=== PATIENT | female | born 1955 | race African-American/Black ===

== ENCOUNTER → 2017-01-05 | Outpatient (CLI) | payer MEDICARE, MEDICAID ==
[2017-01-05 11:30] LABS: ANION GAP 10 (5-19); BLOOD UREA NITROGEN 9 mg/dL (7-20); CALCIUM 9.2 mg/dL (8.4-10.2); CARBON DIOXIDE 26 mmol/L (22-30); CHLORIDE 103 mmol/L (98-107); CHOLESTEROL 146.41 mg/dL (0-200); CREATININE RESULT 0.78 mg/dL (0.52-1.25); Direct HDL 58 mg/dL (>40); GLUCOSE 90 mg/dL (75-110); POTASSIUM 3.7 mmol/L (3.6-5.0); SODIUM 139.2 mmol/L (137-145); TRIGLYCERIDES 58 mg/dL (<150)
[2017-01-05 11:41] LABS: DIRECT LDL 70 mg/dL (<100)
== END ==
LOC: OD 09:41
PROVIDERS: ATTEND Family Medicine
DX: I10 Essential (primary) hypertension (principal); E78.5 Hyperlipidemia, unspecified; E03.9 Hypothyroidism, unspecified; Z79.899 Other long term (current) drug therapy
CPT/HCPCS: 36415; 80048; 80061; 83036; 84443

== ENCOUNTER → 2017-03-06 | Outpatient (CLI) | payer MEDICARE, MEDICAID | LOC: OD 15:55 | PROVIDERS: ATTEND Physician Assistant Medical | DX: R06.02 Shortness of breath (principal); I51.7 Cardiomegaly | CPT/HCPCS: 71020 ==

== ENCOUNTER → 2017-06-02 | Outpatient (CLI) | payer MEDICARE, MEDICAID ==
--- NOTE | 2017-06-02 13:31 | RADIOLOGY REPORT (SQ) ---
EXAM DESCRIPTION: KNEE LEFT 4 VIEWS COMPLETED DATE/TIME: 06/02/2017 1:20 pm REASON FOR STUDY: RECURRENT MARY KNEE PAIN M25.562 PAIN IN LEFT KNEE M25.561 PAIN IN RIGHT KNEE COMPARISON: None. NUMBER OF VIEWS: Four views. TECHNIQUE: AP, lateral, and both oblique radiographic images acquired of the left knee. LIMITATIONS: None. FINDINGS: MINERALIZATION: Osteopenia. BONES: No acute fracture or dislocation. No worrisome bone lesions. JOINT: There is no significant joint effusion. There is mild narrowing of the medial and lateral ty nt compartment, medial more than lateral. There are small marginal osteophytes. There are prominent posterior patellar and trochlear osteophytes. SOFT TISSUES: No soft tissue swelling. No radio-opaque foreign body. OTHER: No other significant finding. IMPRESSION: There are mild degenerative joint changes in the medial and lateral joint compartments a nd significant patellofemoral degenerative joint changes as described. TECHNICAL DOCUMENTATION: JOB ID: [id number] [employer]- All Rights Reserved
--- NOTE | 2017-06-02 13:33 | RADIOLOGY REPORT (SQ) ---
EXAM DESCRIPTION: KNEE RIGHT 4 VIEWS COMPLETED DATE/TIME: 06/02/2017 1:20 pm REASON FOR STUDY: RECURRENT MARY KNEE PAIN M25.562 PAIN IN LEFT KNEE M25.561 PAIN IN RIGHT KNEE COMPARISON: None. NUMBER OF VIEWS: Four views. TECHNIQUE: AP, lateral, and both oblique radiographic images acquired of the right knee. LIMITATIONS: None. FINDINGS: MINERALIZATION: Osteopenia. BONES: No acute fracture or dislocation. No worrisome bone lesions. JOINT: There is mild narrowing of the medial joint compartment with small marginal osteophytes. Ther e is more significant narrowing of the patellofemoral compartment with posterior patellar and trochle ar osteophytes. SOFT TISSUES: No soft tissue swelling. No radio-opaque foreign body. OTHER: No other significant finding. IMPRESSION: Medial and patellofemoral degenerative joint changes. The more significant findings inv olves the patellofemoral compartment. The changes in this compartment are not as severe as those see n in the left knee. TECHNICAL DOCUMENTATION: JOB ID: [id number] [employer]- All Rights Reserved
== END ==
LOC: OD 12:50
PROVIDERS: ATTEND Family Medicine
DX: M25.562 Pain in left knee (principal); M25.561 Pain in right knee; M17.0 Bilateral primary osteoarthritis of knee

== ENCOUNTER → 2018-02-08 | Outpatient (CLI) | payer MEDICARE, MEDICAID ==
--- NOTE | 2018-02-09 08:40 | WOMENS IMAGING REPORT ---
EXAM DESCRIPTION: 3D SCREENING MAMMO BILAT COMPLETED DATE/TIME: 02/08/2018 4:11 pm REASON FOR STUDY: ROUTINE SCREENING;Z12.31 Z12.31 ENCNTR SCREEN MAMMOGRAM FOR MALIGNANT NEOPLASM OF [place] COMPARISON: September 2016 and September 2015 TECHNIQUE: Standard craniocaudal and mediolateral oblique views of each breast recorded using digita l acquisition and breast tomosynthesis. LIMITATIONS: None. FINDINGS: Findings present which are benign by mammographic criteria. No suspicious masses, calcifi cations or architectural distortion. Pertinent benign findings: Bilateral postsurgical changes appears stable. Small nodular changes appe ars stable. Read with the assistance of CAD. .[facility] - R2 Cenova Version 1.3 .[facility] Imaging - R2 Cenova Version 1.3 .[facility] Imaging - R2 Cenova Version 2.4 .[facility] [place]2 Cenova Version 2.4 .[facility] - R2 Fish Boning Machine Feeder Version 9.2 Benign mammographic findings may include one or more of the following: Smooth masses, popcorn/rim/co arse calcifications, asymmetries, post-procedure changes, and lesions with long-standing stability. IMPRESSION: BENIGN MAMMOGRAPHIC FINDINGS. BIRADS 2 BREAST DENSITY: a. The breasts are almost entirely fatty. BIRAD: 2 BENIGN FINDING(S) RECOMMENDATION: RECOMMENDATION: ROUTINE SCREENING COMMENT: The patient has been notified of the results by letter per SA requirements. Additional no tification policies are in place for contacting patient with suspicious or incomplete findings. Quality ID #[id number]: The [employer] recommends an annual screening mammogram for women aged 40 years or over. This facility utilizes a reminder system to ensure that all patients receive reminder letters, and/or direct phone calls for appointments. This includes reminders for routine scr eening mammograms, diagnostic mammograms, or other Breast Imaging Interventions when appropriate. Th is patient will be placed in the appropriate reminder system. The [employer] (A[employer]) has developed recommendations for screening MRI of the breast s in certain patient populations, to be used in conjunction with mammography. Breast MRI surveillanc e may be appropriate for women with more than 20% lifetime risk of developing breast cancer as deter mined by genetic testing, significant family history of the disease, or history of mantle radiation f or Hodgkins Disease. ACR Practice Guidelines 2008. DBT Technology DBT is a type of tomographic mammography. With conventional mammography, overlapping breast tissue ma y make lesions difficult to detect, even with good compression. DBT uses an x-ray tube that rotates a round the breast, taking images at different angles. These images are then combined to create thin sl ices of the breast that the radiologist can view as a 3D reconstruction. The [employer] unit can perform full-field digital mammograms (2D imaging); or DBT (3D imaging); or both, in a combination mode that quickly performs both the mammogram and the tomosynthesis scan while the breast is still compressed. PQRS 6045F: Fluoroscopic imaging is not utilized for breast tomosynthesis. TECHNICAL DOCUMENTATION: FINDING NUMBER: (1) ASSESSMENT: (1) JOB ID: [id number] [employer]- All Rights Reserved Reading location - IP/workstation name: [email or web address]-[email or web address]
== END ==
LOC: WI 15:05
PROVIDERS: ATTEND Family Medicine
DX: Z12.31 Encounter for screening mammogram for malignant neoplasm of breast (principal)
CPT/HCPCS: 77063; 77067

== ENCOUNTER 2018-05-16 14:56 | Observation (INO) | payer MEDICARE, MEDICAID ==
[2018-05-16] MEDS ORDERED: BENZTROPINE MESYLATE 1 MG TABLET PO ONE (15:17)
[2018-05-16 15:53] LABS: ABSOLUTE EOSINOPHILS # (AUTO) 0.1 10^3/uL (0.0-0.6); ABSOLUTE MONOCYTES (AUTO) 0.5 10^3/uL (0.1-1.4); BASOPHILS % (AUTO) 0.8 % (0-2); EOSINOPHILS % (AUTO) 2.2 % (0-6); HEMATOCRIT 42.8 % (36.0-47.0); HEMOGLOBIN 14.1 g/dL (12.0-15.5); MEAN CORPUSCULAR HEMOGLOBIN 26.9 pg (27.0-33.4); MEAN CORPUSCULAR HGB CONC 32.9 g/dL (32.0-36.0); MEAN CORPUSCULAR VOLUME 82 fl (80-97); MONOCYTES % (AUTO) 10.6 % (3-13); PLATELET COUNT 286 10^3/uL (150-450); RED BLOOD COUNT 5.22 10^6/uL (3.72-5.28); RED CELL DISTRIBUTION WIDTH 15.2 % (11.5-14.0); SEGMENTED NEUTROPHILS % (AUTO) 65.4 % (42-78); TOTAL CELLS COUNTED % (AUTO) 100 %; WHITE BLOOD COUNT 4.6 10^3/uL (4.0-10.5)
[2018-05-16 15:55] LABS: VENOUS BLOOD BASE EXCESS 6.5 mmol/L; VENOUS BLOOD HCO3 33.7 mmol/L (20-32); VENOUS BLOOD PCO2 59.3 mmHg (35-63); VENOUS BLOOD PH 7.37 (7.30-7.42)
[2018-05-16 15:58] LABS: INTERNATIONAL RATION (INR) 1.04; PROTHROMBIN TIME 14.1 SEC (11.4-15.4)
[2018-05-16 15:59] LABS: PARTIAL THROMBOPLASTIN TIME 29.6 SEC (23.5-35.8)
[2018-05-16 16:00] LABS: APPEARANCE,URINE SLIGHTLY-CLOUDY; BILIRUBIN,URINE NEGATIVE (NEGATIVE); COLOR,URINE YELLOW; GLUCOSE, URINE NEGATIVE (NEGATIVE); KETONES,URINE NEGATIVE (NEGATIVE); LEUKOCYTE ESTERASE,URINE MODERATE (NEGATIVE); NITRITE,URINE POSITIVE (NEGATIVE); PROTEIN,URINE NEGATIVE (NEGATIVE); URINE SPECIFIC GRAVITY 1.016
--- NOTE | 2018-05-16 16:16 | RADIOLOGY REPORT (SQ) ---
EXAM DESCRIPTION: CT HEAD WITHOUT COMPLETED DATE/TIME: 05/16/2018 4:04 pm REASON FOR STUDY: ams COMPARISON: None. TECHNIQUE: Axial images acquired through the brain without intravenous contrast. Images reviewed wi th bone, brain and subdural windows. Images stored on PACS. All CT scanners at this facility use dose modulation, iterative reconstruction, and/or weight based d osing when appropriate to reduce radiation dose to as low as reasonably achievable (ALARA). [facility]: Dose Right [facility]: CareDose [facility]: Dose Right [facility]: Teradose 4D [facility]: Smart UsingMiles RADIATION DOSE: CT Rad equipment meets quality standard of care and radiation dose reduction techniq ues were employed. CTDIvol: 53.2 - 55.2 mGy. DLP: 2074 mGy-cm. mGy. LIMITATIONS: Severe limitation due to significant patient motion artifact . FINDINGS: VENTRICLES: Normal size and contour. CEREBRUM: No masses. No hemorrhage. No midline shift. No evidence for acute infarction.CEREBELLUM: No masses. No hemorrhage. No alteration of density. No evidence for acute infarction. EXTRAAXIAL SPACES: No fluid collections. No masses. ORBITS AND GLOBE: No intra- or extraconal masses. Normal contour of globe without masses. CALVARIUM: No fracture. PARANASAL SINUSES: No fluid or mucosal thickening. SOFT TISSUES: No mass or hematoma. OTHER: Calcification along the tentorium in the falx noted. IMPRESSION: Severely limited study due to patient motion artifact. For repeat study should be consi dered when patient able to cooperate. No intracranial hemorrhage identified. EVIDENCE OF ACUTE STROKE: NO. COMMENT: Quality ID # [id number]: Final reports with documentation of one or more dose reduction techniques (e.g., Automated exposure control, adjustment of the mA and/or kV according to patient size, use of iterative reconstruction technique) TECHNICAL DOCUMENTATION: JOB ID: [id number] [employer]- All Rights Reserved Reading location - IP/workstation name: [email or web address]
--- NOTE | 2018-05-16 16:19 | RADIOLOGY REPORT (SQ) ---
EXAM DESCRIPTION: CHEST 2 VIEWS COMPLETED DATE/TIME: 05/16/2018 4:10 pm REASON FOR STUDY: ams COMPARISON: 08/25/2016 EXAM PARAMETERS: NUMBER OF VIEWS: two views TECHNIQUE: Digital Frontal and Lateral radiographic views of the chest acquired. RADIATION DOSE: NA LIMITATIONS: none FINDINGS: LUNGS AND PLEURA: Mild pulmonary vascular congestion. No pulmonary edema. No infiltrate or effusion. MEDIASTINUM AND HILAR STRUCTURES: No masses or contour abnormalities. HEART AND VASCULAR STRUCTURES: Cardiomegaly. BONES: No acute findings. HARDWARE: None in the chest. OTHER: No other significant finding. IMPRESSION: Cardiomegaly without christian pulmonary edema. TECHNICAL DOCUMENTATION: JOB ID: [id number] [employer]- All Rights Reserved Reading location - IP/workstation name: [email or web address]
[2018-05-16 16:24] LABS: ALANINE AMINOTRANSFERASE 19 U/L (9-52); ALBUMIN 3.3 g/dL (3.5-5.0); ALKALINE PHOSPHATASE 115 U/L (38-126); ANION GAP 10 (5-19); ASPARTATE AMINO TRANSFERASE 41 U/L (14-36); BILIRUBIN,DIRECT 0.5 mg/dL (0.0-0.4); BILIRUBIN,TOTAL 0.7 mg/dL (0.2-1.3); BLOOD UREA NITROGEN 13 mg/dL (7-20); CALCIUM 9.1 mg/dL (8.4-10.2); CARBON DIOXIDE 35 mmol/L (22-30); CHLORIDE 103 mmol/L (98-107); GLUCOSE 127 mg/dL (75-110); POTASSIUM 3.4 mmol/L (3.6-5.0); SODIUM 148.4 mmol/L (137-145); TOTAL PROTEIN 6.6 g/dL (6.3-8.2)
[2018-05-16] MEDS ORDERED: CEFTRIAXONE 1 GM/D5W RTU 1 GM/50 ML RTUPB IV ONE (16:28)
[2018-05-16] MEDS ORDERED: RIFAXIMIN 550 MG TABLET PO ONE (16:28)
[2018-05-16] MEDS ORDERED: CEFTRIAXONE SODIUM 1,000 MG in DEXTROSE 5%-WATER 50 ML IV ONE (17:00)
[2018-05-16] MEDS ORDERED: MAGNESIUM HYDROXIDE SUSP 30 ML UDCUP PO PRN (17:07)
[2018-05-16] MEDS ORDERED: NORMAL SALINE 1000 ML 1,000 ML IV PRN (17:07)
[2018-05-16] MEDS ORDERED: ACETAMINOPHEN 325 MG TABLET PO PRN (17:07)
[2018-05-16] MEDS ORDERED: OXYCODONE-ACETAMINOPHEN 5-325 MG TABLET PO PRN (17:07)
[2018-05-16] MEDS ORDERED: ONDANSETRON HCL INJ/PF 4 MG/2 ML SDV IV PRN (17:07)
--- NOTE | 2018-05-16 17:24 | PDOC H&P ---
History of Present Illness Admission Date/PCP: KEYLA KAUFMAN MD Patient complains of: Change in mental status History of Present Illness: MICHAEL BOWLING is a 62 year old female This patient presented to the emergency room with change in total status. Please note although patient is more oriented and awake now she is unable to provide much information. States that she lives alone but her sister is involved in her care. She was noted to be somewhat confused and she realized that she was confused any but after being in the emergency room and getting some fluids she states she feels better. She denies any nausea vomiting or fever. She was found to have urinary tract infection in the emergency room. She denies any abdominal pain diarrhea dysuria frequency or any other pertinent symptoms. Past Medical History Cardiac Medical History: Reports: Atrial Fibrillation, Congestive Heart Failure , Coronary Artery Disease, Hypertension - on meds Denies: Myocardial Infarction, Hyperlipidema, Peripheral Vascular Disease, Heart Murmur Pulmonary Medical History: Reports: Bronchitis, Pneumonia - hx of Denies: Asthma, Chronic Obstructive Pulmonary Disease (COPD), Tuberculosis Neurological Medical History: Denies: Seizures Endocrine Medical History: Reports: Hypothyroidism Denies: Hyperthyroidism Renal/ Medical History: Denies: End Stage Renal Disease Malignancy Medical History: Reports: Breast Cancer Denies: Cervical Cancer, Ovarian Cancer GI Medical History: Denies: Crohn's Disease, Gastroesophageal Reflux Disease, Hiatal Hernia Musculoskeltal Medical History: Reports: Arthritis - knees Denies: Fibromyalgia Psychiatric Medical History: Denies: Depression Hematology: Reports: Anemia - hx of Past Surgical History Past Surgical History: Reports: Hysterectomy, Mastectomy - right partial, Tonsillectomy Denies: Amputation, Appendectomy, Cholecystectomy, Colostomy, Coronary Artery Bypass Graft, Gastric Bypass Surgery, Herniorrhaphy, Pacemaker, Tubal Ligation Social History Information Source: Patient Lives with: Alone Smoking Status: Never Smoker Frequency of Alcohol Use: Rare Hx Recreational Drug Use: No Hx Prescription Drug Abuse: No - Advance Directive Resuscitation Status: Full Code Family History Family History: Reviewed & Not Pertinent, DM, Hyperlipidemia, Hypertension Parental Family History Reviewed: Yes Children Family History Reviewed: Yes Sibling(s) Family History Reviewed.: Yes Medication/Allergy Home Medications: Aspirin [Ecotrin 81 mg EC Tablet] 81 mg PO QHS 10/29/11 Metoprolol Tartrate [Lopressor 50 mg Tablet] 50 mg PO DAILY 12/24/11 Spironolactone 100 mg PO QHS 10/29/11 Dicyclomine HCl [Bentyl 20 mg Tablet] 20 mg PO QID PRN 10/30/11 Levothyroxine Sodium [Synthroid 0.1 mg Tablet] 100 mcg PO DAILY 10/30/11 Nitroglycerin [Nitro-Dur 5 mg (0.2 mg/Hr) Transdermal Patch] 1 patch TD QAM 30/09 Benzonatate [Tessalon Perles 100 mg Capsule] 200 mg PO QID PRN 11/14/13 Atorvastatin Calcium [Lipitor 10 mg Tablet] 20 mg PO QHS 11/17/13 Furosemide [Lasix 40 mg Tablet] 80 mg PO BID 11/17/13 Diltiazem HCl [Diltiazem 24Hr Cd] 180 mg PO BID 12/01/15 Oxycodone HCl/Acetaminophen [Percocet 5-325 mg Tablet] 1 tab PO Q6HP PRN #0 tablet 12/02/15 Ondansetron [Zofran Odt 4 mg Tablet] 1 - 2 tab PO Q4H PRN #15 tab.rapdis Sucralfate [Carafate 1 gm Tablet] 1 gm PO ACHS #14 tablet 08/24/16 Allergies/Adverse Reactions: clemastine fumarate [From Tavist-1] Allergy (Severe, Verified 12/01/15 07:55) red spots,N/V Shark Cartilage [From Shark Fin Cartilage] Allergy (Severe, Verified 12/01/15 07 :55) hives, n and v iodine [Iodine] Allergy (Unknown, Verified 12/01/15 07:55) vomit/rash meperidine HCl [From Demerol] Allergy (Unknown, Verified 12/01/15 07:55) N/V pseudoephedrine HCl [From Sudafed] Allergy (Unknown, Verified 12/01/15 07:55) rash/itch glove powder Allergy (Severe, Uncoded 01/23/15 18:04) hands swell,itch Review of Systems All systems: reviewed and no additional remarkable complaints except as stated Physical Exam Vital Signs: Temp Pulse Resp BP Pulse Ox 97.7 F 80 14 121/76 97 05/16/18 14:58 05/16/18 14:58 05/16/18 14:58 05/16/18 14:58 05/16/18 14:58 Intake & Output 05/15/18 05/16/18 05/17/18 06:59 06:59 06:59 Weight 154 kg General appearance: PRESENT: no acute distress, morbidly obese, well-developed, well-nourished Head exam: PRESENT: atraumatic, normocephalic Eye exam: PRESENT: conjunctiva pink, EOMI, PERRLA. ABSENT: scleral icterus Ear exam: PRESENT: normal external ear exam Mouth exam: PRESENT: moist, tongue midline Neck exam: ABSENT: carotid bruit, JVD, lymphadenopathy, thyromegaly Respiratory exam: PRESENT: clear to auscultation refugio. ABSENT: rales, rhonchi, wheezes Cardiovascular exam: PRESENT: RRR. ABSENT: diastolic murmur, rubs, systolic murmur Pulses: PRESENT: normal dorsalis pedis pul Vascular exam: PRESENT: normal capillary refill GI/Abdominal exam: PRESENT: normal bowel sounds, soft. ABSENT: distended, guarding, mass, organolmegaly, rebound, tenderness Rectal exam: PRESENT: deferred Extremities exam: PRESENT: full ROM. ABSENT: calf tenderness, clubbing, pedal edema Neurological exam: PRESENT: alert, awake, oriented to person, oriented to place , oriented to time, oriented to situation, CN II-XII grossly intact, other - Facial twitching. ABSENT: motor sensory deficit Psychiatric exam: PRESENT: appropriate affect, normal mood. ABSENT: homicidal ideation, suicidal ideation Skin exam: PRESENT: dry, intact, warm. ABSENT: cyanosis, rash Results Laboratory Results: 05/16/18 15:36 05/16/18 15:36 05/16/18 05/16/18 05/16/18 15:36 15:36 15:36 WBC 4.6 RBC 5.22 Hgb 14.1 Hct 42.8 MCV 82 MCH 26.9 L MCHC 32.9 RDW 15.2 H Plt Count 286 Seg Neutrophils % 65.4 Lymphocytes % 21.0 Monocytes % 10.6 Eosinophils % 2.2 Basophils % 0.8 Absolute Neutrophils 3.0 Absolute Lymphocytes 1.0 Absolute Monocytes 0.5 Absolute Eosinophils 0.1 Absolute Basophils 0.0 VBG pH VBG pCO2 VBG HCO3 VBG Base Excess Sodium 148.4 H Potassium 3.4 L Chloride 103 Carbon Dioxide 35 H Anion Gap 10 BUN 13 Creatinine 1.02 Est GFR ( Amer) > 60 Est GFR (Non-Af Amer) 55 L Glucose 127 H Lactic Acid 2.8 H Calcium 9.1 Total Bilirubin 0.7 AST 41 H ALT 19 Alkaline Phosphatase 115 Ammonia Total Protein 6.6 Albumin 3.3 L Urine Color Urine Appearance Urine pH Ur Specific [place] Urine Protein Urine Glucose (UA) Urine Ketones Urine Blood Urine Nitrite Ur Leukocyte Esterase Urine WBC (Auto) Urine RBC (Auto) 05/16/18 05/16/18 05/16/18 15:36 15:36 15:36 WBC RBC Hgb Hct MCV MCH MCHC RDW Plt Count Seg Neutrophils % Lymphocytes % Monocytes % Eosinophils % Basophils % Absolute Neutrophils Absolute Lymphocytes Absolute Monocytes Absolute Eosinophils Absolute Basophils VBG pH 7.37 VBG pCO2 59.3 VBG HCO3 33.7 H VBG Base Excess 6.5 Sodium Potassium Chloride Carbon Dioxide Anion Gap BUN Creatinine Est GFR ( Amer) Est GFR (Non-Af Amer) Glucose Lactic Acid Calcium Total Bilirubin AST ALT Alkaline Phosphatase Ammonia 85.5 H Total Protein Albumin Urine Color YELLOW Urine Appearance SLIGHTLY-CLOUDY Urine pH 6.0 Ur Specific [place] 1.016 Urine Protein NEGATIVE Urine Glucose (UA) NEGATIVE Urine Ketones NEGATIVE Urine Blood NEGATIVE Urine Nitrite POSITIVE H Ur Leukocyte Esterase MODERATE H Urine WBC (Auto) 45 Urine RBC (Auto) 1 05/16/18 15:03 Troponin I < 0.012 Impressions: Chest X-Ray 05/16/18 15:13 IMPRESSION: Cardiomegaly without christian pulmonary edema. Head CT 05/16/18 15:13 IMPRESSION: Severely limited study due to patient motion artifact. For repeat study should be considered when patient able to cooperate. No intracranial hemorrhage identified. EVIDENCE OF ACUTE STROKE: NO. Assessment & Plan - Diagnosis (1) Urinary tract infection Is this a current diagnosis for this admission?: Yes Plan: She has been started empirically on ceftriaxone. Cultures will be followed and adjustments made as appropriate She also had a confusion however by the time I saw her patient appeared to be at her baseline as she was able to answer questions appropriately. - Time Time Spent: 30 to 50 Minutes Medications reviewed and adjusted accordingly: Yes Anticipated discharge: Home Within: within 48 hours - Inpatient Certification Based on my medical assessment, after consideration of the patient's comorbidities, presenting symptoms, or acuity I expect that the services needed warrant INPATIENT care.: Yes Medical Necessity: Need For IV Fluids, Need for IV Antibiotics - Plan Summary Plan Summary: At this time her medications have not been reconciled as they are not available
--- NOTE | 2018-05-16 17:54 | ER Document Report ---
ED General - General Chief Complaint: Altered Mental Status Stated Complaint: ALTERED MENTAL STATUS Time Seen by Provider: 05/16/18 15:03 TRAVEL OUTSIDE OF THE [place] IN LAST 30 DAYS: No - HPI Patient complains to provider of: Altered mental status Notes: Patient coming in for evaluation altered mental status. Patient according to the sister at bedside has a history of altered mental status today was normal until 8:00 in the morning when she started acting abnormal having abnormal head movement and abnormal upper arm movement. Patient upon my evaluation is alert however slightly confused state is 1916 unable to recall some events throughout the day. Patient is moving all 4 extremities and does have some lip smacking and spastic motion of her upper extremities. Denies any fevers chills nausea vomiting diarrhea. Patient denies any pain chest pain abdominal pain denies any dysuria. Patient also very self aware that she is confused. - Related Data Allergies/Adverse Reactions: clemastine fumarate [From Tavist-1] Allergy (Severe, Verified 12/01/15 07:55) red spots,N/V Shark Cartilage [From Shark Fin Cartilage] Allergy (Severe, Verified 12/01/15 07 :55) hives, n and v iodine [Iodine] Allergy (Unknown, Verified 12/01/15 07:55) vomit/rash meperidine HCl [From Demerol] Allergy (Unknown, Verified 12/01/15 07:55) N/V pseudoephedrine HCl [From Sudafed] Allergy (Unknown, Verified 12/01/15 07:55) rash/itch glove powder Allergy (Severe, Uncoded 01/23/15 18:04) hands swell,itch Past Medical History - Social History Smoking Status: Never Smoker Lives with: Alone Family History: Reviewed & Not Pertinent, DM, Hyperlipidemia, Hypertension Patient has suicidal ideation: No Patient has homicidal ideation: No - Past Medical History Cardiac Medical History: Reports: Hx Atrial Fibrillation, Hx Congestive Heart Failure, Hx Coronary Artery Disease, Hx Hypertension - on meds Denies: Hx Heart Attack, Hx Hypercholesterolemia, Hx Peripheral Vascular Disease, Hx Heart Murmur Pulmonary Medical History: Reports: Hx Bronchitis, Hx Pneumonia - hx of Denies: Hx Asthma, Hx COPD, Hx Tuberculosis Neurological Medical History: Denies: Hx Cerebrovascular Accident, Hx Seizures Endocrine Medical History: Reports: Hx Hypothyroidism. Denies: Hx Graves' Disease, Hx Hyperthyroidism Renal/ Medical History: Denies: Hx End Stage Renal Disease, Hx Kidney Stones, Hx Ovarian Cysts, Hx Peritoneal Dialysis, Hx Pelvic Inflammatory Disease Malignancy Medical History: Reports: Hx Breast Cancer. Denies: Hx Cervical Cancer, Hx Ovarian Cancer GI Medical History: Reports: Hx Colonoscopy. Denies: Hx Crohn's Disease, Hx Gastroesophageal Reflux Disease, Hx Hiatal Hernia, Hx Irritable Bowel, Hx Liver Failure, Hx Pancreatitis, Hx Ulcer Musculoskeltal Medical History: Reports Hx Arthritis - knees, Denies Hx Fibromyalgia, Denies Hx Muscular Dystrophy Psychiatric Medical History: Denies: Hx Depression Traumatic Medical History: Denies: Hx Fractures Past Surgical History: Reports: Hx Abdominal Surgery - abd hernia, colon polpys , Hx Section, Hx Hysterectomy, Hx Mastectomy - right partial, Hx Tonsillectomy. Denies: Hx Appendectomy, Hx Bowel Surgery, Hx Cholecystectomy, Hx Colostomy, Hx Coronary Artery Bypass Graft, Hx Gastric Bypass Surgery, Hx Herniorrhaphy, Hx Pacemaker, Hx Tubal Ligation - Immunizations Hx Diphtheria, Pertussis, Tetanus Vaccination: Yes Hx Pneumococcal Vaccination: 07/07/11 Review of Systems - Review of Systems Constitutional: Other - Confusion EENT: No symptoms reported Cardiovascular: No symptoms reported Respiratory: No symptoms reported Gastrointestinal: No symptoms reported Genitourinary: No symptoms reported Female Genitourinary: No symptoms reported Musculoskeletal: No symptoms reported Skin: No symptoms reported Hematologic/Lymphatic: No symptoms reported Neurological/Psychological: No symptoms reported Physical Exam - Vital signs Vitals: Temp Pulse Resp BP Pulse Ox 97.7 F 80 14 121/76 97 05/16/18 14:58 05/16/18 14:58 05/16/18 14:58 05/16/18 14:58 05/16/18 14:58 Interpretation: Normal - General General appearance: Appears well, Alert - HEENT Head: Normocephalic, Atraumatic Eyes: Normal Pupils: PERRL - Respiratory Respiratory status: No respiratory distress Chest status: Nontender Breath sounds: Normal Chest palpation: Normal - Cardiovascular Rhythm: Regular Heart sounds: Normal auscultation Murmur: No - Abdominal Inspection: Normal, Obese Distension: No distension Bowel sounds: Normal Tenderness: Nontender Organomegaly: No organomegaly - Back Back: Normal, Nontender - Extremities General upper extremity: Normal inspection, Nontender, Normal color, Normal ROM , Normal temperature General lower extremity: Normal inspection, Nontender, Normal color, Normal ROM , Normal temperature, Normal weight bearing. No: Roland's sign - Neurological Neuro grossly intact: Yes Cognition: Normal Orientation: Disoriented to person [place] Coma Scale Eye Opening: Spontaneous [place] Coma Scale Verbal: Confused [place] Coma Scale Motor: Obeys Commands [place] Coma Scale Total: 14 Speech: Normal Motor strength normal: LUE, RUE, LLE, RLE Sensory: Normal - Psychological Associated symptoms: Normal affect, Normal mood - Skin Skin Temperature: Warm Skin Moisture: Dry Skin Color: Normal Course - Re-evaluation Re-evalutation: 05/16/18 22:53 Laboratory studies showed hyperammonemia and a urinary tract infection CT of the head does not show any acute signs of bleeding at this time. Patient's case was referred to the hospitalist for further admission and disposition. - Vital Signs Vital signs: Temp Pulse Resp BP Pulse Ox 97.7 F 80 21 H 110/74 90 L 05/16/18 14:58 05/16/18 14:58 05/16/18 21:01 05/16/18 21:01 05/16/18 22:00 - Laboratory Result Diagrams: 05/16/18 15:36 05/16/18 15:36 Laboratory results interpreted by me: 05/16/18 05/16/18 05/16/18 15:36 15:36 15:36 MCH 26.9 L RDW 15.2 H VBG HCO3 Sodium 148.4 H Potassium 3.4 L Carbon Dioxide 35 H Est GFR (Non-Af Amer) 55 L Glucose 127 H POC Glucose Lactic Acid 2.8 H Direct Bilirubin 0.5 H AST 41 H Ammonia Albumin 3.3 L Urine Nitrite Urine Urobilinogen Ur Leukocyte Esterase 05/16/18 05/16/18 05/16/18 15:36 15:36 15:36 MCH RDW VBG HCO3 33.7 H Sodium Potassium Carbon Dioxide Est GFR (Non-Af Amer) Glucose POC Glucose Lactic Acid Direct Bilirubin AST Ammonia 85.5 H Albumin Urine Nitrite POSITIVE H Urine Urobilinogen 4.0 H Ur Leukocyte Esterase MODERATE H 05/16/18 16:24 MCH RDW VBG HCO3 Sodium Potassium Carbon Dioxide Est GFR (Non-Af Amer) Glucose POC Glucose 114 H Lactic Acid Direct Bilirubin AST Ammonia Albumin Urine Nitrite Urine Urobilinogen Ur Leukocyte Esterase Discharge - Discharge Clinical Impression: Sleep apnea with use of continuous positive airway pressure (CPAP), Hyperammonemia Urinary tract infection Qualifiers: Urinary tract infection type: acute cystitis Hematuria presence: with hematuria Qualified Code(s): N30.01 - Acute cystitis with hematuria Altered mental status Qualifiers: Altered mental status type: unspecified Qualified Code(s): R41.82 - Altered mental status, unspecified Condition: Good Disposition: ADMITTED OBSERVATION Unit Admitted: Medical Floor
[2018-05-16] MEDS ORDERED: ENOXAPARIN SODIUM INJ 40 MG/0.4 ML DISP.SYRIN SUBCUT ONE (19:00)
--- NOTE | 2018-05-16 21:28 | EKG REPORT ---
SEVERITY:- ABNORMAL ECG - ATRIAL FIBRILLATION LEFT AXIS DEVIATION LOW VOLTAGE IN FRONTAL LEADS PROBABLE POSTERIOR INFARCT : Confirmed by: Jaja Khanna MD 16-May-2018 21:28:01
[2018-05-17] MEDS ORDERED: LACTULOSE SYRUP 20 GM/30 ML UDCUP PO ONE (00:45)
[2018-05-17] MEDS: LACTULOSE SYRUP 20 GM/30 ML UDCUP PO SCH ×3 (06:35→17:02)
[2018-05-17 07:30] LABS: HEMATOCRIT 45.6 % (36.0-47.0); HEMOGLOBIN 15.1 g/dL (12.0-15.5); MEAN CORPUSCULAR HEMOGLOBIN 26.9 pg (27.0-33.4); MEAN CORPUSCULAR HGB CONC 33.3 g/dL (32.0-36.0); MEAN CORPUSCULAR VOLUME 81 fl (80-97); PLATELET COUNT 238 10^3/uL (150-450); RED BLOOD COUNT 5.62 10^6/uL (3.72-5.28); RED CELL DISTRIBUTION WIDTH 15.6 % (11.5-14.0); WHITE BLOOD COUNT 3.9 10^3/uL (4.0-10.5)
[2018-05-17 07:49] LABS: ANION GAP 9 (5-19); BLOOD UREA NITROGEN 10 mg/dL (7-20); CALCIUM 9.5 mg/dL (8.4-10.2); CARBON DIOXIDE 32 mmol/L (22-30); CHLORIDE 106 mmol/L (98-107); GLUCOSE 94 mg/dL (75-110); POTASSIUM 3.7 mmol/L (3.6-5.0); SODIUM 147.2 mmol/L (137-145)
[2018-05-17] MEDS ORDERED: CEFTRIAXONE 1 GM/D5W RTU 1 GM/50 ML RTUPB IV SCH (10:00)
[2018-05-17] MEDS: POTASSIUM CHLORIDE 10 MEQ CAPSULE.ER PO SCH (10:29)
[2018-05-17] MEDS: ENOXAPARIN SODIUM INJ 40 MG/0.4 ML DISP.SYRIN SUBCUT SCH (10:30)
[2018-05-17] MEDS: DOCUSATE SODIUM 100 MG CAPSULE PO SCH (10:35)
[2018-05-17] MEDS ORDERED: ONDANSETRON HCL INJ/PF 4 MG/2 ML SDV IV PRN (15:00)
[2018-05-17] MEDS: CEFTRIAXONE SODIUM 1,000 MG in DEXTROSE 5%-WATER 50 ML IV SCH (17:09)
--- NOTE | 2018-05-17 17:42 | PDOC PROGRESS REPORT ---
<DELFINA WEAVER - Last Filed: 05/17/18 17:37> Subjective Progress Note for:: 05/17/18 Subjective:: MICHAEL BOWLING is a 62 year old female with a PMH of AFIB, CHF, CAD, bronchitis, HYPOthyroidism, breast cancer, and cronic anemia. She presented on with encephalopathy and was found to have a UTI. The patient was admitted on IV antibiotics. The patient was seen this morning on rounds. She is sitting up on the side of the bed eating breakfast. She is A&Ox3 and able to answer all questions (she hesitated when asked about the season, said it was 'spring' but was able to tell me it was 2017). The patient has no complaints this morning. Reason For Visit: UTI,ACUTE ENCEPHALOPATHY Physical Exam Vital Signs: Temp Pulse Resp BP Pulse Ox 97.4 F 93 22 H 135/61 H 98 05/17/18 07:30 05/17/18 07:30 05/17/18 07:30 05/17/18 07:30 05/17/18 07:30 Intake & Output 05/16/18 05/17/18 05/18/18 06:59 06:59 06:59 Weight 154.2 kg General appearance: PRESENT: no acute distress, morbidly obese Eye exam: PRESENT: conjunctiva pink, PERRLA Mouth exam: PRESENT: moist Neck exam: PRESENT: full ROM Respiratory exam: PRESENT: clear to auscultation refugio, symmetrical, unlabored Cardiovascular exam: PRESENT: irregular rhythm Pulses: PRESENT: normal radial pulses, normal dorsalis pedis pul GI/Abdominal exam: PRESENT: soft. ABSENT: tenderness Rectal exam: PRESENT: deferred Extremities exam: PRESENT: full ROM, +1 edema Musculoskeletal exam: PRESENT: ambulatory, full ROM Neurological exam: PRESENT: alert, awake, oriented to person, oriented to place , oriented to time, oriented to situation Skin exam: PRESENT: dry, intact, normal color Results Laboratory Results: 05/17/18 07:18 05/17/18 07:18 05/16/18 05/17/18 05/17/18 20:37 07: 07:18 WBC 3.9 L RBC 5.62 H Hgb 15.1 Hct 45.6 MCV 81 MCH 26.9 L MCHC 33.3 RDW 15.6 H Plt Count 238 Sodium 147.2 H Potassium 3.7 Chloride 106 Carbon Dioxide 32 H Anion Gap 9 BUN 10 Creatinine 0.83 Est GFR ( Amer) > 60 Est GFR (Non-Af Amer) > 60 Glucose 94 Lactic Acid 1.7 Calcium 9.5 Ammonia 05/17/18 07:18 WBC RBC Hgb Hct MCV MCH MCHC RDW Plt Count Sodium Potassium Chloride Carbon Dioxide Anion Gap BUN Creatinine Est GFR ( Amer) Est GFR (Non-Af Amer) Glucose Lactic Acid Calcium Ammonia 107.2 H Impressions: Chest X-Ray 05/16/18 15:13 IMPRESSION: Cardiomegaly without christian pulmonary edema. Head CT 05/16/18 15:13 IMPRESSION: Severely limited study due to patient motion artifact. For repeat study should be considered when patient able to cooperate. No intracranial hemorrhage identified. EVIDENCE OF ACUTE STROKE: NO. Assessment & Plan - Diagnosis (1) Urinary tract infection QualifierTitle: Urinary tract infection type: acute cystitis Hematuria presence: with hematuria Qualified Code(s): N30.01 - Acute cystitis with hematuria Is this a current diagnosis for this admission?: Yes Plan: UA + for UTI. Urine culture growing gram-negative rods Cultures and sensitivities pending Currently on IV Rocephin, continue until able to narrow antibiotics with C&S results Afebrile. No leukocytosis. Non-toxic appearing (2) Altered mental status QualifierTitle: Altered mental status type: unspecified Qualified Code(s) : R41.82 - Altered mental status, unspecified Is this a current diagnosis for this admission?: Yes Plan: Secondary to UTI Mental status greatly improved following IVF and IV antibiotics Patient is alert and oriented 3 this AM (3) Morbid (severe) obesity due to excess calories Is this a current diagnosis for this admission?: Yes Plan: BMI 53.2 Patient placed on prerenal diet We will need to meet with dietitian prior to discharge to discuss better dietary options - Time Time Spent with patient: 15-24 minutes Medications reviewed and adjusted accordingly: Yes Anticipated discharge: Home Within: within 72 hours - Inpatient Certification Based on my medical assessment, after consideration of the patient's comorbidities, presenting symptoms, or acuity I expect that the services needed warrant INPATIENT care.: Yes I certify that my determination is in accordance with my understanding of Medicare's requirements for reasonable and necessary INPATIENT services [42 CFR 412.3e].: Yes Medical Necessity: Need for IV Antibiotics, Risk of Complication if Not Cared For in Hospital - Plan Summary Plan Summary: Continue IV antibiotics. Urine cultures and sensitivities pending. <ABDIMARCH C - Last Filed: 05/18/18 15:30> Subjective Reason For Visit: UTI,ACUTE ENCEPHALOPATHY Physical Exam Vital Signs: Temp Pulse Resp BP Pulse Ox 97.6 F 101 H 20 133/86 H 100 05/18/18 11:36 05/18/18 11:36 05/18/18 11:36 05/18/18 11:36 05/18/18 07:57 Intake & Output 05/17/18 05/18/18 05/19/18 06:59 06:59 06:59 Intake Total 1995 356 Balance 1995 356 Weight 154.2 kg 153.1 kg Results Laboratory Results: 05/18/18 14:48 05/17/18 07:18 05/18/18 14:48 WBC 5.1 RBC 5.75 H Hgb 15.3 Hct 47.3 H MCV 82 MCH 26.5 L MCHC 32.2 RDW 15.3 H Plt Count 233 Impressions: Chest X-Ray 05/16/18 15:13 IMPRESSION: Cardiomegaly without christian pulmonary edema. Head CT 05/16/18 15:13 IMPRESSION: Severely limited study due to patient motion artifact. For repeat study should be considered when patient able to cooperate. No intracranial hemorrhage identified. EVIDENCE OF ACUTE STROKE: NO. Assessment & Plan - Plan Summary Plan Summary: Patient discussed with Delfina Weaver RN. Cosigning note per hospital policy.
[2018-05-18] MEDS: LACTULOSE SYRUP 20 GM/30 ML UDCUP PO SCH ×4 (06:01→17:26)
[2018-05-18] MEDS: POTASSIUM CHLORIDE 10 MEQ CAPSULE.ER PO SCH (10:51)
[2018-05-18] MEDS: DOCUSATE SODIUM 100 MG CAPSULE PO SCH (10:52)
[2018-05-18] MEDS: ENOXAPARIN SODIUM INJ 40 MG/0.4 ML DISP.SYRIN SUBCUT SCH (10:52)
[2018-05-18 15:06] LABS: HEMATOCRIT 47.3 % (36.0-47.0); HEMOGLOBIN 15.3 g/dL (12.0-15.5); MEAN CORPUSCULAR HEMOGLOBIN 26.5 pg (27.0-33.4); MEAN CORPUSCULAR HGB CONC 32.2 g/dL (32.0-36.0); MEAN CORPUSCULAR VOLUME 82 fl (80-97); PLATELET COUNT 233 10^3/uL (150-450); RED BLOOD COUNT 5.75 10^6/uL (3.72-5.28); RED CELL DISTRIBUTION WIDTH 15.3 % (11.5-14.0); WHITE BLOOD COUNT 5.1 10^3/uL (4.0-10.5)
[2018-05-18] MEDS: CEFTRIAXONE SODIUM 1,000 MG in DEXTROSE 5%-WATER 50 ML IV SCH (17:26)
--- NOTE | 2018-05-18 17:38 | PDOC PROGRESS REPORT ---
<DEXTERELISA A - Last Filed: 05/18/18 17:32> Subjective Progress Note for:: 05/18/18 Subjective:: MICHAEL BOWLING is a 62 year old female with a PMH of AFIB, CHF, CAD, bronchitis, HYPOthyroidism, breast cancer, and chronic anemia. She presented on 05/16/2018 with encephalopathy and was found to have a UTI. The patient was admitted on IV antibiotics. The patient was seen this morning on rounds. She is sitting up in the bedside recliner eating her lunch. She is A&Ox3 and able to answer all questions appropriately. The patient has no complaints this morning. Plan to recheck ammonia level today. If within normal limits, plan to discharge within 24 hours. Reason For Visit: UTI Physical Exam Vital Signs: Temp Pulse Resp BP Pulse Ox 97.5 F 101 H 20 107/51 L 100 05/18/18 15:43 05/18/18 15:43 05/18/18 15:43 05/18/18 15:43 05/18/18 15:43 Intake & Output 05/17/18 05/18/18 05/19/18 06:59 06:59 06:59 Intake Total 1995 356 Balance 1995 356 Weight 154.2 kg 153.1 kg General appearance: PRESENT: morbidly obese Eye exam: PRESENT: PERRLA Mouth exam: PRESENT: moist Neck exam: PRESENT: full ROM Respiratory exam: PRESENT: clear to auscultation refugio, symmetrical, unlabored Cardiovascular exam: PRESENT: +S1, +S2 Pulses: PRESENT: normal radial pulses, normal dorsalis pedis pul GI/Abdominal exam: PRESENT: soft. ABSENT: tenderness Rectal exam: PRESENT: deferred Extremities exam: PRESENT: full ROM Musculoskeletal exam: PRESENT: ambulatory - with assistance. able to use walker , full ROM Neurological exam: PRESENT: alert, awake, oriented to person, oriented to place , oriented to time, oriented to situation Psychiatric exam: PRESENT: appropriate affect Skin exam: PRESENT: dry, intact, normal color, warm Results Laboratory Results: 05/18/18 14:48 05/17/18 07:18 05/18/18 05/18/18 14:48 15:12 WBC 5.1 RBC 5.75 H Hgb 15.3 Hct 47.3 H MCV 82 MCH 26.5 L MCHC 32.2 RDW 15.3 H Plt Count 233 Ammonia 42.4 H Impressions: Chest X-Ray 05/16/18 15:13 IMPRESSION: Cardiomegaly without christian pulmonary edema. Head CT 05/16/18 15:13 IMPRESSION: Severely limited study due to patient motion artifact. For repeat study should be considered when patient able to cooperate. No intracranial hemorrhage identified. EVIDENCE OF ACUTE STROKE: NO. Status: Imported from PACS Assessment & Plan - Diagnosis (1) Urinary tract infection QualifierTitle: Urinary tract infection type: acute cystitis Hematuria presence: with hematuria Qualified Code(s): N30.01 - Acute cystitis with hematuria Is this a current diagnosis for this admission?: Yes Plan: UA + for UTI Urine culture growing pansensitive gram-negative rods Currently on IV Rocephin, plan to de-escalate to PO antibiotics to continue post -discharge Afebrile. No leukocytosis. Non-toxic appearing (2) Altered mental status QualifierTitle: Altered mental status type: unspecified Qualified Code(s) : R41.82 - Altered mental status, unspecified Is this a current diagnosis for this admission?: Yes Plan: Secondary to UTI Mental status greatly improved following IVF and IV antibiotics Patient is alert and oriented 3 this AM (3) Morbid (severe) obesity due to excess calories Is this a current diagnosis for this admission?: Yes Plan: BMI 53.2 Patient placed on prerenal diet We will need to meet with dietitian prior to discharge to discuss better dietary options - Time Time Spent with patient: 15-24 minutes Medications reviewed and adjusted accordingly: Yes Anticipated discharge: Home Within: within 24 hours - Inpatient Certification Based on my medical assessment, after consideration of the patient's comorbidities, presenting symptoms, or acuity I expect that the services needed warrant INPATIENT care.: Yes I certify that my determination is in accordance with my understanding of Medicare's requirements for reasonable and necessary INPATIENT services [42 CFR 412.3e].: Yes Medical Necessity: Risk of Complication if Not Cared For in Hospital - Plan Summary Plan Summary: Continue IV antibiotics. Barring any complications, patient will be discharged home tomorrow. <JASON LARRY - Last Filed: 05/19/18 10:08> Subjective Reason For Visit: UTI Physical Exam Vital Signs: Temp Pulse Resp BP Pulse Ox 97.4 F 104 H 20 132/64 H 100 05/19/18 08:15 05/19/18 08:15 05/19/18 08:15 05/19/18 08:15 05/19/18 08:15 Intake & Output 05/18/18 05/19/18 05/20/18 06:59 06:59 06:59 Intake Total 1995 974 Output Total 4 Balance 1995 970 Weight 153.1 kg 154.2 kg Results Laboratory Results: 05/18/18 14:48 05/17/18 07:18 05/18/18 05/18/18 14:48 15:12 WBC 5.1 RBC 5.75 H Hgb 15.3 Hct 47.3 H MCV 82 MCH 26.5 L MCHC 32.2 RDW 15.3 H Plt Count 233 Ammonia 42.4 H Impressions: Chest X-Ray 05/16/18 15:13 IMPRESSION: Cardiomegaly without christian pulmonary edema. Head CT 05/16/18 15:13 IMPRESSION: Severely limited study due to patient motion artifact. For repeat study should be considered when patient able to cooperate. No intracranial hemorrhage identified. EVIDENCE OF ACUTE STROKE: NO. Provider Note Provider Note: I have discussed the patient in detail with NAMAN Weaver. I am in agreement with her evaluation and plan.
[2018-05-19] MEDS: LACTULOSE SYRUP 20 GM/30 ML UDCUP PO SCH ×3 (02:14→12:50)
[2018-05-19] MEDS: DOCUSATE SODIUM 100 MG CAPSULE PO SCH (09:44)
[2018-05-19] MEDS: POTASSIUM CHLORIDE 10 MEQ CAPSULE.ER PO SCH (09:48)
[2018-05-19] MEDS: ENOXAPARIN SODIUM INJ 40 MG/0.4 ML DISP.SYRIN SUBCUT SCH (09:48)
[2018-05-19 16:30] VITALS: BP 123/79
== END 2018-05-19 16:00 | disposition home or self-care (01) ==
LOC: ER 14:56 → INTOOBSV 18:11 → EH 18:11 → 4N 22:53
PROVIDERS: ADMIT Internal Medicine; ATTEND Internal Medicine
DX: N30.01 Acute cystitis with hematuria (principal); R41.82 Altered mental status, unspecified; E66.01 Morbid (severe) obesity due to excess calories; I25.10 Atherosclerotic heart disease of native coronary artery without angina pectoris; G25.9 Extrapyramidal and movement disorder, unspecified; E72.20 Disorder of urea cycle metabolism, unspecified; G47.30 Sleep apnea, unspecified; E03.9 Hypothyroidism, unspecified; I48.91 Unspecified atrial fibrillation; I11.0 Hypertensive heart disease with heart failure; I50.9 Heart failure, unspecified; Z68.43 Body mass index [BMI] 50.0-59.9, adult; Z85.3 Personal history of malignant neoplasm of breast; Z90.11 Acquired absence of right breast and nipple; Z90.710 Acquired absence of both cervix and uterus; Z79.82 Long term (current) use of aspirin; Z79.899 Other long term (current) drug therapy
CPT/HCPCS: 93005; 99285; 96372; 96361; 96365; 36415 ×3; 87040; 87086; 82962; 82140 ×3; 85025; 85027 ×2; 85610; 85730; 87088; 80048; 80053; 81001; 84484; 87186; 82803; 83605; 71046; 70450; 93010; A9270 ×8; J1650 ×3; J0696 ×3; J7030

== ENCOUNTER 2018-09-07 03:20 | Inpatient (IN) | payer MEDICARE, MEDICAID ==
[2018-09-07 04:08] LABS: ABSOLUTE EOSINOPHILS # (AUTO) 0.2 10^3/uL (0.0-0.6); ABSOLUTE LYMPHOCYTES (AUTO) 0.8 10^3/uL (0.5-4.7); ABSOLUTE MONOCYTES (AUTO) 0.6 10^3/uL (0.1-1.4); ABSOLUTE NEUT (AUTO) 3.9 10^3/uL (1.7-8.2); BASOPHILS % (AUTO) 0.4 % (0-2); HEMATOCRIT 43.8 % (36.0-47.0); HEMOGLOBIN 14.6 g/dL (12.0-15.5); LYMPHOCYTES % (AUTO) 15.1 % (13-45); MEAN CORPUSCULAR HEMOGLOBIN 26.9 pg (27.0-33.4); MEAN CORPUSCULAR HGB CONC 33.4 g/dL (32.0-36.0); MEAN CORPUSCULAR VOLUME 81 fl (80-97); MONOCYTES % (AUTO) 10.9 % (3-13); PLATELET COUNT 288 10^3/uL (150-450); RED BLOOD COUNT 5.43 10^6/uL (3.72-5.28); RED CELL DISTRIBUTION WIDTH 14.5 % (11.5-14.0); SEGMENTED NEUTROPHILS % (AUTO) 70.6 % (42-78); TOTAL CELLS COUNTED % (AUTO) 100 %; WHITE BLOOD COUNT 5.5 10^3/uL (4.0-10.5)
[2018-09-07 04:14] LABS: INTERNATIONAL RATION (INR) 1.03; PROTHROMBIN TIME 14.1 SEC (11.4-15.4)
[2018-09-07 04:31] LABS: ALANINE AMINOTRANSFERASE 16 U/L (9-52); ALBUMIN 3.3 g/dL (3.5-5.0); ALKALINE PHOSPHATASE 143 U/L (38-126); ANION GAP 10 (5-19); ASPARTATE AMINO TRANSFERASE 23 U/L (14-36); BILIRUBIN,DIRECT 0.3 mg/dL (0.0-0.4); BILIRUBIN,TOTAL 0.9 mg/dL (0.2-1.3); BLOOD UREA NITROGEN 13 mg/dL (7-20); CALCIUM 9.2 mg/dL (8.4-10.2); CARBON DIOXIDE 33 mmol/L (22-30); CHLORIDE 100 mmol/L (98-107); CREATINE KINASE 66 U/L (30-135); GLUCOSE 110 mg/dL (75-110); POTASSIUM 3.3 mmol/L (3.6-5.0); TOTAL PROTEIN 6.8 g/dL (6.3-8.2)
[2018-09-07 04:40] LABS: CREATINE KINASE MB 0.83 ng/mL (<4.55); NT PRO BNP 873 pg/mL (5-900)
[2018-09-07 04:46] LABS: TROPONIN I < 0.012 ng/mL
--- NOTE | 2018-09-07 05:29 | RADIOLOGY REPORT (SQ) ---
EXAM DESCRIPTION: XR CHEST 2 VIEWS COMPLETED DATE/TME: 09/07/2018 03:37 CLINICAL HISTORY: SOB, CP COMPARISON: None. FINDINGS: Frontal and lateral views of the chest. Atherosclerotic calcification and tortuosity of thoracic aorta. Cardiomegaly. Pulmonary vascular congestion. No pneumothorax or large effusion. External leads and wires overlie the chest. No acute osseous abnormalities. Prior cholecystectomy. IMPRESSION: 1. Cardiomegaly with pulmonary vascular congestion.
--- NOTE | 2018-09-07 08:26 | ER Document Report ---
ED Respiratory Problem - General Chief Complaint: Shortness Of Breath Stated Complaint: SHORTNESS OF BREATH Time Seen by Provider: 09/07/18 03:37 Notes: Patient is a morbidly obese 62-year-old female presenting to the emergency department complaining of increased shortness of breath over the last 3 days. Patient states on day 1 of increased respiratory distress she did have some chest tightness. Patient states she drank a glass of wine and the pain resolved. Patient states she initially did not have any chest pain today was just complaining of shortness of breath until EMS arrival. Patient states once in the back of the ambulance she then developed some chest tightness. EMS gave her 4 baby aspirin and 1 sublingual nitro. Patient states since then pain has resolved. Patient also states respiratory symptoms have since resolved as well. Patient denies fever, upper respiratory symptoms, abdominal pain, nausea , vomiting, dysuria. Patient states at times her legs appear to be swollen, but currently they do not appear swollen to her. Patient states Dr. 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 Patient states she is unsure when the last time she had an echo was. Past medical history: Hyperlipidemia, atrial fibrillation, COPD, congestive heart failure, hypertension Medications: Spironolactone, Bentyl, Cardizem, atorvastatin, Synthroid, nitroglycerin, potassium Allergies: Demerol Patient states she denies smoking, admits to occasional EtOH use, denies illicit drug use TRAVEL OUTSIDE OF THE [place] IN LAST 30 DAYS: No - Related Data Allergies/Adverse Reactions: clemastine fumarate [From Tavist-1] Allergy (Severe, Verified 12/01/15 07:55) red spots,N/V Shark Cartilage [From Shark Fin Cartilage] Allergy (Severe, Verified 12/01/15 07 :55) hives, n and v iodine [Iodine] Allergy (Unknown, Verified 12/01/15 07:55) vomit/rash meperidine HCl [From Demerol] Allergy (Unknown, Verified 12/01/15 07:55) N/V pseudoephedrine HCl [From Sudafed] Allergy (Unknown, Verified 12/01/15 07:55) rash/itch glove powder Allergy (Severe, Uncoded 01/23/15 18:04) hands swell,itch Past Medical History - General Information source: Patient - Social History Smoking Status: Never Smoker Chew tobacco use (# tins/day): No Frequency of alcohol use: Occasional Drug Abuse: None Lives with: Family Family History: Reviewed & Not Pertinent, DM, Hyperlipidemia, Hypertension Patient has suicidal ideation: No Patient has homicidal ideation: No - Past Medical History Cardiac Medical History: Reports: Hx Atrial Fibrillation, Hx Congestive Heart Failure, Hx Coronary Artery Disease, Hx Hypertension - on meds Denies: Hx Heart Attack, Hx Hypercholesterolemia, Hx Peripheral Vascular Disease, Hx Heart Murmur Pulmonary Medical History: Reports: Hx Bronchitis, Hx Pneumonia - hx of Denies: Hx Asthma, Hx COPD, Hx Tuberculosis Neurological Medical History: Denies: Hx Cerebrovascular Accident, Hx Seizures Endocrine Medical History: Reports: Hx Hypothyroidism. Denies: Hx Graves' Disease, Hx Hyperthyroidism Renal/ Medical History: Denies: Hx End Stage Renal Disease, Hx Kidney Stones, Hx Ovarian Cysts, Hx Peritoneal Dialysis, Hx Pelvic Inflammatory Disease Malignancy Medical History: Reports: Hx Breast Cancer. Denies: Hx Cervical Cancer, Hx Ovarian Cancer GI Medical History: Reports: Hx Colonoscopy. Denies: Hx Crohn's Disease, Hx Gastroesophageal Reflux Disease, Hx Hiatal Hernia, Hx Irritable Bowel, Hx Liver Failure, Hx Pancreatitis, Hx Ulcer Musculoskeletal Medical History: Reports Hx Arthritis - knees, Denies Hx Fibromyalgia, Denies Hx Muscular Dystrophy Psychiatric Medical History: Denies: Hx Depression Traumatic Medical History: Denies: Hx Fractures Past Surgical History: Reports: Hx Abdominal Surgery - abd hernia, colon polpys , Hx Section, Hx Hysterectomy, Hx Mastectomy - right partial, Hx Tonsillectomy. Denies: Hx Appendectomy, Hx Bowel Surgery, Hx Cholecystectomy, Hx Colostomy, Hx Coronary Artery Bypass Graft, Hx Gastric Bypass Surgery, Hx Herniorrhaphy, Hx Pacemaker, Hx Tubal Ligation - Immunizations Hx Diphtheria, Pertussis, Tetanus Vaccination: Yes Hx Pneumococcal Vaccination: 07/07/11 Review of Systems - Review of Systems Constitutional: See HPI EENT: See HPI Cardiovascular: See HPI Respiratory: See HPI Gastrointestinal: See HPI Genitourinary: See HPI Female Genitourinary: No symptoms reported Musculoskeletal: See HPI Skin: No symptoms reported Hematologic/Lymphatic: No symptoms reported Neurological/Psychological: No symptoms reported Physical Exam - Vital signs Vitals: Pulse Resp BP Pulse Ox 67 20 122/76 97 09/07/18 03:28 09/07/18 03:28 09/07/18 03:28 09/07/18 03:28 - Notes Notes: GENERAL: Morbidly obese, alert, interacts well. No acute distress. HEAD: Normocephalic, atraumatic. EYES: Pupils equal, round, and reactive to light. Extraocular movements intact. ENT: Oral mucosa moist, tongue midline. NECK: Full range of motion. Supple. Trachea midline. LUNGS: no wheezes, rales, or rhonchi. No respiratory distress. Slightly diminished bilateral bases. HEART: irregularly irregular rate and rhythm. No murmur ABDOMEN: Soft, non-tender. Non-distended. Bowel sounds present in all 4 quadrants. EXTREMITIES: Moves all 4 extremities spontaneously. No edema, normal radial and dorsalis pedis pulses bilaterally. No cyanosis. BACK: no cervical, thoracic, lumbar midline tenderness. No saddle anesthesia, normal distal neurovascular exam. NEUROLOGICAL: Alert and oriented x3. Normal speech. cranial nerves II through XII grossly intact. PSYCH: Normal affect, normal mood. SKIN: Warm, dry, normal turgor. No rashes or lesions noted. Course - Re-evaluation Re-evalutation: 09/07/18 08:31 While in the emergency room patient continues to deny chest pain or shortness of breath. Patient was able to be ambulated and maintained an oxygen saturation of 98% on room air. Discussed case with Dr. Rosa who agrees and recommends admission for heart score of 4. Patient's last stress test in our computer system was normal. Unsure of last patient's echo. 2- troponins. Patient's EKG shows atrial fibrillation, heart rate 67, no ST segment changes. Discussed case with Dr. Eric Dhillon who also agrees patient should be admitted for chest pain rule out. Patient continues to deny chest pain or shortness of breath. Patient states she is hungry at this time. Food tray ordered. - Vital Signs Vital signs: Temp Pulse Resp BP Pulse Ox 97.9 F 82 18 111/70 99 09/07/18 15:38 09/07/18 15:38 09/07/18 15:38 09/07/18 15:38 09/07/18 15:38 - Laboratory Result Diagrams: 09/07/18 03:52 09/07/18 03:52 Laboratory results interpreted by me: 09/07/18 09/07/18 03:52 03:52 RBC 5.43 H MCH 26.9 L RDW 14.5 H Potassium 3.3 L Carbon Dioxide 33 H Est GFR (Non-Af Amer) 55 L Alkaline Phosphatase 143 H Albumin 3.3 L Discharge - Discharge Clinical Impression: Shortness of breath Chest pain Qualifiers: Chest pain type: unspecified Qualified Code(s): R07.9 - Chest pain, unspecified Condition: Stable Disposition: ADMITTED INPATIENT Admitting Provider: Hospitalist - Dr. Eric Dhillon Unit Admitted: Telemetry
--- NOTE | 2018-09-07 12:37 | EKG REPORT ---
SEVERITY:- ABNORMAL ECG - ATRIAL FIBRILLATION LEFT AXIS DEVIATION LOW VOLTAGE IN FRONTAL LEADS BORDERLINE T WAVE ABNORMALITIES : Confirmed by: Jaja Khanna MD 07-Sep-2018 12:37:21
[2018-09-07] MEDS ORDERED: ONDANSETRON 4 MG TAB.RAPDIS PO PRN (13:29)
[2018-09-07] MEDS ORDERED: (PENDING PHARMACY ID) (Bupropion Hcl [Bupropion Xl] 150 MG) PO SCH (13:30)
--- NOTE | 2018-09-07 14:27 | PDOC H&P ---
History of Present Illness Admission Date/PCP: 09/07/18 08:45 KEYLA KAUFMAN MD Patient complains of: Dyspnea and chest pressure History of Present Illness: MICHAEL BOWLING is a 62 year old female who presented to the emergency room with a 3-day history of progressively worsening dyspnea which had become moderate to severe at the time of her presentation. Her dyspnea was accompanied by chest tightness on the first day of her increasing dyspnea but had not occurred since that time, until EMS arrived at her home today to pick her up. In route to the hospital she was treated with 4 baby aspirin and 1 sublingual nitroglycerin which resolved her chest tightness. She describes the chest tightness is a vague squeezing sensation in the center of her chest that does not radiate and is mildly to moderately uncomfortable usually lasting only a few minutes and relieved by rest, wine or nitroglycerin. She additionally has noted swelling in her legs off and on over the last 3 days. She admits numerous similar episodes of dyspnea due to acute exacerbations of her chronic diastolic congestive heart failure. She had a cardiac stress test performed [address] Peñaloza explained to her revealed "no blockage". She was admitted to the hospitalist service for further evaluation of her chest pain and the acute exacerbation of chronic diastolic congestive heart failure. Past Medical History Cardiac Medical History: Reports: Atrial Fibrillation, Congestive Heart Failure , Coronary Artery Disease, Hypertension - on meds Denies: DVT, Myocardial Infarction, Hyperlipidema, Peripheral Vascular Disease, Pulmonary Embolism, Heart Murmur Pulmonary Medical History: Reports: Bronchitis, Pneumonia - hx of, Sleep Apnea Denies: Asthma, Chronic Obstructive Pulmonary Disease (COPD), Tuberculosis EENT Medical History: Reports: None Neurological Medical History: Denies: Hemorrhagic CVA, Ischemic CVA, Migraine, Seizures Endocrine Medical History: Reports: Hypothyroidism Denies: Diabetes Mellitus Type 1, Diabetes Mellitus Type 2, Hyperthyroidism Renal/ Medical History: Denies: Chronic Kidney Disease, End Stage Renal Disease, Nephrolithiasis Malignancy Medical History: Reports: Breast Cancer Denies: Cervical Cancer, Ovarian Cancer GI Medical History: Reports: Peptic Ulcer Disease, Other - GI hemorrhage X 3 on anticoagulants and aspirin Denies: Crohn's Disease, Gastroesophageal Reflux Disease, Hiatal Hernia, Ulcerative Colitis Musculoskeltal Medical History: Reports: Arthritis - knees Denies: Fibromyalgia, Gout Skin Medical History: Denies: Eczema, Psoriasis Psychiatric Medical History: Reports: Depression Denies: Alcohol Dependency, General Anxiety Disorder, Substance Abuse, Tobacco Dependency Traumatic Medical History: Reports: None Hematology: Reports: Anemia - hx of Denies: Sickle Cell Disease Infectious Medical History: Reports: None Past Surgical History Past Surgical History: Reports: Section, Hysterectomy, Mastectomy - right partial, Tonsillectomy Denies: Amputation, Appendectomy, Cholecystectomy, Colostomy, Coronary Artery Bypass Graft, Gastric Bypass Surgery, Herniorrhaphy, Pacemaker, Tubal Ligation Social History Information Source: Patient Lives with: Family Smoking Status: Never Smoker Frequency of Alcohol Use: Rare Last Alcohol Use: 09/06/18 - Occasionally drinks wine which relieves her chest pain Hx Recreational Drug Use: No Drugs: None Hx Prescription Drug Abuse: No - Advance Directive Resuscitation Status: Full Code Family History Family History: Arthritis, CAD, DM, Hyperlipidemia, Hypertension, Malignancy, Thyroid Disfunction Parental Family History Reviewed: Yes Children Family History Reviewed: Yes Sibling(s) Family History Reviewed.: Yes Medication/Allergy Home Medications: Atorvastatin Calcium [Lipitor 20 mg Tablet] 20 mg PO QHS 05/16/18 Bupropion HCl [Bupropion Xl] 150 mg PO BIDBL 05/16/18 Dicyclomine HCl [Bentyl 20 mg Tablet] 20 mg PO QIDP PRN 05/16/18 Diltiazem HCl 120 mg PO Q12 05/16/18 Ferrous Sulfate 140 mg PO BIDBS 05/16/18 Levothyroxine Sodium [Synthroid 0.1 mg Tablet] 0.1 mg PO Q6AM 05/16/18 Metoprolol Tartrate [Lopressor 25 mg Tablet] 25 mg PO QHS 05/16/18 Nitroglycerin [Nitro-Dur 5 mg (0.2 mg/Hr) Transdermal Patch] 1 patch TD QAM 09/23 Potassium Chloride [Klor-Con 10 Meq Capsule ER] 10 meq PO DAILY 05/16/18 Spironolactone [Aldactone 100 mg Tablet] 1 tab PO QPM 05/16/18 Torsemide [Demadex 20 mg Tablet] 20 mg PO BID 05/16/18 Ergocalciferol (Vitamin D2) [Vitamin D2] 50,000 unit PO Q7D 09/07/18 Ondansetron [Zofran Odt 4 mg Tablet] 4 mg PO Q4HP PRN 09/07/18 Allergies/Adverse Reactions: clemastine fumarate [From Tavist-1] Allergy (Severe, Verified 12/01/15 07:55) red spots,N/V Shark Cartilage [From Shark Fin Cartilage] Allergy (Severe, Verified 12/01/15 07 :55) hives, n and v iodine [Iodine] Allergy (Unknown, Verified 12/01/15 07:55) vomit/rash meperidine HCl [From Demerol] Allergy (Unknown, Verified 12/01/15 07:55) N/V pseudoephedrine HCl [From Sudafed] Allergy (Unknown, Verified 12/01/15 07:55) rash/itch glove powder Allergy (Severe, Uncoded 01/23/15 18:04) hands swell,itch Review of Systems Constitutional: ABSENT: chills, fever(s) Eyes: ABSENT: visual disturbances, other - Ocular pain Ears: ABSENT: hearing changes, other - Ear pain Nose, Mouth, and Throat: ABSENT: mouth pain, sore throat Cardiovascular: PRESENT: as per HPI, chest pain, dyspnea on exertion, edema - Bilateral legs. ABSENT: orthropnea, palpitations Respiratory: PRESENT: dyspnea. ABSENT: cough, hemoptysis Gastrointestinal: ABSENT: abdominal pain, constipation, diarrhea, heartburn, nausea, vomiting Genitourinary: ABSENT: dysuria, hematuria Musculoskeletal: ABSENT: deformity, joint swelling Integumentary: ABSENT: pruritus, rash Neurological: ABSENT: confusion, convulsions, memory loss, syncope, tremor(s) Psychiatric: ABSENT: anxiety, depression Endocrine: ABSENT: cold intolerance, heat intolerance Hematologic/Lymphatic: ABSENT: easy bleeding, easy bruising Allergic/Immunologic: ABSENT: seasonal rhinorrhea, other - Insect bite allergy Physical Exam Vital Signs: Temp Pulse Resp BP Pulse Ox 98.3 F 81 18 109/64 100 09/07/18 11:54 09/07/18 11:54 09/07/18 11:54 09/07/18 11:54 09/07/18 11:54 Intake & Output 09/05/18 09/06/18 09/07/18 23:59 23:59 23:59 Weight 152.6 kg General appearance: PRESENT: no acute distress, cooperative, morbidly obese Head exam: PRESENT: atraumatic, normocephalic Eye exam: ABSENT: conjunctival injection, nystagmus, periorbital swelling, scleral icterus Ear exam: PRESENT: normal external ear exam. ABSENT: drainage Mouth exam: ABSENT: neck supple, tongue midline Neck exam: ABSENT: JVD, thyromegaly, tracheal deviation Respiratory exam: PRESENT: rales - Minimal bibasilar rales, symmetrical, unlabored. ABSENT: prolonged expiratory phas, rhonchi, wheezes Cardiovascular exam: PRESENT: irregular rhythm. ABSENT: bradycardia, clicks, diastolic murmur, gallop, rubs, systolic murmur, tachycardia Pulses: PRESENT: normal radial pulses, normal dorsalis pedis pul Vascular exam: PRESENT: normal capillary refill. ABSENT: pallor GI/Abdominal exam: PRESENT: normal bowel sounds, soft Rectal exam: PRESENT: deferred Extremities exam: PRESENT: +1 edema - Bilateral lower extremities (pretibial). ABSENT: calf tenderness, clubbing, joint swelling, tenderness Musculoskeletal exam: PRESENT: ambulatory, full ROM. ABSENT: deformity, dislocation Neurological exam: PRESENT: alert, oriented to person, oriented to place, oriented to time, oriented to situation, CN II-XII grossly intact. ABSENT: motor sensory deficit Psychiatric exam: PRESENT: appropriate affect, normal mood Skin exam: ABSENT: jaundice, rash, urticaria Results EKG Comments: EKG shows atrial fibrillation with a well-controlled rate at 67. Nonspecific T wave changes are present. Impressions: Chest X-Ray 09/07/18 03:37 IMPRESSION: 1. Cardiomegaly with pulmonary vascular congestion. Status: Image reviewed by nv - Chest x-ray shows cardiomegaly with mild cephalization of the pulmonary vessels consistent with early or mild congestive heart failure. No other acute process or airspace disease is noted. Assessment & Plan - Diagnosis (1) Chest tightness Is this a current diagnosis for this admission?: Yes Plan: Patient will have serial cardiac enzymes performed to assess for cardiac ischemia or injury. EKGs will also be obtained as per protocol. PRN sublingual nitroglycerin for chest pain and morphine 3 mg IV every 2 hours for severe chest pain not responsive to nitroglycerin. (2) Acute on chronic diastolic CHF, NYHA class 2 and ACC/AHA stage C Is this a current diagnosis for this admission?: Yes Plan: Patient will be continued on her usual medications for congestive heart failure. She will be clinically reassessed on an ongoing basis with changes to therapy as appropriate. (3) Morbid (severe) obesity due to excess calories Is this a current diagnosis for this admission?: Yes Plan: Patient has severe morbid obesity with a BMI greater than 55. We briefly discussed obesity and diet as well as other treatments, however she was not receptive to any intervention at this time. (4) Sleep apnea with use of continuous positive airway pressure (CPAP) Is this a current diagnosis for this admission?: Yes Plan: Patient will be continued on her usual CPAP for sleep apnea treatment orders have been placed for respiratory therapy to establish hospital equipment for use the patient's own home equipment for nocturnal use every night during her hospital stay. (5) Chronic atrial fibrillation Is this a current diagnosis for this admission?: Yes Plan: Patient has a long history of chronic atrial fibrillation and is on no anticoagulant or aspirin therapy due to severe hemorrhage risk - Time Time Spent: Greater than 70 Minutes Medications reviewed and adjusted accordingly: Yes Anticipated discharge: Home with Homehealth Within: within 72 hours
[2018-09-07] MEDS: NITROGLYCERIN 5 MG (0.2 MG/HR) PATCH.TD24 TD SCH (14:31)
[2018-09-07] MEDS: CHOLECALCIFEROL (D3) 1,000 UNIT TABLET PO SCH (14:31)
[2018-09-07] MEDS ORDERED: (PENDING PHARMACY ID) (Ferrous Sulfate [Ferrous Sulfate] 140 MG) PO SCH (17:00)
[2018-09-07] MEDS: FERROUS SULFATE LIQUID 300 MG/5 ML UDC PO SCH (17:50)
[2018-09-07] MEDS: TORSEMIDE 20 MG TABLET PO SCH (17:55)
[2018-09-07] MEDS ORDERED: SPIRONOLACTONE PO SCH (18:00)
[2018-09-07] MEDS: METOPROLOL TARTRATE 25 MG TABLET PO SCH (21:38)
[2018-09-07] MEDS: BUPROPION HCL 100 MG TABLET PO SCH (21:38)
[2018-09-07] MEDS: DILTIAZEM HCL 60 MG TABLET PO SCH (21:39)
[2018-09-07] MEDS: ATORVASTATIN CALCIUM 20 MG TABLET PO SCH (21:39)
[2018-09-07] MEDS ORDERED: (PENDING PHARMACY ID) (Diltiazem Hcl [Diltiazem Hcl] 120 MG) PO SCH (22:00)
[2018-09-07] MEDS ORDERED: BUPROPION HCL 100 MG TABLET PO SCH (22:00)
[2018-09-08 05:19] LABS: ABSOLUTE EOSINOPHILS # (AUTO) 0.2 10^3/uL (0.0-0.6); ABSOLUTE LYMPHOCYTES (AUTO) 0.7 10^3/uL (0.5-4.7); ABSOLUTE MONOCYTES (AUTO) 0.6 10^3/uL (0.1-1.4); ABSOLUTE NEUT (AUTO) 3.4 10^3/uL (1.7-8.2); BASOPHILS % (AUTO) 0.6 % (0-2); EOSINOPHILS % (AUTO) 3.2 % (0-6); HEMATOCRIT 42.5 % (36.0-47.0); HEMOGLOBIN 14.4 g/dL (12.0-15.5); LYMPHOCYTES % (AUTO) 13.7 % (13-45); MEAN CORPUSCULAR HEMOGLOBIN 27.2 pg (27.0-33.4); MEAN CORPUSCULAR HGB CONC 33.9 g/dL (32.0-36.0); MEAN CORPUSCULAR VOLUME 80 fl (80-97); MONOCYTES % (AUTO) 12.4 % (3-13); PLATELET COUNT 248 10^3/uL (150-450); RED BLOOD COUNT 5.31 10^6/uL (3.72-5.28); RED CELL DISTRIBUTION WIDTH 14.4 % (11.5-14.0); SEGMENTED NEUTROPHILS % (AUTO) 70.1 % (42-78); TOTAL CELLS COUNTED % (AUTO) 100 %; WHITE BLOOD COUNT 4.9 10^3/uL (4.0-10.5)
[2018-09-08] MEDS: BUPROPION HCL 100 MG TABLET PO SCH ×3 (05:25→22:00)
[2018-09-08] MEDS: LEVOTHYROXINE SODIUM 0.1 MG TABLET PO SCH (05:25)
[2018-09-08 05:37] LABS: ANION GAP 9 (5-19); BLOOD UREA NITROGEN 14 mg/dL (7-20); CALCIUM 8.9 mg/dL (8.4-10.2); CARBON DIOXIDE 32 mmol/L (22-30); CHLORIDE 100 mmol/L (98-107); CHOLESTEROL 126.17 mg/dL (0-200); GLUCOSE 98 mg/dL (75-110); POTASSIUM 3.5 mmol/L (3.6-5.0); SODIUM 140.8 mmol/L (137-145); TRIGLYCERIDES 41 mg/dL (<150)
[2018-09-08 05:47] LABS: DIRECT LDL 70 mg/dL (<100)
[2018-09-08] MEDS: FERROUS SULFATE LIQUID 300 MG/5 ML UDC PO SCH ×2 (08:24→17:41)
[2018-09-08] MEDS: NITROGLYCERIN 5 MG (0.2 MG/HR) PATCH.TD24 TD SCH (08:25)
[2018-09-08] MEDS: TORSEMIDE 20 MG TABLET PO SCH ×2 (09:32→17:26)
[2018-09-08] MEDS: POTASSIUM CHLORIDE 10 MEQ CAPSULE.ER PO SCH (09:33)
[2018-09-08] MEDS: CHOLECALCIFEROL (D3) 1,000 UNIT TABLET PO SCH (09:33)
[2018-09-08] MEDS: DILTIAZEM HCL 60 MG TABLET PO SCH ×2 (09:33→22:00)
[2018-09-08] MEDS: SPIRONOLACTONE 25 MG TABLET PO SCH ×2 (16:52→17:27)
[2018-09-08] MEDS: DOCUSATE SODIUM 100 MG CAPSULE PO SCH (17:26)
--- NOTE | 2018-09-08 18:04 | PDOC PROGRESS REPORT ---
Subjective Progress Note for:: 09/08/18 Subjective:: MICHAEL BOWLING is a 62 year old female who presented to the emergency room with a 3-day history of progressively worsening dyspnea which had become moderate to severe at the time of her presentation. Her dyspnea was accompanied by chest tightness on the first day of her increasing dyspnea but had not occurred since that time, until EMS arrived at her home today to pick her up. In route to the hospital she was treated with 4 baby aspirin and 1 sublingual nitroglycerin which resolved her chest tightness. She describes the chest tightness is a vague squeezing sensation in the center of her chest that does not radiate and is mildly to moderately uncomfortable usually lasting only a few minutes and relieved by rest, wine or nitroglycerin. She additionally has noted swelling in her legs off and on over the last 3 days. She admits numerous similar episodes of dyspnea due to acute exacerbations of her chronic diastolic congestive heart failure. She had a cardiac stress test performed [address] Peñaloza explained to her revealed "no blockage". She was admitted to the hospitalist service for further evaluation of her chest pain and the acute exacerbation of chronic diastolic congestive heart failure. 09/08/18: Michael states she is feeling she is breathing a lot better today but she is not quite well enough to go home. She would like to wait and go home tomorrow as she is pretty certain she can have a ride available with this much notice. She has not had chest tightness since her arrival in the emergency room. She feels like the swelling of her lower legs has been reduced. She is tolerating her diet well but feels like she is not completely evacuating when she moves her bowels. We discussed her negative cardiac enzymes and negative EKGs. Her lipid profile was actually very good with an HDL of 62 and a very well controlled LDL and total cholesterol. Reason For Visit: ACUTE ON CHRONIC DIASTOLIC CONGESTIVE HEART Physical Exam Vital Signs: Temp Pulse Resp BP Pulse Ox 98.1 F 100 17 144/52 H 95 09/08/18 15:59 09/08/18 15:59 09/08/18 15:59 09/08/18 15:59 09/08/18 07:35 Intake & Output 09/06/18 09/07/18 09/08/18 23:59 23:59 23:59 Weight 152.6 kg General appearance: PRESENT: no acute distress, cooperative, morbidly obese Head exam: PRESENT: atraumatic, normocephalic Eye exam: ABSENT: conjunctival injection, scleral icterus Ear exam: PRESENT: normal external ear exam. ABSENT: bleeding Mouth exam: PRESENT: neck supple, tongue midline Neck exam: ABSENT: thyromegaly, tracheal deviation Respiratory exam: PRESENT: clear to auscultation refugio, symmetrical, unlabored Cardiovascular exam: PRESENT: irregular rhythm. ABSENT: clicks, diastolic murmur, gallop, rubs, systolic murmur Vascular exam: PRESENT: normal capillary refill. ABSENT: pallor GI/Abdominal exam: PRESENT: normal bowel sounds, soft Rectal exam: PRESENT: deferred Extremities exam: ABSENT: joint swelling, pedal edema Musculoskeletal exam: PRESENT: full ROM, normal inspection Neurological exam: PRESENT: alert, oriented to person, oriented to place, oriented to time, oriented to situation Psychiatric exam: PRESENT: appropriate affect, normal mood Skin exam: PRESENT: intact. ABSENT: jaundice Results Laboratory Results: 09/08/18 04:44 09/08/18 04:44 09/08/18 09/08/18 09/08/18 04:44 04:44 04:44 WBC 4.9 RBC 5.31 H Hgb 14.4 Hct 42.5 MCV 80 MCH 27.2 MCHC 33.9 RDW 14.4 H Plt Count 248 Seg Neutrophils % 70.1 Lymphocytes % 13.7 Monocytes % 12.4 Eosinophils % 3.2 Basophils % 0.6 Absolute Neutrophils 3.4 Absolute Lymphocytes 0.7 Absolute Monocytes 0.6 Absolute Eosinophils 0.2 Absolute Basophils 0.0 Sodium 140.8 Potassium 3.5 L Chloride 100 Carbon Dioxide 32 H Anion Gap 9 BUN 14 Creatinine 0.91 Est GFR ( Amer) > 60 Est GFR (Non-Af Amer) > 60 Glucose 98 Calcium 8.9 Magnesium 1.7 Triglycerides 41 Cholesterol 126.17 LDL Cholesterol Direct 70 VLDL Cholesterol 8.0 L HDL Cholesterol 62 TSH 0.99 Impressions: Chest X-Ray 09/07/18 03:37 IMPRESSION: 1. Cardiomegaly with pulmonary vascular congestion. Assessment & Plan - Diagnosis (1) Chest tightness Is this a current diagnosis for this admission?: Yes Plan: Patient will have serial cardiac enzymes performed to assess for cardiac ischemia or injury. EKGs will also be obtained as per protocol. PRN sublingual nitroglycerin for chest pain and morphine 3 mg IV every 2 hours for severe chest pain not responsive to nitroglycerin. 09/08/18: Patient's cardiac enzymes have been negative and her EKG shows no evidence of cardiac ischemia or injury. Her lipid profile is good and would indicate no need for a change in therapy. Patient will be ready for discharge tomorrow. (2) Acute on chronic diastolic CHF, NYHA class 2 and ACC/AHA stage C Is this a current diagnosis for this admission?: Yes Plan: Patient will be continued on her usual medications for congestive heart failure. She will be clinically reassessed on an ongoing basis with changes to therapy as appropriate. (3) Morbid (severe) obesity due to excess calories Is this a current diagnosis for this admission?: Yes Plan: Patient has severe morbid obesity with a BMI greater than 55. We briefly discussed obesity and diet as well as other treatments, however she was not receptive to any intervention at this time. (4) Sleep apnea with use of continuous positive airway pressure (CPAP) Is this a current diagnosis for this admission?: Yes Plan: Patient will be continued on her usual CPAP for sleep apnea treatment orders have been placed for respiratory therapy to establish hospital equipment for use the patient's own home equipment for nocturnal use every night during her hospital stay. (5) Chronic atrial fibrillation Is this a current diagnosis for this admission?: Yes Plan: Patient has a long history of chronic atrial fibrillation and is on no anticoagulant or aspirin therapy due to severe hemorrhage risk - Time Time Spent with patient: 15-24 minutes Anticipated discharge: Home
[2018-09-08] MEDS: ATORVASTATIN CALCIUM 20 MG TABLET PO SCH (22:00)
[2018-09-08] MEDS: METOPROLOL TARTRATE 25 MG TABLET PO SCH (22:00)
[2018-09-09] MEDS: BUPROPION HCL 100 MG TABLET PO SCH (05:26)
[2018-09-09] MEDS: LEVOTHYROXINE SODIUM 0.1 MG TABLET PO SCH (05:26)
[2018-09-09 06:39] LABS: ABSOLUTE BASOPHILS # (AUTO) 0.1 10^3/uL (0.0-0.2); ABSOLUTE EOSINOPHILS # (AUTO) 0.1 10^3/uL (0.0-0.6); ABSOLUTE LYMPHOCYTES (AUTO) 0.8 10^3/uL (0.5-4.7); ABSOLUTE MONOCYTES (AUTO) 0.7 10^3/uL (0.1-1.4); ABSOLUTE NEUT (AUTO) 3.5 10^3/uL (1.7-8.2); EOSINOPHILS % (AUTO) 2.4 % (0-6); HEMATOCRIT 40.8 % (36.0-47.0); HEMOGLOBIN 13.7 g/dL (12.0-15.5); LYMPHOCYTES % (AUTO) 15.6 % (13-45); MEAN CORPUSCULAR HEMOGLOBIN 26.9 pg (27.0-33.4); MEAN CORPUSCULAR HGB CONC 33.5 g/dL (32.0-36.0); MEAN CORPUSCULAR VOLUME 80 fl (80-97); MONOCYTES % (AUTO) 13.5 % (3-13); PLATELET COUNT 259 10^3/uL (150-450); RED BLOOD COUNT 5.08 10^6/uL (3.72-5.28); RED CELL DISTRIBUTION WIDTH 14.5 % (11.5-14.0); SEGMENTED NEUTROPHILS % (AUTO) 67.5 % (42-78); TOTAL CELLS COUNTED % (AUTO) 100 %; WHITE BLOOD COUNT 5.2 10^3/uL (4.0-10.5)
[2018-09-09 07:02] LABS: ANION GAP 9 (5-19); BLOOD UREA NITROGEN 15 mg/dL (7-20); CALCIUM 8.6 mg/dL (8.4-10.2); CARBON DIOXIDE 33 mmol/L (22-30); CHLORIDE 99 mmol/L (98-107); GLUCOSE 86 mg/dL (75-110); POTASSIUM 4.1 mmol/L (3.6-5.0); SODIUM 141.4 mmol/L (137-145)
[2018-09-09] MEDS: NITROGLYCERIN 5 MG (0.2 MG/HR) PATCH.TD24 TD SCH (09:26)
[2018-09-09] MEDS: DILTIAZEM HCL 60 MG TABLET PO SCH (09:27)
[2018-09-09] MEDS: TORSEMIDE 20 MG TABLET PO SCH (09:27)
[2018-09-09] MEDS: POTASSIUM CHLORIDE 10 MEQ CAPSULE.ER PO SCH (09:27)
[2018-09-09] MEDS: DOCUSATE SODIUM 100 MG CAPSULE PO SCH (09:27)
[2018-09-09] MEDS: CHOLECALCIFEROL (D3) 1,000 UNIT TABLET PO SCH (09:28)
--- NOTE | 2018-09-09 10:48 | PDOC DISCHARGE SUMMARY ---
General - Admit/Disc Date/PCP Admission Date/Primary Care Provider: 09/07/18 08:45 KEYLA KAUFMAN MD Discharge Date: 09/09/18 - Discharge Diagnosis (1) Chest tightness Is this a current diagnosis for this admission?: Yes Summary: 09/07/18: Patient will have serial cardiac enzymes performed to assess for cardiac ischemia or injury. EKGs will also be obtained as per protocol. PRN sublingual nitroglycerin for chest pain and morphine 3 mg IV every 2 hours for severe chest pain not responsive to nitroglycerin. 09/08/18: Patient's cardiac enzymes have been negative and her EKG shows no evidence of cardiac ischemia or injury. Her lipid profile is good and would indicate no need for a change in therapy. Patient will be ready for discharge tomorrow. (2) Acute on chronic diastolic CHF, NYHA class 2 and ACC/AHA stage C Is this a current diagnosis for this admission?: Yes Summary: Patient will be continued on her usual medications for congestive heart failure. She will be clinically reassessed on an ongoing basis with changes to therapy as appropriate. (3) Sleep apnea with use of continuous positive airway pressure (CPAP) Is this a current diagnosis for this admission?: Yes Summary: Patient will be continued on her usual CPAP for sleep apnea treatment orders have been placed for respiratory therapy to establish hospital equipment for use the patient's own home equipment for nocturnal use every night during her hospital stay. (4) Chronic atrial fibrillation Is this a current diagnosis for this admission?: Yes Summary: Patient has a long history of chronic atrial fibrillation and is on no anticoagulant or aspirin therapy due to severe hemorrhage risk (5) Morbid (severe) obesity due to excess calories Is this a current diagnosis for this admission?: Yes Summary: Patient has severe morbid obesity with a BMI greater than 55. We briefly discussed obesity and diet as well as other treatments, however she was not receptive to any intervention at this time. - Additional Information Resuscitation Status: Full Code Discharge Diet: Cardiac Discharge Activity: Activity As Tolerated, Balance Activity w/Rest, Walk Frequently, Weigh Daily Home Medications: Atorvastatin Calcium [Lipitor 20 mg Tablet] 20 mg PO QHS 05/16/18 Bupropion HCl [Bupropion Xl] 150 mg PO BIDBL 05/16/18 Diltiazem HCl 120 mg PO Q12 05/16/18 Ferrous Sulfate 140 mg PO BIDBS 05/16/18 Levothyroxine Sodium [Synthroid 0.1 mg Tablet] 0.1 mg PO Q6AM 05/16/18 Metoprolol Tartrate [Lopressor 25 mg Tablet] 25 mg PO QHS 05/16/18 Nitroglycerin [Nitro-Dur 5 mg (0.2 mg/Hr) Transdermal Patch] 1 patch TD QAM 09/23 Potassium Chloride [Klor-Con 10 Meq Capsule ER] 10 meq PO DAILY 05/16/18 Spironolactone [Aldactone 100 mg Tablet] 1 tab PO QPM 05/16/18 Torsemide [Demadex 20 mg Tablet] 20 mg PO BID 05/16/18 Ergocalciferol (Vitamin D2) [Vitamin D2] 50,000 unit PO Q7D 09/07/18 Ondansetron [Zofran Odt 4 mg Tablet] 4 mg PO Q4HP PRN 09/07/18 History of Present Illness Patient complains of: Dyspnea History of Present Illness: YURIDIA BOWLING is a 62 year old female who presented to the emergency room with a 3-day history of progressively worsening dyspnea which had become moderate to severe at the time of her presentation. Her dyspnea was accompanied by chest tightness on the first day of her increasing dyspnea but had not occurred since that time, until EMS arrived at her home today to pick her up. In route to the hospital she was treated with 4 baby aspirin and 1 sublingual nitroglycerin which resolved her chest tightness. She describes the chest tightness is a vague squeezing sensation in the center of her chest that does not radiate and is mildly to moderately uncomfortable usually lasting only a few minutes and relieved by rest, wine or nitroglycerin. She additionally has noted swelling in her legs off and on over the last 3 days. She admits numerous similar episodes of dyspnea due to acute exacerbations of her chronic diastolic congestive heart failure. She had a cardiac stress test performed [address] Peñaloza explained to her revealed "no blockage". She was admitted to the hospitalist service for further evaluation of her chest pain and the acute exacerbation of chronic diastolic congestive heart failure. Hospital Course Hospital Course: 09/08/18: Yuridia states she is feeling she is breathing a lot better today but she is not quite well enough to go home. She would like to wait and go home tomorrow as she is pretty certain she can have a ride available with this much notice. She has not had chest tightness since her arrival in the emergency room. She feels like the swelling of her lower legs has been reduced. She is tolerating her diet well but feels like she is not completely evacuating when she moves her bowels. We discussed her negative cardiac enzymes and negative EKGs. Her lipid profile was actually very good with an HDL of 62 and a very well controlled LDL and total cholesterol. 09/09/18: Patient states that she is feeling considerably better this morning even better than yesterday. She feels like she would like to go home today and she is arrange for a ride to come this afternoon if possible. She denies further episodes of chest pain and feels as though the swelling in her legs is "as good as it ever gets". She has been tolerating her oral diet and has not had any further difficulty with constipation or bowel movement since taking a few doses of Colace. Because of her excellent progress she will be discharged to home in improved and stable condition with home health care follow-up. Physical Exam Vital Signs: Temp Pulse Resp BP Pulse Ox 97.7 F 78 14 122/74 97 09/09/18 03:37 09/09/18 07:00 09/09/18 03:37 09/09/18 03:37 09/09/18 03:37 Intake & Output 09/07/18 09/08/18 09/09/18 23:59 23:59 22:59 Intake Total 644 Balance 644 Weight 152.6 kg 152.4 kg General appearance: PRESENT: no acute distress, cooperative, morbidly obese Head exam: PRESENT: atraumatic, normocephalic Eye exam: ABSENT: conjunctival injection, periorbital swelling, scleral icterus Respiratory exam: PRESENT: clear to auscultation refugio, symmetrical, unlabored. ABSENT: prolonged expiratory phas, rales, rhonchi, wheezes Cardiovascular exam: PRESENT: irregular rhythm. ABSENT: bradycardia, clicks, diastolic murmur, gallop, rubs, systolic murmur, tachycardia Vascular exam: PRESENT: normal capillary refill. ABSENT: pallor GI/Abdominal exam: PRESENT: normal bowel sounds, soft Rectal exam: PRESENT: deferred Extremities exam: PRESENT: pedal edema - Trace to 1+ bipedal edema. ABSENT: joint swelling Musculoskeletal exam: PRESENT: ambulatory, full ROM, normal inspection. ABSENT : deformity, dislocation, tenderness Neurological exam: PRESENT: alert, oriented to person, oriented to place, oriented to time, oriented to situation, CN II-XII grossly intact. ABSENT: motor sensory deficit Psychiatric exam: PRESENT: appropriate affect, normal mood Skin exam: ABSENT: jaundice, rash, urticaria Results Laboratory Results: 09/09/18 04:58 09/09/18 04:58 09/09/18 09/09/18 04:58 04:58 WBC 5.2 RBC 5.08 Hgb 13.7 Hct 40.8 MCV 80 MCH 26.9 L MCHC 33.5 RDW 14.5 H Plt Count 259 Seg Neutrophils % 67.5 Lymphocytes % 15.6 Monocytes % 13.5 H Eosinophils % 2.4 Basophils % 1.0 Absolute Neutrophils 3.5 Absolute Lymphocytes 0.8 Absolute Monocytes 0.7 Absolute Eosinophils 0.1 Absolute Basophils 0.1 Sodium 141.4 Potassium 4.1 Chloride 99 Carbon Dioxide 33 H Anion Gap 9 BUN 15 Creatinine 0.95 Est GFR ( Amer) > 60 Est GFR (Non-Af Amer) 59 L Glucose 86 Calcium 8.6 Impressions: Chest X-Ray 09/07/18 03:37 IMPRESSION: 1. Cardiomegaly with pulmonary vascular congestion. Qualifiers - * PATIENT BEING DISCHARGED WITH ANY OF THE FOLLOWING DIAGNOSIS: Heart Failure HF Pt being discharged on ACEI for LVEF less than 40%?: No Reason(s) for not prescribing ACEI:: Drug intolerance - By patient report HF Pt being discharged on ARBS for LVEF less than 40%?: No Reason(s) for not prescribing ARBS:: Drug intolerance - By patient report HF Pt with Afib discharged with Warfarin?: No Reason(s) for not prescribing Warfarin:: Medical Contraindication - Multiple episodes of gastrointestinal hemorrhage in the past while on anticoagulants ( warfarin and apixaban). HF Pt discharged on evidence-based Beta Titi:: Yes Plan Discharge Plan: Discharged home in improved and stable condition, with home health care follow- up. Time Spent: Greater than 30 Minutes
[2018-09-09 13:19] VITALS: BP 137/65
== END 2018-09-09 13:15 | disposition home health service (06) | DRG 313 ==
LOC: ER 03:20 → EH 08:45 → 4N 09:55
PROVIDERS: ADMIT Emergency Medicine; ATTEND Emergency Medicine
DX: R07.89 Other chest pain (principal); Z68.43 Body mass index [BMI] 50.0-59.9, adult; I50.32 Chronic diastolic (congestive) heart failure; I11.0 Hypertensive heart disease with heart failure; I48.2 Chronic atrial fibrillation; I25.10 Atherosclerotic heart disease of native coronary artery without angina pectoris; E66.01 Morbid (severe) obesity due to excess calories; G47.30 Sleep apnea, unspecified; M19.90 Unspecified osteoarthritis, unspecified site; F32.9 Major depressive disorder, single episode, unspecified; Z87.11 Personal history of peptic ulcer disease; Z85.3 Personal history of malignant neoplasm of breast; Z90.11 Acquired absence of right breast and nipple; Z82.49 Family history of ischemic heart disease and other diseases of the circulatory system; Z82.61 Family history of arthritis; Z84.89 Family history of other specified conditions; Z83.438 Family history of other disorder of lipoprotein metabolism and other lipidemia; Z88.8 Allergy status to other drugs, medicaments and biological substances
CPT/HCPCS: 36415; 71046; 80048; 80053; 80061; 82550; 82553; 83735; 83880; 84443; 84484; 85025; 85610; 93005; 93010; 94660; 99285; J3490

== ENCOUNTER 2018-11-22 13:32 | Emergency (ER) | payer MEDICARE, MEDICAID ==
--- NOTE | 2018-11-22 14:35 | ER Document Report ---
ED Medical Screen (RME) - General Chief Complaint: Anxiety Stated Complaint: POSSIBLE ANXIETY Time Seen by Provider: 11/22/18 14:20 Mode of Arrival: Ambulatory Information source: Patient Notes: This is a 63-year-old female with a history of CHF, atrial fibrillation (no oral anticoagulation), obstructive sleep apnea, colonic polyps. Patient was brought in by ambulance because she felt anxious and states she awoke feeling short of breath. She states that she gets anxious feeling at times and that is what she thought it was. She states that she feels great right now and does not feel li ke she needs any further workup. She denies any chest pain or shortness of breath at this time. Her oxygen saturation was 99% in the ambulance on room air. Her oxygen saturation is 99% here in the ER. She looks comfortable sitting in a wheelchair. TRAVEL OUTSIDE OF THE [place] IN LAST 30 DAYS: No - HPI Onset: Just prior to arrival Onset/Duration: Sudden Quality of pain: No pain Severity: None Pain Level: Denies Associated Symptoms: Shortness of breath, Other - Anxious. denies: Chest pain, Chills, Cough (productive), Cough (nonproductive) Exacerbated by: Denies Relieved by: Denies Similar symptoms previously: Yes Recently seen / treated by doctor: Yes - Related Data Frequency of alcohol use: None Drug Abuse: None Allergies/Adverse Reactions: clemastine fumarate [From Tavist-1] Allergy (Severe, Verified 11/22/18 13:34) red spots,N/V Shark Cartilage [From Shark Fin Cartilage] Allergy (Severe, Verified 11/22/18 13:34) hives, n and v iodine [Iodine] Allergy (Unknown, Verified 11/22/18 13:34) vomit/rash meperidine HCl [From Demerol] Allergy (Unknown, Verified 11/22/18 13:34) N/V pseudoephedrine HCl [From Sudafed] Allergy (Unknown, Verified 11/22/18 13:34) rash/itch glove powder Allergy (Severe, Uncoded 01/23/15 18:04) hands swell,itch Past Medical History - General Information source: Patient - Social History Cigarette use (# per day): No Chew tobacco use (# tins/day): No Frequency of alcohol use: None Drug Abuse: None Lives with: Family Family history: None - Past Medical History Cardiac Medical History: Reports: Hx Atrial Fibrillation, Hx Congestive Heart Failure, Hx Coronary Artery Disease, Hx Hypertension - on meds Denies: Hx DVT, Hx Heart Attack, Hx Hypercholesterolemia, Hx Peripheral Vascular Disease, Hx Pulmonary Embolism, Hx Heart Murmur Pulmonary Medical History: Reports: Hx Bronchitis, Hx Pneumonia - hx of, Hx Sleep Apnea Denies: Hx Asthma, Hx COPD, Hx Tuberculosis Neurological Medical History: Denies: Hx Cerebrovascular Accident, Hx Migraine, Hx Seizures Endocrine Medical History: Reports: Hx Hypothyroidism. Denies: Hx Diabetes Mellitus Type 1, Hx Diabetes Mellitus Type 2, Hx Graves' Disease, Hx Hyperthyroidism Renal/ Medical History: Denies: Hx End Stage Renal Disease, Hx Kidney Stones, Hx Ovarian Cysts, Hx Peritoneal Dialysis, Hx Pelvic Inflammatory Disease Malignancy Medical History: Reports: Hx Breast Cancer. Denies: Hx Cervical Cancer, Hx Ovarian Cancer GI Medical History: Reports: Hx Colonoscopy. Denies: Hx Crohn's Disease, Hx Gastroesophageal Reflux Disease, Hx Hiatal Hernia, Hx Irritable Bowel, Hx Liver Failure, Hx Pancreatitis, Hx Ulcer, Hx Ulcerative Colitis Musculoskeltal Medical History: Reports Hx Arthritis - knees, Denies Hx Fibromyalgia, Denies Hx Gout, Denies Hx Muscular Dystrophy Skin Medical History: Denies Hx Eczema, Denies Hx Psoriasis Psychiatric Medical History: Denies: Hx Depression Traumatic Medical History: Denies: Hx Fractures Past Surgical History: Reports: Hx Abdominal Surgery - abd hernia, colon polpys, Hx Section, Hx Hysterectomy, Hx Mastectomy - right partial, Hx Tonsillectomy. Denies: Hx Appendectomy, Hx Bowel Surgery, Hx Cholecystectomy, Hx Colostomy, Hx Coronary Artery Bypass Graft, Hx Gastric Bypass Surgery, Hx Herniorrhaphy, Hx Pacemaker, Hx Tubal Ligation - Immunizations Hx Diphtheria, Pertussis, Tetanus Vaccination: Yes History of Influenza Vaccine for 08/2017 - 01/2018 Season: Unknown Review of Systems - Review of Systems Constitutional: denies: Chills, Fever EENT: No symptoms reported Cardiovascular: denies: Chest pain, Palpitations, Heart racing Respiratory: Short of breath. denies: Cough, Hemoptysis, Wheezing Gastrointestinal: No symptoms reported Genitourinary: No symptoms reported Female Genitourinary: No symptoms reported Musculoskeletal: No symptoms reported Skin: No symptoms reported Hematologic/Lymphatic: No symptoms reported Neurological/Psychological: Anxiety Physical Exam - Vital signs Vitals: Temp Pulse Resp BP Pulse Ox 97.1 F 83 19 129/61 H 96 11/22/18 13:42 11/22/18 13:42 11/22/18 13:42 11/22/18 13:42 11/22/18 13:42 Notes: Physical exam: GENERAL: 63-year-old female, alert and oriented x3, pleasant, conversant, sitting in wheelchair in no acute distress. She denies any shortness of breath at this time. She does have a history of lower extremity edema and says it is much improved at this time. HEAD: Atraumatic, normocephalic. EYES: Pupils equal round and reactive to light, extraocular movements intact, sclera anicteric, conjunctiva are normal. ENT: TMs normal, nares patent, oropharynx clear without exudates. Moist mucous membranes. NECK: Normal range of motion, supple without obvious mass or JVD. LUNGS: Breath sounds clear to auscultation bilaterally and equal. No wheezes rales or rhonchi. HEART: Regular rate and rhythm without murmurs, rubs or gallops. ABDOMEN: Soft, normoactive bowel sounds. No tenderness to palpation. No guarding, no rebound. No masses appreciated. EXTREMITIES: Normal range of motion, scant edema in the lower extremities. No clubbing or cyanosis. NEUROLOGICAL: Cranial nerves II through XII grossly intact. Normal speech, moving all extremities. PSYCH: Normal mood, normal affect. SKIN: Warm, Dry, normal turgor, no rashes or lesions noted. Course - Vital Signs Vital signs: Temp Pulse Resp BP Pulse Ox 97.8 F 126 H 19 108/53 L 96 11/22/18 14:46 11/22/18 14:46 11/22/18 13:42 11/22/18 14:46 11/22/18 13:42 Doctor's Discharge - Discharge Clinical Impression: Anxiety Condition: Stable Disposition: HOME, SELF-CARE Instructions: Anxiety ([facility]) Additional Instructions: As we discussed, your blood pressure was very good, your lungs are clear and your oxygen level is very good. I would continue the current medicines. I want you to follow-up with Dr. Renteria in the office: Call tomorrow to see if they will see you tomorrow. Return to the emergency room for any concerns or getting worse: Any shortness of breath, chest pain, increased swelling. Referrals: KEYLA KAUFMAN MD [Primary Care Provider] - Follow up as needed FREIDA RENTERIA MD [ACTIVE STAFF] - Follow up tomorrow
[2018-11-22 14:51] VITALS: BP 108/53
== END 2018-11-22 14:59 | disposition home or self-care (01) ==
LOC: ER 13:32
DX: F41.9 Anxiety disorder, unspecified (principal); I50.9 Heart failure, unspecified; I48.91 Unspecified atrial fibrillation; I11.0 Hypertensive heart disease with heart failure; E03.9 Hypothyroidism, unspecified; Z85.3 Personal history of malignant neoplasm of breast; Z90.710 Acquired absence of both cervix and uterus
CPT/HCPCS: 99283

== ENCOUNTER 2018-12-05 04:48 | Emergency (ER) | payer MEDICARE, MEDICAID ==
[2018-12-05] MEDS ORDERED: IPRATROPIUM/ALBUTEROL 0.5-2.5 MG/3 ML AMPUL NEB ONE (05:27)
[2018-12-05] MEDS ORDERED: ASPIRIN 81 MG TABLET, CHEWABLE PO ONE (05:28)
--- NOTE | 2018-12-05 05:30 | ER Document Report ---
ED Medical Screen (RME) - General Chief Complaint: Shortness Of Breath Stated Complaint: TROUBLE BREATHING Time Seen by Provider: 12/05/18 05:20 Primary Care Provider: KEYLA KAUFMAN MD [Primary Care Provider] - Follow up as needed Notes: 63-year-old female with a history of atrial fibrillation, hypertension, CHF, anxiety that comes by EMS for chief complaint of shortness of breath for the past 2 weeks. Tells me that she also had chest pain starting yesterday. Unsure of fever. Denies vomiting. Intermittent coughing. TRAVEL OUTSIDE OF THE [place] IN LAST 30 DAYS: No - Related Data Allergies/Adverse Reactions: clemastine fumarate [From Tavist-1] Allergy (Severe, Verified 11/22/18 13:34) red spots,N/V Shark Cartilage [From Shark Fin Cartilage] Allergy (Severe, Verified 11/22/18 13:34) hives, n and v iodine [Iodine] Allergy (Unknown, Verified 11/22/18 13:34) vomit/rash meperidine HCl [From Demerol] Allergy (Unknown, Verified 11/22/18 13:34) N/V pseudoephedrine HCl [From Sudafed] Allergy (Unknown, Verified 11/22/18 13:34) rash/itch glove powder Allergy (Severe, Uncoded 01/23/15 18:04) hands swell,itch Past Medical History - Social History Family history: None - Past Medical History Cardiac Medical History: Reports: Hx Atrial Fibrillation, Hx Congestive Heart Failure, Hx Coronary Artery Disease, Hx Hypertension - on meds Denies: Hx DVT, Hx Heart Attack, Hx Hypercholesterolemia, Hx Peripheral Vascular Disease, Hx Pulmonary Embolism, Hx Heart Murmur Pulmonary Medical History: Reports: Hx Bronchitis, Hx Pneumonia - hx of, Hx Sleep Apnea Denies: Hx Asthma, Hx COPD, Hx Tuberculosis Neurological Medical History: Denies: Hx Cerebrovascular Accident, Hx Migraine, Hx Seizures Endocrine Medical History: Reports: Hx Hypothyroidism. Denies: Hx Diabetes Mellitus Type 1, Hx Diabetes Mellitus Type 2, Hx Graves' Disease, Hx Hyperthyroidism Renal/ Medical History: Denies: Hx End Stage Renal Disease, Hx Kidney Stones, Hx Ovarian Cysts, Hx Peritoneal Dialysis, Hx Pelvic Inflammatory Disease Malignancy Medical History: Reports: Hx Breast Cancer. Denies: Hx Cervical Cancer, Hx Ovarian Cancer GI Medical History: Reports: Hx Colonoscopy. Denies: Hx Crohn's Disease, Hx Gastroesophageal Reflux Disease, Hx Hiatal Hernia, Hx Irritable Bowel, Hx Liver Failure, Hx Pancreatitis, Hx Ulcer, Hx Ulcerative Colitis Musculoskeltal Medical History: Reports Hx Arthritis - knees, Denies Hx Fibromyalgia, Denies Hx Gout, Denies Hx Muscular Dystrophy Skin Medical History: Denies Hx Eczema, Denies Hx Psoriasis Psychiatric Medical History: Denies: Hx Depression Traumatic Medical History: Denies: Hx Fractures Past Surgical History: Reports: Hx Abdominal Surgery - abd hernia, colon polpys, Hx Section, Hx Hysterectomy, Hx Mastectomy - right partial, Hx Tonsillectomy. Denies: Hx Appendectomy, Hx Bowel Surgery, Hx Cholecystectomy, Hx Colostomy, Hx Coronary Artery Bypass Graft, Hx Gastric Bypass Surgery, Hx Herniorrhaphy, Hx Pacemaker, Hx Tubal Ligation - Immunizations Hx Diphtheria, Pertussis, Tetanus Vaccination: Yes History of Influenza Vaccine for 08/2017 - 01/2018 Season: Unknown Physical Exam - Respiratory Respiratory status: No: Respiratory distress, Labored Breath sounds: Other - Coarse breath sounds with expiratory wheezes, occasional cough, otherwise clear Course - Re-evaluation Re-evalutation: Patient does not have labored breathing or respiratory distress, however she does have some scattered coarse breath sounds and mild expiratory wheezes. Shortness of breath with cough for the past 2 weeks. Suspect bronchitis. Initiating workup and a DuoNeb. Doctor's Discharge - Discharge Referrals: KEYLA KAUFMAN MD [Primary Care Provider] - Follow up as needed
[2018-12-05 05:56] LABS: ABSOLUTE BASOPHILS # (AUTO) 0.1 10^3/uL (0.0-0.2); ABSOLUTE EOSINOPHILS # (AUTO) 0.1 10^3/uL (0.0-0.6); ABSOLUTE LYMPHOCYTES (AUTO) 0.6 10^3/uL (0.5-4.7); ABSOLUTE MONOCYTES (AUTO) 0.6 10^3/uL (0.1-1.4); ABSOLUTE NEUT (AUTO) 3.3 10^3/uL (1.7-8.2); BASOPHILS % (AUTO) 1.2 % (0-2); HEMATOCRIT 40.4 % (36.0-47.0); HEMOGLOBIN 13.5 g/dL (12.0-15.5); MEAN CORPUSCULAR HEMOGLOBIN 26.7 pg (27.0-33.4); MEAN CORPUSCULAR HGB CONC 33.5 g/dL (32.0-36.0); MEAN CORPUSCULAR VOLUME 80 fl (80-97); MONOCYTES % (AUTO) 12.5 % (3-13); PLATELET COUNT 280 10^3/uL (150-450); RED BLOOD COUNT 5.07 10^6/uL (3.72-5.28); RED CELL DISTRIBUTION WIDTH 15.4 % (11.5-14.0); SEGMENTED NEUTROPHILS % (AUTO) 70.3 % (42-78); TOTAL CELLS COUNTED % (AUTO) 100 %; WHITE BLOOD COUNT 4.6 10^3/uL (4.0-10.5)
[2018-12-05 06:12] LABS: ALANINE AMINOTRANSFERASE 34 U/L (9-52); ALBUMIN 3.2 g/dL (3.5-5.0); ALKALINE PHOSPHATASE 148 U/L (38-126); ANION GAP 9 (5-19); ASPARTATE AMINO TRANSFERASE 24 U/L (14-36); BILIRUBIN,DIRECT 0.4 mg/dL (0.0-0.4); BLOOD UREA NITROGEN 11 mg/dL (7-20); CALCIUM 8.9 mg/dL (8.4-10.2); CARBON DIOXIDE 30 mmol/L (22-30); CHLORIDE 104 mmol/L (98-107); GLUCOSE 88 mg/dL (75-110); POTASSIUM 3.5 mmol/L (3.6-5.0); SODIUM 142.6 mmol/L (137-145); TOTAL PROTEIN 5.8 g/dL (6.3-8.2)
--- NOTE | 2018-12-05 06:14 | RADIOLOGY REPORT (SQ) ---
CLINICAL HISTORY: chest pain COMPARISON: None. TECHNIQUE: XR CHEST 1 VIEW 12/05/2018 5:28 AM BOOK TRIMMER FINDINGS: The heart is moderately enlarged. There may be mild pulmonary vascular congestion. There is no pleural effusion. There is no pneumothorax. There are no acute osseous findings. IMPRESSION: Gross cardiomegaly with possible mild pulmonary vascular congestion.
[2018-12-05 06:25] LABS: NT PRO BNP 873 pg/mL (5-900)
[2018-12-05 06:28] LABS: TROPONIN I < 0.012 ng/mL
--- NOTE | 2018-12-05 06:39 | ER Document Report ---
ED Respiratory Problem - General Chief Complaint: Shortness Of Breath Stated Complaint: TROUBLE BREATHING Time Seen by Provider: 12/05/18 05:20 Primary Care Provider: KEYLA KAUFMAN MD [Primary Care Provider] - Follow up as needed Notes: 63-year-old female with a history of atrial fibrillation, hypertension, CHF, an xiety that comes by EMS for chief complaint of shortness of breath for the past 2 weeks. Tells me that she also had chest pain starting yesterday. Unsure of fever. Denies vomiting. Intermittent coughing. Patient denies fever chills. She denies any chest pain. She had a sensation of her heart was racing. She stated yesterday she had a little discomfort but it always comes and goes. She denies more than usual swelling she has chronic swelling in her legs denies calf pain. Denies abdominal pain denies nausea vomiting diarrhea states this morning she felt a little short of breath is come to the ER for further evaluation TRAVEL OUTSIDE OF THE [place] IN LAST 30 DAYS: No - Related Data Allergies/Adverse Reactions: clemastine fumarate [From Tavist-1] Allergy (Severe, Verified 11/22/18 13:34) red spots,N/V Shark Cartilage [From Shark Fin Cartilage] Allergy (Severe, Verified 11/22/18 13:34) hives, n and v iodine [Iodine] Allergy (Unknown, Verified 11/22/18 13:34) vomit/rash meperidine HCl [From Demerol] Allergy (Unknown, Verified 11/22/18 13:34) N/V pseudoephedrine HCl [From Sudafed] Allergy (Unknown, Verified 11/22/18 13:34) rash/itch glove powder Allergy (Severe, Uncoded 01/23/15 18:04) hands swell,itch Past Medical History - Social History Smoking Status: Unknown if Ever Smoked Family History: Reviewed & Not Pertinent, DM, Hyperlipidemia, Hypertension Patient has suicidal ideation: No Patient has homicidal ideation: No - Past Medical History Cardiac Medical History: Reports: Hx Atrial Fibrillation, Hx Congestive Heart Failure, Hx Coronary Artery Disease, Hx Hypertension - on meds Denies: Hx DVT, Hx Heart Attack, Hx Hypercholesterolemia, Hx Peripheral Vascular Disease, Hx Pulmonary Embolism, Hx Heart Murmur Pulmonary Medical History: Reports: Hx Bronchitis, Hx Pneumonia - hx of, Hx Slee p Apnea Denies: Hx Asthma, Hx COPD, Hx Tuberculosis Neurological Medical History: Denies: Hx Cerebrovascular Accident, Hx Migraine, Hx Seizures Endocrine Medical History: Reports: Hx Hypothyroidism. Denies: Hx Diabetes Mellitus Type 1, Hx Diabetes Mellitus Type 2, Hx Graves' Disease, Hx Hyperthyroidism Renal/ Medical History: Denies: Hx End Stage Renal Disease, Hx Kidney Stones, Hx Ovarian Cysts, Hx Peritoneal Dialysis, Hx Pelvic Inflammatory Disease Malignancy Medical History: Reports: Hx Breast Cancer. Denies: Hx Cervical Cancer, Hx Ovarian Cancer GI Medical History: Reports: Hx Colonoscopy. Denies: Hx Crohn's Disease, Hx Gastroesophageal Reflux Disease, Hx Hiatal Hernia, Hx Irritable Bowel, Hx Liver Failure, Hx Pancreatitis, Hx Ulcer, Hx Ulcerative Colitis Musculoskeletal Medical History: Reports Hx Arthritis - knees, Denies Hx F ibromyalgia, Denies Hx Gout, Denies Hx Muscular Dystrophy Skin Medical History: Denies Hx Eczema, Denies Hx Psoriasis Psychiatric Medical History: Denies: Hx Depression Traumatic Medical History: Denies: Hx Fractures Past Surgical History: Reports: Hx Abdominal Surgery - abd hernia, colon polpys, Hx Section, Hx Hysterectomy, Hx Mastectomy - right partial, Hx Tonsillectomy. Denies: Hx Appendectomy, Hx Bowel Surgery, Hx Cholecystectomy, Hx Colostomy, Hx Coronary Artery Bypass Graft, Hx Gastric Bypass Surgery, Hx Herniorrhaphy, Hx Pacemaker, Hx Tubal Ligation - Immunizations Hx Diphtheria, Pertussis, Tetanus Vaccination: Yes Hx Pneumococcal Vaccination: 07/07/11 Review of Systems - Review of Systems Constitutional: denies: Chills, Fever Cardiovascular: Chest pain, Palpitations, Heart racing, Dyspnea, Edema Respiratory: Short of breath -: Yes All other systems reviewed and negative Physical Exam - Vital signs Vitals: Pulse Ox 96 12/05/18 05:13 - Notes Notes: GENERAL_APPEARANCE: well_nourished, alert, cooperative, no_acute_distress, no_obvious_discomfort. VITALS: reviewed, see vital signs table. HEAD: no_swelling\tenderness on the head. EYES: PERRL, EOMI, conjunctiva_clear. NOSE: no_nasal_discharge. MOUTH: (-)decreased moisture. THROAT: no_throat_inflammation, no_airway_obstruction. no_lymphadenopathy NECK: supple, no_neck_tenderness, (-)thyromegaly. BACK: no_back_tenderness. CHEST_WALL: no_chest_tenderness. LUNGS: no_wheezing, very fine crackles, no_rhonchi, (-)accessory muscle use, good air exchange bilateral. HEART: normal_rate, slightly irregular_rhythm, normal_S1, normal_S2, (-)S3, (- )S4, no_murmur, no_rub. ABDOMEN: normal_BS, soft, no_abd_tenderness, (-)guarding, (-)rebound, no_organomegaly, no_abd_masses. EXTREMITIES: sgood pulses in all_extremities, no_swelling\tenderness in the extremities, 1+_edema. SKIN: warm, dry, good_color, no_rash. MENTAL_STATUS: speech_clear, oriented_X_3, normal_affect, responds_appr opriately to questions. Course - Re-evaluation Re-evalutation: 12/05/18 06:38 63-year-old female history of CHF, CAD A. fib and anxiety presents with difficulty breathing. She is feeling much better now. States she awoke with a racing heart rate. Palpitations. Shortness of breath she stated that she has is with her A. fib from time to time and anxiety. She want to come be checked out but she states she is feeling much better now rechecking blood chest x-ray. She has some very fine crackles which may be her baseline normally. We may need to give her some additional diuresis. 12/05/18 08:42 Patient is doing much better. Patient was given aerosol treatments here. She does have a little bit of cephalization and edema on her lungs I will give her an additional dose of Lasix here. Should help diurese her throughout the day however she has no oxygen requirements. She is feeling pretty good at this time. She is comfortable going home. The additional Lasix should help her diurese throughout the day her potassium was a to close I will give her a dose here she will continue her normal regimen at home she has a long history of CHF and A. fib. - Vital Signs Vital signs: Temp Pulse Resp BP Pulse Ox 97.7 F 22 H 110/89 H 94 12/05/18 05:45 12/05/18 07:02 12/05/18 07:02 12/05/18 07:02 - Laboratory Result Diagrams: 12/05/18 05:35 12/05/18 05:35 Laboratory results interpreted by me: 12/05/18 12/05/18 05:35 05:35 MCH 26.7 L RDW 15.4 H Potassium 3.5 L Alkaline Phosphatase 148 H Total Protein 5.8 L Albumin 3.2 L - EKG Interpretation by Me Rate: Normal Rhythm: A.Fib Discharge - Discharge Clinical Impression: Acute on chronic diastolic CHF, NYHA class 2 and ACC/AHA stage C Condition: Good Disposition: HOME, SELF-CARE Instructions: Congestive Heart Failure ([facility]) Additional Instructions: If you do not improve in the next 24-48 hours return to the ER if worse return as soon as possible. Otherwise monitor your fluid intake. Referrals: KEYLA KAUFMAN MD [Primary Care Provider] - Follow up as needed
--- NOTE | 2018-12-05 07:53 | EKG REPORT ---
SEVERITY:- ABNORMAL ECG - ATRIAL FIBRILLATION LEFT AXIS DEVIATION LOW VOLTAGE IN FRONTAL LEADS NONSPECIFIC T ABNORMALITIES, LATERAL LEADS BORDERLINE PROLONGED QT INTERVAL : Confirmed by: Champ Powell MD 05-Dec-2018 07:52:31
[2018-12-05] MEDS ORDERED: FUROSEMIDE INJ/PF 40 MG/4 ML SDV IV ONE (08:41)
[2018-12-05] MEDS ORDERED: POTASSIUM CHLORIDE 10 MEQ CAPSULE.ER PO ONE (08:42)
[2018-12-05 09:00] VITALS: BP 118/88
== END 2018-12-05 09:08 | disposition home or self-care (01) ==
LOC: ER 04:48
DX: I11.0 Hypertensive heart disease with heart failure (principal); I50.33 Acute on chronic diastolic (congestive) heart failure; I48.91 Unspecified atrial fibrillation; I25.10 Atherosclerotic heart disease of native coronary artery without angina pectoris; R06.02 Shortness of breath; R05 Cough; R00.2 Palpitations; Z91.013 Allergy to seafood; Z88.5 Allergy status to narcotic agent; Z88.8 Allergy status to other drugs, medicaments and biological substances; Z91.048 Other nonmedicinal substance allergy status; Z85.3 Personal history of malignant neoplasm of breast
CPT/HCPCS: 93005; 94640; 99285; 96374; 36415; 85025; 80053; 84484; 83880; 71045; 93010; A9270 ×3; J1940; J7620

== ENCOUNTER 2018-12-10 05:52 | Inpatient (IN) | payer MEDICARE, MEDICAID ==
[2018-12-10] MEDS ORDERED: ASPIRIN 81 MG TABLET, CHEWABLE PO ONE (06:53)
[2018-12-10] MEDS ORDERED: IPRATROPIUM/ALBUTEROL 0.5-2.5 MG/3 ML AMPUL NEB ONE (06:55)
[2018-12-10] MEDS ORDERED: NITROGLYCERIN 0.4 MG/TAB 25 TAB/BOTTLE SL ONE (06:58)
--- NOTE | 2018-12-10 07:02 | ER Document Report ---
ED General - General Chief Complaint: Shortness Of Breath Stated Complaint: SHORTNESS OF BREATH Time Seen by Provider: 12/10/18 06:45 Mode of Arrival: Medic Information source: Patient Notes: 63-year-old female with a history of atrial fibrillation, hypertension, congestive heart failure, anxiety who was brought to the emergency department by EMS for complaints of shortness of breath prior to arrival. Patient is oriented to her name but does not know where she is located or what year it is. Patient is only complaining of shortness of breath. She denies any chest pain, fever, chills, nausea, vomiting, abdominal pain, cough. TRAVEL OUTSIDE OF THE [place] IN LAST 30 DAYS: No - HPI Onset: This morning Onset/Duration: Sudden Quality of pain: No pain Severity: None Pain Level: Denies Associated symptoms: None Exacerbated by: Denies Relieved by: Denies Similar symptoms previously: Yes Recently seen / treated by doctor: Yes - Related Data Allergies/Adverse Reactions: clemastine fumarate [From Tavist-1] Allergy (Severe, Verified 11/22/18 13:34) red spots,N/V Shark Cartilage [From Shark Fin Cartilage] Allergy (Severe, Verified 11/22/18 13:34) hives, n and v iodine [Iodine] Allergy (Unknown, Verified 11/22/18 13:34) vomit/rash meperidine HCl [From Demerol] Allergy (Unknown, Verified 11/22/18 13:34) N/V pseudoephedrine HCl [From Sudafed] Allergy (Unknown, Verified 11/22/18 13:34) rash/itch glove powder Allergy (Severe, Uncoded 01/23/15 18:04) hands swell,itch Past Medical History - General Information source: Patient - Social History Smoking Status: Unknown if Ever Smoked Family History: Reviewed & Not Pertinent, DM, Hyperlipidemia, Hypertension Patient has suicidal ideation: No Patient has homicidal ideation: No - Past Medical History Cardiac Medical History: Reports: Hx Atrial Fibrillation, Hx Congestive Heart Fa ilure, Hx Coronary Artery Disease, Hx Hypertension - on meds Denies: Hx DVT, Hx Heart Attack, Hx Hypercholesterolemia, Hx Peripheral Vascular Disease, Hx Pulmonary Embolism, Hx Heart Murmur Pulmonary Medical History: Reports: Hx Bronchitis, Hx Pneumonia - hx of, Hx Sleep Apnea Denies: Hx Asthma, Hx COPD, Hx Tuberculosis Neurological Medical History: Denies: Hx Cerebrovascular Accident, Hx Migraine, Hx Seizures Endocrine Medical History: Reports: Hx Hypothyroidism. Denies: Hx Diabetes Mellitus Type 1, Hx Diabetes Mellitus Type 2, Hx Graves' Disease, Hx Hyperthyroidism Renal/ Medical History: Denies: Hx End Stage Renal Disease, Hx Kidney Stones, Hx Ovarian Cysts, Hx Peritoneal Dialysis, Hx Pelvic Inflammatory Disease Malignancy Medical History: Reports: Hx Breast Cancer. Denies: Hx Cervical Cancer, Hx Ovarian Cancer GI Medical History: Reports: Hx Colonoscopy. Denies: Hx Crohn's Disease, Hx Gastroesophageal Reflux Disease, Hx Hiatal Hernia, Hx Irritable Bowel, Hx Liver Failure, Hx Pancreatitis, Hx Ulcer, Hx Ulcerative Colitis Musculoskeletal Medical History: Reports Hx Arthritis - knees, Denies Hx Fibro myalgia, Denies Hx Gout, Denies Hx Muscular Dystrophy Skin Medical History: Denies Hx Eczema, Denies Hx Psoriasis Psychiatric Medical History: Denies: Hx Depression Traumatic Medical History: Denies: Hx Fractures Past Surgical History: Reports: Hx Abdominal Surgery - abd hernia, colon polpys, Hx Section, Hx Hysterectomy, Hx Mastectomy - right partial, Hx Tonsillectomy. Denies: Hx Appendectomy, Hx Bowel Surgery, Hx Cholecystectomy, Hx Colostomy, Hx Coronary Artery Bypass Graft, Hx Gastric Bypass Surgery, Hx Herniorrhaphy, Hx Pacemaker, Hx Tubal Ligation - Immunizations Hx Diphtheria, Pertussis, Tetanus Vaccination: Yes Hx Pneumococcal Vaccination: 07/07/11 Review of Systems - Review of Systems Constitutional: No symptoms reported EENT: No symptoms reported Cardiovascular: No symptoms reported Respiratory: Short of breath Gastrointestinal: No symptoms reported Genitourinary: No symptoms reported Female Genitourinary: No symptoms reported Musculoskeletal: No symptoms reported Skin: No symptoms reported Hematologic/Lymphatic: No symptoms reported Neurological/Psychological: No symptoms reported -: Yes All other systems reviewed and negative Physical Exam - Vital signs Vitals: Temp Pulse Resp Pulse Ox 97.9 F 90 19 100 12/10/18 06:05 12/10/18 06:05 12/10/18 06:05 12/10/18 06:05 - Notes Notes: PHYSICAL EXAMINATION: GENERAL: Well-nourished. Orientated only to person. HEAD: Atraumatic, normocephalic. EYES: Pupils equal round and reactive to light, extraocular movements intact, conjunctiva are normal. ENT: Nares patent, oropharynx clear without exudates. Moist mucous membranes. NECK: Normal range of motion, supple without lymphadenopathy LUNGS: Tachypneic. Breath sounds clear to auscultation bilaterally and equal. No wheezes rales or rhonchi. HEART: Regular rate and rhythm without murmurs ABDOMEN: Soft, nontender, nondistended abdomen. No guarding, no rebound. No masses appreciated. Female : deferred Musculoskeletal: Normal range of motion, no pitting or edema. No cyanosis. NEUROLOGICAL: Cranial nerves grossly intact. Normal speech. Normal sensory, motor exams PSYCH: Normal mood, normal affect. SKIN: Warm, Dry, normal turgor, no rashes or lesions noted. Course - Re-evaluation Re-evalutation: 12/10/18 07:02 EKG: Ventricular rate 101, QRS duration 94, QTc 483, atrial fibrillation. No ST segment elevation. 12/10/18 11:57 Patient was given a DuoNeb treatment for her complaints of severe shortness of breath with a history of both COPD and congestive heart failure. Labs and imaging obtained. Chest x-ray shows cardiomegaly and vascular congestion. Lasix given. Troponin is within normal limits. CT of the head does not show an acute process. Ammonia level elevated. No signs of infection in the urine. Drug screen normal. On reevaluation, knows her name and where she is at. Still unable to state the year. Patient continues to complain of severe shortness of breath. A CT of the chest was done. No pulmonary embolism was seen. Patient continues to complain of the shortness of breath. Family is now at bedside. They state that this morning she was confused. She's back to her normal baseline now. I spoke with the hospitalist Dr. Jimenez about the patient. He recommends adding on a carbon monoxide level. He will evaluate the patient. - Vital Signs Vital signs: Temp Pulse Resp BP Pulse Ox 97.9 F 90 34 H 120/81 100 12/10/18 06:05 12/10/18 06:05 12/10/18 12:01 12/10/18 12:01 12/10/18 11:01 - Laboratory Result Diagrams: 12/10/18 07:40 12/10/18 08:53 Laboratory results interpreted by me: 12/10/18 12/10/18 12/10/18 07:40 07:40 07:40 RDW 15.8 H Lymphocytes % 11.8 L ABG pH 7.47 H ABG pO2 60.0 L ABG HCO3 30.7 H ABG Total CO2 32.0 H ABG O2 Saturation 92.4 L Carbon Dioxide Est GFR (Non-Af Amer) Alkaline Phosphatase Ammonia 120.6 H Total Protein Albumin Urine Urobilinogen 12/10/18 12/10/18 07:40 08:53 RDW Lymphocytes % ABG pH ABG pO2 ABG HCO3 ABG Total CO2 ABG O2 Saturation Carbon Dioxide 31 H Est GFR (Non-Af Amer) 55 L Alkaline Phosphatase 144 H Ammonia Total Protein 6.1 L Albumin 3.2 L Urine Urobilinogen 4.0 H Discharge - Discharge Clinical Impression: Hyperammonemia, Shortness of breath, Respiratory alkalosis Altered mental status Qualifiers: Altered mental status type: unspecified Qualified Code(s): R41.82 - Altered mental status, unspecified Condition: Stable Disposition: ADMITTED OBSERVATION Admitting Provider: Hospitalist Unit Admitted: Telemetry
[2018-12-10] MEDS ORDERED: LORAZEPAM INJ 2 MG/1 ML VIAL IV ONE (07:07)
[2018-12-10 08:05] LABS: ABSOLUTE LYMPHOCYTES (AUTO) 0.7 10^3/uL (0.5-4.7); ABSOLUTE MONOCYTES (AUTO) 0.5 10^3/uL (0.1-1.4); ABSOLUTE NEUT (AUTO) 4.6 10^3/uL (1.7-8.2); BASOPHILS % (AUTO) 0.4 % (0-2); EOSINOPHILS % (AUTO) 0.8 % (0-6); HEMATOCRIT 40.6 % (36.0-47.0); HEMOGLOBIN 13.5 g/dL (12.0-15.5); LYMPHOCYTES % (AUTO) 11.8 % (13-45); MEAN CORPUSCULAR HGB CONC 33.3 g/dL (32.0-36.0); MEAN CORPUSCULAR VOLUME 81 fl (80-97); MONOCYTES % (AUTO) 9.2 % (3-13); PLATELET COUNT 307 10^3/uL (150-450); RED BLOOD COUNT 5.01 10^6/uL (3.72-5.28); RED CELL DISTRIBUTION WIDTH 15.8 % (11.5-14.0); SEGMENTED NEUTROPHILS % (AUTO) 77.8 % (42-78); TOTAL CELLS COUNTED % (AUTO) 100 %
[2018-12-10 08:10] LABS: ARTERIAL BLOOD BASE EXCESS 6.3 mmol/L; ARTERIAL BLOOD HCO3 30.7 mmol/L (20-24); ARTERIAL BLOOD O2 SATURATION 92.4 % (94-98); ARTERIAL BLOOD PCO2 43.1 mmHg (35-45); ARTERIAL BLOOD PH 7.47 (7.35-7.45)
[2018-12-10 08:14] LABS: APPEARANCE,URINE CLEAR; BILIRUBIN,URINE NEGATIVE (NEGATIVE); COLOR,URINE YELLOW; GLUCOSE, URINE NEGATIVE (NEGATIVE); KETONES,URINE NEGATIVE (NEGATIVE); LEUKOCYTE ESTERASE,URINE NEGATIVE (NEGATIVE); NITRITE,URINE NEGATIVE (NEGATIVE); PROTEIN,URINE NEGATIVE (NEGATIVE); URINE SPECIFIC GRAVITY 1.012
[2018-12-10 08:16] LABS: ARTERIAL BLOOD FIO2 ROOM AIR
[2018-12-10 08:26] LABS: URINE AMPHETAMINES SCREEN NEGATIVE; URINE BARBITURATES SCREEN NEGATIVE; URINE BENZODIAZEPINES SCREEN NEGATIVE; URINE COCAINE SCREEN NEGATIVE; URINE MARIJUANA (THC) SCREEN NEGATIVE; URINE METHADONE SCREEN NEGATIVE; URINE PHENCYCLIDINE SCREEN NEGATIVE
--- NOTE | 2018-12-10 08:56 | RADIOLOGY REPORT (SQ) ---
EXAM DESCRIPTION: CT HEAD WITHOUT COMPLETED DATE/TIME: 12/10/2018 8:21 am REASON FOR STUDY: altered mental status COMPARISON: 05/16/2018 TECHNIQUE: Axial images acquired through the brain without intravenous contrast. Images reviewed wi th bone, brain and subdural windows. Additional sagittal and coronal reconstructions were generated. Images stored on PACS. All CT scanners at this facility use dose modulation, iterative reconstruction, and/or weight based d osing when appropriate to reduce radiation dose to as low as reasonably achievable (ALARA). [facility]: Dose Right [facility]: CareDose [facility]: Dose Right [facility]: Teradose 4D [facility]: [employer] RADIATION DOSE: CT Rad equipment meets quality standard of care and radiation dose reduction techniq ues were employed. CTDIvol: 53.2 mGy. DLP: 991 mGy-cm. mGy. LIMITATIONS: Motion artifact. FINDINGS: VENTRICLES: Prominent. CEREBRUM: No masses. No hemorrhage. No midline shift. Areas of low density in the white matter mos t likely due to chronic micro-vascular ischemic change. No evidence for acute infarction. CEREBELLUM: No masses. No hemorrhage. No alteration of density. No evidence for acute infarction. EXTRAAXIAL SPACES: Mild age-related involutional change. No fluid collections. No masses. ORBITS AND GLOBE: No intra- or extraconal masses. Normal contour of globe without masses. CALVARIUM: No fracture. PARANASAL SINUSES: No fluid or mucosal thickening. SOFT TISSUES: No mass or hematoma. OTHER: No other significant finding. IMPRESSION: MILD CHRONIC CHANGES OF ATROPHY AND MICROVASCULAR ISCHEMIA. NO ACUTE PROCESS. EVIDENCE OF ACUTE STROKE: NO. TECHNICAL DOCUMENTATION: JOB ID: [id number] Quality ID # [id number]: Final reports with documentation of one or more dose reduction techniques (e.g., Au tomated exposure control, adjustment of the mA and/or kV according to patient size, use of iterative reconstruction technique) 2010 [employer] All Rights Reserved Reading location - IP/workstation name: [email or web address]
--- NOTE | 2018-12-10 08:56 | RADIOLOGY REPORT (SQ) ---
EXAM DESCRIPTION: CHEST SINGLE VIEW COMPLETED DATE/TIME: 12/10/2018 8:20 am REASON FOR STUDY: shortness of breath COMPARISON: 12/05/2018 NUMBER OF VIEWS: One view. TECHNIQUE: Single frontal radiographic view of the chest acquired. LIMITATIONS: Motion. FINDINGS: LUNGS AND PLEURA: No opacities, masses or pneumothorax. No pleural effusion. MEDIASTINUM AND HILAR STRUCTURES: No masses or contour abnormality. HEART AND VASCULATURE: Cardiac enlargement. Vascular congestion. BONES: No acute findings. HARDWARE: None in the chest. OTHER: No other significant finding. IMPRESSION: CARDIAC ENLARGEMENT. VASCULAR CONGESTION. TECHNICAL DOCUMENTATION: JOB ID: [id number] [employer]- All Rights Reserved Reading location - IP/workstation name: [email or web address]
[2018-12-10] MEDS ORDERED: FUROSEMIDE INJ/PF 40 MG/4 ML SDV IV ONE (09:03)
[2018-12-10 09:24] LABS: ALANINE AMINOTRANSFERASE 16 U/L (9-52); ALBUMIN 3.2 g/dL (3.5-5.0); ALKALINE PHOSPHATASE 144 U/L (38-126); ANION GAP 8 (5-19); ASPARTATE AMINO TRANSFERASE 22 U/L (14-36); BILIRUBIN,DIRECT 0.4 mg/dL (0.0-0.4); BILIRUBIN,TOTAL 0.8 mg/dL (0.2-1.3); BLOOD UREA NITROGEN 14 mg/dL (7-20); CALCIUM 8.9 mg/dL (8.4-10.2); CARBON DIOXIDE 31 mmol/L (22-30); CHLORIDE 103 mmol/L (98-107); GLUCOSE 104 mg/dL (75-110); POTASSIUM 3.9 mmol/L (3.6-5.0); SODIUM 141.9 mmol/L (137-145); TOTAL PROTEIN 6.1 g/dL (6.3-8.2)
[2018-12-10 09:34] LABS: NT PRO BNP 593 pg/mL (5-900)
[2018-12-10 09:35] LABS: TROPONIN I < 0.012 ng/mL
--- NOTE | 2018-12-10 11:24 | RADIOLOGY REPORT (SQ) ---
EXAM DESCRIPTION: CTA CHEST COMPLETED DATE/TIME: 12/10/2018 10:49 am REASON FOR STUDY: shortness of breath COMPARISON: CT chest 08/04/2011 AP chest 12/10/2018, 12/05/2018 TECHNIQUE: CT scan of the chest performed using helical scanning technique with dynamic intravenous contrast injection. Images reviewed with lung, soft tissue and bone windows. Reconstructed coronal and sagittal MPR images reviewed. Additional 3 dimensional post-processing performed to develop Maximal Intensity Projection images (FL P). All images stored on PACS. All CT scanners at this facility use dose modulation, iterative reconstruction, and/or weight based d osing when appropriate to reduce radiation dose to as low as reasonably achievable (ALARA). [facility]: Dose Right [facility]: CareDose [facility]: Dose Right [facility]: Teradose 4D [facility]: [employer] CONTRAST TYPE AND DOSE: contrast/concentration: Isovue 350.00 mg/ml; Total Contrast Delivered: 90.0 ml; Total Saline Delivered: 110.0 ml Contrast bolus optimized for the pulmonary arteries. Not diagnostic for the aorta. RENAL FUNCTION: Creatinine 1.0 RADIATION DOSE: CT Rad equipment meets quality standard of care and radiation dose reduction techniq ues were employed. CTDIvol: 34.1 - 52.1 mGy. DLP: 1182 mGy-cm. . LIMITATIONS: None. FINDINGS: LUNGS AND PLEURA: No masses, infiltrates, or pneumothorax. No pleural effusions or pleura l calcifications. AORTA AND GREAT VESSELS: No gross thoracic aortic dissection. Aberrant left subclavian artery, an an atomic variant. HEART: Massive cardiomegaly without pleural effusion No significant coronary artery calcifications. PULMONARY ARTERIES: No emboli visualized in the main pulmonary arteries or the segmental branches. HILAR AND MEDIASTINAL STRUCTURES: No identified masses or abnormal nodes. HARDWARE: None in the chest. UPPER ABDOMEN: Reflux of contrast into the inferior vena cava from the right atrium. Clips post chol ecystectomy THYROID AND OTHER SOFT TISSUES: Diffuse thyromegaly BONES: No acute or significant finding. 3D MIPS: Confirm above findings. OTHER: No other significant finding. IMPRESSION: No CT angio evidence acute pulmonary emboli Massive cardiomegaly COMMENT: Quality ID # [id number]: Final reports with documentation of one or more dose reduction techniques (e.g., Automated exposure control, adjustment of the mA and/or kV according to patient size, use of iterative reconstruction technique) TECHNICAL DOCUMENTATION: JOB ID: [id number] [employer]- All Rights Reserved Reading location - IP/workstation name: [email or web address]
[2018-12-10] MEDS ORDERED: CLOPIDOGREL BISULFATE 75 MG TABLET PO ONE (14:00)
--- NOTE | 2018-12-10 15:55 | PDOC H&P ---
History of Present Illness Admission Date/PCP: 12/10/18 12:03 KEYLA KAUFMAN MD Patient complains of: SOB History of Present Illness: MICHAEL BOWLING is a 63 year old female with a PMH of chronic diastolic heart failure, mitral valve regurgitation, MECHELLE on CPAP, chronic AFib taken off anticoagulation, and COPD on 2 lpm of home O2, who was brought in due to incre asing SOB as well as transient confusion. Daughter and son are in the bedside. Patient is now at her baseline mentation. Patient says she has chronic SOB from her CHF and it has been worsening in the past 2-3 weeks but more progressive in the past 2 days. She says she is taking her diuretics at home but does admit that she is not doing any fluid or sodium restriction. Daughter does report that she woke up around 2 am and was confused that for a few minutes, she was just saying "I'm tired". Daughter also report she was aphasic for a few minutes that she was not able find words when they asked her questions. No other focal deficits, weakness of numbness. She was given Lasix and breathing treatment in the ER which gave her some relief. Patient verbalized she wants us to be aware that she is a [facility] and will refuse any form of blood transfusion. Past Medical History Cardiac Medical History: Reports: Atrial Fibrillation, Congestive Heart Failure, Coronary Artery Disease, Hypertension - on meds Denies: DVT, Myocardial Infarction, Hyperlipidema, Peripheral Vascular Disease, Pulmonary Embolism, Heart Murmur Pulmonary Medical History: Reports: Bronchitis, Pneumonia - hx of, Sleep Apnea Denies: Asthma, Chronic Obstructive Pulmonary Disease (COPD), Tuberculosis Neurological Medical History: Denies: Migraine, Seizures Endocrine Medical History: Reports: Hypothyroidism Denies: Diabetes Mellitus Type 1, Diabetes Mellitus Type 2, Hyperthyroidism Renal/ Medical History: Denies: End Stage Renal Disease Malignancy Medical History: Reports: Breast Cancer Denies: Cervical Cancer, Ovarian Cancer GI Medical History: Denies: Crohn's Disease, Gastroesophageal Reflux Disease, Hiatal Hernia, Ulcerative Colitis Musculoskeltal Medical History: Reports: Arthritis - knees Denies: Fibromyalgia, Gout Skin Medical History: Denies: Eczema, Psoriasis Psychiatric Medical History: Denies: Depression Hematology: Reports: Anemia - hx of Denies: Sickle Cell Disease Past Surgical History Past Surgical History: Reports: Section, Hysterectomy, Mastectomy - right partial, Tonsillectomy Denies: Amputation, Appendectomy, Cholecystectomy, Colostomy, Coronary Artery Bypass Graft, Gastric Bypass Surgery, Herniorrhaphy, Pacemaker, Tubal Ligation Social History Smoking Status: Unknown if Ever Smoked Frequency of Alcohol Use: Rare Hx Recreational Drug Use: No Drugs: None Hx Prescription Drug Abuse: No - Advance Directive Resuscitation Status: Full Code Family History Family History: Reviewed & Not Pertinent, DM, Hyperlipidemia, Hypertension Parental Family History Reviewed: Yes - no premature CAD Children Family History Reviewed: No Sibling(s) Family History Reviewed.: No Medication/Allergy Home Medications: Atorvastatin Calcium [Lipitor 20 mg Tablet] 20 mg PO QHS 12/10/18 Bupropion HCl [Bupropion Xl] 150 mg PO BIDBL 12/10/18 Dicyclomine HCl [Bentyl 20 mg Tablet] 20 mg PO QIDP PRN 12/10/18 Diltiazem HCl [Cardizem] 120 mg PO Q12 12/10/18 Ergocalciferol (Vitamin D2) [Drisdol 50,000 unit (1.25MG) Capsule] 50,000 unit PO BATEMAN@1000 12/10/18 Ferrous Sulfate 140 mg PO BID 12/10/18 Fluticasone/Salmeterol [Advair 250-50 Diskus 14 Dose/Diskus] 1 puff IH Q12 12/10/18 Levothyroxine Sodium [Synthroid 0.1 mg Tablet] 0.1 mg PO Q6AM 12/10/18 Magnesium Oxide [Mag-Ox 400 mg Tablet] 400 mg PO DAILY 12/10/18 Metoprolol Tartrate [Lopressor 50 mg Tablet] 25 mg PO QHS 12/10/18 Nitroglycerin [Nitro-Dur 5 mg (0.2 mg/Hr) Transdermal Patch] 0.2 patch TOP DAILY 12/10/18 Nystatin [Mycostatin Cream 15 gm] 1 applic TOP BID 12/10/18 Omeprazole 40 mg PO DAILY 12/10/18 Potassium Chloride [Klor-Con 10 Meq Capsule ER] 10 meq PO DAILY 12/10/18 Spironolactone [Aldactone 100 mg Tablet] 100 mg PO DAILY 12/10/18 Torsemide [Demadex 20 mg Tablet] 20 mg PO Q12 12/10/18 Allergies/Adverse Reactions: clemastine fumarate [From Tavist-1] Allergy (Severe, Verified 11/22/18 13:34) red spots,N/V Shark Cartilage [From Shark Fin Cartilage] Allergy (Severe, Verified 11/22/18 13:34) hives, n and v iodine [Iodine] Allergy (Unknown, Verified 11/22/18 13:34) vomit/rash meperidine HCl [From Demerol] Allergy (Unknown, Verified 11/22/18 13:34) N/V pseudoephedrine HCl [From Sudafed] Allergy (Unknown, Verified 11/22/18 13:34) rash/itch glove powder Allergy (Severe, Uncoded 01/23/15 18:04) hands swell,itch Review of Systems All systems: reviewed and no additional remarkable complaints except as stated - as mentioned in HPI Physical Exam Vital Signs: Temp Pulse Resp BP Pulse Ox 97.5 F 90 20 123/89 H 98 12/10/18 14:40 12/10/18 06:05 12/10/18 14:01 12/10/18 14:01 12/10/18 14:34 Intake & Output 12/09/18 12/10/18 12/11/18 06:59 06:59 06:59 Output Total 1725 Balance -1725 Weight 338 lb 6.553 oz General appearance: PRESENT: no acute distress, well-developed, well-nourished Head exam: PRESENT: atraumatic, normocephalic Eye exam: PRESENT: conjunctiva pink, EOMI, PERRLA. ABSENT: scleral icterus Ear exam: PRESENT: normal external ear exam Neck exam: ABSENT: carotid bruit, JVD, lymphadenopathy, thyromegaly Respiratory exam: PRESENT: crackles - bibasal, rales. ABSENT: rhonchi, wheezes Cardiovascular exam: PRESENT: RRR. ABSENT: diastolic murmur, rubs, systolic murmur Pulses: PRESENT: normal dorsalis pedis pul GI/Abdominal exam: PRESENT: normal bowel sounds, soft. ABSENT: distended, guarding, mass, organolmegaly, rebound, tenderness Extremities exam: PRESENT: +2 edema Neurological exam: PRESENT: alert, awake, oriented to person, oriented to place, oriented to time, oriented to situation, CN II-XII grossly intact. ABSENT: antony r sensory deficit Results Laboratory Results: 12/10/18 07:40 12/10/18 08:53 12/10/18 12/10/18 12/10/18 07:40 07:40 07:40 WBC 6.0 RBC 5.01 Hgb 13.5 Hct 40.6 MCV 81 MCH 27.0 MCHC 33.3 RDW 15.8 H Plt Count 307 Seg Neutrophils % 77.8 Lymphocytes % 11.8 L Monocytes % 9.2 Eosinophils % 0.8 Basophils % 0.4 Absolute Neutrophils 4.6 Absolute Lymphocytes 0.7 Absolute Monocytes 0.5 Absolute Eosinophils 0.0 Absolute Basophils 0.0 Carbonic Acid HCO3/H2CO3 Ratio ABG pH ABG pCO2 ABG pO2 ABG HCO3 ABG O2 Saturation ABG Base Excess Carboxyhemoglobin FiO2 Sodium Cancelled Potassium Cancelled Chloride Cancelled Carbon Dioxide Cancelled Anion Gap Cancelled BUN Cancelled Creatinine Cancelled Est GFR ( Amer) Cancelled Est GFR (Non-Af Amer) Cancelled Glucose Cancelled Calcium Cancelled Total Bilirubin Cancelled AST Cancelled ALT Cancelled Alkaline Phosphatase Cancelled Ammonia 120.6 H Total Protein Cancelled Albumin Cancelled Urine Color Urine Appearance Urine pH Ur Specific [place] Urine Protein Urine Glucose (UA) Urine Ketones Urine Blood Urine Nitrite Ur Leukocyte Esterase Urine WBC (Auto) Urine RBC (Auto) 12/10/18 12/10/18 12/10/18 07:40 07:40 08:53 WBC RBC Hgb Hct MCV MCH MCHC RDW Plt Count Seg Neutrophils % Lymphocytes % Monocytes % Eosinophils % Basophils % Absolute Neutrophils Absolute Lymphocytes Absolute Monocytes Absolute Eosinophils Absolute Basophils Carbonic Acid 1.30 HCO3/H2CO3 Ratio 23:1 ABG pH 7.47 H ABG pCO2 43.1 ABG pO2 60.0 L ABG HCO3 30.7 H ABG O2 Saturation 92.4 L ABG Base Excess 6.3 Carboxyhemoglobin FiO2 ROOM AIR Sodium 141.9 Potassium 3.9 Chloride 103 Carbon Dioxide 31 H Anion Gap 8 BUN 14 Creatinine 1.02 Est GFR ( Amer) > 60 Est GFR (Non-Af Amer) 55 L Glucose 104 Calcium 8.9 Total Bilirubin 0.8 AST 22 ALT 16 Alkaline Phosphatase 144 H Ammonia Total Protein 6.1 L Albumin 3.2 L Urine Color YELLOW Urine Appearance CLEAR Urine pH 7.0 Ur Specific [place] 1.012 Urine Protein NEGATIVE Urine Glucose (UA) NEGATIVE Urine Ketones NEGATIVE Urine Blood NEGATIVE Urine Nitrite NEGATIVE Ur Leukocyte Esterase NEGATIVE Urine WBC (Auto) 2 Urine RBC (Auto) 0 12/10/18 13:00 WBC RBC Hgb Hct MCV MCH MCHC RDW Plt Count Seg Neutrophils % Lymphocytes % Monocytes % Eosinophils % Basophils % Absolute Neutrophils Absolute Lymphocytes Absolute Monocytes Absolute Eosinophils Absolute Basophils Carbonic Acid HCO3/H2CO3 Ratio ABG pH ABG pCO2 ABG pO2 ABG HCO3 ABG O2 Saturation ABG Base Excess Carboxyhemoglobin 3.2 H FiO2 Sodium Potassium Chloride Carbon Dioxide Anion Gap BUN Creatinine Est GFR ( Amer) Est GFR (Non-Af Amer) Glucose Calcium Total Bilirubin AST ALT Alkaline Phosphatase Ammonia Total Protein Albumin Urine Color Urine Appearance Urine pH Ur Specific [place] Urine Protein Urine Glucose (UA) Urine Ketones Urine Blood Urine Nitrite Ur Leukocyte Esterase Urine WBC (Auto) Urine RBC (Auto) 12/10/18 12/10/18 12/10/18 07:40 08:53 13:00 Troponin I Cancelled < 0.012 < 0.012 NT-Pro-B Natriuret Pep Cancelled 593 Impressions: Chest X-Ray 12/10/18 06:54 IMPRESSION: CARDIAC ENLARGEMENT. VASCULAR CONGESTION. Head CT 12/10/18 06:55 IMPRESSION: MILD CHRONIC CHANGES OF ATROPHY AND MICROVASCULAR ISCHEMIA. NO ACUTE PROCESS. EVIDENCE OF ACUTE STROKE: NO. Chest/Abdomen CTA 12/10/18 09:44 IMPRESSION: No CT angio evidence acute pulmonary emboli Massive cardiomegaly Assessment & Plan - Diagnosis (1) Acute on chronic respiratory failure with hypoxemia Is this a current diagnosis for this admission?: Yes Plan: Acute hypoxic respiratory failure 2/2 CHF exacerbation. She does have chronic respiratory failure from COPD. (2) CHF exacerbation Is this a current diagnosis for this admission?: Yes Plan: Acute on chronic diastolic heart failure exacerbation. CTA was negative for PE. Chest x-ray was remarkable for congestion. Troponin in the ER was negative x 2. Will continue with IV Lasix 40 mg IV q12 for now. She follows up with Dr. Peñaloza who has been notified about consult. (3) TIA (transient ischemic attack) Is this a current diagnosis for this admission?: Yes Plan: Patient had transient aphasia and confusion at home. This has resolved and she is now at her baseline. CT head was negative. She does have chronic AFib. She has been taken off coumadin and aspirin as well due to recurrent ?vaginal and GI bleed in the past after an attempt to restart her on coumadin. Recommend trying Plavix. Discussed this with patient in length including benefits and risk of bleeding, she does not want to be restarted on any anticoagulant or aspirin but is amenable to trying Plavix. (4) Chronic atrial fibrillation Is this a current diagnosis for this admission?: Yes Plan: Rate controlled. As mentioned, she has been taken off coumadin and aspirin as well due to recurrent ?vaginal and GI bleed in the past after an attempt to restart her on coumadin. Recommend trying Plavix. Discussed this with patient in length, she does not want to be restarted on any anticoagulant or aspirin but is amenable to trying Plavix. Resume lopressor and cardizem PO. - Time Time Spent: 30 to 50 Minutes
--- NOTE | 2018-12-10 16:56 | EKG REPORT ---
SEVERITY:- ABNORMAL ECG - ATRIAL FIBRILLATION VENTRICULAR PREMATURE COMPLEX BORDERLINE LEFT AXIS DEVIATION : Confirmed by: Jaleel Peñaloza 10-Dec-2018 16:55:46
--- NOTE | 2018-12-10 18:27 | XCELERA REPORT ---
[address] [address] Transthoracic Echocardiogram Report Name: MICHAEL BOWLING Age: 63 yrs Gender: Female : 1955 Patient Status: Inpatient Patient Location: [address] [place] [address] Study Date: 12/10/2018 03:20 PM Procedure: A complete two-dimensional transthoracic echocardiogram was performed (2D, M-mode, spectral and color flow Doppler). The study was technically difficult with many images being suboptimal in quality. Reason For Study: CHF exac, Dr. Peñaloza's pxt Ordering Physician: TREMAYNE ARAUZ Performed By: Nannette Shelton Interpretation Summary Left ventricular systolic function is low normal. There is mild concentric left ventricular hypertrophy. LV diastolic function could not be adequately assessed due to atrial fibrilation. The left ventricle is grossly normal size. Regional wall motion abnormalities cannot be excluded due to limited visualization. The right ventricle is mild to moderately dilated. The right ventricular systolic function is borderline reduced. The right atrium is severely dilated. The left atrium is severely dilated. There is a mild amount of mitral regurgitation There is no mitral valve stenosis. No aortic regurgitation is present. There is no aortic valve stenosis There is a trace or physiologic amount of tricuspid regurgitation Tricuspid regurgitation jet envelope not well defined to measure RV systolic pressure accurately. The aortic root is not well visualized but is probably normal size. The inferior vena cava was not well visualized There is no pericardial effusion. MMode/2D Measurements & Calculations RVDd: 3.5 cm LVIDd: 5.5 cm FS: 30.4 % Ao root diam: 3.2 cm IVSd: 1.3 cm LVIDs: 3.8 cm EDV(Teich): 145.7 ml Ao root area: 8.2 cm2 LVPWd: 1.4 cm ESV(Teich): 62.3 ml EF(Teich): 57.3 % Doppler Measurements & Calculations MV E max jamie: MV dec slope: Ao V2 max: LV V1 max P.8 cm/sec 160.6 cm/sec 5.3 mmHg MV A max jamie: 658.6 cm/sec2 Ao max PG: LV V1 max: 27.6 cm/sec MV dec time: 0.18 sec10.3 mmHg 114.9 cm/sec MV E/A: 4.3 LV dP/dt: 2217 mmHg/s PA V2 max: TR max jamie: 144.2 cm/sec 229.7 cm/sec PA max P.3 mmHg TR max P.1 mmHg Left Ventricle The left ventricle is grossly normal size. There is mild concentric left ventricular hypertrophy. Left ventricular systolic function is low normal. LV diastolic function could not be adequately assessed due to atrial fibrilation. Regional wall motion abnormalities cannot be excluded due to limited visualization. Right Ventricle The right ventricle is mild to moderately dilated. There is normal right ventricular wall thickness. The right ventricular systolic function is borderline reduced. Atria The right atrium is severely dilated. The left atrium is severely dilated. Interarterial septum not well visualized and not well dopplered. Cannot comment on ASD/PFO presence. Mitral Valve There is mild mitral leaflet calcification. There is no mitral valve stenosis. There is a mild amount of mitral regurgitation. Aortic Valve The aortic valve is not well visualized secondary to technical limitations. There is no aortic valve stenosis. No aortic regurgitation is present. Tricuspid Valve The tricuspid valve is not well visualized, but is grossly normal. There is no tricuspid stenosis. There is a trace or physiologic amount of tricuspid regurgitation. Tricuspid regurgitation jet envelope not well defined to measure RV systolic pressure accurately. Pulmonic Valve The pulmonic valve is not well visualized. Great Vessels The aortic root is not well visualized but is probably normal size. The inferior vena cava was not well visualized. Effusions There is no pericardial effusion. : TREMAYNE ARAUZ > Jaleel Peñaloza
--- NOTE | 2018-12-10 18:59 | PDOC PROGRESS REPORT ---
Subjective Progress Note for:: 12/10/18 Subjective:: Ms. Loya admitted to the emergency department with progressive shortness of breath and some edema. She is noted to be in CHF. Patient has history of chronic atrial fibrillation and has recurrent bleeding episodes on chronic anticoagulation. Patient does not want to go on any chronic anticoagulation. We were in the process of referring her to [facility] for a left atrial appendage occlusive device. Patient is denying any chest pain. Patient has history of sleep apnea and should benefit from continuing positive pressure therapy while in the hospital. Reason For Visit: CHF EXACERBATION, POSSIBLE TIA Physical Exam Vital Signs: Temp Pulse Resp BP Pulse Ox 97.4 F 120 H 20 124/70 97 12/10/18 15:27 12/10/18 17:59 12/10/18 15:27 12/10/18 15:27 12/10/18 15:56 Intake & Output 12/09/18 12/10/18 12/11/18 06:59 06:59 06:59 Intake Total 459 Output Total 2150 Balance -1691 Weight 153.5 kg Exam: GENERAL: well-nourished and in no acute distress. Alert and oriented x3 HEAD: Atraumatic, normocephalic. EYES: ADAN, sclera anicteric, conjunctiva are normal. ENT: Moist mucous membranes. No oral ulcerations or bleeding gums noted. No obvious ear, nose or throat abnormalities noted. NECK: supple without lymphadenopathy. Trachea is central. No cervical or axillary lymphadenopathy noted. Carotids are 2+, JVD distended LUNGS: Bibasilar fine crackles and few scattered wheezes rales or rhonchi noted. No significant dullness noted on percussion. CHEST: Palpation of the chest wall shows no significant chest wall tenderness. HEART: [employer] [employer], No PSH, 1/6 CONSTANTIN aortic area, 1/6 ro[place] systolic murmur mitral area, no rubs, no gallops. ABDOMEN: Soft, no significant tenderness appreciated, normoactive bowel sounds. No guarding, no rebound. No rigidity noted . No masses appreciated. EXTREMITIES: Pedal pulses are 1-2+, no calf tenderness noted. No clubbing or cyanosis. 1 Plus pedal edema noted NEUROLOGICAL: Focused neurological exam showed no significant neurologic deficit. Normal speech, no focal weakness appreciated. PSYCH: Normal mood, normal affect. Judgment and insight within normal limits. SKIN: No significant ecchymosis, skin is noted to be warm. MUSCULOSKELETAL EXAM: No significant acute joint swelling noted. Results Laboratory Results: 12/10/18 07:40 12/10/18 08:53 12/10/18 12/10/18 12/10/18 07:40 07:40 07:40 WBC 6.0 RBC 5.01 Hgb 13.5 Hct 40.6 MCV 81 MCH 27.0 MCHC 33.3 RDW 15.8 H Plt Count 307 Seg Neutrophils % 77.8 Lymphocytes % 11.8 L Monocytes % 9.2 Eosinophils % 0.8 Basophils % 0.4 Absolute Neutrophils 4.6 Absolute Lymphocytes 0.7 Absolute Monocytes 0.5 Absolute Eosinophils 0.0 Absolute Basophils 0.0 Carbonic Acid HCO3/H2CO3 Ratio ABG pH ABG pCO2 ABG pO2 ABG HCO3 ABG O2 Saturation ABG Base Excess Carboxyhemoglobin FiO2 Sodium Cancelled Potassium Cancelled Chloride Cancelled Carbon Dioxide Cancelled Anion Gap Cancelled BUN Cancelled Creatinine Cancelled Est GFR ( Amer) Cancelled Est GFR (Non-Af Amer) Cancelled Glucose Cancelled Calcium Cancelled Total Bilirubin Cancelled AST Cancelled ALT Cancelled Alkaline Phosphatase Cancelled Ammonia 120.6 H Total Protein Cancelled Albumin Cancelled Urine Color Urine Appearance Urine pH Ur Specific [place] Urine Protein Urine Glucose (UA) Urine Ketones Urine Blood Urine Nitrite Ur Leukocyte Esterase Urine WBC (Auto) Urine RBC (Auto) 12/10/18 12/10/18 12/10/18 07:40 07:40 08:53 WBC RBC Hgb Hct MCV MCH MCHC RDW Plt Count Seg Neutrophils % Lymphocytes % Monocytes % Eosinophils % Basophils % Absolute Neutrophils Absolute Lymphocytes Absolute Monocytes Absolute Eosinophils Absolute Basophils Carbonic Acid 1.30 HCO3/H2CO3 Ratio 23:1 ABG pH 7.47 H ABG pCO2 43.1 ABG pO2 60.0 L ABG HCO3 30.7 H ABG O2 Saturation 92.4 L ABG Base Excess 6.3 Carboxyhemoglobin FiO2 ROOM AIR Sodium 141.9 Potassium 3.9 Chloride 103 Carbon Dioxide 31 H Anion Gap 8 BUN 14 Creatinine 1.02 Est GFR ( Amer) > 60 Est GFR (Non-Af Amer) 55 L Glucose 104 Calcium 8.9 Total Bilirubin 0.8 AST 22 ALT 16 Alkaline Phosphatase 144 H Ammonia Total Protein 6.1 L Albumin 3.2 L Urine Color YELLOW Urine Appearance CLEAR Urine pH 7.0 Ur Specific [place] 1.012 Urine Protein NEGATIVE Urine Glucose (UA) NEGATIVE Urine Ketones NEGATIVE Urine Blood NEGATIVE Urine Nitrite NEGATIVE Ur Leukocyte Esterase NEGATIVE Urine WBC (Auto) 2 Urine RBC (Auto) 0 12/10/18 13:00 WBC RBC Hgb Hct MCV MCH MCHC RDW Plt Count Seg Neutrophils % Lymphocytes % Monocytes % Eosinophils % Basophils % Absolute Neutrophils Absolute Lymphocytes Absolute Monocytes Absolute Eosinophils Absolute Basophils Carbonic Acid HCO3/H2CO3 Ratio ABG pH ABG pCO2 ABG pO2 ABG HCO3 ABG O2 Saturation ABG Base Excess Carboxyhemoglobin 3.2 H FiO2 Sodium Potassium Chloride Carbon Dioxide Anion Gap BUN Creatinine Est GFR ( Amer) Est GFR (Non-Af Amer) Glucose Calcium Total Bilirubin AST ALT Alkaline Phosphatase Ammonia Total Protein Albumin Urine Color Urine Appearance Urine pH Ur Specific [place] Urine Protein Urine Glucose (UA) Urine Ketones Urine Blood Urine Nitrite Ur Leukocyte Esterase Urine WBC (Auto) Urine RBC (Auto) 12/10/18 12/10/18 12/10/18 07:40 08:53 13:00 Troponin I Cancelled < 0.012 < 0.012 NT-Pro-B Natriuret Pep Cancelled 593 Impressions: Chest X-Ray 12/10/18 06:54 IMPRESSION: CARDIAC ENLARGEMENT. VASCULAR CONGESTION. Head CT 12/10/18 06:55 IMPRESSION: MILD CHRONIC CHANGES OF ATROPHY AND MICROVASCULAR ISCHEMIA. NO ACUTE PROCESS. EVIDENCE OF ACUTE STROKE: NO. Chest/Abdomen CTA 12/10/18 09:44 IMPRESSION: No CT angio evidence acute pulmonary emboli Massive cardiomegaly Assessment & Plan - Diagnosis (1) CHF exacerbation Qualifiers: Heart failure type: right-sided Qualified Code(s): I50.813 - Acute on chronic right heart failure Is this a current diagnosis for this admission?: Yes (2) Acute on chronic respiratory failure with hypoxemia Is this a current diagnosis for this admission?: Yes (3) Altered mental status Qualifiers: Altered mental status type: unspecified Qualified Code(s): R41.82 - Altered mental status, unspecified Is this a current diagnosis for this admission?: Yes (4) Chronic atrial fibrillation Is this a current diagnosis for this admission?: Yes (5) Morbid (severe) obesity due to excess calories Is this a current diagnosis for this admission?: Yes (6) Sleep apnea with use of continuous positive airway pressure (CPAP) Is this a current diagnosis for this admission?: Yes - Notes Notes: Patient admitted with acute on chronic CHF. Mostly diastolic but with significant contribution from right-sided heart failure. Recommend aggressive diuresis and also spironolactone therapy. Patient will benefit from salt and fluid restriction, nightly CPAP/BiPAP therapy. Patient will immensely benefit from weight loss, this has been difficult to achieve. Altered mental status: Could be multiple etiologies. May be related to CO2 narcosis, hypoxemia, TIA etc. Currently improved. Chronic atrial fibrillation: Patient has huge right atrium and left atrium both on echocardiogram and also on CT scan. This raises possibility of restrictive cardiomyopathy. Patient has relative contraindications to chronic Coumadin therapy. Will consider left atrial appendage occluder device. Patient does have transportation problem will see if he can schedule this while she is inpatient. Morbid obesity: Patient will benefit from weight loss. Sleep apnea syndrome: Continue nightly BiPAP/CPAP therapy. 2D echo shows well-preserved left ventricular function and size but right atrium, right ventricle and left atrium are noted to be dilated. 2D echo was technically difficult. - Time Time with patient: Greater than 35 minutes - More than 50% of the time spent coordinating care, discussing management plans with involved caregivers. Management plans discussed with involved personnels. Medical decision making was of moderate to high complexity, patient's has multiple comorbidities. Medications reviewed and adjusted accordingly: Yes
[2018-12-10] MEDS ORDERED: FUROSEMIDE INJ/PF 40 MG/4 ML SDV IV SCH (22:00)
[2018-12-10] MEDS: DILTIAZEM HCL 60 MG TABLET PO SCH (22:00)
[2018-12-10] MEDS: ATORVASTATIN CALCIUM 20 MG TABLET PO SCH (22:00)
[2018-12-10] MEDS ORDERED: (PENDING PHARMACY ID) (Diltiazem Hcl [Cardizem] 120 MG) PO SCH (22:00)
[2018-12-10] MEDS: METOPROLOL TARTRATE 50 MG TABLET PO SCH (22:00)
[2018-12-10] MEDS: FLUTICASONE/SALMETEROL DISKUS 250-50 MCG/DOSE IH SCH (22:01)
[2018-12-10] MEDS: NYSTATIN CREAM 15 GM TOP SCH (22:01)
[2018-12-11] MEDS: LANSOPRAZOLE 30 MG TAB.RAP.DR PO SCH (06:16)
[2018-12-11] MEDS ORDERED: FONDAPARINUX SODIUM INJ 2.5 MG/0.5 ML DISP.SYRIN SUBCUT SCH (08:00)
[2018-12-11] MEDS ORDERED: (PENDING PHARMACY ID) (Bupropion Hcl [Bupropion Xl] 150 MG) PO SCH (08:00)
--- NOTE | 2018-12-11 09:09 | PDOC PROGRESS REPORT ---
Subjective Progress Note for:: 12/11/18 Subjective:: MICHAEL BOWLING is a 63 year old female with a PMH of chronic diastolic heart failure, mitral valve regurgitation, MECHELLE on CPAP, chronic AFib taken off anticoagulation, and COPD on 2 lpm of home O2, who was brought in due to increasing SOB as well as transient confusion. Daughter and son are in the bedside. Patient is now at her baseline mentation. Patient says she has chronic SOB from her CHF and it has been worsening in the past 2-3 weeks but more progressive in the past 2 days. She says she is taking her diuretics at home but does admit that she is not doing any fluid or sodium restriction. Daughter does report that she woke up around 2 am and was confused that for a few minutes, she was just saying "I'm tired". Daughter also report she was aphasic for a few minutes that she was not able find words when they asked her questions. No other focal deficits, weakness of numbness. She was given Lasix and breathing treatment in the ER which gave her some relief. Patient verbalized she wants us to be aware that she is a Mandaeism and will refuse any form of blood transfusion. 12/[id number]-old female admitted with acute on chronic diastolic heart failure. Consultation was done with Dr. Peñaloza. Patient was on Demadex and spironolactone. Is also has a history of chronic atrial fibrillation but not on anticoagulants because of the history of recurrent bleeds. Presently she is on Plavix. I started her on Lovenox today. Patient initially came in with TIA symptoms those are resolved. Patient is using 2 L oxygen at home and she is also using CPAP at night. Dr. Peñaloza thinks she needs left atrial appendix device for atrial fibrillation because she is not a candidate for chronic anticoagulation. Patient is afebrile no acute events in the last 24 hours. PT consult was requested fall precautions are requested. Reason For Visit: CHF EXACERBATION, POSSIBLE TIA Physical Exam Vital Signs: Temp Pulse Resp BP Pulse Ox 97.8 F 83 16 127/94 H 96 12/11/18 07:38 12/11/18 07:38 12/11/18 07:38 12/11/18 07:38 12/11/18 07:38 Intake & Output 12/10/18 12/11/18 12/12/18 06:59 06:59 06:59 Intake Total 459 Output Total 3650 Balance -3191 Weight 153.5 kg 151.8 kg General appearance: PRESENT: mild distress Head exam: PRESENT: atraumatic Eye exam: PRESENT: PERRLA Mouth exam: PRESENT: dry mucosa Teeth exam: PRESENT: poor dentation Neck exam: ABSENT: carotid bruit, JVD, lymphadenopathy, thyromegaly Respiratory exam: PRESENT: decreased breath sounds Cardiovascular exam: PRESENT: irregular rhythm, systolic murmur, tachycardia GI/Abdominal exam: PRESENT: normal bowel sounds, soft. ABSENT: distended, guarding, mass, organolmegaly, rebound, tenderness Extremities exam: PRESENT: full ROM. ABSENT: calf tenderness, clubbing, pedal edema Neurological exam: PRESENT: alert, awake, oriented to person, oriented to place, oriented to time, oriented to situation, CN II-XII grossly intact. ABSENT: motor sensory deficit Psychiatric exam: PRESENT: appropriate affect, normal mood. ABSENT: homicidal i deation, suicidal ideation Results Laboratory Results: 12/10/18 07:40 12/10/18 08:53 12/10/18 12/10/18 08:53 13:00 Carboxyhemoglobin 3.2 H Sodium 141.9 Potassium 3.9 Chloride 103 Carbon Dioxide 31 H Anion Gap 8 BUN 14 Creatinine 1.02 Est GFR ( Amer) > 60 Est GFR (Non-Af Amer) 55 L Glucose 104 Calcium 8.9 Total Bilirubin 0.8 AST 22 ALT 16 Alkaline Phosphatase 144 H Total Protein 6.1 L Albumin 3.2 L 12/10/18 12/10/18 12/10/18 07:40 08:53 13:00 Troponin I Cancelled < 0.012 < 0.012 NT-Pro-B Natriuret Pep Cancelled 593 Impressions: Chest X-Ray 12/10/18 06:54 IMPRESSION: CARDIAC ENLARGEMENT. VASCULAR CONGESTION. Head CT 12/10/18 06:55 IMPRESSION: MILD CHRONIC CHANGES OF ATROPHY AND MICROVASCULAR ISCHEMIA. NO ACUTE PROCESS. EVIDENCE OF ACUTE STROKE: NO. Chest/Abdomen CTA 12/10/18 09:44 IMPRESSION: No CT angio evidence acute pulmonary emboli Massive cardiomegaly Assessment & Plan - Diagnosis (1) Acute on chronic respiratory failure with hypoxemia Is this a current diagnosis for this admission?: Yes Plan: Acute hypoxic respiratory failure 2/2 CHF exacerbation. She does have chronic respiratory failure from COPD. 12/11/2018-patient was admitted with acute on chronic hypoxic respiratory failure most likely secondary to congestive heart failure exacerbation, she is also have underlying COPD. Socks on 4 L today is 96%. On examination chest bilateral entry was decreased few crackles at the bases. BNP is 593. urine cultures are negative so far. Patient is presently on advir nebulizations every 12 hours. pt using CPAP at night. Plan is to continue the present management and requested for consultation with plumber cub Dr. Guillen. (2) CHF exacerbation Qualifiers: Heart failure type: right-sided Qualified Code(s): I50.813 - Acute on chronic right heart failure Is this a current diagnosis for this admission?: Yes Plan: Acute on chronic diastolic heart failure exacerbation. CTA was negative for PE. Chest x-ray was remarkable for congestion. Troponin in the ER was negative x 2. Will continue with IV Lasix 40 mg IV q12 for now. She follows up with Dr. Peñaloza who has been notified about consult. 12/11/2018-patient was admitted with CHF exacerbation, she has acute on chronic diastolic heart failure. On Lasix 40 mg every 12 hours on spironolactone 100 mg daily. Medication was switched to Demadex 20 mg twice a day and plan is to continue spironolactone. She was placed on fluid restriction 1200 mL/day. Echocardiogram was done left ventricular function was normal unable to assess the diastolic function because of the chronic atrial fibrillation. Most likely she has acute on chronic diastolic heart failure. (3) Transient ischemic attack Is this a current diagnosis for this admission?: Yes Plan: Patient had transient aphasia and confusion at home. This has resolved and she is now at her baseline. CT head was negative. She does have chronic AFib. She has been taken off coumadin and aspirin as well due to recurrent ?vaginal and GI bleed in the past after an attempt to restart her on coumadin. Recommend trying Plavix. Discussed this with patient in length including benefits and risk of bleeding, she does not want to be restarted on any anticoagulant or aspirin but is amenable to trying Plavix. 12/11/2018-patient was admitted with transient aphasia and confusion prior to the ER arrival. The symptoms are resolved she is back at baseline. CT head was negative for acute changes. She has history of chronic atrial fibrillation but not on anticoagulation because of the history of recurrent vaginal and GI bleeds. She was placed on Plavix during this admission and also started on Lovenox today. (4) Chronic atrial fibrillation Is this a current diagnosis for this admission?: Yes Plan: Rate controlled. As mentioned, she has been taken off coumadin and aspirin as well due to recurrent ?vaginal and GI bleed in the past after an attempt to restart her on coumadin. Recommend trying Plavix. Discussed this with patient in length, she does not want to be restarted on any anticoagulant or aspirin but is amenable to trying Plavix. Resume lopressor and cardizem PO. 12/11/2018 patient has history of chronic atrial fibrillation not on anticoagulation because of the recurrent vaginal and GI bleeds. She agreed for Plavix. She was placed on Plavix she is also on Lovenox. Fall precautions were requested. (5) Morbid (severe) obesity due to excess calories Is this a current diagnosis for this admission?: Yes Plan: 12/11/2018-patient's BMI is more than 40. Diet exercise weight loss and lifestyle modifications are discussed. Dietary consult was requested. (6) Sleep apnea with use of continuous positive airway pressure (CPAP) Is this a current diagnosis for this admission?: Yes Plan: 12/11/2018-patient has history of obstructive sleep apnea she uses CPAP at night. We resumed his CPAP while she was in the hospital. She does not have any outpatient plumber cub, requested a consultation with Dr. Guillen. - Time Time Spent with patient: 15-24 minutes Medications reviewed and adjusted accordingly: Yes Anticipated discharge: Home
--- NOTE | 2018-12-11 09:38 | PDOC PROGRESS REPORT ---
Subjective Progress Note for:: 12/11/18 Subjective:: Ms. Loya admitted to the emergency department with progressive shortness of breath and some edema. She is noted to be in CHF. Patient has history of chronic atrial fibrillation and has recurrent bleeding episodes on chronic anticoagulation. Patient does not want to go on any chronic anticoagulation. We were in the process of referring her to [facility] for a left atrial appendage occlusive device. Patient is denying any chest pain. Patient has history of sleep apnea and should benefit from continuing positive pressure therapy while in the hospital. Patient is feeling somewhat better. She is less short of breath. Have discussed patient with Dr. Ha Alonzo at [facility]. They have recently started doing watchman device. However they do it every other week. Will send patient info to him. Will also try to get in touch with [facility]. If patient has no transportation problems, it will be best to schedule it as an outpatient. Reason For Visit: CHF EXACERBATION, POSSIBLE TIA Physical Exam Vital Signs: Temp Pulse Resp BP Pulse Ox 97.8 F 83 16 127/94 H 96 12/11/18 07:38 12/11/18 07:38 12/11/18 07:38 12/11/18 07:38 12/11/18 07:38 Intake & Output 12/10/18 12/11/18 12/12/18 06:59 06:59 06:59 Intake Total 459 Output Total 3650 Balance -3191 Weight 153.5 kg 151.8 kg Exam: GENERAL: well-nourished and in no acute distress. Alert and oriented x3 HEAD: Atraumatic, normocephalic. EYES: ADAN, sclera anicteric, conjunctiva are normal. ENT: Moist mucous membranes. No oral ulcerations or bleeding gums noted. No obvious ear, nose or throat abnormalities noted. NECK: supple without lymphadenopathy. Trachea is central. No cervical or axillary lymphadenopathy noted. Carotids are 2+, JVD mildly distended LUNGS: Breath sounds clear bilaterally. No wheezes rales or rhonchi noted. No significant dullness noted on percussion. CHEST: Palpation of the chest wall shows no significant chest wall tenderness. HEART: [place] [employer], No PSH, 1/6 CONSTANTIN aortic area, 1/6 ro[place] systolic murmur mitral area, no rubs, no gallops. ABDOMEN: Soft, no significant tenderness appreciated, normoactive bowel sounds. No guarding, no rebound. No rigidity noted . No masses appreciated. EXTREMITIES: Pedal pulses are 1-2+, no calf tenderness noted. No clubbing or cyanosis. 1+ pedal edema noted NEUROLOGICAL: Focused neurological exam showed no significant neurologic deficit. Normal speech, no focal weakness appreciated. PSYCH: Normal mood, normal affect. Judgment and insight within normal limits. SKIN: No significant ecchymosis, skin is noted to be warm. MUSCULOSKELETAL EXAM: No significant acute joint swelling noted. Results Laboratory Results: 12/10/18 07:40 12/10/18 08:53 12/10/18 13:00 Carboxyhemoglobin 3.2 H 12/10/18 12/10/18 12/10/18 07:40 08:53 13:00 Troponin I Cancelled < 0.012 < 0.012 NT-Pro-B Natriuret Pep Cancelled 593 Impressions: Chest X-Ray 12/10/18 06:54 IMPRESSION: CARDIAC ENLARGEMENT. VASCULAR CONGESTION. Head CT 12/10/18 06:55 IMPRESSION: MILD CHRONIC CHANGES OF ATROPHY AND MICROVASCULAR ISCHEMIA. NO ACUTE PROCESS. EVIDENCE OF ACUTE STROKE: NO. Chest/Abdomen CTA 12/10/18 09:44 IMPRESSION: No CT angio evidence acute pulmonary emboli Massive cardiomegaly Assessment & Plan - Diagnosis (1) CHF exacerbation Qualifiers: Heart failure type: right-sided Qualified Code(s): I50.813 - Acute on chronic right heart failure Is this a current diagnosis for this admission?: Yes (2) Acute on chronic respiratory failure with hypoxemia Is this a current diagnosis for this admission?: Yes (3) Altered mental status Qualifiers: Altered mental status type: unspecified Qualified Code(s): R41.82 - Altered mental status, unspecified Is this a current diagnosis for this admission?: Yes (4) Chronic atrial fibrillation Is this a current diagnosis for this admission?: Yes (5) Morbid (severe) obesity due to excess calories Is this a current diagnosis for this admission?: Yes (6) Sleep apnea with use of continuous positive airway pressure (CPAP) Is this a current diagnosis for this admission?: Yes - Notes Notes: Continue current therapeutic regimen. Awaiting to hear from tertiary care.
[2018-12-11 09:43] LABS: ABSOLUTE BASOPHILS # (AUTO) 0.1 10^3/uL (0.0-0.2); ABSOLUTE EOSINOPHILS # (AUTO) 0.2 10^3/uL (0.0-0.6); ABSOLUTE LYMPHOCYTES (AUTO) 0.9 10^3/uL (0.5-4.7); ABSOLUTE MONOCYTES (AUTO) 0.7 10^3/uL (0.1-1.4); BASOPHILS % (AUTO) 1.2 % (0-2); EOSINOPHILS % (AUTO) 2.8 % (0-6); HEMATOCRIT 40.8 % (36.0-47.0); HEMOGLOBIN 13.5 g/dL (12.0-15.5); LYMPHOCYTES % (AUTO) 15.5 % (13-45); MEAN CORPUSCULAR HEMOGLOBIN 26.7 pg (27.0-33.4); MEAN CORPUSCULAR HGB CONC 33.2 g/dL (32.0-36.0); MEAN CORPUSCULAR VOLUME 81 fl (80-97); MONOCYTES % (AUTO) 11.5 % (3-13); PLATELET COUNT 288 10^3/uL (150-450); RED BLOOD COUNT 5.06 10^6/uL (3.72-5.28); RED CELL DISTRIBUTION WIDTH 15.7 % (11.5-14.0); TOTAL CELLS COUNTED % (AUTO) 100 %; WHITE BLOOD COUNT 5.8 10^3/uL (4.0-10.5)
[2018-12-11] MEDS ORDERED: (PENDING PHARMACY ID) (Spironolactone [Aldactone 100 Mg Tablet] 100 MG) PO SCH (10:00)
[2018-12-11] MEDS ORDERED: (PENDING PHARMACY ID) (Ferrous Sulfate [Ferrous Sulfate] 140 MG) PO SCH (10:00)
--- NOTE | 2018-12-11 10:49 | RADIOLOGY REPORT (SQ) ---
EXAM DESCRIPTION: CAROTID DOPPLER COMPLETED DATE/TIME: 12/10/2018 8:26 pm REASON FOR STUDY: tia I48.2 CHRONIC ATRIAL FIBRILLATION COMPARISON: None. TECHNIQUE: Grayscale ultrasound, Doppler velocity and spectra, and color Doppler images acquired of the extra-cranial carotid and vertebral arteries. Images stored on PACS. LIMITATIONS: None. FINDINGS: RIGHT CAROTID CCA Velocities: Normal waveforms and velocity without evidence of high-grade stenosis. ICA Velocities Peak systolic 72 cm/s. End diastolic 20 cm/s. Proximal ICA/CCA peak systolic ratio 1.1. Normal spectral waveform without evidence high-grade stenosis. Soft plaque noted without extensive c alcified plaque LEFT CAROTID CCA Velocities: Normal waveform and velocity without evidence of high-grade stenosis. ICA Velocities Peak systolic 49 cm/s. End diastolic 9 cm/s. Proximal ICA/CCA peak systolic ratio 0.9. Normal spectral waveform without evidence of high-grade stenosis. Soft plaque noted without extensiv e calcified plaque. VERTEBRAL ARTERIES: Antegrade flow. Normal waveforms. SUBCLAVIAN ARTERIES: Not imaged. OTHER: No other significant finding. IMPRESSION: Normal waveforms and velocities without evidence of high-grade stenosis. COMMENT: Quality ID #[id number]: Velocity criteria are extrapolated from the diameter data as defined by t he Society of Radiologists in Ultrasound Consensus Conference. Radiology 2003: 229; 340-346. TECHNICAL DOCUMENTATION: JOB ID: [id number] [employer]- All Rights Reserved Reading location - IP/workstation name: [email or web address]
[2018-12-11] MEDS: SPIRONOLACTONE 25 MG TABLET PO SCH (10:50)
[2018-12-11] MEDS: DILTIAZEM HCL 60 MG TABLET PO SCH ×2 (10:51→21:36)
[2018-12-11] MEDS: FERROUS SULFATE 325 MG TABLET PO SCH (10:52)
[2018-12-11] MEDS: MAGNESIUM OXIDE 400 MG TABLET PO SCH (10:52)
[2018-12-11] MEDS: POTASSIUM CHLORIDE 10 MEQ CAPSULE.ER PO SCH (10:53)
[2018-12-11] MEDS: NITROGLYCERIN 5 MG (0.2 MG/HR) PATCH.TD24 TOP SCH (10:53)
[2018-12-11] MEDS: FLUTICASONE/SALMETEROL DISKUS 250-50 MCG/DOSE IH SCH ×2 (10:54→21:35)
[2018-12-11] MEDS: TORSEMIDE 20 MG TABLET PO SCH ×2 (10:54→21:36)
[2018-12-11] MEDS: NYSTATIN CREAM 15 GM TOP SCH ×2 (11:01→17:36)
[2018-12-11] MEDS: ENOXAPARIN SODIUM INJ 40 MG/0.4 ML DISP.SYRIN SUBCUT SCH (12:02)
[2018-12-11] MEDS: CLOPIDOGREL BISULFATE 75 MG TABLET PO SCH (12:02)
[2018-12-11] MEDS: BUPROPION HCL 75 MG TABLET PO SCH ×3 (12:05→23:40)
[2018-12-11] MEDS: METOPROLOL TARTRATE 50 MG TABLET PO SCH (21:36)
[2018-12-11] MEDS: ATORVASTATIN CALCIUM 20 MG TABLET PO SCH (21:36)
[2018-12-12] MEDS: DICYCLOMINE HCL 20 MG TABLET PO PRN ×2 (00:50→22:36)
[2018-12-12] MEDS ORDERED: LORAZEPAM INJ 2 MG/1 ML VIAL ONE (01:24)
[2018-12-12] MEDS ORDERED: ONDANSETRON HCL INJ/PF 4 MG/2 ML SDV ONE (01:24)
[2018-12-12] MEDS ORDERED: LORAZEPAM INJ 2 MG/1 ML VIAL IV PRN (01:25)
[2018-12-12] MEDS ORDERED: ONDANSETRON HCL INJ/PF 4 MG/2 ML SDV IV PRN (01:26)
[2018-12-12] MEDS ORDERED: ONDANSETRON HCL INJ/PF 4 MG/2 ML SDV IV ONE (01:30)
[2018-12-12] MEDS ORDERED: LORAZEPAM INJ 2 MG/1 ML VIAL IV ONE (01:30)
[2018-12-12] MEDS: LEVOTHYROXINE SODIUM 0.1 MG TABLET PO SCH (05:22)
[2018-12-12] MEDS: BUPROPION HCL 75 MG TABLET PO SCH ×3 (05:22→18:41)
[2018-12-12] MEDS: LANSOPRAZOLE 30 MG TAB.RAP.DR PO SCH (05:22)
[2018-12-12 06:46] LABS: ALANINE AMINOTRANSFERASE 19 U/L (9-52); ALBUMIN 3.3 g/dL (3.5-5.0); ALKALINE PHOSPHATASE 139 U/L (38-126); ANION GAP 7 (5-19); ASPARTATE AMINO TRANSFERASE 38 U/L (14-36); BILIRUBIN,DIRECT 0.3 mg/dL (0.0-0.4); BILIRUBIN,TOTAL 0.7 mg/dL (0.2-1.3); BLOOD UREA NITROGEN 15 mg/dL (7-20); CALCIUM 8.7 mg/dL (8.4-10.2); CARBON DIOXIDE 35 mmol/L (22-30); CHLORIDE 101 mmol/L (98-107); GLUCOSE 105 mg/dL (75-110); POTASSIUM 3.9 mmol/L (3.6-5.0); SODIUM 142.6 mmol/L (137-145); TOTAL PROTEIN 6.2 g/dL (6.3-8.2)
--- NOTE | 2018-12-12 09:18 | PDOC PROGRESS REPORT ---
Subjective Progress Note for:: 12/12/18 Subjective:: MICHAEL BOWLING is a 63 year old female with a PMH of chronic diastolic heart failure, mitral valve regurgitation, MECHELLE on CPAP, chronic AFib taken off anticoagulation, and COPD on 2 lpm of home O2, who was brought in due to increasing SOB as well as transient confusion. Daughter and son are in the bedside. Patient is now at her baseline mentation. Patient says she has chronic SOB from her CHF and it has been worsening in the past 2-3 weeks but more progressive in the past 2 days. She says she is taking her diuretics at home but does admit that she is not doing any fluid or sodium restriction. Daughter does report that she woke up around 2 am and was confused that for a few minutes, she was just saying "I'm tired". Daughter also report she was aphasic for a few minutes that she was not able find words when they asked her questions. No other focal deficits, weakness of numbness. She was given Lasix and breathing treatment in the ER which gave her some relief. Patient verbalized she wants us to be aware that she is a Mandaen and will refuse any form of blood transfusion. 12/[id number]-old female admitted with acute on chronic diastolic heart failure. Consultation was done with Dr. Peñaloza. Patient was on Demadex and spironolactone. Is also has a history of chronic atrial fibrillation but not on anticoagulants because of the history of recurrent bleeds. Presently she is on Plavix. I started her on Lovenox today. Patient initially came in with TIA symptoms those are resolved. Patient is using 2 L oxygen at home and she is also using CPAP at night. Dr. Peñaloza thinks she needs left atrial appendix device for atrial fibrillation because she is not a candidate for chronic anticoagulation. Patient is afebrile no acute events in the last 24 hours. PT consult was requested fall precautions are requested. 12/12/2018-no acute events in the last 24 hours. Pulse ox on 3 L is 97%. Cardiology consult was done by Dr. Peñaloza. Appreciate his input. Patient is afebrile. Patient still have a Fernando's catheter has blood stained urine. Reason For Visit: CHF EXACERBATION, POSSIBLE TIA Physical Exam Vital Signs: Temp Pulse Resp BP Pulse Ox 97.4 F 89 16 136/72 H 97 12/12/18 03:16 12/12/18 07:00 12/12/18 03:16 12/12/18 03:16 12/12/18 03:16 Intake & Output 12/11/18 12/12/18 12/13/18 06:59 06:59 06:59 Intake Total 459 592 Output Total 3650 1700 Balance -3191 -1108 Weight 151.8 kg 150.7 kg General appearance: PRESENT: mild distress Eye exam: PRESENT: PERRLA Mouth exam: PRESENT: moist, tongue midline Neck exam: ABSENT: carotid bruit, JVD, lymphadenopathy, thyromegaly Respiratory exam: PRESENT: crackles, decreased breath sounds Cardiovascular exam: PRESENT: irregular rhythm GI/Abdominal exam: PRESENT: normal bowel sounds, soft. ABSENT: distended, guarding, mass, organolmegaly, rebound, tenderness Extremities exam: PRESENT: full ROM. ABSENT: calf tenderness, clubbing, pedal edema Neurological exam: PRESENT: alert, awake, oriented to person, oriented to place, oriented to time, oriented to situation, CN II-XII grossly intact. ABSENT: motor sensory deficit Psychiatric exam: PRESENT: appropriate affect, normal mood. ABSENT: homicidal ideation, suicidal ideation Results Laboratory Results: 12/11/18 09:30 12/12/18 05:19 12/11/18 12/12/18 09:30 05:19 WBC 5.8 RBC 5.06 Hgb 13.5 Hct 40.8 MCV 81 MCH 26.7 L MCHC 33.2 RDW 15.7 H Plt Count 288 Seg Neutrophils % 69.0 Lymphocytes % 15.5 Monocytes % 11.5 Eosinophils % 2.8 Basophils % 1.2 Absolute Neutrophils 4.0 Absolute Lymphocytes 0.9 Absolute Monocytes 0.7 Absolute Eosinophils 0.2 Absolute Basophils 0.1 Sodium 142.6 Potassium 3.9 Chloride 101 Carbon Dioxide 35 H Anion Gap 7 BUN 15 Creatinine 1.10 Est GFR ( Amer) > 60 Est GFR (Non-Af Amer) 50 L Glucose 105 Calcium 8.7 Magnesium 2.1 Total Bilirubin 0.7 AST 38 H ALT 19 Alkaline Phosphatase 139 H Total Protein 6.2 L Albumin 3.3 L 12/10/18 07:40 Catheterized Urine Urine Culture - Final NO GROWTH 2 DAYS 12/10/18 12/10/1819 07:40 08:53 13:00 Troponin I Cancelled < 0.012 < 0.012 NT-Pro-B Natriuret Pep Cancelled 593 12/12/18 05:19 Troponin I NT-Pro-B Natriuret Pep 272 Impressions: Carotid Doppler Study 12/10/18 00:00 IMPRESSION: Normal waveforms and velocities without evidence of high-grade stenosis. Chest X-Ray 12/10/18 06:54 IMPRESSION: CARDIAC ENLARGEMENT. VASCULAR CONGESTION. Head CT 12/10/18 06:55 IMPRESSION: MILD CHRONIC CHANGES OF ATROPHY AND MICROVASCULAR ISCHEMIA. NO ACUTE PROCESS. EVIDENCE OF ACUTE STROKE: NO. Chest/Abdomen CTA 12/10/18 09:44 IMPRESSION: No CT angio evidence acute pulmonary emboli Massive cardiomegaly Assessment & Plan - Diagnosis (1) Acute on chronic respiratory failure with hypoxemia Is this a current diagnosis for this admission?: Yes Plan: Acute hypoxic respiratory failure 2/2 CHF exacerbation. She does have chronic respiratory failure from COPD. 12/11/2018-patient was admitted with acute on chronic hypoxic respiratory failure most likely secondary to congestive heart failure exacerbation, she is also have underlying COPD. pulse ox on 4 L today is 96%. On examination chest bilateral entry was decreased few crackles at the bases. BNP is 593. urine cultures are negative so far. Patient is presently on advir nebulizations every 12 hours. pt using CPAP at night. Plan is to continue the present management and requested for consultation with narcotics and vice detective Dr. Guillen. 12/12/2018 patient was admitted with acute on chronic respiratory failure with hypoxia oxygen requirements are decreasing presently she is on 3 L pulse ox is 97%. She is a CPAP at night. On examination still have 3 crackles at the bases. BNP is 272. Patient is presently on a Demadex 20 mg p.o. twice daily spironolactone 100 mg daily. Receiving advised nebulizations every 12 hours. Plan is to continue the present management. Patient is not on antibiotics. (2) CHF exacerbation Qualifiers: Heart failure type: right-sided Qualified Code(s): I50.813 - Acute on chronic right heart failure Is this a current diagnosis for this admission?: Yes Plan: Acute on chronic diastolic heart failure exacerbation. CTA was negative for PE. Chest x-ray was remarkable for congestion. Troponin in the ER was negative x 2. Will continue with IV Lasix 40 mg IV q12 for now. She follows up with Dr. Peñaloza who has been notified about consult. 12/11/2018-patient was admitted with CHF exacerbation, she has acute on chronic diastolic heart failure. On Lasix 40 mg every 12 hours on spironolactone 100 mg daily. Medication was switched to Demadex 20 mg twice a day and plan is to continue spironolactone. She was placed on fluid restriction 1200 mL/day. Echocardiogram was done left ventricular function was normal unable to assess the diastolic function because of the chronic atrial fibrillation. Most likely she has acute on chronic diastolic heart failure. 12/12/2018 patient was admitted with CHF exacerbation, she has chronic diastolic heart failure. Presently on Demadex 20 mg p.o. twice daily and spironolactone 100 mg daily. BNP is 272. Patient is not in fluid overload. Plan is to continue the present management. (3) Transient ischemic attack Is this a current diagnosis for this admission?: Yes Plan: Patient had transient aphasia and confusion at home. This has resolved and she is now at her baseline. CT head was negative. She does have chronic AFib. She has been taken off coumadin and aspirin as well due to recurrent ?vaginal and GI bleed in the past after an attempt to restart her on coumadin. Recommend trying Plavix. Discussed this with patient in length including benefits and risk of bleeding, she does not want to be restarted on any an ticoagulant or aspirin but is amenable to trying Plavix. 12/11/2018-patient was admitted with transient aphasia and confusion prior to the ER arrival. The symptoms are resolved she is back at baseline. CT head was negative for acute changes. She has history of chronic atrial fibrillation but not on anticoagulation because of the history of recurrent vaginal and GI bleeds. She was placed on Plavix during this admission and also started on Lovenox today. 12/12/2018-patient is admitted with transient aphasia and confusion which was resolved now. Mental status is back at baseline. CT head was negative for acute changes. She has history of chronic atrial fibrillation but not on anticoagulation because of the history of recurrent vaginal or GI bleeds. Presently she is on Lovenox and Plavix. Hemoglobin is stable around 13.5. Plan is to continue the present management. (4) Chronic atrial fibrillation Is this a current diagnosis for this admission?: Yes Plan: Rate controlled. As mentioned, she has been taken off coumadin and aspirin as well due to recurrent ?vaginal and GI bleed in the past after an attempt to restart her on coumadin. Recommend trying Plavix. Discussed this with patient in length, she does not want to be restarted on any anticoagulant or aspirin but is amenable to trying Plavix. Resume lopressor and cardizem PO. 12/11/2018 patient has history of chronic atrial fibrillation not on anticoagu lation because of the recurrent vaginal and GI bleeds. She agreed for Plavix. She was placed on Plavix she is also on Lovenox. Fall precautions were requested. 12/12/2018-patient has history of chronic atrial fibrillation rate controlled, not on anticoagulation. Presently on Lovenox prophylactic dose on Plavix 75 mg p.o. daily. Noticed to have a blood-tinged urine in the Fernando's catheter. Patient is waiting for left atrial appendage device placement for atrial fibrillation. (5) Morbid (severe) obesity due to excess calories Is this a current diagnosis for this admission?: Yes Plan: 12/11/2018-patient's BMI is more than 40. Diet exercise weight loss and lifestyle modifications are discussed. Dietary consult was requested. 12/12/2018-patient was advised again about diet lifestyle modifications weight loss. (6) Sleep apnea with use of continuous positive airway pressure (CPAP) Is this a current diagnosis for this admission?: Yes Plan: 12/11/2018-patient has history of obstructive sleep apnea she uses CPAP at night. We resumed his CPAP while she was in the hospital. She does not have any outpatient narcotics and vice detective, requested a consultation with Dr. Guillen. 12/12/2018-patient has history of obstructive sleep apnea uses CPAP at night. Consult was placed with Dr. Guillen. We are going to make arrangements for her to see him once he is discharged as an outpatient. - Time Time Spent with patient: 15-24 minutes Medications reviewed and adjusted accordingly: Yes Anticipated discharge: Home
[2018-12-12] MEDS: DILTIAZEM HCL 60 MG TABLET PO SCH ×2 (10:33→21:06)
[2018-12-12] MEDS: MAGNESIUM OXIDE 400 MG TABLET PO SCH (10:33)
[2018-12-12] MEDS: NITROGLYCERIN 5 MG (0.2 MG/HR) PATCH.TD24 TOP SCH (10:33)
[2018-12-12] MEDS: CLOPIDOGREL BISULFATE 75 MG TABLET PO SCH (10:33)
[2018-12-12] MEDS: FERROUS SULFATE 325 MG TABLET PO SCH (10:33)
[2018-12-12] MEDS: POTASSIUM CHLORIDE 10 MEQ CAPSULE.ER PO SCH (10:33)
[2018-12-12] MEDS: SPIRONOLACTONE 25 MG TABLET PO SCH (10:34)
[2018-12-12] MEDS: FLUTICASONE/SALMETEROL DISKUS 250-50 MCG/DOSE IH SCH ×2 (10:34→22:39)
[2018-12-12] MEDS: TORSEMIDE 20 MG TABLET PO SCH ×2 (10:35→22:38)
[2018-12-12] MEDS: NYSTATIN CREAM 15 GM TOP SCH ×2 (10:36→18:41)
[2018-12-12] MEDS: ENOXAPARIN SODIUM INJ 40 MG/0.4 ML DISP.SYRIN SUBCUT SCH (10:36)
--- NOTE | 2018-12-12 19:38 | PDOC PROGRESS REPORT ---
Subjective Progress Note for:: 12/12/18 Subjective:: Patient feeling much better. Sitting at bedside. No new complaints. I was able to get in touch with yarn comber at [facility]. They would only do the watchman procedure as an outpatient. They Told me that this is not approved for inpatient procedure. Also got in touch with Dr. Chaves at [facility], they do procedure only every other week and prefers to do that as an outpatient. Patient however getting better. Reason For Visit: CHF EXACERBATION, POSSIBLE TIA Physical Exam Vital Signs: Temp Pulse Resp BP Pulse Ox 97.4 F 87 20 118/66 98 12/12/18 15:35 12/12/18 15:35 12/12/18 15:35 12/12/18 15:35 12/12/18 15:35 Intake & Output 12/11/18 12/12/18 12/13/18 06:59 06:59 06:59 Intake Total 459 592 414 Output Total 3650 1700 450 Balance -3191 -1108 -36 Weight 151.8 kg 150.7 kg 150.7 kg Exam: GENERAL: well-nourished and in no acute distress. Alert and oriented x3 HEAD: Atraumatic, normocephalic. EYES: ADAN, sclera anicteric, conjunctiva are normal. ENT: Moist mucous membranes. No oral ulcerations or bleeding gums noted. No obvious ear, nose or throat abnormalities noted. NECK: supple without lymphadenopathy. Trachea is central. No cervical or axillary lymphadenopathy noted. Carotids are 2+, JVD distended LUNGS: Breath sounds clear bilaterally. No wheezes rales or rhonchi noted. No significant dullness noted on percussion. CHEST: Palpation of the chest wall shows no significant chest wall tenderness. 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 ABDOMEN: Soft, no significant tenderness appreciated, normoactive bowel sounds. No guarding, no rebound. No rigidity noted . No masses appreciated. EXTREMITIES: Pedal pulses are 1-2+, no calf tenderness noted. No clubbing or cyanosis. 1 Plus pedal edema noted NEUROLOGICAL: Focused neurological exam showed no significant neurologic deficit. Normal speech, no focal weakness appreciated. PSYCH: Normal mood, normal affect. Judgment and insight within normal limits. SKIN: No significant ecchymosis, skin is noted to be warm. MUSCULOSKELETAL EXAM: No significant acute joint swelling noted. Results Laboratory Results: 12/11/18 09:30 12/12/18 05:19 12/12/18 05:19 Sodium 142.6 Potassium 3.9 Chloride 101 Carbon Dioxide 35 H Anion Gap 7 BUN 15 Creatinine 1.10 Est GFR ( Amer) > 60 Est GFR (Non-Af Amer) 50 L Glucose 105 Calcium 8.7 Magnesium 2.1 Total Bilirubin 0.7 AST 38 H ALT 19 Alkaline Phosphatase 139 H Total Protein 6.2 L Albumin 3.3 L 12/10/18 07:40 Catheterized Urine Urine Culture - Final NO GROWTH 2 DAYS 12/10/18 12/10/18 12/10/18 07:40 08:53 13:00 Troponin I Cancelled < 0.012 < 0.012 NT-Pro-B Natriuret Pep Cancelled 593 12/12/18 05:19 Troponin I NT-Pro-B Natriuret Pep 272 EKG Comments: Atrial fibrillation with controlled ventricular response Impressions: Carotid Doppler Study 12/10/18 00:00 IMPRESSION: Normal waveforms and velocities without evidence of high-grade stenosis. Chest X-Ray 12/10/18 06:54 IMPRESSION: CARDIAC ENLARGEMENT. VASCULAR CONGESTION. Head CT 12/10/18 06:55 IMPRESSION: MILD CHRONIC CHANGES OF ATROPHY AND MICROVASCULAR ISCHEMIA. NO ACUTE PROCESS. EVIDENCE OF ACUTE STROKE: NO. Chest/Abdomen CTA 12/10/18 09:44 IMPRESSION: No CT angio evidence acute pulmonary emboli Massive cardiomegaly Assessment & Plan - Diagnosis (1) CHF exacerbation Qualifiers: Heart failure type: right-sided Qualified Code(s): I50.813 - Acute on chronic right heart failure Is this a current diagnosis for this admission?: Yes (2) Acute on chronic respiratory failure with hypoxemia Is this a current diagnosis for this admission?: Yes (3) Altered mental status Qualifiers: Altered mental status type: unspecified Qualified Code(s): R41.82 - Altered mental status, unspecified Is this a current diagnosis for this admission?: Yes (4) Chronic atrial fibrillation Is this a current diagnosis for this admission?: Yes (5) Morbid (severe) obesity due to excess calories Is this a current diagnosis for this admission?: Yes (6) Sleep apnea with use of continuous positive airway pressure (CPAP) Is this a current diagnosis for this admission?: Yes - Notes Notes: Patient doing much better. Patient improved on current medical regimen. Patient diuresing well. Continue current regimen. Patient can follow with me as an outpatient. Will schedule patient's watchman procedure as an outpatient at [facility]. Information has been sent to them. Patient should follow-up with me. In the meantime, patient should improve her mobility and conditioning. - Time Time with patient: Greater than 35 minutes - More than 50% of the time spent coordinating care, discussing management plans with involved caregivers. Management plans discussed with involved personnels. Medical decision making was of moderate to high complexity, patient's has multiple comorbidities. Medications reviewed and adjusted accordingly: Yes
[2018-12-12] MEDS: METOPROLOL TARTRATE 50 MG TABLET PO SCH (21:05)
[2018-12-12] MEDS: ATORVASTATIN CALCIUM 20 MG TABLET PO SCH (21:05)
--- NOTE | 2018-12-12 21:06 | EKG REPORT ---
SEVERITY:- ABNORMAL ECG - ATRIAL FIBRILLATION LEFT AXIS DEVIATION LOW VOLTAGE IN FRONTAL LEADS BORDERLINE PROLONGED QT INTERVAL : Confirmed by: Jaleel Peñaloza 12-Dec-2018 21:05:02
[2018-12-13] MEDS: BUPROPION HCL 75 MG TABLET PO SCH ×5 (01:13→23:53)
[2018-12-13 05:13] LABS: ABSOLUTE EOSINOPHILS # (AUTO) 0.2 10^3/uL (0.0-0.6); ABSOLUTE LYMPHOCYTES (AUTO) 0.7 10^3/uL (0.5-4.7); ABSOLUTE MONOCYTES (AUTO) 0.9 10^3/uL (0.1-1.4); BASOPHILS % (AUTO) 0.7 % (0-2); EOSINOPHILS % (AUTO) 2.8 % (0-6); HEMATOCRIT 38.4 % (36.0-47.0); HEMOGLOBIN 12.8 g/dL (12.0-15.5); LYMPHOCYTES % (AUTO) 11.8 % (13-45); MEAN CORPUSCULAR HEMOGLOBIN 26.9 pg (27.0-33.4); MEAN CORPUSCULAR HGB CONC 33.2 g/dL (32.0-36.0); MEAN CORPUSCULAR VOLUME 81 fl (80-97); MONOCYTES % (AUTO) 15.3 % (3-13); PLATELET COUNT 267 10^3/uL (150-450); RED BLOOD COUNT 4.75 10^6/uL (3.72-5.28); SEGMENTED NEUTROPHILS % (AUTO) 69.4 % (42-78); TOTAL CELLS COUNTED % (AUTO) 100 %; WHITE BLOOD COUNT 5.7 10^3/uL (4.0-10.5)
[2018-12-13] MEDS: LEVOTHYROXINE SODIUM 0.1 MG TABLET PO SCH (05:41)
[2018-12-13] MEDS: LANSOPRAZOLE 30 MG TAB.RAP.DR PO SCH (05:42)
[2018-12-13 05:50] LABS: ALANINE AMINOTRANSFERASE 20 U/L (9-52); ALKALINE PHOSPHATASE 119 U/L (38-126); ANION GAP 5 (5-19); ASPARTATE AMINO TRANSFERASE 53 U/L (14-36); BILIRUBIN,DIRECT 0.4 mg/dL (0.0-0.4); BILIRUBIN,TOTAL 0.7 mg/dL (0.2-1.3); BLOOD UREA NITROGEN 15 mg/dL (7-20); CALCIUM 8.5 mg/dL (8.4-10.2); CARBON DIOXIDE 36 mmol/L (22-30); CHLORIDE 102 mmol/L (98-107); GLUCOSE 102 mg/dL (75-110); POTASSIUM 3.8 mmol/L (3.6-5.0); TOTAL PROTEIN 5.9 g/dL (6.3-8.2)
--- NOTE | 2018-12-13 09:34 | EKG REPORT ---
SEVERITY:- ABNORMAL ECG - ATRIAL FIBRILLATION LEFT AXIS DEVIATION LOW VOLTAGE IN FRONTAL LEADS NONSPECIFIC T ABNORMALITIES, LATERAL LEADS BORDERLINE PROLONGED QT INTERVAL : Confirmed by: Jaleel Peñaloza 13-Dec-2018 09:33:49
--- NOTE | 2018-12-13 09:47 | RADIOLOGY REPORT (SQ) ---
EXAM DESCRIPTION: CHEST SINGLE VIEW COMPLETED DATE/TIME: 12/13/2018 9:28 am REASON FOR STUDY: shortness of breath COMPARISON: CT angio chest 12/10/2018 Chest films 12/10/2018, 12/05/2018, 05/16/2018 EXAM PARAMETERS: NUMBER OF VIEWS: One view. TECHNIQUE: Single frontal radiographic view of the chest acquired. RADIATION DOSE: NA LIMITATIONS: None. FINDINGS: LUNGS AND PLEURA: No opacities, masses or pneumothorax. No pleural effusion. MEDIASTINUM AND HILAR STRUCTURES: No masses. Contour normal. HEART AND VASCULAR STRUCTURES: Stable massive cardiomegaly BONES: No acute findings. HARDWARE: None in the chest. OTHER: No other significant finding. IMPRESSION: Stable massive cardiomegaly TECHNICAL DOCUMENTATION: JOB ID: [id number] [employer]- All Rights Reserved Reading location - IP/workstation name: [email or web address]
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
[2018-12-13] MEDS: POTASSIUM CHLORIDE 10 MEQ CAPSULE.ER PO SCH (10:35)
[2018-12-13] MEDS: DILTIAZEM HCL 60 MG TABLET PO SCH ×2 (10:35→22:37)
[2018-12-13] MEDS: SPIRONOLACTONE 25 MG TABLET PO SCH (10:35)
[2018-12-13] MEDS: MAGNESIUM OXIDE 400 MG TABLET PO SCH (10:35)
[2018-12-13] MEDS: FERROUS SULFATE 325 MG TABLET PO SCH (10:36)
[2018-12-13] MEDS: CLOPIDOGREL BISULFATE 75 MG TABLET PO SCH (10:36)
[2018-12-13] MEDS: TORSEMIDE 20 MG TABLET PO SCH ×2 (10:40→22:36)
[2018-12-13] MEDS: FLUTICASONE/SALMETEROL DISKUS 250-50 MCG/DOSE IH SCH ×2 (10:41→22:37)
[2018-12-13] MEDS: ENOXAPARIN SODIUM INJ 40 MG/0.4 ML DISP.SYRIN SUBCUT SCH (10:41)
[2018-12-13] MEDS: NITROGLYCERIN 5 MG (0.2 MG/HR) PATCH.TD24 TOP SCH (10:43)
[2018-12-13] MEDS: NYSTATIN CREAM 15 GM TOP SCH ×2 (10:43→17:40)
[2018-12-13] MEDS: DICYCLOMINE HCL 20 MG TABLET PO PRN (16:00)
[2018-12-13] MEDS: METOPROLOL TARTRATE 50 MG TABLET PO SCH (22:36)
[2018-12-13] MEDS: ATORVASTATIN CALCIUM 20 MG TABLET PO SCH (22:36)
[2018-12-14 04:54] LABS: ABSOLUTE EOSINOPHILS # (AUTO) 0.1 10^3/uL (0.0-0.6); ABSOLUTE LYMPHOCYTES (AUTO) 0.5 10^3/uL (0.5-4.7); ABSOLUTE MONOCYTES (AUTO) 0.8 10^3/uL (0.1-1.4); BASOPHILS % (AUTO) 0.6 % (0-2); EOSINOPHILS % (AUTO) 1.9 % (0-6); HEMATOCRIT 37.4 % (36.0-47.0); HEMOGLOBIN 12.6 g/dL (12.0-15.5); LYMPHOCYTES % (AUTO) 9.5 % (13-45); MEAN CORPUSCULAR HEMOGLOBIN 27.2 pg (27.0-33.4); MEAN CORPUSCULAR HGB CONC 33.7 g/dL (32.0-36.0); MEAN CORPUSCULAR VOLUME 81 fl (80-97); PLATELET COUNT 269 10^3/uL (150-450); RED BLOOD COUNT 4.63 10^6/uL (3.72-5.28); RED CELL DISTRIBUTION WIDTH 16.1 % (11.5-14.0); TOTAL CELLS COUNTED % (AUTO) 100 %; WHITE BLOOD COUNT 5.4 10^3/uL (4.0-10.5)
[2018-12-14 05:15] LABS: ALANINE AMINOTRANSFERASE 22 U/L (9-52); ALBUMIN 3.1 g/dL (3.5-5.0); ALKALINE PHOSPHATASE 124 U/L (38-126); ANION GAP 7 (5-19); ASPARTATE AMINO TRANSFERASE 24 U/L (14-36); BILIRUBIN,DIRECT 0.2 mg/dL (0.0-0.4); BILIRUBIN,TOTAL 0.6 mg/dL (0.2-1.3); BLOOD UREA NITROGEN 17 mg/dL (7-20); CALCIUM 8.7 mg/dL (8.4-10.2); CARBON DIOXIDE 34 mmol/L (22-30); CHLORIDE 99 mmol/L (98-107); GLUCOSE 109 mg/dL (75-110); POTASSIUM 3.8 mmol/L (3.6-5.0); SODIUM 139.6 mmol/L (137-145); TOTAL PROTEIN 5.8 g/dL (6.3-8.2)
[2018-12-14] MEDS: LANSOPRAZOLE 30 MG TAB.RAP.DR PO SCH (06:27)
[2018-12-14] MEDS: BUPROPION HCL 75 MG TABLET PO SCH (06:27)
[2018-12-14] MEDS: LEVOTHYROXINE SODIUM 0.1 MG TABLET PO SCH (06:27)
[2018-12-14] MEDS: CLOPIDOGREL BISULFATE 75 MG TABLET PO SCH (10:53)
[2018-12-14] MEDS: SPIRONOLACTONE 25 MG TABLET PO SCH (10:53)
[2018-12-14] MEDS: MAGNESIUM OXIDE 400 MG TABLET PO SCH (10:54)
[2018-12-14] MEDS: TORSEMIDE 20 MG TABLET PO SCH (10:55)
[2018-12-14] MEDS: POTASSIUM CHLORIDE 10 MEQ CAPSULE.ER PO SCH (10:56)
[2018-12-14] MEDS: DILTIAZEM HCL 60 MG TABLET PO SCH (10:56)
[2018-12-14] MEDS: FERROUS SULFATE 325 MG TABLET PO SCH (10:57)
[2018-12-14] MEDS: NYSTATIN CREAM 15 GM TOP SCH (10:58)
[2018-12-14] MEDS: FLUTICASONE/SALMETEROL DISKUS 250-50 MCG/DOSE IH SCH (10:58)
[2018-12-14] MEDS: ENOXAPARIN SODIUM INJ 40 MG/0.4 ML DISP.SYRIN SUBCUT SCH (10:59)
[2018-12-14 11:33] VITALS: BP 126/76
--- NOTE | 2018-12-14 11:33 | PDOC PROGRESS REPORT ---
Subjective Progress Note for:: 12/14/18 Subjective:: Patient was seen yesterday on rounds. No new complaints. Patient feeling much better. Sitting at bedside. No new complaints. I was able to get in touch with [employer] company driver at [facility]. They would only do the watchman procedure as an outpatient. They Told me that this is not approved for inpatient procedure. Also got in touch with Dr. Chaves at [facility], they do procedure only every other week and prefers to do that as an outpatient. Patient however getting better. Reason For Visit: CHF EXACERBATION, POSSIBLE TIA Physical Exam Vital Signs: Temp Pulse Resp BP Pulse Ox 97.6 F 81 20 121/59 L 96 12/14/18 07:44 12/14/18 07:44 12/14/18 07:44 12/14/18 07:44 12/14/18 07:44 Intake & Output 12/13/18 12/14/18 12/15/18 06:59 06:59 06:59 Intake Total 414 685 Output Total 450 Balance -36 685 Weight 150.4 kg 154.3 kg Exam: GENERAL: well-nourished and in no acute distress. Alert and oriented x3 HEAD: Atraumatic, normocephalic. EYES: ADAN, sclera anicteric, conjunctiva are normal. ENT: Moist mucous membranes. No oral ulcerations or bleeding gums noted. No obvious ear, nose or throat abnormalities noted. NECK: supple without lymphadenopathy. Trachea is central. No cervical or axillary lymphadenopathy noted. Carotids are 2+, JVD borderline elevated LUNGS: Breath sounds clear bilaterally. No wheezes rales or rhonchi noted. No significant dullness noted on percussion. CHEST: Palpation of the chest wall shows no significant chest wall tenderness. HEART: [place] [employer], No PSH, 1/6 CONSTANTIN aortic area, 1/6 ro[place] systolic murmur mitral area, no rubs, no gallops. ABDOMEN: Soft, no significant tenderness appreciated, normoactive bowel sounds. No guarding, no rebound. No rigidity noted . No masses appreciated. EXTREMITIES: Pedal pulses are 1-2+, no calf tenderness noted. No clubbing or cyanosis. Trace to 1+ pedal edema noted NEUROLOGICAL: Focused neurological exam showed no significant neurologic deficit. Normal speech, no focal weakness appreciated. PSYCH: Normal mood, normal affect. Judgment and insight within normal limits. SKIN: No significant ecchymosis, skin is noted to be warm. MUSCULOSKELETAL EXAM: No significant acute joint swelling noted. Results Laboratory Results: 12/14/18 04:38 12/14/18 04:38 12/14/18 12/14/18 04:38 04:38 WBC 5.4 RBC 4.63 Hgb 12.6 Hct 37.4 MCV 81 MCH 27.2 MCHC 33.7 RDW 16.1 H Plt Count 269 Seg Neutrophils % 74.0 Lymphocytes % 9.5 L Monocytes % 14.0 H Eosinophils % 1.9 Basophils % 0.6 Absolute Neutrophils 4.0 Absolute Lymphocytes 0.5 Absolute Monocytes 0.8 Absolute Eosinophils 0.1 Absolute Basophils 0.0 Sodium 139.6 Potassium 3.8 Chloride 99 Carbon Dioxide 34 H Anion Gap 7 BUN 17 Creatinine 1.13 Est GFR ( Amer) 59 L Est GFR (Non-Af Amer) 48 L Glucose 109 Calcium 8.7 Magnesium 2.2 Total Bilirubin 0.6 AST 24 ALT 22 Alkaline Phosphatase 124 Total Protein 5.8 L Albumin 3.1 L 12/10/18 12/10/18 12/10/18 07:40 08:53 13:00 Troponin I Cancelled < 0.012 < 0.012 NT-Pro-B Natriuret Pep Cancelled 593 12/12/18 12/13/18 12/14/18 05:19 04:58 04:38 Troponin I NT-Pro-B Natriuret Pep 272 324 433 Impressions: Carotid Doppler Study 12/10/18 00:00 IMPRESSION: Normal waveforms and velocities without evidence of high-grade stenosis. Head CT 12/10/18 06:55 IMPRESSION: MILD CHRONIC CHANGES OF ATROPHY AND MICROVASCULAR ISCHEMIA. NO ACUTE PROCESS. EVIDENCE OF ACUTE STROKE: NO. Chest/Abdomen CTA 12/10/18 09:44 IMPRESSION: No CT angio evidence acute pulmonary emboli Massive cardiomegaly Chest X-Ray 12/13/18 07:15 IMPRESSION: Stable massive cardiomegaly Assessment & Plan - Diagnosis (1) CHF exacerbation Qualifiers: Heart failure type: right-sided Qualified Code(s): I50.813 - Acute on chronic right heart failure Is this a current diagnosis for this admission?: Yes (2) Acute on chronic respiratory failure with hypoxemia Is this a current diagnosis for this admission?: Yes (3) Altered mental status Qualifiers: Altered mental status type: unspecified Qualified Code(s): R41.82 - Altered mental status, unspecified Is this a current diagnosis for this admission?: Yes (4) Chronic atrial fibrillation Is this a current diagnosis for this admission?: Yes (5) Morbid (severe) obesity due to excess calories Is this a current diagnosis for this admission?: Yes (6) Sleep apnea with use of continuous positive airway pressure (CPAP) Is this a current diagnosis for this admission?: Yes - Notes Notes: No new recommendations. Patient seems to be on a stable regimen. Continue current medications. We will continue to follow. - Time Time with patient: 15-25 minutes Medications reviewed and adjusted accordingly: Yes
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
--- NOTE | 2018-12-15 20:24 | PDOC PROGRESS REPORT ---
Subjective Progress Note for:: 12/14/18 Subjective:: Patient was seen yesterday on rounds. No new complaints.Patient claims she is being discharged today. Patient understands that she needs to follow-up. Patient understands that she that increased risk of stroke. Patient agreeable for outpatient appointment for watchmen procedures. Patient feeling much better. Sitting at bedside. No new complaints. Reason For Visit: CHF EXACERBATION, POSSIBLE TIA Physical Exam Vital Signs: Temp Pulse Resp BP Pulse Ox 97.6 F 81 20 126/76 H 96 12/14/18 11:30 12/14/18 11:30 12/14/18 11:30 12/14/18 11:30 12/14/18 11:30 Intake & Output 12/14/18 12/15/18 12/16/18 06:59 06:59 06:59 Intake Total 685 Balance 685 Weight 154.3 kg General appearance: PRESENT: no acute distress, well-developed, well-nourished Head exam: PRESENT: atraumatic, normocephalic Eye exam: PRESENT: conjunctiva pink, EOMI, PERRLA. ABSENT: scleral icterus Ear exam: PRESENT: normal external ear exam Mouth exam: PRESENT: moist, tongue midline Neck exam: ABSENT: carotid bruit, JVD, lymphadenopathy, thyromegaly Respiratory exam: PRESENT: clear to auscultation refugio. ABSENT: rales, rhonchi, wheezes Cardiovascular exam: PRESENT: RRR. ABSENT: diastolic murmur, rubs, systolic murmur Pulses: PRESENT: normal dorsalis pedis pul Vascular exam: PRESENT: normal capillary refill GI/Abdominal exam: PRESENT: normal bowel sounds, soft. ABSENT: distended, guarding, mass, organolmegaly, rebound, tenderness Rectal exam: PRESENT: deferred Extremities exam: PRESENT: full ROM. ABSENT: calf tenderness, clubbing, pedal edema Neurological exam: PRESENT: alert, awake, oriented to person, oriented to place, oriented to time, oriented to situation, CN II-XII grossly intact. ABSENT: motor sensory deficit Psychiatric exam: PRESENT: appropriate affect, normal mood. ABSENT: homicidal ideation, suicidal ideation Skin exam: PRESENT: dry, intact, warm. 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 No other significant arrhythmias noted. Impressions: Carotid Doppler Study 12/10/18 00:00 IMPRESSION: Normal waveforms and velocities without evidence of high-grade stenosis. Head CT 12/10/18 06:55 IMPRESSION: MILD CHRONIC CHANGES OF ATROPHY AND MICROVASCULAR ISCHEMIA. NO ACUTE PROCESS. EVIDENCE OF ACUTE STROKE: NO. Chest/Abdomen CTA 12/10/18 09:44 IMPRESSION: No CT angio evidence acute pulmonary emboli Massive cardiomegaly Chest X-Ray 12/13/18 07:15 IMPRESSION: Stable massive cardiomegaly Assessment & Plan - Diagnosis (1) CHF exacerbation Qualifiers: Heart failure type: right-sided Qualified Code(s): I50.813 - Acute on chronic right heart failure Is this a current diagnosis for this admission?: Yes (2) Acute on chronic respiratory failure with hypoxemia Is this a current diagnosis for this admission?: Yes (3) Altered mental status Qualifiers: Altered mental status type: unspecified Qualified Code(s): R41.82 - Altered mental status, unspecified Is this a current diagnosis for this admission?: Yes (4) Chronic atrial fibrillation Is this a current diagnosis for this admission?: Yes (5) Morbid (severe) obesity due to excess calories Is this a current diagnosis for this admission?: Yes (6) Sleep apnea with use of continuous positive airway pressure (CPAP) Is this a current diagnosis for this admission?: Yes - Notes Notes: Congestive heart failure: well compensated on current regimen. Patient will benefit from a chemistry panel that will be obtained as an outpatient. Patient follow-up with me. Acute on chronic respiratory failure with hypoxemia: stable: patient to continue with non-invasive ventilation therapy. Altered mental status: most likely related to high and Hypercabia, continue with non-invasive intermittent positive pressure modulation. Morbid obesity: patient advised in gradual weight loss. Chronic atrial fibrillation: patient has been advised to follow-up with [facility] handstitching machine in [place] regarding Watchman device placement. - Time Time with patient: 15-25 minutes Medications reviewed and adjusted accordingly: Yes
[2018-12-16] MEDS ORDERED: ERGOCALCIFEROL (VITAMIN D2) 50000 UNIT (1.25 MG) CAPSULE PO SCH (10:00)
== END 2018-12-14 12:57 | disposition home health service (06) | DRG 291 ==
LOC: ER 05:52 → OBSVTOIN 12:03 → EH 12:03 → 3W 15:07
PROVIDERS: ADMIT Internal Medicine; ATTEND Internal Medicine
DX: I11.0 Hypertensive heart disease with heart failure (principal); J96.21 Acute and chronic respiratory failure with hypoxia; G45.9 Transient cerebral ischemic attack, unspecified; Z68.43 Body mass index [BMI] 50.0-59.9, adult; R47.01 Aphasia; I50.33 Acute on chronic diastolic (congestive) heart failure; I48.2 Chronic atrial fibrillation; I34.0 Nonrheumatic mitral (valve) insufficiency; E66.01 Morbid (severe) obesity due to excess calories; J44.9 Chronic obstructive pulmonary disease, unspecified; E03.9 Hypothyroidism, unspecified; M17.0 Bilateral primary osteoarthritis of knee; I25.10 Atherosclerotic heart disease of native coronary artery without angina pectoris; Z79.899 Other long term (current) drug therapy; Z99.81 Dependence on supplemental oxygen; Z85.3 Personal history of malignant neoplasm of breast; Z88.8 Allergy status to other drugs, medicaments and biological substances
CPT/HCPCS: 36415; 70450; 71045; 71275; 80053; 80307; 81001; 82140; 82375; 82803; 83735; 83880; 84484; 85025; 87086; 93005; 93010; 93306; 93880; 94640; 94660; 96374; 96375; 99285; G0378; J1650; J1940; J2060; J2405; J3490; J7620

== ENCOUNTER → 2018-12-24 | Outpatient (CLI) | payer MEDICARE, MEDICAID ==
--- NOTE | 2018-12-24 10:11 | RADIOLOGY REPORT (SQ) ---
EXAM DESCRIPTION: CHEST PA/LATERAL COMPLETED DATE/TIME: 12/24/2018 9:43 am REASON FOR STUDY: PROD COUGH AND RIB CAGE PAIN COMPARISON: 12/13/2018, 12/10/2018 NUMBER OF VIEWS: Two view. TECHNIQUE: Frontal and lateral radiographic views of the chest acquired. LIMITATIONS: None. FINDINGS: LUNGS AND PLEURA: Chronic linear marking left lower lung zone. Slight chronic prominence of the vascular markings. No focal infiltrates or effusions. MEDIASTINUM AND HILAR STRUCTURES: No masses or contour abnormalities. HEART AND VASCULATURE: Marked cardiomegaly. BONY STRUCTURES: No acute findings. HARDWARE: None. OTHER: No other significant finding. IMPRESSION: Stable marked cardiomegaly. No overt congestive heart failure. Minimal chronic linear marking left lower lung zone. TECHNICAL DOCUMENTATION: JOB ID: [id number] [employer]- All Rights Reserved Reading location - IP/workstation name: [email or web address]
== END ==
LOC: OD 09:28
PROVIDERS: ATTEND Family Medicine
DX: I51.7 Cardiomegaly (principal); R05 Cough; R07.81 Pleurodynia
CPT/HCPCS: 71046

== ENCOUNTER → 2019-02-19 | Outpatient (CLI) | payer MEDICARE, MEDICAID ==
--- NOTE | 2019-02-19 13:58 | WOMENS IMAGING REPORT ---
EXAM DESCRIPTION: 3D SCREENING MAMMO BILAT COMPLETED DATE/TIME: 02/19/2019 11:09 am REASON FOR STUDY: Z12.31 ROUTINE 3D BILATERAL SCREENING Z12.31 ENCNTR SCREEN MAMMOGRAM FOR MALIGNAN T NEOPLASM OF [place] COMPARISON: 02/08/2018 and 09/26/2016. TECHNIQUE: Standard craniocaudal and mediolateral oblique views of each breast recorded using digita l acquisition and breast tomosynthesis. LIMITATIONS: None. FINDINGS: Findings present which are benign by mammographic criteria. No suspicious masses, calcific ations or architectural distortion. Pertinent benign findings: Stable surgical changes and small nodules in both breasts and stable calci fications in the left breast. Read with the assistance of CAD. .[facility] - R2 Cenova Version 1.3 .[facility] Imaging - R2 Cenova Version 2.1 .[facility] - R2 Cenova Version 2.4 .[facility] [place] - R2 Cenova Version 2.4 .[facility] - R2 Skin Toggler Version 9.2 Benign mammographic findings may include one or more of the following: Smooth masses, popcorn/rim/coa rse calcifications, asymmetries, post-procedure changes, and lesions with long-standing stability. IMPRESSION: BENIGN MAMMOGRAPHIC FINDINGS. BIRADS 2 BREAST DENSITY: a. The breasts are almost entirely fatty. BIRAD: 2 BENIGN FINDING(S) RECOMMENDATION: ROUTINE SCREENING COMMENT: The patient has been notified of the results by letter per SA requirements. Additional no tification policies are in place for contacting patient with suspicious or incomplete findings. Quality ID #[id number]: The [employer] recommends an annual screening mammogram for women aged 40 years or over. This facility utilizes a reminder system to ensure that all patients receive reminder letters, and/or direct phone calls for appointments. This includes reminders for routine scr eening mammograms, diagnostic mammograms, or other Breast Imaging Interventions when appropriate. Th is patient will be placed in the appropriate reminder system. The [employer] (ACR) has developed recommendations for screening MRI of the breast s in certain patient populations, to be used in conjunction with mammography. Breast MRI surveillanc e may be appropriate for women with more than 20% lifetime risk of developing breast cancer as deter mined by genetic testing, significant family history of the disease, or history of mantle radiation f or Hodgkins Disease. ACR Practice Guidelines 2008. DBT Technology DBT is a type of tomographic mammography. With conventional mammography, overlapping breast tissue ma y make lesions difficult to detect, even with good compression. DBT uses an x-ray tube that rotates a round the breast, taking images at different angles. These images are then combined to create thin sl ices of the breast that the radiologist can view as a 3D reconstruction. The [employer] unit can perform full-field digital mammograms (2D imaging); or DBT (3D imaging); or both, in a combination mode that quickly performs both the mammogram and the tomosynthesis scan while the breast is still compressed. PQRS 6045F: Fluoroscopic imaging is not utilized for breast tomosynthesis. TECHNICAL DOCUMENTATION: FINDING NUMBER: (1) ASSESSMENT: (1) JOB ID: [id number] [employer]- All Rights Reserved Reading location - IP/workstation name: [email or web address]
== END ==
LOC: WI 10:31
PROVIDERS: ATTEND Family Medicine
DX: Z12.31 Encounter for screening mammogram for malignant neoplasm of breast (principal)
CPT/HCPCS: 77063; 77067

== ENCOUNTER 2019-03-06 11:02 | Inpatient (IN) | payer MEDICARE, MEDICAID ==
--- NOTE | 2019-03-06 11:14 | ER Document Report ---
ED General - General Chief Complaint: Altered Mental Status Stated Complaint: ALTERED MENTAL STATUS Time Seen by Provider: 03/06/19 11:09 Primary Care Provider: KEYLA KAUFMAN MD [Primary Care Provider] - Follow up as needed TRAVEL OUTSIDE OF THE [place] IN LAST 30 DAYS: No - HPI Notes: Patient is a 63-year-old female that presents to the emergency department for chief complaint of altered mental status. Patient was found altered about 30 minutes prior to arrival in the emergency room family who called EMS. She was reportedly normal when she went to bed last night and is usually conversational and ambulatory. EMS states that she has not verbalized anything to them or had a change in her status since arrival. Patient has a history of atrial fibrillation and is on Plavix. There is no reported history of trauma. HPI is limited because of patient's current mental status Past Medical History: Atrial fibrillation, hypertension, hyperlipidemia, CHF Past Surgical History: Reviewed in chart Social History: Reviewed in chart Family History: Reviewed and noncontributory for presenting illness Allergies: Reviewed, see documented allergy list. REVIEW OF SYSTEMS: Unable to obtain because of acuity of condition PHYSICAL EXAMINATION: Vital signs reviewed, nursing noted reviewed. GENERAL: Somnolent, obese and in no acute distress. HEAD: Atraumatic, normocephalic. EYES: Eyes appear normal, extraocular movements intact, sclera anicteric, conjunctiva are normal. ENT: nares patent, oropharynx clear without exudates. Moist mucous membranes. NECK: Normal range of motion, supple without lymphadenopathy LUNGS: Breath sounds clear to auscultation bilaterally and equal. No wheezes rales or rhonchi. HEART: Regular rate and rhythm without murmurs ABDOMEN: Soft, no apparent tenderness, normoactive bowel sounds. No rebound, guarding, or rigidity. No masses appreciated. EXTREMITIES: Nontender, no long bone deformity, trace bilateral pretibial edema NEUROLOGICAL: Awake, not following commands, spontaneous movement of upper extremities, sensory testing limited because of current mentation but does localize to pain. GCS 11 SKIN: Warm, Dry, normal turgor, no rashes or lesions noted on exposed skin - Related Data Allergies/Adverse Reactions: clemastine fumarate [From Tavist-1] Allergy (Severe, Verified 11/22/18 13:34) red spots,N/V Shark Cartilage [From Shark Fin Cartilage] Allergy (Severe, Verified 11/22/18 13:34) hives, n and v iodine [Iodine] Allergy (Unknown, Verified 11/22/18 13:34) vomit/rash meperidine HCl [From Demerol] Allergy (Unknown, Verified 11/22/18 13:34) N/V pseudoephedrine HCl [From Sudafed] Allergy (Unknown, Verified 11/22/18 13:34) rash/itch glove powder Allergy (Severe, Uncoded 01/23/15 18:04) hands swell,itch Past Medical History - Social History Smoking Status: Unknown if Ever Smoked Family History: Reviewed & Not Pertinent, DM, Hyperlipidemia, Hypertension - Past Medical History Cardiac Medical History: Reports: Hx Atrial Fibrillation, Hx Congestive Heart Failure, Hx Coronary Artery Disease, Hx Hypertension - on meds Denies: Hx DVT, Hx Heart Attack, Hx Hypercholesterolemia, Hx Peripheral Vascular Disease, Hx Pulmonary Embolism, Hx Heart Murmur Pulmonary Medical History: Reports: Hx Bronchitis, Hx Pneumonia - hx of, Hx Sleep Apnea Denies: Hx Asthma, Hx COPD, Hx Tuberculosis Neurological Medical History: Denies: Hx Cerebrovascular Accident, Hx Migraine, Hx Seizures Endocrine Medical History: Reports: Hx Hypothyroidism. Denies: Hx Diabetes Aliyah litus Type 1, Hx Diabetes Mellitus Type 2, Hx Graves' Disease, Hx Hyperthyroidism Renal/ Medical History: Denies: Hx End Stage Renal Disease, Hx Kidney Stones, Hx Ovarian Cysts, Hx Peritoneal Dialysis, Hx Pelvic Inflammatory Disease Malignancy Medical History: Reports: Hx Breast Cancer. Denies: Hx Cervical Cancer, Hx Ovarian Cancer GI Medical History: Reports: Hx Colonoscopy. Denies: Hx Crohn's Disease, Hx Gastroesophageal Reflux Disease, Hx Hiatal Hernia, Hx Irritable Bowel, Hx Liver Failure, Hx Pancreatitis, Hx Ulcer, Hx Ulcerative Colitis Musculoskeletal Medical History: Reports Hx Arthritis - knees, Denies Hx Fibromyalgia, Denies Hx Gout, Denies Hx Muscular Dystrophy Skin Medical History: Denies Hx Eczema, Denies Hx Psoriasis Psychiatric Medical History: Denies: Hx Depression Traumatic Medical History: Denies: Hx Fractures Past Surgical History: Reports: Hx Abdominal Surgery - abd hernia, colon polpys, Hx Section, Hx Hysterectomy, Hx Mastectomy - right partial, Hx To nsillectomy. Denies: Hx Appendectomy, Hx Bowel Surgery, Hx Cholecystectomy, Hx Colostomy, Hx Coronary Artery Bypass Graft, Hx Gastric Bypass Surgery, Hx Herniorrhaphy, Hx Pacemaker, Hx Tubal Ligation - Immunizations Hx Diphtheria, Pertussis, Tetanus Vaccination: Yes Hx Pneumococcal Vaccination: 07/07/11 Physical Exam - Vital signs Vitals: Pulse Resp BP Pulse Ox 75 19 117/74 100 03/06/19 11:06 03/06/19 11:06 03/06/19 11:06 03/06/19 11:06 Course - Re-evaluation Re-evalutation: 03/06/19 13:13 Vitals reviewed. Nursing notes reviewed. Patient is not a TPA candidate since her symptoms started upon waking up this morning. Patient initially presented with a GCS of 11. She was not following commands and was having incomprehensible speech. On reevaluation she is improving. She will now tell me her name is Yuridia but that is the only word she will speak. She is still somnolent. She is following commands and moving extremities. CT brain shows no intracranial process. Her work is unremarkable. She does have a urinary tract infection which may be the cause of her altered mentation. Patient was given IV fluids and Rocephin. She is not septic. She was given rectal aspirin for concern of acute ischemic stroke. Patient will be admitted to the hospital for further medical management. Case discussed with Dr. Hinds who accepts admission. Laboratory 03/06/19 03/06/19 03/06/19 10:50 10:50 10:50 WBC 5.5 RBC 5.53 H Hgb 14.3 Hct 43.1 MCV 78 L MCH 25.8 L MCHC 33.1 RDW 14.4 H Plt Count 293 Seg Neutrophils % 64.2 Lymphocytes % 21.3 Monocytes % 11.9 Eosinophils % 1.6 Basophils % 1.0 Absolute Neutrophils 3.5 Absolute Lymphocytes 1.2 Absolute Monocytes 0.7 Absolute Eosinophils 0.1 Absolute Basophils 0.1 PT 13.9 INR 1.02 APTT 23.7 Sodium 143.0 Potassium 3.3 L Chloride 105 Carbon Dioxide 31 H Anion Gap 7 BUN 14 Creatinine 1.05 Est GFR ( Amer) > 60 Est GFR (Non-Af Amer) 53 L Glucose 102 Calcium 8.8 Total Bilirubin 0.8 Direct Bilirubin 0.4 Neonat Total Bilirubin Not Reportable Neonat Direct Bilirubin Not Reportable Neonat Indirect Bili Not Reportable AST 27 ALT 31 Alkaline Phosphatase 146 H Creatine Kinase 71 CK-MB (CK-2) Troponin I Total Protein 6.2 L Albumin 3.0 L Urine Color Urine Appearance Urine pH Ur Specific Denair Urine Protein Urine Glucose (UA) Urine Ketones Urine Blood Urine Nitrite Urine Bilirubin Urine Urobilinogen Ur Leukocyte Esterase Urine WBC (Auto) Urine RBC (Auto) Urine Bacteria (Auto) Squamous Epi Cells Auto Urine Mucus (Auto) Urine Ascorbic Acid 03/06/19 03/06/19 10:50 12:15 WBC RBC Hgb Hct MCV MCH MCHC RDW Plt Count Seg Neutrophils % Lymphocytes % Monocytes % Eosinophils % Basophils % Absolute Neutrophils Absolute Lymphocytes Absolute Monocytes Absolute Eosinophils Absolute Basophils PT INR APTT Sodium Potassium Chloride Carbon Dioxide Anion Gap BUN Creatinine Est GFR ( Amer) Est GFR (Non-Af Amer) Glucose Calcium Total Bilirubin Direct Bilirubin Neonat Total Bilirubin Neonat Direct Bilirubin Neonat Indirect Bili AST ALT Alkaline Phosphatase Creatine Kinase CK-MB (CK-2) 1.05 Troponin I < 0.012 Total Protein Albumin Urine Color YELLOW Urine Appearance SLIGHTLY-CLOUDY Urine pH 7.0 Ur Specific [place]air 1.011 Urine Protein NEGATIVE Urine Glucose (UA) NEGATIVE Urine Ketones NEGATIVE Urine Blood MODERATE H Urine Nitrite NEGATIVE Urine Bilirubin NEGATIVE Urine Urobilinogen 4.0 H Ur Leukocyte Esterase MODERATE H Urine WBC (Auto) 24 Urine RBC (Auto) 2 Urine Bacteria (Auto) 1+ Squamous Epi Cells Auto 1 Urine Mucus (Auto) RARE Urine Ascorbic Acid NEGATIVE Chest X-Ray 03/06/19 11:09 IMPRESSION: Low lung volumes. No active pulmonary disease. Moderate to severe cardiomegaly. Head CT 03/06/19 11:09 IMPRESSION: Examination is generally limited by patient motion artifact. Within this limitation, no CT evidence of acute stroke or hemorrhage. EVIDENCE OF ACUTE STROKE: NO. Findings reported to ER by critical results communication system at the time of dictation. - Vital Signs Vital signs: Temp Pulse Resp BP Pulse Ox 97.5 F 75 29 H 127/77 H 96 03/06/19 12:46 03/06/19 12:00 03/06/19 12:46 03/06/19 12:46 03/06/19 12:46 - Laboratory Result Diagrams: 03/06/19 10:50 03/06/19 10:50 Laboratory results interpreted by me: 03/06/19 03/06/19 03/06/19 10:50 10:50 12:15 RBC 5.53 H MCV 78 L MCH 25.8 L RDW 14.4 H Potassium 3.3 L Carbon Dioxide 31 H Est GFR (Non-Af Amer) 53 L Alkaline Phosphatase 146 H Total Protein 6.2 L Albumin 3.0 L Urine Blood MODERATE H Urine Urobilinogen 4.0 H Ur Leukocyte Esterase MODERATE H Discharge - Discharge Clinical Impression: Acute UTI Altered mental status Qualifiers: Altered mental status type: somnolence Qualified Code(s): R40.0 - Somnolence Condition: Stable Disposition: ADMITTED INPATIENT Admitting Provider: Guzman (Hospitalist) Unit Admitted: IMCU Referrals: KEYLA KAUFMAN MD [Primary Care Provider] - Follow up as needed
--- NOTE | 2019-03-06 11:28 | RADIOLOGY REPORT (SQ) ---
EXAM DESCRIPTION: CT HEAD WITHOUT COMPLETED DATE/TIME: 03/06/2019 11:15 am REASON FOR STUDY: altered mental status COMPARISON: 12/10/2018 TECHNIQUE: Axial images acquired through the brain without intravenous contrast. Images reviewed wi th bone, brain and subdural windows. Additional sagittal and coronal reconstructions were generated. Images stored on PACS. All CT scanners at this facility use dose modulation, iterative reconstruction, and/or weight based d osing when appropriate to reduce radiation dose to as low as reasonably achievable (ALARA). [facility]: Dose Right [facility]: CareDose [facility]: Dose Right [facility]: Teradose 4D [facility]: Coverity RADIATION DOSE: 2193 mGy cm LIMITATIONS: Motion artifact. FINDINGS: VENTRICLES: Normal size and contour. CEREBRUM: No masses. No hemorrhage. No midline shift. No evidence for acute infarction. Normal gra y/white matter differentiation. No areas of low density in the white matter. CEREBELLUM: No masses. No hemorrhage. No alteration of density. No evidence for acute infarction. EXTRAAXIAL SPACES: No fluid collections. No masses. ORBITS AND GLOBE: No intra- or extraconal masses. Normal contour of globe without masses. CALVARIUM: No fracture. PARANASAL SINUSES: No fluid or mucosal thickening. SOFT TISSUES: No mass or hematoma. OTHER: No other significant finding. IMPRESSION: Examination is generally limited by patient motion artifact. Within this limitation, no CT evidence of acute stroke or hemorrhage. EVIDENCE OF ACUTE STROKE: NO. Findings reported to ER by critical results communication system at the time of dictation. COMMENT: Quality ID # [id number]: Final reports with documentation of one or more dose reduction techniques (e.g., Automated exposure control, adjustment of the mA and/or kV according to patient size, use of iterative reconstruction technique) TECHNICAL DOCUMENTATION: JOB ID: [id number] [employer]- All Rights Reserved Reading location - IP/workstation name: [email or web address]
--- NOTE | 2019-03-06 11:30 | RADIOLOGY REPORT (SQ) ---
EXAM DESCRIPTION: CHEST SINGLE VIEW COMPLETED DATE/TIME: 03/06/2019 11:18 am REASON FOR STUDY: altered mental status COMPARISON: None. NUMBER OF VIEWS: One view. TECHNIQUE: Single frontal radiographic view of the chest acquired. LIMITATIONS: None. FINDINGS: LUNGS AND PLEURA: Low lung volumes. No opacities, masses or pneumothorax. No pleural eff usion. MEDIASTINUM AND HILAR STRUCTURES: No masses. No contour abnormality. HEART AND VASCULAR STRUCTURES: Stable moderate to severe cardiomegaly BONES: No acute findings. HARDWARE: None in the chest. OTHER: No other significant finding. IMPRESSION: Low lung volumes. No active pulmonary disease. Moderate to severe cardiomegaly. TECHNICAL DOCUMENTATION: JOB ID: [id number] [employer]- All Rights Reserved Reading location - IP/workstation name: [email or web address]
[2019-03-06 11:34] LABS: INTERNATIONAL RATION (INR) 1.02
[2019-03-06 11:35] LABS: ABSOLUTE BASOPHILS # (AUTO) 0.1 10^3/uL (0.0-0.2); ABSOLUTE EOSINOPHILS # (AUTO) 0.1 10^3/uL (0.0-0.6); ABSOLUTE LYMPHOCYTES (AUTO) 1.2 10^3/uL (0.5-4.7); ABSOLUTE MONOCYTES (AUTO) 0.7 10^3/uL (0.1-1.4); ABSOLUTE NEUT (AUTO) 3.5 10^3/uL (1.7-8.2); EOSINOPHILS % (AUTO) 1.6 % (0-6); HEMATOCRIT 43.1 % (36.0-47.0); HEMOGLOBIN 14.3 g/dL (12.0-15.5); LYMPHOCYTES % (AUTO) 21.3 % (13-45); MEAN CORPUSCULAR HEMOGLOBIN 25.8 pg (27.0-33.4); MEAN CORPUSCULAR HGB CONC 33.1 g/dL (32.0-36.0); MEAN CORPUSCULAR VOLUME 78 fl (80-97); MONOCYTES % (AUTO) 11.9 % (3-13); PARTIAL THROMBOPLASTIN TIME 23.7 SEC (23.5-35.8); PLATELET COUNT 293 10^3/uL (150-450); RED BLOOD COUNT 5.53 10^6/uL (3.72-5.28); RED CELL DISTRIBUTION WIDTH 14.4 % (11.5-14.0); SEGMENTED NEUTROPHILS % (AUTO) 64.2 % (42-78); TOTAL CELLS COUNTED % (AUTO) 100 %; WHITE BLOOD COUNT 5.5 10^3/uL (4.0-10.5)
[2019-03-06 11:37] LABS: PROTHROMBIN TIME 13.9 SEC (11.4-15.4)
[2019-03-06] MEDS ORDERED: ASPIRIN 600 MG SUPP, RECTAL PR ONE (11:38)
[2019-03-06 12:00] LABS: ALANINE AMINOTRANSFERASE 31 U/L (9-52); ALKALINE PHOSPHATASE 146 U/L (38-126); ANION GAP 7 (5-19); ASPARTATE AMINO TRANSFERASE 27 U/L (14-36); BILIRUBIN,DIRECT 0.4 mg/dL (0.0-0.4); BILIRUBIN,TOTAL 0.8 mg/dL (0.2-1.3); BLOOD UREA NITROGEN 14 mg/dL (7-20); CALCIUM 8.8 mg/dL (8.4-10.2); CARBON DIOXIDE 31 mmol/L (22-30); CHLORIDE 105 mmol/L (98-107); CREATINE KINASE 71 U/L (30-135); GLUCOSE 102 mg/dL (75-110); POTASSIUM 3.3 mmol/L (3.6-5.0); TOTAL PROTEIN 6.2 g/dL (6.3-8.2)
[2019-03-06 12:11] LABS: CREATINE KINASE MB 1.05 ng/mL (<4.55)
[2019-03-06 12:12] LABS: TROPONIN I < 0.012 ng/mL
[2019-03-06 12:55] LABS: APPEARANCE,URINE SLIGHTLY-CLOUDY; BILIRUBIN,URINE NEGATIVE (NEGATIVE); COLOR,URINE YELLOW; GLUCOSE, URINE NEGATIVE (NEGATIVE); KETONES,URINE NEGATIVE (NEGATIVE); LEUKOCYTE ESTERASE,URINE MODERATE (NEGATIVE); NITRITE,URINE NEGATIVE (NEGATIVE); PROTEIN,URINE NEGATIVE (NEGATIVE); URINE SPECIFIC GRAVITY 1.011
[2019-03-06] MEDS ORDERED: CEFTRIAXONE INJ 1000 MG VIAL IV ONE (13:00)
[2019-03-06] MEDS ORDERED: ONDANSETRON HCL INJ/PF 4 MG/2 ML SDV IV PRN (13:53)
[2019-03-06] MEDS ORDERED: ACETAMINOPHEN 325 MG TABLET PO PRN (13:53)
[2019-03-06] MEDS ORDERED: GLUCAGON,HUMAN RECOMB 1 MG INJ SUBCUT PRN (13:53)
[2019-03-06] MEDS ORDERED: DEXTROSE 40% GEL 15 GM TUBE PO PRN ×2 (13:53)
[2019-03-06] MEDS ORDERED: DEXTROSE 50%-WATER 25 GM/50 ML DISP.SYRIN IV PRN ×2 (13:53)
--- NOTE | 2019-03-06 14:15 | PDOC H&P ---
History of Present Illness Admission Date/PCP: 03/06/19 13:22 KEYLA KAUFMAN MD Patient complains of: altered mental status. History of Present Illness: MICHAEL BOWLING is a 63 year old female history of CHF, atrial fibrillation on aspirin Plavix, morbid obesity, COPD brought to the emergency room with altered mental status. She is also has history of TIAs prior admissions. When she went to bed she was acting normal. EMS unable to get any information from her. In the emergency room patient able to give her name unable to give her birthday and unable to say where she is at. CT head was negative EKG shows atrial fibrillation chest x-ray was cardiomegaly without any pulmonary congestion or pneumonia. Medical consult was called for altered mental status work-up. Past Medical History Cardiac Medical History: Reports: Atrial Fibrillation, Congestive Heart Failure, Coronary Artery Disease, Hypertension - on meds Denies: DVT, Myocardial Infarction, Hyperlipidema, Peripheral Vascular Disease, Pulmonary Embolism, Heart Murmur Pulmonary Medical History: Reports: Bronchitis, Pneumonia - hx of, Sleep Apnea Denies: Asthma, Chronic Obstructive Pulmonary Disease (COPD), Tuberculosis Neurological Medical History: Denies: Migraine, Seizures Endocrine Medical History: Reports: Hypothyroidism Denies: Diabetes Mellitus Type 1, Diabetes Mellitus Type 2, Hyperthyroidism Renal/ Medical History: Denies: End Stage Renal Disease Malignancy Medical History: Reports: Breast Cancer Denies: Cervical Cancer, Ovarian Cancer GI Medical History: Denies: Crohn's Disease, Gastroesophageal Reflux Disease, Hiatal Hernia, Ulcerative Colitis Musculoskeltal Medical History: Reports: Arthritis - knees Denies: Fibromyalgia, Gout Skin Medical History: Denies: Eczema, Psoriasis Psychiatric Medical History: Denies: Depression Hematology: Reports: Anemia - hx of Denies: Sickle Cell Disease Past Surgical History Past Surgical History: Reports: Section, Hysterectomy, Mastectomy - right partial, Tonsillectomy Denies: Amputation, Appendectomy, Cholecystectomy, Colostomy, Coronary Artery Bypass Graft, Gastric Bypass Surgery, Herniorrhaphy, Pacemaker, Tubal Ligation Social History Smoking Status: Unknown if Ever Smoked Frequency of Alcohol Use: Rare Hx Recreational Drug Use: No Drugs: None Hx Prescription Drug Abuse: No - Advance Directive Resuscitation Status: Full Code Family History Family History: Reviewed & Not Pertinent, DM, Hyperlipidemia, Hypertension Parental Family History Reviewed: Yes - Unable to get family history. Children Family History Reviewed: Yes Sibling(s) Family History Reviewed.: Yes Medication/Allergy Home Medications: Atorvastatin Calcium [Lipitor 20 mg Tablet] 20 mg PO QHS 12/10/18 Bupropion HCl [Bupropion Xl] 150 mg PO BIDBL 12/10/18 Dicyclomine HCl [Bentyl 20 mg Tablet] 20 mg PO QIDP PRN 12/10/18 Diltiazem HCl [Cardizem] 120 mg PO Q12 12/10/18 Ergocalciferol (Vitamin D2) [Drisdol 50,000 unit (1.25MG) Capsule] 50,000 unit PO BATEMAN@1000 12/10/18 Ferrous Sulfate 140 mg PO BID 12/10/18 Fluticasone/Salmeterol [Advair 250-50 Diskus 14 Dose/Diskus] 1 puff IH Q12 12/10/18 Levothyroxine Sodium [Synthroid 0.1 mg Tablet] 0.1 mg PO Q6AM 12/10/18 Magnesium Oxide [Mag-Ox 400 mg Tablet] 400 mg PO DAILY 12/10/18 Metoprolol Tartrate [Lopressor 50 mg Tablet] 25 mg PO QHS 12/10/18 Nitroglycerin [Nitro-Dur 5 mg (0.2 mg/Hr) Transdermal Patch] 0.2 patch TOP DAILY 12/10/18 Nystatin [Mycostatin Cream 15 gm] 1 applic TOP BID 12/10/18 Omeprazole 40 mg PO DAILY 12/10/18 Potassium Chloride [Klor-Con 10 Meq Capsule ER] 10 meq PO DAILY 12/10/18 Spironolactone [Aldactone 100 mg Tablet] 100 mg PO DAILY 12/10/18 Torsemide [Demadex 20 mg Tablet] 20 mg PO Q12 12/10/18 Clopidogrel Bisulfate [Plavix 75 mg Tablet] 75 mg PO DAILY #30 tablet 12/14/18 Allergies/Adverse Reactions: clemastine fumarate [From Tavist-1] Allergy (Severe, Verified 11/22/18 13:34) red spots,N/V Shark Cartilage [From Shark Fin Cartilage] Allergy (Severe, Verified 11/22/18 13:34) hives, n and v iodine [Iodine] Allergy (Unknown, Verified 11/22/18 13:34) vomit/rash meperidine HCl [From Demerol] Allergy (Unknown, Verified 11/22/18 13:34) N/V pseudoephedrine HCl [From Sudafed] Allergy (Unknown, Verified 11/22/18 13:34) rash/itch glove powder Allergy (Severe, Uncoded 01/23/15 18:04) hands swell,itch Review of Systems ROS unobtainable: Due to mental status Physical Exam Vital Signs: Temp Pulse Resp BP Pulse Ox 97.6 F 75 20 109/68 100 03/06/19 13:16 03/06/19 12:00 03/06/19 13:16 03/06/19 13:16 03/06/19 13:16 Intake & Output 03/05/19 03/06/19 03/07/19 06:59 06:59 06:59 Weight 149.9 kg General appearance: PRESENT: obese, other - pt Is confused and agitated. Head exam: PRESENT: atraumatic Eye exam: PRESENT: PERRLA Mouth exam: PRESENT: moist, tongue midline Teeth exam: PRESENT: poor dentation Neck exam: ABSENT: carotid bruit, JVD, lymphadenopathy, thyromegaly Respiratory exam: PRESENT: decreased breath sounds Cardiovascular exam: PRESENT: irregular rhythm, tachycardia GI/Abdominal exam: PRESENT: other - Obese abdomen complaining of lower abdominal pain on gentle palpation. Rectal exam: PRESENT: deferred Gentrourinary exam: PRESENT: indwelling catheter Neurological exam: PRESENT: altered, CN II-XII grossly intact Psychiatric exam: PRESENT: agitated, anxious Results Laboratory Results: 03/06/19 10:50 03/06/19 10:50 03/06/19 03/06/19 03/06/19 10:50 10:50 12:15 WBC 5.5 RBC 5.53 H Hgb 14.3 Hct 43.1 MCV 78 L MCH 25.8 L MCHC 33.1 RDW 14.4 H Plt Count 293 Seg Neutrophils % 64.2 Lymphocytes % 21.3 Monocytes % 11.9 Eosinophils % 1.6 Basophils % 1.0 Absolute Neutrophils 3.5 Absolute Lymphocytes 1.2 Absolute Monocytes 0.7 Absolute Eosinophils 0.1 Absolute Basophils 0.1 Sodium 143.0 Potassium 3.3 L Chloride 105 Carbon Dioxide 31 H Anion Gap 7 BUN 14 Creatinine 1.05 Est GFR ( Amer) > 60 Est GFR (Non-Af Amer) 53 L Glucose 102 Calcium 8.8 Total Bilirubin 0.8 AST 27 ALT 31 Alkaline Phosphatase 146 H Total Protein 6.2 L Albumin 3.0 L Urine Color YELLOW Urine Appearance SLIGHTLY-CLOUDY Urine pH 7.0 Ur Specific [place] 1.011 Urine Protein NEGATIVE Urine Glucose (UA) NEGATIVE Urine Ketones NEGATIVE Urine Blood MODERATE H Urine Nitrite NEGATIVE Ur Leukocyte Esterase MODERATE H Urine WBC (Auto) 24 Urine RBC (Auto) 2 03/06/19 03/06/19 10:50 10:50 Creatine Kinase 71 CK-MB (CK-2) 1.05 Troponin I < 0.012 Impressions: Chest X-Ray 03/06/19 11:09 IMPRESSION: Low lung volumes. No active pulmonary disease. Moderate to severe cardiomegaly. Head CT 03/06/19 11:09 IMPRESSION: Examination is generally limited by patient motion artifact. Within this limitation, no CT evidence of acute stroke or hemorrhage. EVIDENCE OF ACUTE STROKE: NO. Findings reported to ER by critical results communication system at the time of dictation. Assessment and Plan - Diagnosis (2) Altered mental status Qualifiers: Altered mental status type: somnolence Qualified Code(s): R40.0 - Somnolence Is this a current diagnosis for this admission?: Yes Plan: 03/06/2019-patient is admitted for altered mental status. To admit in [facility] as inpatient. Neurochecks are implemented. N.p.o. until swallowing study was done. GI prophylaxis was initiated. Started on aspirin Plavix atorvastatin and Lovenox. MRI of the brain was requested. Doppler was requested. Aspiration fall seizure precautions are requested. Urine drug screen was requested. (3) Urinary tract infection Qualifiers: Urinary tract infection type: acute cystitis Hematuria presence: with hematuria Qualified Code(s): N30.01 - Acute cystitis with hematuria Is this a current diagnosis for this admission?: Yes Plan: 03/06/2019-urine analysis shows leukocyte esterase is large. Started on IV Rocephin and IV levo floxacillin. UTI may be responsible for altered mental status. blood Cultures are requested. (4) CHF exacerbation Qualifiers: Heart failure type: right-sided Qualified Code(s): I50.813 - Acute on chronic right heart failure Is this a current diagnosis for this admission?: No Plan: 03/06/2019-patient has echocardiogram was done in December of this year left ventricular systolic function is low normal and left ventricular diastolic fun ction is unable to be assessed for atrial fibrillation. Patient might have both combined chronic systolic and diastolic heart failure. Patient is not in fluid overload. (5) Chronic atrial fibrillation Is this a current diagnosis for this admission?: No Plan: 03/06/2019-patient has history of atrial fibrillation still in atrial fibrillation during this admission. On Plavix and aspirin. Once patient is able to tolerate the p.o. medications to restart on Cardizem. To put order for IV Cardizem 10 mg as needed. - Time Time Spent with patient: 15-24 minutes Medications reviewed and adjusted accordingly: Yes Anticipated discharge: Home
[2019-03-06] MEDS: POTASSI CL 20 MEQ/50 ML RIDER 20 MEQ/50 ML RTUPB IV SCH ×2 (14:59→16:58)
[2019-03-06] MEDS: NORMAL SALINE 1000 ML 1,000 ML IV PRN (15:27)
[2019-03-06] MEDS: FAMOTIDINE INJ/PF 20 MG/2 ML SDV IV SCH (15:38)
[2019-03-06] MEDS: ENOXAPARIN SODIUM INJ 40 MG/0.4 ML DISP.SYRIN SUBCUT SCH (15:38)
[2019-03-06] MEDS: LEVOFLOXACIN 500 MG/D5W RTU 500 MG/100 ML RTUPB IV SCH (15:39)
[2019-03-06 15:47] LABS: ARTERIAL BLOOD BASE EXCESS 8.4 mmol/L; ARTERIAL BLOOD FIO2 ROOM AIR; ARTERIAL BLOOD H2CO3 1.08 mmol/L (1.05-1.35); ARTERIAL BLOOD HCO3 30.9 mmol/L (20-24); ARTERIAL BLOOD PCO2 35.9 mmHg (35-45); ARTERIAL BLOOD PH 7.55 (7.35-7.45); ARTERIAL BLOOD PO2 95.6 mmHg (80-100)
[2019-03-06 16:59] LABS: URINE AMPHETAMINES SCREEN NEGATIVE; URINE BARBITURATES SCREEN NEGATIVE; URINE BENZODIAZEPINES SCREEN NEGATIVE; URINE COCAINE SCREEN NEGATIVE; URINE MARIJUANA (THC) SCREEN NEGATIVE; URINE METHADONE SCREEN NEGATIVE; URINE PHENCYCLIDINE SCREEN NEGATIVE
--- NOTE | 2019-03-06 22:58 | EKG REPORT ---
SEVERITY:- ABNORMAL ECG - ATRIAL FIBRILLATION BORDERLINE LEFT AXIS DEVIATION LOW VOLTAGE IN FRONTAL LEADS BORDERLINE T ABNORMALITIES, INFERIOR LEADS : Confirmed by: Jaleel Peñaloza 06-Mar-2019 22:58:04
[2019-03-07] MEDS: ATORVASTATIN CALCIUM 10 MG TABLET PO SCH ×2 (00:08→21:40)
[2019-03-07] MEDS: FAMOTIDINE INJ/PF 20 MG/2 ML SDV IV SCH ×3 (00:08→21:40)
[2019-03-07] MEDS: CEFTRIAXONE 2 GM/D5W RTU 2 GM/50 ML RTUPB IV SCH ×2 (00:09→21:40)
[2019-03-07 08:37] LABS: ALANINE AMINOTRANSFERASE 24 U/L (9-52); ALBUMIN 2.7 g/dL (3.5-5.0); ALKALINE PHOSPHATASE 136 U/L (38-126); ANION GAP 8 (5-19); ASPARTATE AMINO TRANSFERASE 21 U/L (14-36); BILIRUBIN,DIRECT 0.4 mg/dL (0.0-0.4); BILIRUBIN,TOTAL 0.6 mg/dL (0.2-1.3); BLOOD UREA NITROGEN 14 mg/dL (7-20); CALCIUM 9.3 mg/dL (8.4-10.2); CARBON DIOXIDE 28 mmol/L (22-30); CHLORIDE 108 mmol/L (98-107); CHOLESTEROL 127.72 mg/dL (0-200); GLUCOSE 73 mg/dL (75-110); POTASSIUM 3.5 mmol/L (3.6-5.0); SODIUM 143.9 mmol/L (137-145); TOTAL PROTEIN 5.4 g/dL (6.3-8.2); TRIGLYCERIDES 56 mg/dL (<150)
[2019-03-07 08:40] LABS: ABSOLUTE BASOPHILS # (AUTO) 0.1 10^3/uL (0.0-0.2); ABSOLUTE EOSINOPHILS # (AUTO) 0.1 10^3/uL (0.0-0.6); ABSOLUTE LYMPHOCYTES (AUTO) 0.8 10^3/uL (0.5-4.7); ABSOLUTE MONOCYTES (AUTO) 0.8 10^3/uL (0.1-1.4); ABSOLUTE NEUT (AUTO) 3.7 10^3/uL (1.7-8.2); EOSINOPHILS % (AUTO) 1.9 % (0-6); HEMATOCRIT 43.9 % (36.0-47.0); HEMOGLOBIN 14.3 g/dL (12.0-15.5); LYMPHOCYTES % (AUTO) 14.9 % (13-45); MEAN CORPUSCULAR HEMOGLOBIN 25.7 pg (27.0-33.4); MEAN CORPUSCULAR HGB CONC 32.5 g/dL (32.0-36.0); MEAN CORPUSCULAR VOLUME 79 fl (80-97); PLATELET COUNT 245 10^3/uL (150-450); RED BLOOD COUNT 5.57 10^6/uL (3.72-5.28); RED CELL DISTRIBUTION WIDTH 14.7 % (11.5-14.0); SEGMENTED NEUTROPHILS % (AUTO) 67.2 % (42-78); TOTAL CELLS COUNTED % (AUTO) 100 %; WHITE BLOOD COUNT 5.6 10^3/uL (4.0-10.5)
[2019-03-07 08:47] LABS: DIRECT LDL 68 mg/dL (<100)
--- NOTE | 2019-03-07 10:39 | RADIOLOGY REPORT (SQ) ---
EXAM DESCRIPTION: MRI HEAD WITHOUT COMPLETED DATE/TIME: 03/07/2019 10:28 am REASON FOR STUDY: altered mental status COMPARISON: Mild motion artifact. TECHNIQUE: Multiplanar imaging includes non-contrasted T1, T2, FLAIR, and diffusion with ADC map seq uences. Images stored on PACS. LIMITATIONS: None. FINDINGS: ANATOMY: No anomalies. Normal vascular flow voids. Pituitary fossa normal. CSF SPACES: Normal in size and contour. No hemorrhage. CEREBRUM: Sulci and gyri normal in size and contour. Normal white matter signal on FLAIR imaging. No evidence of hemorrhage, mass, or extraaxial fluid collection. POSTERIOR FOSSA: No signal alteration. No hemorrhage. No edema, masses or mass effect. Internal goyo tory canals, cerebello-pontine angles, mastoids normal. DIFFUSION IMAGING: Negative for acute or sub-acute infarction. ORBITS: No masses. Globes normal. PARANASAL SINUSES: No fluid levels. Mucosa normal. OTHER: No other significant finding. IMPRESSION: The study is very slightly limited. Essentially normal MRI of the brain without contras t. EVIDENCE OF ACUTE STROKE: NO. TECHNICAL DOCUMENTATION: JOB ID: [id number]- All Rights Reserved Reading location - IP/workstation name: [email or web address]
[2019-03-07] MEDS: LEVOFLOXACIN 500 MG/D5W RTU 500 MG/100 ML RTUPB IV SCH (11:05)
[2019-03-07] MEDS: ASPIRIN 325 MG TABLET, ENT COATED PO SCH (11:08)
[2019-03-07] MEDS: ENOXAPARIN SODIUM INJ 40 MG/0.4 ML DISP.SYRIN SUBCUT SCH (11:09)
[2019-03-07] MEDS: CLOPIDOGREL BISULFATE 75 MG TABLET PO SCH (13:40)
[2019-03-07] MEDS ORDERED: DICYCLOMINE HCL 20 MG TABLET PO PRN (13:46)
--- NOTE | 2019-03-07 17:03 | PDOC PROGRESS REPORT ---
Subjective Progress Note for:: 03/07/19 Subjective:: No adverse events overnight. No new complaints. Vital signs are stable. Eating and drinking without difficulty. Mental status is back to baseline. She was extremely chatty today. Reason For Visit: ALTERED MENTAL STATUS Physical Exam Vital Signs: Temp Pulse Resp BP Pulse Ox 97.5 F 105 H 20 124/71 99 03/07/19 15:18 03/07/19 15:18 03/07/19 15:18 03/07/19 15:18 03/07/19 15:18 Intake & Output 03/06/19 03/07/19 03/08/19 06:59 06:59 06:59 Intake Total 540 474 Output Total 650 150 Balance -110 324 Weight 148.5 kg General appearance: PRESENT: no acute distress, cooperative, disheveled, morbidly obese Respiratory exam: PRESENT: clear to auscultation refugio, symmetrical, unlabored. ABSENT: accessory muscle use, crackles, prolonged expiratory phas, rhonchi, tachypnea, wheezes Cardiovascular exam: PRESENT: irregular rhythm Pulses: PRESENT: normal carotid pulses Vascular exam: PRESENT: normal capillary refill Extremities exam: ABSENT: clubbing, pedal edema Musculoskeletal exam: PRESENT: normal inspection. ABSENT: deformity Neurological exam: PRESENT: alert, awake, oriented to person, oriented to place, oriented to time, oriented to situation Psychiatric exam: PRESENT: appropriate affect, normal mood Skin exam: PRESENT: dry, warm Results Laboratory Results: 03/07/19 07:41 03/07/19 07:41 03/06/19 03/07/19 03/07/19 20:17 07:41 07:41 WBC 5.6 RBC 5.57 H Hgb 14.3 Hct 43.9 MCV 79 L MCH 25.7 L MCHC 32.5 RDW 14.7 H Plt Count 245 Seg Neutrophils % 67.2 Lymphocytes % 14.9 Monocytes % 15.0 H Eosinophils % 1.9 Basophils % 1.0 Absolute Neutrophils 3.7 Absolute Lymphocytes 0.8 Absolute Monocytes 0.8 Absolute Eosinophils 0.1 Absolute Basophils 0.1 Sodium 143.9 Potassium 3.5 L Chloride 108 H Carbon Dioxide 28 Anion Gap 8 BUN 14 Creatinine 0.90 Est GFR ( Amer) > 60 Est GFR (Non-Af Amer) > 60 Glucose 73 L Lactic Acid 1.7 Calcium 9.3 Total Bilirubin 0.6 AST 21 ALT 24 Alkaline Phosphatase 136 H Total Protein 5.4 L Albumin 2.7 L Triglycerides 56 Cholesterol 127.72 LDL Cholesterol Direct 68 VLDL Cholesterol 11.0 HDL Cholesterol 67 03/06/19 03/06/19 03/06/19 10:50 10:50 14:28 Creatine Kinase 71 CK-MB (CK-2) 1.05 Troponin I < 0.012 < 0.012 03/06/19 03/07/19 20:17 02:10 Creatine Kinase CK-MB (CK-2) Troponin I < 0.012 < 0.012 Impressions: Chest X-Ray 03/06/19 11:09 IMPRESSION: Low lung volumes. No active pulmonary disease. Moderate to severe cardiomegaly. Head CT 03/06/19 11:09 IMPRESSION: Examination is generally limited by patient motion artifact. Within this limitation, no CT evidence of acute stroke or hemorrhage. EVIDENCE OF ACUTE STROKE: NO. Findings reported to ER by critical results communication system at the time of dictation. Head MRI 03/07/19 00:00 IMPRESSION: The study is very slightly limited. Essentially normal MRI of the brain without contrast. EVIDENCE OF ACUTE STROKE: NO. Assessment and Plan - Diagnosis (1) Altered mental status Qualifiers: Altered mental status type: disorientation Qualified Code(s): R41.0 - Disorientation, unspecified Is this a current diagnosis for this admission?: Yes Plan: Possibly a TIA. MRI was negative. She is back to baseline. I have ordered a carotid Doppler ultrasound. She has no substantial lab abnormalities. If she is doing well at this tomorrow we will probably let her go home at that time. - Time Time Spent with patient: 15-24 minutes
[2019-03-07] MEDS: NORMAL SALINE 1000 ML 1,000 ML IV PRN (19:00)
[2019-03-08] MEDS: ASPIRIN 325 MG TABLET, ENT COATED PO SCH (10:45)
[2019-03-08] MEDS: FAMOTIDINE INJ/PF 20 MG/2 ML SDV IV SCH (10:46)
[2019-03-08] MEDS: LEVOFLOXACIN 500 MG/D5W RTU 500 MG/100 ML RTUPB IV SCH (10:47)
[2019-03-08] MEDS: CLOPIDOGREL BISULFATE 75 MG TABLET PO SCH (10:47)
[2019-03-08] MEDS: ENOXAPARIN SODIUM INJ 40 MG/0.4 ML DISP.SYRIN SUBCUT SCH (10:47)
[2019-03-08 13:07] VITALS: BP 94/63
--- NOTE | 2019-03-08 16:45 | PDOC DISCHARGE SUMMARY ---
General - Admit/Disc Date/PCP Admission Date/Primary Care Provider: 03/06/19 13:22 KEYLA KAUFMAN MD Discharge Date: 03/08/19 - Discharge Diagnosis (1) Altered mental status Is this a current diagnosis for this admission?: Yes Summary: Could have possibly been a TIA, but also very likely could have been a metabolic encephalopathy from her urinary tract infection. She is already on Plavix and a statin medication. MRI was negative, she had a carotid Doppler that was done in early December of this year that was negative. This resolved spontaneously after she came to the hospital. (2) Acute UTI Is this a current diagnosis for this admission?: Yes Summary: The organism was sensitive to cephalosporins. She will complete a course of Keflex at home. She got doses of Rocephin and Lovenox here. - Additional Information Resuscitation Status: Full Code Discharge Diet: Cardiac Discharge Activity: Activity As Tolerated Prescriptions: Cephalexin [Cephalexin 500 MG Tablet] 1 tab PO TID #40 tablet Metoprolol Succinate [Toprol Xl 25 mg Tab.sr] 25 mg PO DAILY #30 tab.sr.24h Home Medications: Atorvastatin Calcium [Lipitor 20 mg Tablet] 20 mg PO QHS 03/06/19 Bupropion HCl [Wellbutrin Xl 150 mg 24hr Tablet] 1 tab PO BIDBL 03/06/19 Clopidogrel Bisulfate [Plavix 75 mg Tablet] 75 mg PO DAILY 03/06/19 Dicyclomine HCl [Bentyl 20 mg Tablet] 20 mg PO QIDP PRN 03/06/19 Diltiazem HCl [Cardizem] 120 mg PO Q12 03/06/19 Ergocalciferol (Vitamin D2) [Drisdol 50,000 unit (1.25MG) Capsule] 50,000 unit PO BATEMAN@1000 03/06/19 Fluticasone/Salmeterol [Advair 250-50 Diskus 14 Dose/Diskus] 1 inh IH Q12 03/06/19 Levothyroxine Sodium [Synthroid 0.1 mg Tablet] 0.1 mg PO Q6AM 03/06/19 Nitroglycerin [Nitro-Dur 5 mg (0.2 mg/Hr) Transdermal Patch] 1 patch TD QAM 03/06/19 Pantoprazole Sodium [Protonix [address] Tablet] 40 mg PO Q6AM 03/06/19 Potassium Chloride [Klor-Con 10 Meq Capsule ER] 10 meq PO DAILY 03/06/19 Spironolactone [Aldactone 100 mg Tablet] 1 tab PO DAILY 03/06/19 Torsemide [Demadex 20 mg Tablet] 40 mg PO BID 03/06/19 Cephalexin [Cephalexin 500 MG Tablet] 1 tab PO TID #40 tablet 03/08/19 Metoprolol Succinate [Toprol Xl 25 mg Tab.sr] 25 mg PO DAILY #30 tab.sr.24h 03/08/19 History of Present Illness History of Present Illness: MICHAEL BOWLING is a 63 year old female history of CHF, atrial fibrillation on aspirin Plavix, morbid obesity, COPD brought to the emergency room with altered mental status. She is also has history of TIAs prior admissions. When she went to bed she was acting normal. EMS unable to get any information from her. In the emergency room patient able to give her name unable to give her birthday and unable to say where she is at. CT head was negative EKG shows atrial fibrillation chest x-ray was cardiomegaly without any pulmonary congestion or pneumonia. Medical consult was called for altered mental status work-up. Hospital Course Hospital Course: Her work-up for stroke was negative, she was already on Plavix and Lipitor. She will continue those at home. Suspect that this is most likely a transient encephalopathy from her UTI. It resolved spontaneously not long after she got to the hospital. She was given doses of Rocephin and Levaquin. The organism that showed up in her urine was sensitive to cephalosporins and so she will finish a course of Keflex at home. Her comorbid conditions were managed with her home medications and were not acutely exacerbated during this hospitalization. Her labs and examination were reassuring and she was discharged in good condition. Physical Exam Vital Signs: Temp Pulse Resp BP Pulse Ox 97.2 F 99 21 H 94/63 L 100 03/08/19 13:05 03/08/19 13:05 03/08/19 13:05 03/08/19 13:05 03/08/19 13:05 Intake & Output 03/07/19 03/08/19 03/09/19 06:59 06:59 06:59 Intake Total 540 2464 118 Output Total 650 850 375 Balance -110 1614 -257 Weight 148.5 kg 150.8 kg General appearance: PRESENT: no acute distress, cooperative, disheveled, morbidly obese Respiratory exam: PRESENT: clear to auscultation refugio, symmetrical, unlabored. ABSENT: accessory muscle use, crackles, prolonged expiratory phas, rhonchi, tachypnea, wheezes Cardiovascular exam: PRESENT: irregular rhythm Pulses: PRESENT: normal carotid pulses Vascular exam: PRESENT: normal capillary refill Extremities exam: ABSENT: clubbing, pedal edema Musculoskeletal exam: PRESENT: normal inspection. ABSENT: deformity Neurological exam: PRESENT: alert, awake, oriented to person, oriented to place, oriented to time, oriented to situation Psychiatric exam: PRESENT: appropriate affect, normal mood Skin exam: PRESENT: dry, warm Results Laboratory Results: 03/07/19 07:41 03/07/19 07:41 03/06/19 12:15 Catheterized Urine Urine Culture - Final Proteus Mirabilis 03/06/19 03/06/19 03/06/19 10:50 10:50 14:28 Creatine Kinase 71 CK-MB (CK-2) 1.05 Troponin I < 0.012 < 0.012 03/06/19 03/07/19 20:17 02:10 Creatine Kinase CK-MB (CK-2) Troponin I < 0.012 < 0.012 Impressions: Chest X-Ray 03/06/19 11:09 IMPRESSION: Low lung volumes. No active pulmonary disease. Moderate to severe cardiomegaly. Head CT 03/06/19 11:09 IMPRESSION: Examination is generally limited by patient motion artifact. Within this limitation, no CT evidence of acute stroke or hemorrhage. EVIDENCE OF ACUTE STROKE: NO. Findings reported to ER by critical results communication system at the time of dictation. Head MRI 03/07/19 00:00 IMPRESSION: The study is very slightly limited. Essentially normal MRI of the brain without contrast. EVIDENCE OF ACUTE STROKE: NO. Qualifiers - * PATIENT BEING DISCHARGED WITH ANY OF THE FOLLOWING DIAGNOSIS: No Acute Heart Failure Is this a Heart Failure Patient?: No Plan Time Spent: Greater than 30 Minutes
[2019-03-08] MEDS ORDERED: FAMOTIDINE 20 MG TABLET PO SCH (22:00)
== END 2019-03-08 16:48 | disposition home or self-care (01) | DRG 689 ==
LOC: ER 11:02 → EH 13:22 → 3S 21:48
PROVIDERS: ADMIT Internal Medicine; ATTEND Internal Medicine
DX: N30.01 Acute cystitis with hematuria (principal); G93.41 Metabolic encephalopathy; I11.0 Hypertensive heart disease with heart failure; I50.813 Acute on chronic right heart failure; E66.01 Morbid (severe) obesity due to excess calories; I48.2 Chronic atrial fibrillation; B96.4 Proteus (mirabilis) (morganii) as the cause of diseases classified elsewhere; J44.9 Chronic obstructive pulmonary disease, unspecified; I25.10 Atherosclerotic heart disease of native coronary artery without angina pectoris; G47.30 Sleep apnea, unspecified; E03.9 Hypothyroidism, unspecified; M17.0 Bilateral primary osteoarthritis of knee; D64.9 Anemia, unspecified; R40.2422 Glasgow coma scale score 9-12, at arrival to emergency department; E78.5 Hyperlipidemia, unspecified; Z85.3 Personal history of malignant neoplasm of breast; Z86.73 Personal history of transient ischemic attack (TIA), and cerebral infarction without residual deficits; Z79.02 Long term (current) use of antithrombotics/antiplatelets; Z90.11 Acquired absence of right breast and nipple; Z82.49 Family history of ischemic heart disease and other diseases of the circulatory system; Z88.6 Allergy status to analgesic agent; Z91.041 Radiographic dye allergy status; Z91.048 Other nonmedicinal substance allergy status
CPT/HCPCS: 36415; 36600; 70450; 70551; 71045; 80053; 80061; 80307; 81001; 82550; 82553; 82803; 82962; 83036; 83605; 84484; 85025; 85610; 85730; 87040; 87086; 87088; 87186; 93005; 93010; 99285; J0696; J1650; J1956; J3480; J3490; J7030; S0028

== ENCOUNTER 2019-03-25 16:12 | Emergency (ER) | payer MEDICARE, MEDICAID ==
[2019-03-25] MEDS ORDERED: ASPIRIN 81 MG TABLET, CHEWABLE PO ONE ×2 (17:53→17:59)
--- NOTE | 2019-03-25 17:56 | ER Document Report ---
ED Medical Screen (RME) - General Chief Complaint: Shortness Of Breath Stated Complaint: BREATHING PROBLEMS Time Seen by Provider: 03/25/19 17:49 Primary Care Provider: KEYLA KAUFMAN MD [Primary Care Provider] - Follow up as needed Mode of Arrival: Ambulatory Information source: Patient TRAVEL OUTSIDE OF THE [place] IN LAST 30 DAYS: No - HPI Patient complains to provider of: SOB Notes: 03/25/19 17:55 Patient here with complaints of shortness of breath and chest pain. No fever. No cough. No rash. She has a history of A. fib as well as congestive heart failure. Exam No distress, nontoxic-appearing. Lungs clear and equal throughout. Irregular heart rhythm, normal rate. Plan CBC, CMP, CPK, CK-MB, troponin, BNP, EKG, chest x-ray An initial examination was made on the patient as part of the triage process, and it was determined a more comprehensive evaluation was necessary. Initial labs were ordered and patient was transferred to another provider in the ED who assumed care and finished evaluation and plan. - Related Data Allergies/Adverse Reactions: clemastine fumarate [From Tavist-1] Allergy (Severe, Verified 11/22/18 13:34) red spots,N/V Shark Cartilage [From Shark Fin Cartilage] Allergy (Severe, Verified 11/22/18 13:34) hives, n and v iodine [Iodine] Allergy (Unknown, Verified 11/22/18 13:34) vomit/rash meperidine HCl [From Demerol] Allergy (Unknown, Verified 11/22/18 13:34) N/V pseudoephedrine HCl [From Sudafed] Allergy (Unknown, Verified 11/22/18 13:34) rash/itch glove powder Allergy (Severe, Uncoded 01/23/15 18:04) hands swell,itch Past Medical History - Social History Family history: None - Past Medical History Cardiac Medical History: Reports: Hx Atrial Fibrillation, Hx Congestive Heart Failure, Hx Coronary Artery Disease, Hx Hypertension - on meds Denies: Hx DVT, Hx Heart Attack, Hx Hypercholesterolemia, Hx Peripheral Vascular Disease, Hx Pulmonary Embolism, Hx Heart Murmur Pulmonary Medical History: Reports: Hx Bronchitis, Hx Pneumonia - hx of, Hx Sleep Apnea Denies: Hx Asthma, Hx COPD, Hx Tuberculosis Neurological Medical History: Denies: Hx Cerebrovascular Accident, Hx Migraine, Hx Seizures Endocrine Medical History: Reports: Hx Hypothyroidism. Denies: Hx Diabetes Mellitus Type 1, Hx Diabetes Mellitus Type 2, Hx Graves' Disease, Hx Hyperthyroidism Renal/ Medical History: Denies: Hx End Stage Renal Disease, Hx Kidney Stones, Hx Ovarian Cysts, Hx Peritoneal Dialysis, Hx Pelvic Inflammatory Disease Malignancy Medical History: Reports: Hx Breast Cancer. Denies: Hx Cervical Cancer, Hx Ovarian Cancer GI Medical History: Reports: Hx Colonoscopy. Denies: Hx Crohn's Disease, Hx Gastroesophageal Reflux Disease, Hx Hiatal Hernia, Hx Irritable Bowel, Hx Liver Failure, Hx Pancreatitis, Hx Ulcer, Hx Ulcerative Colitis Musculoskeltal Medical History: Reports Hx Arthritis - knees, Denies Hx Fibromyalgia, Denies Hx Gout, Denies Hx Muscular Dystrophy, Denies Hx Systemic Lupus Erythematosus Skin Medical History: Denies Hx Eczema, Denies Hx Psoriasis Psychiatric Medical History: Denies: Hx Depression Traumatic Medical History: Denies: Hx Fractures Past Surgical History: Reports: Hx Abdominal Surgery - abd hernia, colon polpys, Hx Section, Hx Hysterectomy, Hx Mastectomy - right partial, Hx Tonsillectomy. Denies: Hx Appendectomy, Hx Bowel Surgery, Hx Cholecystectomy, Hx Colostomy, Hx Coronary Artery Bypass Graft, Hx Gastric Bypass Surgery, Hx Herniorrhaphy, Hx Pacemaker, Hx Tubal Ligation - Immunizations Hx Diphtheria, Pertussis, Tetanus Vaccination: Yes History of Influenza Vaccine for 08/2017 - 01/2018 Season: Unknown Physical Exam - Vital signs Vitals: Temp Pulse Resp BP Pulse Ox 98.3 F 75 16 141/57 H 95 03/25/19 16:55 03/25/19 16:55 03/25/19 16:55 03/25/19 16:55 03/25/19 16:55 Course - Vital Signs Vital signs: Temp Pulse Resp BP Pulse Ox 98.3 F 75 16 141/57 H 95 03/25/19 16:55 03/25/19 16:55 03/25/19 16:55 03/25/19 16:55 03/25/19 16:55 Doctor's Discharge - Discharge Referrals: KEYLA KAUFMAN MD [Primary Care Provider] - Follow up as needed
--- NOTE | 2019-03-25 19:09 | RADIOLOGY REPORT (SQ) ---
EXAM DESCRIPTION: CHEST 2 VIEWS COMPLETED DATE/TIME: 03/25/2019 6:22 pm REASON FOR STUDY: SOB COMPARISON: 03/06/2019 EXAM PARAMETERS: NUMBER OF VIEWS: two views TECHNIQUE: Digital Frontal and Lateral radiographic views of the chest acquired. RADIATION DOSE: NA LIMITATIONS: none FINDINGS: LUNGS AND PLEURA: No opacities, masses or pneumothorax. No pleural effusion. MEDIASTINUM AND HILAR STRUCTURES: No masses or contour abnormalities. HEART AND VASCULAR STRUCTURES: Cardiomegaly. No pulmonary edema. BONES: No acute findings. HARDWARE: None in the chest. OTHER: No other significant finding. IMPRESSION: Cardiomegaly without pulmonary edema. TECHNICAL DOCUMENTATION: JOB ID: [id number] [employer]- All Rights Reserved Reading location - IP/workstation name: [email or web address]
[2019-03-25 19:57] LABS: ABSOLUTE BASOPHILS # (AUTO) 0.1 10^3/uL (0.0-0.2); ABSOLUTE EOSINOPHILS # (AUTO) 0.1 10^3/uL (0.0-0.6); ABSOLUTE MONOCYTES (AUTO) 0.8 10^3/uL (0.1-1.4); BASOPHILS % (AUTO) 0.7 % (0-2); EOSINOPHILS % (AUTO) 1.4 % (0-6); HEMATOCRIT 41.5 % (36.0-47.0); HEMOGLOBIN 13.5 g/dL (12.0-15.5); LYMPHOCYTES % (AUTO) 12.6 % (13-45); MEAN CORPUSCULAR HEMOGLOBIN 25.5 pg (27.0-33.4); MEAN CORPUSCULAR HGB CONC 32.5 g/dL (32.0-36.0); MEAN CORPUSCULAR VOLUME 78 fl (80-97); MONOCYTES % (AUTO) 10.5 % (3-13); PLATELET COUNT 345 10^3/uL (150-450); RED BLOOD COUNT 5.29 10^6/uL (3.72-5.28); RED CELL DISTRIBUTION WIDTH 15.7 % (11.5-14.0); SEGMENTED NEUTROPHILS % (AUTO) 74.8 % (42-78); TOTAL CELLS COUNTED % (AUTO) 100 %
[2019-03-25 20:24] LABS: ALANINE AMINOTRANSFERASE 32 U/L (9-52); ALBUMIN 3.2 g/dL (3.5-5.0); ALKALINE PHOSPHATASE 172 U/L (38-126); ANION GAP 9 (5-19); ASPARTATE AMINO TRANSFERASE 25 U/L (14-36); BILIRUBIN,DIRECT 0.5 mg/dL (0.0-0.4); BILIRUBIN,TOTAL 0.8 mg/dL (0.2-1.3); BLOOD UREA NITROGEN 16 mg/dL (7-20); CALCIUM 9.4 mg/dL (8.4-10.2); CARBON DIOXIDE 32 mmol/L (22-30); CHLORIDE 96 mmol/L (98-107); CREATINE KINASE 59 U/L (30-135); GLUCOSE 89 mg/dL (75-110); POTASSIUM 3.9 mmol/L (3.6-5.0); SODIUM 137.3 mmol/L (137-145)
[2019-03-25 20:35] LABS: CREATINE KINASE MB 0.62 ng/mL (<4.55); NT PRO BNP 905 pg/mL (5-900); TROPONIN I < 0.012 ng/mL
--- NOTE | 2019-03-25 21:07 | ER Document Report ---
ED Cardiac - General Chief Complaint: Shortness Of Breath Stated Complaint: BREATHING PROBLEMS Time Seen by Provider: 03/25/19 17:49 Primary Care Provider: FREIDA RENTERIA MD [ACTIVE STAFF] - 03/26/19 Mode of Arrival: Ambulatory Notes: Patient is a 63-year-old female that comes to the emergency department for chief complaint of shortness of breath and chest pain. She states yesterday she started feeling shortness of breath in the evening that lasted a short amount of time, she also had a mild discomfort in her chest. Both resolved. She states she came to be checked out to make sure she was okay, she states that after arrival to the emergency department she felt a discomfort along the left side of her chest again. This lasted for a brief period of time and then resolved. It was over the left side of the chest, nonradiating. She denies shortness of breath, dizziness, nausea/vomiting, or any other complaints. Past medical history includes CHF, atrial fibrillation (on aspirin and Plavix), morbid obesity, right mastectomy. She states she follows with practice architect Dr. Renteria, she states her last stress test was last year, she believes it was normal. She denies history of [place] or stents. TRAVEL OUTSIDE OF THE [place] IN LAST 30 DAYS: No - Related Data Allergies/Adverse Reactions: clemastine fumarate [From Tavist-1] Allergy (Severe, Verified 11/22/18 13:34) red spots,N/V Shark Cartilage [From Shark Fin Cartilage] Allergy (Severe, Verified 11/22/18 13:34) hives, n and v iodine [Iodine] Allergy (Unknown, Verified 11/22/18 13:34) vomit/rash meperidine HCl [From Demerol] Allergy (Unknown, Verified 11/22/18 13:34) N/V pseudoephedrine HCl [From Sudafed] Allergy (Unknown, Verified 11/22/18 13:34) rash/itch glove powder Allergy (Severe, Uncoded 01/23/15 18:04) hands swell,itch Past Medical History - General Information source: Patient - Social History Smoking Status: Never Smoker Chew tobacco use (# tins/day): No Frequency of alcohol use: Occasional Drug Abuse: None Lives with: Family Family History: Reviewed & Not Pertinent, DM, Hyperlipidemia, Hypertension Patient has suicidal ideation: No Patient has homicidal ideation: No - Past Medical History Cardiac Medical History: Reports: Hx Atrial Fibrillation, Hx Congestive Heart Failure, Hx Coronary Artery Disease, Hx Hypertension - on meds Denies: Hx DVT, Hx Heart Attack, Hx Hypercholesterolemia, Hx Peripheral Va scular Disease, Hx Pulmonary Embolism, Hx Heart Murmur Pulmonary Medical History: Reports: Hx Bronchitis, Hx Pneumonia - hx of, Hx Sleep Apnea Denies: Hx Asthma, Hx COPD, Hx Tuberculosis Neurological Medical History: Denies: Hx Cerebrovascular Accident, Hx Migraine, Hx Seizures Endocrine Medical History: Reports: Hx Hypothyroidism. Denies: Hx Diabetes Mellitus Type 1, Hx Diabetes Mellitus Type 2, Hx Graves' Disease, Hx Hyperthyroidism Renal/ Medical History: Denies: Hx End Stage Renal Disease, Hx Kidney Stones, Hx Ovarian Cysts, Hx Peritoneal Dialysis, Hx Pelvic Inflammatory Disease Malignancy Medical History: Reports: Hx Breast Cancer. Denies: Hx Cervical Cancer, Hx Ovarian Cancer GI Medical History: Reports: Hx Colonoscopy. Denies: Hx Crohn's Disease, Hx Gastroesophageal Reflux Disease, Hx Hiatal Hernia, Hx Irritable Bowel, Hx Liver Failure, Hx Pancreatitis, Hx Ulcer, Hx Ulcerative Colitis Musculoskeletal Medical History: Reports Hx Arthritis - knees, Denies Hx Fibromyalgia, Denies Hx Gout, Denies Hx Muscular Dystrophy, Denies Hx Systemic Lupus Erythematosus Skin Medical History: Denies Hx Eczema, Denies Hx Psoriasis Psychiatric Medical History: Denies: Hx Depression Traumatic Medical History: Denies: Hx Fractures Past Surgical History: Reports: Hx Abdominal Surgery - abd hernia, colon polpys, Hx Section, Hx Hysterectomy, Hx Mastectomy - right partial, Hx Tonsillectomy. Denies: Hx Appendectomy, Hx Bowel Surgery, Hx Cholecystectomy, Hx Colostomy, Hx Coronary Artery Bypass Graft, Hx Gastric Bypass Surgery, Hx Herniorrhaphy, Hx Pacemaker, Hx Tubal Ligation - Immunizations Hx Diphtheria, Pertussis, Tetanus Vaccination: Yes Hx Pneumococcal Vaccination: 07/07/11 Review of Systems - Review of Systems Constitutional: No symptoms reported EENT: No symptoms reported Cardiovascular: See HPI Respiratory: See HPI Gastrointestinal: No symptoms reported Genitourinary: No symptoms reported Female Genitourinary: No symptoms reported Musculoskeletal: No symptoms reported Skin: No symptoms reported Hematologic/Lymphatic: No symptoms reported Neurological/Psychological: No symptoms reported Physical Exam - Vital signs Vitals: Temp Pulse Resp BP Pulse Ox 98.3 F 75 16 141/57 H 95 03/25/19 16:55 03/25/19 16:55 03/25/19 16:55 03/25/19 16:55 03/25/19 16:55 - Notes Notes: GENERAL: Alert, interacts well. No acute distress. HEAD: Normocephalic, atraumatic. EYES: Pupils equal, round, and reactive to light. Extraocular movements intact. ENT: Oral mucosa moist, tongue midline. Oropharynx unremarkable. Airway patent. NECK: Full range of motion. Supple. Trachea midline. LUNGS: Clear to auscultation bilaterally, no wheezes, rales, or rhonchi. No respiratory distress. HEART: Regular rate and rhythm. No murmur ABDOMEN: Soft, non-tender. Non-distended. Bowel sounds present in all 4 quadrants. GENITOURINARY: Deferred EXTREMITIES: Moves all 4 extremities spontaneously. No edema, normal radial and dorsalis pedis pulses bilaterally. No cyanosis. BACK: no cervical, thoracic, lumbar midline tenderness. No saddle anesthesia, normal distal neurovascular exam. NEUROLOGICAL: Alert and oriented x3. Normal speech. Cranial nerves II through XII grossly intact. PSYCH: Normal affect, normal mood. SKIN: Warm, dry, normal turgor. No rashes or lesions noted. Course - Re-evaluation Re-evalutation: BNP is borderline. Chest x-ray shows cardiomegaly without pulmonary edema. Patient does not have any complaints of shortness of breath, she has clear lungs on auscultation without rales, she has no lower extremity swelling. CBC, chemistry generally unremarkable. Initial troponin is negative. Discussed with patient. Because of her complicated medical history and comorbidities discussed chest pain rule out observation/admission. Patient declines, she states she would prefer to go home and follow-up with her practice architect. After discussion and agreed to cycle troponin and discuss with her practice architect first. Second troponin is negative. Patient remains asymptomatic now. Called and spoke with Dr. Renteria, her practice architect, he requests that she be seen tomorrow in the office for additional management. Patient states agreement with this plan, states she will return if she worsens. Stable at time of discharge. - Vital Signs Vital signs: Temp Pulse Resp BP Pulse Ox 98.3 F 71 21 H 118/67 98 03/25/19 16:55 03/25/19 22:00 03/26/19 01:00 03/26/19 00:02 03/26/19 01:00 - Laboratory Result Diagrams: 03/25/19 19:27 03/25/19 19:27 Laboratory results interpreted by me: 03/25/19 03/25/19 03/25/19 19:27 19:27 19:27 RBC 5.29 H MCV 78 L MCH 25.5 L RDW 15.7 H Lymphocytes % 12.6 L Chloride 96 L Carbon Dioxide 32 H Est GFR ( Amer) 55 L Est GFR (Non-Af Amer) 46 L Direct Bilirubin 0.5 H Alkaline Phosphatase 172 H NT-Pro-B Natriuret Pep 905 H Total Protein 6.0 L Albumin 3.2 L - EKG Interpretation by Me Additional EKG results interpreted by me: EKG showing atrial fibrillation without rapid ventricular response, left axis deviation, no T wave inversions or ST segment changes in consecutive leads. QTc is 500. Discharge - Discharge Clinical Impression: Shortness of breath Chest pain Qualifiers: Chest pain type: unspecified Qualified Code(s): R07.9 - Chest pain, unspecified Condition: Stable Disposition: HOME, SELF-CARE Additional Instructions: Your work-up to this point does not show any concerning abnormality including no fluid on the lungs. I spoke with Dr. Anabela tillman, please call him tomorrow morning to be seen in the office tomorrow. Return if you worsen including difficulty breathing, fever, returned or worsening pain, or any other concerning symptoms. Referrals: FREIDA RENTERIA MD [ACTIVE STAFF] - 03/26/19
[2019-03-26 01:02] VITALS: BP 118/67
--- NOTE | 2019-03-27 10:17 | EKG REPORT ---
SEVERITY:- ABNORMAL ECG - ATRIAL FIBRILLATION LEFT AXIS DEVIATION BORDERLINE PROLONGED QT INTERVAL : Confirmed by: Jaleel Peñaloza 27-Mar-2019 10:16:24
== END 2019-03-26 01:37 | disposition home or self-care (01) ==
LOC: ER 16:12
DX: R06.02 Shortness of breath (principal); R07.9 Chest pain, unspecified; I50.9 Heart failure, unspecified; I11.0 Hypertensive heart disease with heart failure; Z79.899 Other long term (current) drug therapy
CPT/HCPCS: 93005; 99285; 36415; 82553; 82550; 85025; 80053; 84484; 83880; 71046; 93010; A9270

== ENCOUNTER → 2019-04-18 | Outpatient (CLI) | payer MEDICARE, MEDICAID ==
[~2019-04-18] MED LIST: AMINOPHYLLINE INJ/PF 250 MG/10 ML SDV IV ONE; REGADENOSON INJ 0.4 MG/5 ML DISP.SYRIN IV ONE
--- NOTE | 2019-04-18 14:04 | DRAGON STRESS TEST REPORT ---
INTRAVENOUS LEXISCAN CARDIOLITE STRESS TEST USING SINGLE PHOTON EMMISION COMPUTERIZED TOMOGRAPHIC. DATE OF PROCEDURE: April 18, 2019, INDICATION : Dyspnea CARDIAC RISK FACTORS: Hypertension, dyslipidemia RESTING EKG: Atrial fibrillation, with minor nonspecific T wave inversion, borderline Q waves inferior leads. STRESS EKG: No significant ST segment changes noted with LexiScan bolus REASON FOR TERMINATION: Protocol. PROCEDURE REPORT: Baseline heart rate 98 beats per minute with blood pressure of 115/49. Patient had no significant complaints. Patient was bolused with Lexiscan 0.4 mg intravenously followed by saline bolus. Heart rate at 2 minutes post bolus 103 with a blood pressure of 111/54. 3 minutes post bolus heart rate 105 with blood pressure of 101/56. No significant EKG changes were noted. Patient had no significant complaints during the procedure or postprocedure. CONCLUSIONS: Normal EKG and hemodynamic response to IV LexiScan. NUCLEAR DATA: At rest the patient was given 15.87 millicuries of technetium 99 sestamibi injected intravenously. As per protocol rest gated SPECT images were obtained. On day of stress test, the patient was given intravenous LexiScan at a dose of 0.4 mg in 5 mL intravenously, followed by flush with normal saline. Subsequently the stress dose of 44.8 millicuries of technetium 99 sestamibi was injected intravenously. As per protocol stress gated images were obtained. NUCLEAR INTERPRETATION: Both raw and processed data were used for interpretation. Visual, qualitative, computer-generated quantitative data was used. There was good myocardial uptake of technetium compound. Motion artifact and soft tissue attenuations were noted. Increased visceral uptake was noted. No definitive areas of transient perfusion defect noted except for mild decreased uptake in the distal and mid inferolateral wall, SDS of 2. However significant soft tissue attenuation noted. There were no corresponding regional wall motion abnormalities therefore this could well be artifactual., No definitive areas of fixed perfusion defect or scars noted. EKG gated imaging showed LV EF at 59 %, rest and stress gated EF similar visually. T. I D. ratio was 1.11. Lung heart ratio noted to be within normal limits 0.38. No significant extracardiac and abnormal radiotracer activities were noted. RV free wall uptake was noted to be WNL. IMPRESSION: Also refer to comments under nuclear interpretation. Also test results needs to be interpreted in the context of pretest probability. 1. Probable mild transient perfusion defect noted, consistent with probable mild ischemia noted in the mid and distal inferolateral wall. Cannot rule out this being artifactual. SDS is 2, no corresponding regional wall motion abnormalities were noted. 2. There is no definitive scintigraphic evidence of myocardial infarction/scar. 3. EKG gated imaging shows left ventricular ejection fraction of approx. 59 %. 4. Clinical correlation requested as worse disease and or balanced ischemia could be missed. In approximately 10% of the cases Lexiscan may not cause adequate vasodilatory stress. RECOMMENDATIONS: Aggressive risk factor modification and medical management. Further evaluation may be needed if continued symptoms or other high risk indicators are noted on clinical evaluation. Close cardiology follow-up is also recommended. Clinical correlation with echocardiogram derived ejection fraction. Inability to exercise by itself can lead to increased cardiovascular event risks. Consider cardiology consultation and or follow-up if clinically indicated. I am available for cardiology evaluation and consultation if requested by the channel lip wetter, unless patient already has a bag repairer. Dr. Maco Peñaloza. MRCP Board certified in cardiology and sleep medicine. Board certified in nuclear cardiology, adult echocardiography. TYRA
== END ==
LOC: RAD 06:49
PROVIDERS: ATTEND Nurse Practitioner Adult Health
DX: R06.00 Dyspnea, unspecified (principal); I10 Essential (primary) hypertension; E78.5 Hyperlipidemia, unspecified
CPT/HCPCS: 93017; 78452; A9500; J2785; J0280; Q9969

== ENCOUNTER → 2019-06-13 | Outpatient (CLI) | payer MEDICARE, MEDICAID ==
[2019-06-13 11:14] LABS: ANION GAP 8 (5-19); BLOOD UREA NITROGEN 11 mg/dL (7-20); CALCIUM 8.8 mg/dL (8.4-10.2); CARBON DIOXIDE 29 mmol/L (22-30); CHLORIDE 101 mmol/L (98-107); CHOLESTEROL 129.27 mg/dL (0-200); GLUCOSE 86 mg/dL (75-110); POTASSIUM 3.7 mmol/L (3.6-5.0); TRIGLYCERIDES 57 mg/dL (<150)
[2019-06-13 11:25] LABS: DIRECT LDL 66 mg/dL (<100)
== END ==
LOC: OD 09:55
PROVIDERS: ATTEND Family Medicine
DX: E03.9 Hypothyroidism, unspecified (principal); E78.5 Hyperlipidemia, unspecified; I10 Essential (primary) hypertension; Z79.899 Other long term (current) drug therapy
CPT/HCPCS: 36415; 80048; 80061; 83036; 84443

== ENCOUNTER 2019-07-24 16:09 | Observation (INO) | payer MEDICARE, MEDICAID ==
[2019-07-24] MEDS ORDERED: FUROSEMIDE INJ/PF 40 MG/4 ML SDV IV ONE (16:48)
--- NOTE | 2019-07-24 16:49 | ER Document Report ---
ED Medical Screen (RME) - General Chief Complaint: Shortness Of Breath Stated Complaint: DIFFICULTY BREATHING Time Seen by Provider: 07/24/19 16:41 Primary Care Provider: KEYLA KAUFMAN MD [Primary Care Provider] - Follow up as needed TRAVEL OUTSIDE OF THE [place] IN LAST 30 DAYS: No - HPI Notes: 07/24/19 16:48 63-year-old female to the emergency department with complaints of progressively worsening shortness of breath for the past 2 to 3 days as well as associated leg swelling. She admits that she has a history of "fluid on the heart". She states that she has been taking her furosemide 40 mg twice a day without fail. She does admit that she is recently been taking in more salt. She admits to a little bit of inspiratory chest pain but denies any vomiting or diaphoresis. She states that her dermatologist and dermatopathologist is Dr. Peñaloza. She does not use oxygen at home. I performed a medical screening exam on patient and determined that she will need further evaluation by main side provider. Initial labs, diagnostic imaging, EKG ordered. - Related Data Allergies/Adverse Reactions: clemastine fumarate [From Tavist-1] Allergy (Severe, Verified 11/22/18 13:34) red spots,N/V Shark Cartilage [From Shark Fin Cartilage] Allergy (Severe, Verified 11/22/18 13:34) hives, n and v iodine [Iodine] Allergy (Unknown, Verified 11/22/18 13:34) vomit/rash meperidine HCl [From Demerol] Allergy (Unknown, Verified 11/22/18 13:34) N/V pseudoephedrine HCl [From Sudafed] Allergy (Unknown, Verified 11/22/18 13:34) rash/itch glove powder Allergy (Severe, Uncoded 01/23/15 18:04) hands swell,itch Past Medical History - Social History Family history: None - Past Medical History Cardiac Medical History: Reports: Hx Atrial Fibrillation, Hx Congestive Heart Failure, Hx Coronary Artery Disease, Hx Hypertension - on meds Pulmonary Medical History: Reports: Hx Bronchitis, Hx Pneumonia - hx of, Hx Sleep Apnea Neurological Medical History: Denies: Hx Cerebrovascular Accident, Hx Migraine, Hx Seizures Endocrine Medical History: Reports: Hx Hypothyroidism. Denies: Hx Diabetes Mellitus Type 1, Hx Diabetes Mellitus Type 2, Hx Graves' Disease, Hx Hyperthyroidism Renal/ Medical History: Denies: Hx End Stage Renal Disease, Hx Kidney Stones, Hx Ovarian Cysts, Hx Peritoneal Dialysis, Hx Pelvic Inflammatory Disease Malignancy Medical History: Reports: Hx Breast Cancer. Denies: Hx Cervical Cancer, Hx Ovarian Cancer GI Medical History: Reports: Hx Colonoscopy. Denies: Hx Crohn's Disease, Hx Gastroesophageal Reflux Disease, Hx Hiatal Hernia, Hx Irritable Bowel, Hx Liver Failure, Hx Pancreatitis, Hx Ulcer, Hx Ulcerative Colitis Musculoskeltal Medical History: Reports Hx Arthritis - knees, Denies Hx Fibromyalgia, Denies Hx Gout, Denies Hx Muscular Dystrophy, Denies Hx Systemic Lupus Erythematosus Skin Medical History: Denies Hx Eczema, Denies Hx Psoriasis Psychiatric Medical History: Denies: Hx Depression Traumatic Medical History: Denies: Hx Fractures Past Surgical History: Reports: Hx Abdominal Surgery - abd hernia, colon polpys, Hx Section, Hx Hysterectomy, Hx Mastectomy - right partial, Hx Tonsillectomy. Denies: Hx Appendectomy, Hx Bowel Surgery, Hx Cholecystectomy, Hx Colostomy, Hx Coronary Artery Bypass Graft, Hx Gastric Bypass Surgery, Hx Herniorrhaphy, Hx Pacemaker, Hx Tubal Ligation - Immunizations Hx Diphtheria, Pertussis, Tetanus Vaccination: Yes History of Influenza Vaccine for 08/2017 - 01/2018 Season: Unknown Physical Exam - Vital signs Vitals: Temp Pulse Resp BP Pulse Ox 97.9 F 82 24 H 110/65 95 07/24/19 16:15 07/24/19 16:15 07/24/19 16:15 07/24/19 16:15 07/24/19 16:15 Course - Vital Signs Vital signs: Temp Pulse Resp BP Pulse Ox 97.9 F 82 24 H 110/65 95 07/24/19 16:15 07/24/19 16:15 07/24/19 16:15 07/24/19 16:15 07/24/19 16:15 Doctor's Discharge - Discharge Referrals: KEYLA KAUFMAN MD [Primary Care Provider] - Follow up as needed
--- NOTE | 2019-07-24 17:36 | RADIOLOGY REPORT (SQ) ---
EXAM DESCRIPTION: CHEST SINGLE VIEW COMPLETED DATE/TIME: 07/24/2019 5:07 pm REASON FOR STUDY: SOB, leg swelling COMPARISON: None. NUMBER OF VIEWS: One view. TECHNIQUE: Single frontal radiographic view of the chest acquired. LIMITATIONS: None. FINDINGS: LUNGS AND PLEURA: No opacities, masses or pneumothorax. No pleural effusion. MEDIASTINUM AND HILAR STRUCTURES: Likely retrocardiac hiatal hernia. HEART AND VASCULAR STRUCTURES: Heart is enlarged. Mild vascular congestion. BONES: No acute findings. HARDWARE: None in the chest. OTHER: No other significant finding. IMPRESSION: Heart enlarged with mild vascular congestion. Likely large retrocardiac hiatal hernia. TECHNICAL DOCUMENTATION: JOB ID: [id number] [employer]- All Rights Reserved Reading location - IP/workstation name: [email or web address]
[2019-07-24 17:52] LABS: ABSOLUTE EOSINOPHILS # (AUTO) 0.1 10^3/uL (0.0-0.6); ABSOLUTE LYMPHOCYTES (AUTO) 0.7 10^3/uL (0.5-4.7); ABSOLUTE MONOCYTES (AUTO) 0.8 10^3/uL (0.1-1.4); ABSOLUTE NEUT (AUTO) 4.9 10^3/uL (1.7-8.2); BASOPHILS % (AUTO) 0.5 % (0-2); EOSINOPHILS % (AUTO) 1.4 % (0-6); HEMATOCRIT 38.5 % (36.0-47.0); HEMOGLOBIN 12.7 g/dL (12.0-15.5); LYMPHOCYTES % (AUTO) 10.8 % (13-45); MEAN CORPUSCULAR HEMOGLOBIN 25.7 pg (27.0-33.4); MEAN CORPUSCULAR HGB CONC 32.9 g/dL (32.0-36.0); MEAN CORPUSCULAR VOLUME 78 fl (80-97); MONOCYTES % (AUTO) 12.5 % (3-13); PLATELET COUNT 336 10^3/uL (150-450); RED BLOOD COUNT 4.93 10^6/uL (3.72-5.28); RED CELL DISTRIBUTION WIDTH 16.1 % (11.5-14.0); SEGMENTED NEUTROPHILS % (AUTO) 74.8 % (42-78); TOTAL CELLS COUNTED % (AUTO) 100 %; WHITE BLOOD COUNT 6.5 10^3/uL (4.0-10.5)
[2019-07-24 18:07] LABS: ALBUMIN 2.8 g/dL (3.5-5.0); ALKALINE PHOSPHATASE 180 U/L (38-126); ANION GAP 9 (5-19); ASPARTATE AMINO TRANSFERASE 33 U/L (14-36); BILIRUBIN,DIRECT 0.3 mg/dL (0.0-0.4); BILIRUBIN,TOTAL 0.7 mg/dL (0.2-1.3); BLOOD UREA NITROGEN 13 mg/dL (7-20); CALCIUM 9.1 mg/dL (8.4-10.2); CARBON DIOXIDE 31 mmol/L (22-30); CHLORIDE 96 mmol/L (98-107); GLUCOSE 96 mg/dL (75-110); POTASSIUM 3.6 mmol/L (3.6-5.0); TOTAL PROTEIN 5.6 g/dL (6.3-8.2)
[2019-07-24 18:17] LABS: NT PRO BNP 825 pg/mL (5-900)
[2019-07-24 18:23] LABS: TROPONIN I < 0.012 ng/mL
--- NOTE | 2019-07-24 18:26 | EKG REPORT ---
SEVERITY:- ABNORMAL ECG - ATRIAL FIBRILLATION LEFT AXIS DEVIATION LOW VOLTAGE IN FRONTAL LEADS BORDERLINE T WAVE ABNORMALITIES BORDERLINE PROLONGED QT INTERVAL : Confirmed by: Champ Powell MD 24-Jul-2019 18:25:58
--- NOTE | 2019-07-24 18:47 | ER Document Report ---
ED General - General Chief Complaint: Shortness Of Breath Stated Complaint: DIFFICULTY BREATHING Time Seen by Provider: 07/24/19 16:41 Primary Care Provider: KEYLA KAUFMAN MD [Primary Care Provider] - Follow up as needed TRAVEL OUTSIDE OF THE [place] IN LAST 30 DAYS: No - HPI Notes: Patient with history of CHF and atrial fibrillation presents with 5 days of worsening bilateral lower extremity edema and intermittent shortness of breath and absence of any recent fevers is been having a mild nonproductive cough. No nausea vomiting chest pain diarrhea or abdominal pain. He states that she has had these symptoms before and wanted to get ahead of this to come to the emergency department. She is on Spironolactone and it was [place] approximately 2 weeks ago by her doctor due to her blood pressure being low. - Related Data Allergies/Adverse Reactions: clemastine fumarate [From Tavist-1] Allergy (Severe, Verified 11/22/18 13:34) red spots,N/V Shark Cartilage [From Shark Fin Cartilage] Allergy (Severe, Verified 11/22/18 13:34) hives, n and v iodine [Iodine] Allergy (Unknown, Verified 11/22/18 13:34) vomit/rash meperidine HCl [From Demerol] Allergy (Unknown, Verified 11/22/18 13:34) N/V pseudoephedrine HCl [From Sudafed] Allergy (Unknown, Verified 11/22/18 13:34) rash/itch glove powder Allergy (Severe, Uncoded 01/23/15 18:04) hands swell,itch Past Medical History - Social History Smoking Status: Unknown if Ever Smoked Family History: Reviewed & Not Pertinent, DM, Hyperlipidemia, Hypertension Patient has suicidal ideation: No Patient has homicidal ideation: No - Past Medical History Cardiac Medical History: Reports: Hx Atrial Fibrillation, Hx Congestive Heart Failure, Hx Coronary Artery Disease, Hx Hypertension - on meds Pulmonary Medical History: Reports: Hx Bronchitis, Hx Pneumonia - hx of, Hx Sleep Apnea Neurological Medical History: Denies: Hx Cerebrovascular Accident, Hx Migraine, Hx Seizures Endocrine Medical History: Reports: Hx Hypothyroidism. Denies: Hx Diabetes Mellitus Type 1, Hx Diabetes Mellitus Type 2, Hx Graves' Disease, Hx Hyperthyro idism Renal/ Medical History: Denies: Hx End Stage Renal Disease, Hx Kidney Stones, Hx Ovarian Cysts, Hx Peritoneal Dialysis, Hx Pelvic Inflammatory Disease Malignancy Medical History: Reports: Hx Breast Cancer. Denies: Hx Cervical Cancer, Hx Ovarian Cancer GI Medical History: Reports: Hx Colonoscopy. Denies: Hx Crohn's Disease, Hx Gastroesophageal Reflux Disease, Hx Hiatal Hernia, Hx Irritable Bowel, Hx Liver Failure, Hx Pancreatitis, Hx Ulcer, Hx Ulcerative Colitis Musculoskeletal Medical History: Reports Hx Arthritis - knees, Denies Hx Fibromyalgia, Denies Hx Gout, Denies Hx Muscular Dystrophy, Denies Hx Systemic Lupus Erythematosus Skin Medical History: Denies Hx Eczema, Denies Hx Psoriasis Psychiatric Medical History: Denies: Hx Depression Traumatic Medical History: Denies: Hx Fractures Past Surgical History: Reports: Hx Abdominal Surgery - abd hernia, colon polpys, Hx Section, Hx Hysterectomy, Hx Mastectomy - right partial, Hx Tonsillectomy. Denies: Hx Appendectomy, Hx Bowel Surgery, Hx Cholecystectomy, Hx Colostomy, Hx Coronary Artery Bypass Graft, Hx Gastric Bypass Surgery, Hx Herniorrhaphy, Hx Pacemaker, Hx Tubal Ligation - Immunizations Hx Diphtheria, Pertussis, Tetanus Vaccination: Yes Hx Pneumococcal Vaccination: 07/07/11 Review of Systems - Review of Systems Constitutional: No symptoms reported EENT: No symptoms reported Cardiovascular: No symptoms reported Respiratory: See HPI Gastrointestinal: No symptoms reported Genitourinary: No symptoms reported Female Genitourinary: No symptoms reported Musculoskeletal: See HPI Skin: No symptoms reported Hematologic/Lymphatic: No symptoms reported Neurological/Psychological: No symptoms reported Physical Exam - Vital signs Vitals: Temp Pulse Resp BP Pulse Ox 97.9 F 82 24 H 110/65 95 07/24/19 16:15 07/24/19 16:15 07/24/19 16:15 07/24/19 16:15 07/24/19 16:15 - General General appearance: Appears well, Alert - HEENT Head: Normocephalic, Atraumatic Eyes: Normal Conjunctiva: Normal Extraocular movements intact: Yes Pupils: PERRL - Respiratory Respiratory status: No respiratory distress Chest status: Nontender Breath sounds: Normal Chest palpation: Normal - Cardiovascular Rhythm: Irregularly irregular Heart sounds: Normal auscultation Murmur: No - Abdominal Inspection: Normal Distension: No distension Bowel sounds: Normal Tenderness: Nontender - Back Back: Normal, Nontender - Extremities General upper extremity: Normal inspection, Normal ROM General lower extremity: Other - +2 bilateral lower extremity pitting edema with no signs of erythema warmth cellulitis - Neurological Neuro grossly intact: Yes Cognition: Normal Orientation: AAOx4 Course - Re-evaluation Re-evalutation: 07/24/19 19:44 Admit for CHF exacerbation - Vital Signs Vital signs: Temp Pulse Resp BP Pulse Ox 97.9 F 82 28 H 120/72 97 07/24/19 16:15 07/24/19 16:15 07/24/19 19:01 07/24/19 19:00 07/24/19 19:01 - Laboratory Result Diagrams: 07/24/19 17:13 07/24/19 17:13 Laboratory results interpreted by me: 07/24/19 07/24/19 17:13 17:13 MCV 78 L MCH 25.7 L RDW 16.1 H Lymph % (Auto) 10.8 L Sodium 136.2 L Chloride 96 L Carbon Dioxide 31 H Est GFR (MDRD) Non-Af 49 L Alkaline Phosphatase 180 H Total Protein 5.6 L Albumin 2.8 L Discharge - Discharge Clinical Impression: CHF exacerbation Qualifiers: Heart failure type: unspecified Qualified Code(s): I50.9 - Heart failure, unspecified Condition: Good Disposition: ADMITTED OBSERVATION Admitting Provider: Jacquie (Hospitalist) Unit Admitted: Telemetry Referrals: KEYLA KAUFMAN MD [Primary Care Provider] - Follow up as needed
[2019-07-24] MEDS ORDERED: FUROSEMIDE INJ/PF 100 MG/10 ML SDV IV ONE (19:42)
[2019-07-24] MEDS ORDERED: MAG HYDROX/AL HYDROX/SIMETH SUSP 30 ML UDCUP PO PRN (20:45)
[2019-07-24] MEDS ORDERED: MAGNESIUM HYDROXIDE SUSP 30 ML UDCUP PO PRN (20:45)
[2019-07-24] MEDS ORDERED: PROMETHAZINE HCL INJ 25 MG/1 ML VIAL IV PRN (20:45)
[2019-07-24] MEDS ORDERED: ACETAMINOPHEN 325 MG TABLET PO PRN (20:45)
[2019-07-24] MEDS ORDERED: MORPHINE SULFATE 10 MG/ML INJ IV PRN (20:54)
[2019-07-24 21:36] LABS: FREE T3 3.52 pg/mL (2.77-5.27); FREE T4 (FREE THYROXINE) 1.88 ng/dL (0.78-2.19)
[2019-07-24 21:50] LABS: THYROID STIMULATING HORMONE 0.83 uIU/mL (0.47-4.68)
[2019-07-24] MEDS ORDERED: FAMOTIDINE 20 MG TABLET PO SCH (22:00)
[2019-07-24] MEDS ORDERED: ATORVASTATIN CALCIUM 20 MG TABLET PO SCH (22:00)
[2019-07-24] MEDS: HEPARIN SOD (PORCINE) 5,000 UNIT/ML 1 ML VIAL SUBCUT SCH (22:38)
[2019-07-24] MEDS: DILTIAZEM HCL 120 MG CAP.SR.24H PO SCH (22:38)
[2019-07-24] MEDS: POTASSI CL 20 MEQ/50 ML RIDER 20 MEQ/50 ML RTUPB IV SCH (22:39)
--- NOTE | 2019-07-25 00:01 | PDOC H&P ---
History of Present Illness Admission Date/PCP: 07/24/19 19:49 KEYLA KAUFMAN MD Patient complains of: Dyspnea History of Present Illness: MICHAEL BOWLING is a 63 year old female who presented to the emergency room with a 3-day history of dyspnea. She admits to gradually worsening dyspnea over the last 3 days worsened by exertion and accompanied by increased swelling in her bilateral lower extremities and a moderate nonproductive cough. She denies other associated or accompanying signs or symptoms. She admits to recent increase in her dietary intake of salty foods and also had a change in her medication with a 50% reduction in her daily dose of spironolactone. She admits previous similar symptoms with congestive heart failure exacerbations. She has not identified any additional aggravating or ameliorating factors for her dyspnea. In the emergency room she was found to be mildly tachypneic and had significant dyspnea with exertion. Chest x-ray showed evidence of mild congestion consistent with an exacerbation of congestive heart failure. Patient was subsequently admitted to the hospital for further evaluation and treatment. Past Medical History Cardiac Medical History: Reports: Atrial Fibrillation, Congestive Heart Failure, Coronary Artery Disease, Hypertension Denies: Myocardial Infarction Pulmonary Medical History: Reports: Bronchitis, Pneumonia, Respiratory Failure, Sleep Apnea Denies: Asthma, Chronic Obstructive Pulmonary Disease (COPD) EENT Medical History: Denies: Cataracts, Ears - Hearing aids Neurological Medical History: Denies: Hemorrhagic CVA, Ischemic CVA, Migraine, Multiple Sclerosis, Seizures Endocrine Medical History: Reports: Hypothyroidism, Obesity Denies: Diabetes Mellitus Type 1, Diabetes Mellitus Type 2, Hyperthyroidism Renal/ Medical History: Reports: Other - Urinary tract infections Denies: Chronic Kidney Disease, Nephrolithiasis Malignancy Medical History: Reports: Breast Cancer GI Medical History: Reports: Other - Colon polyps Denies: Cirrhosis, Crohn's Disease, Gastroesophageal Reflux Disease, Hepatitis, Hiatal Hernia, Ulcerative Colitis Musculoskeltal Medical History: Reports: Arthritis - bilateral knees Denies: Fibromyalgia, Gout Skin Medical History: Denies: Eczema, Psoriasis Psychiatric Medical History: Denies: Alcohol Dependency, Depression, Substance Abuse, Tobacco Dependency Traumatic Medical History: Reports: None Hematology: Reports: Anemia Denies: Bleeding Tendencies Infectious Medical History: Reports: None Past Surgical History Past Surgical History: Reports: Section, Hysterectomy, Mastectomy - right partial, Tonsillectomy, Other - Several childhood surgeries Social History Information Source: Patient Lives with: Friend Smoking Status: Never Smoker Frequency of Alcohol Use: Rare Hx Recreational Drug Use: No Drugs: None Hx Prescription Drug Abuse: No - Advance Directive Resuscitation Status: Full Code Surrogate healthcare decision maker:: Capri Martin Family History Family History: CAD, DM, Hyperlipidemia, Hypertension, Malignancy Parental Family History Reviewed: Yes Children Family History Reviewed: No Sibling(s) Family History Reviewed.: Yes Medication/Allergy Home Medications: Atorvastatin Calcium [Lipitor 20 mg Tablet] 20 mg PO QHS 06/06/19 Clopidogrel Bisulfate [Plavix 75 mg Tablet] 75 mg PO DAILY 06/06/19 Diltiazem HCl [Diltiazem 12Hr ER] 120 mg PO Q12 06/06/19 Levothyroxine Sodium [Synthroid 0.1 mg Tablet] 0.1 mg PO Q6AM 06/06/19 Metaxalone [Skelaxin 800 mg Tablet] 800 mg PO Q8HP PRN 06/06/19 Metoprolol Succinate [Toprol Xl 25 mg Tab.sr] 25 mg PO DAILY 06/06/19 Nitroglycerin [Nitro-Dur 5 mg (0.2 mg/Hr) Transdermal Patch] 1 patch TD QAM 06/06/19 Pantoprazole Sodium [Protonix [address] Tablet] 40 mg PO Q6AM 06/06/19 Potassium Chloride [Klor-Con 10 Meq Capsule ER] 10 meq PO DAILY 06/06/19 Spironolactone [Aldactone 100 mg Tablet] 50 mg PO DAILY 06/06/19 Torsemide [Demadex] 40 mg PO BID 06/06/19 Allergies/Adverse Reactions: clemastine fumarate [From Tavist-1] Allergy (Severe, Verified 07/24/19 20:40) red spots,N/V Shark Cartilage [From Shark Fin Cartilage] Allergy (Severe, Verified 07/24/19 20:40) hives, n and v iodine [Iodine] Allergy (Unknown, Verified 07/24/19 20:40) vomit/rash meperidine HCl [From Demerol] Allergy (Unknown, Verified 07/24/19 20:40) N/V pseudoephedrine HCl [From Sudafed] Allergy (Unknown, Verified 07/24/19 20:40) rash/itch glove powder Allergy (Severe, Uncoded 07/24/19 20:40) hands swell,itch Review of Systems Constitutional: ABSENT: chills, fever(s) Eyes: ABSENT: visual disturbances, other - Eye pain Ears: ABSENT: hearing changes, other - Ear pain Nose, Mouth, and Throat: ABSENT: mouth pain, sore throat Cardiovascular: PRESENT: as per HPI, dyspnea on exertion, edema. ABSENT: chest pain, orthropnea, palpitations Respiratory: PRESENT: as per HPI, cough, dyspnea Gastrointestinal: ABSENT: abdominal pain, constipation, diarrhea, nausea, vomiting Genitourinary: ABSENT: dysuria, hematuria Musculoskeletal: ABSENT: joint swelling, muscle weakness Integumentary: ABSENT: pruritus, rash Neurological: ABSENT: confusion, convulsions, focal weakness, memory loss, syncope Psychiatric: ABSENT: anxiety, depression Endocrine: ABSENT: cold intolerance, heat intolerance Hematologic/Lymphatic: ABSENT: easy bleeding, easy bruising Allergic/Immunologic: ABSENT: seasonal rhinorrhea Physical Exam Vital Signs: Temp Pulse Resp BP Pulse Ox 97.9 F 82 28 H 120/72 97 07/24/19 16:15 07/24/19 16:15 07/24/19 19:01 07/24/19 19:00 07/24/19 19:01 Intake & Output 07/22/19 07/23/19 07/24/19 23:59 23:59 23:59 Weight 145.9 kg General appearance: PRESENT: no acute distress, cooperative, morbidly obese Head exam: PRESENT: atraumatic, normocephalic Eye exam: PRESENT: conjunctiva pink. ABSENT: conjunctival injection, scleral icterus Ear exam: PRESENT: normal external ear exam. ABSENT: bleeding, drainage Mouth exam: PRESENT: dry mucosa, neck supple Neck exam: ABSENT: JVD, thyromegaly, tracheal deviation Respiratory exam: PRESENT: rales - Fine bibasilar rales noted, symmetrical, tachypnea Cardiovascular exam: PRESENT: gallop - Faint S3 gallop rhythm, irregular rhythm - Irregularly irregular rate and rhythm. ABSENT: clicks, rubs Pulses: PRESENT: normal carotid pulses, normal radial pulses. ABSENT: normal dorsalis pedis pul - Dorsalis pedis pulse obscured by edema Vascular exam: PRESENT: normal capillary refill. ABSENT: pallor GI/Abdominal exam: PRESENT: normal bowel sounds, soft Rectal exam: PRESENT: deferred Extremities exam: PRESENT: pedal edema - Bilateral, +2 edema - Bilateral 2+ pitting pretibial edema. ABSENT: joint swelling Musculoskeletal exam: ABSENT: deformity, dislocation Neurological exam: PRESENT: alert, oriented to person, oriented to place, oriented to time, oriented to situation, CN II-XII grossly intact. ABSENT: motor sensory deficit Psychiatric exam: PRESENT: appropriate affect, normal mood Skin exam: PRESENT: dry, intact, warm. ABSENT: jaundice, rash, urticaria Results Laboratory Results: 07/24/19 17:13 07/24/19 17:13 07/24/19 07/24/19 17:13 17:13 WBC 6.5 RBC 4.93 Hgb 12.7 Hct 38.5 MCV 78 L MCH 25.7 L MCHC 32.9 RDW 16.1 H Plt Count 336 Seg Neutrophils % 74.8 Sodium 136.2 L Potassium 3.6 Chloride 96 L Carbon Dioxide 31 H Anion Gap 9 BUN 13 Creatinine 1.11 Est GFR ( Amer) > 60 Glucose 96 Calcium 9.1 Total Bilirubin 0.7 AST 33 Alkaline Phosphatase 180 H Total Protein 5.6 L Albumin 2.8 L 07/24/19 17:13 Troponin I < 0.012 NT-Pro-B Natriuret Pep 825 Impressions: Chest X-Ray 07/24/19 16:47 IMPRESSION: Heart enlarged with mild vascular congestion. Likely large retrocardiac hiatal hernia. Assessment and Plan - Diagnosis (1) Acute on chronic diastolic CHF, NYHA class 2 and ACC/AHA stage C Is this a current diagnosis for this admission?: Yes Plan: Patient will be admitted into the CHF protocol. She will receive additional diuresis and her medications for congestive heart failure will be adjusted as required. She will use morphine sulfate 2 mg IV q. one hour on an as needed basis for moderate to severe dyspnea. (2) Sleep apnea with use of continuous positive airway pressure (CPAP) Is this a current diagnosis for this admission?: Yes Plan: Patient be continued on her usual CPAP at bedtime for control of her sleep apnea. (3) Morbid (severe) obesity due to excess calories Is this a current diagnosis for this admission?: Yes Plan: Dietary consultation will be obtained to assist the patient in weight loss and treatment of her CHF. (4) Chronic atrial fibrillation Is this a current diagnosis for this admission?: Yes Plan: Patient be monitored on telemetry floor throughout her hospital course. She will be continued on her usual medications for chronic atrial fibrillation. She will be on a heart healthy cardiac diet. (5) Hypertension Qualifiers: Hypertension type: essential hypertension Qualified Code(s): I10 - Essential (primary) hypertension Is this a current diagnosis for this admission?: Yes Plan: Patient will be continued on her usual antihypertensive regimen and her blood pressure be monitored closely throughout her hospitalization. She will be continued on a heart healthy diet. - Time Time Spent with patient: 25-34 minutes Medications reviewed and adjusted accordingly: Yes Anticipated discharge: Home with Homehealth - Inpatient Certification Based on my medical assessment, after consideration of the patient's comorbidities, presenting symptoms, or acuity I expect that the services needed warrant INPATIENT care.: Yes I certify that my determination is in accordance with my understanding of Medicare's requirements for reasonable and necessary INPATIENT services [42 CFR 412.3e].: Yes Medical Necessity: Significant Comorbidiites Make Outpatient Treatment Too Risky, Need Close Monitoring Due to Risk of Patient Decompensation, Need For Continuous Telemetry Monitoring, Risk of Complication if Not Cared For in H ospital, Risk of Diagnosis Which Will Require Inpatient Eval/Care/Monitoring
[2019-07-25 00:38] LABS: CREATINE KINASE MB 0.86 ng/mL (<4.55)
[2019-07-25 00:39] LABS: TROPONIN I < 0.012 ng/mL
[2019-07-25] MEDS: FUROSEMIDE INJ/PF 40 MG/4 ML SDV IV SCH ×2 (00:56→06:03)
[2019-07-25] MEDS ORDERED: POTASSI CL 20 MEQ/50 ML RIDER 20 MEQ/50 ML RTUPB IV ONE (02:00)
[2019-07-25] MEDS: POTASSI CL 20 MEQ/50 ML RIDER 20 MEQ/50 ML RTUPB IV SCH (02:51)
[2019-07-25] MEDS ORDERED: PANTOPRAZOLE SODIUM 40 MG TABLET.DR PO SCH (06:00)
[2019-07-25] MEDS ORDERED: LEVOTHYROXINE SODIUM 0.1 MG TABLET PO SCH (06:00)
[2019-07-25] MEDS: HEPARIN SOD (PORCINE) 5,000 UNIT/ML 1 ML VIAL SUBCUT SCH ×2 (06:03→13:25)
[2019-07-25 07:27] LABS: HEMOGLOBIN 12.4 g/dL (12.0-15.5); MEAN CORPUSCULAR HEMOGLOBIN 25.2 pg (27.0-33.4); MEAN CORPUSCULAR HGB CONC 32.6 g/dL (32.0-36.0); MEAN CORPUSCULAR VOLUME 77 fl (80-97); PLATELET COUNT 294 10^3/uL (150-450); RED BLOOD COUNT 4.92 10^6/uL (3.72-5.28); WHITE BLOOD COUNT 5.1 10^3/uL (4.0-10.5)
[2019-07-25 08:55] LABS: ANION GAP 9 (5-19); BLOOD UREA NITROGEN 11 mg/dL (7-20); CALCIUM 8.4 mg/dL (8.4-10.2); CARBON DIOXIDE 30 mmol/L (22-30); CHLORIDE 96 mmol/L (98-107); CHOLESTEROL 102.46 mg/dL (0-200); GLUCOSE 108 mg/dL (75-110); POTASSIUM 3.2 mmol/L (3.6-5.0); TRIGLYCERIDES 44 mg/dL (<150)
[2019-07-25 09:04] LABS: CREATINE KINASE MB 0.67 ng/mL (<4.55)
[2019-07-25 09:06] LABS: DIRECT LDL 49 mg/dL (<100); TROPONIN I < 0.012 ng/mL
[2019-07-25] MEDS ORDERED: METOPROLOL SUCCINATE 25 MG TAB.SR.24H PO SCH (10:00)
[2019-07-25] MEDS ORDERED: DOCUSATE SODIUM 100 MG CAPSULE PO SCH (10:00)
[2019-07-25] MEDS ORDERED: TORSEMIDE 20 MG TABLET PO SCH (10:00)
[2019-07-25] MEDS ORDERED: NITROGLYCERIN 2.5 MG (0.1 MG/HR) PATCH.TD24 TD SCH (10:00)
[2019-07-25] MEDS ORDERED: SPIRONOLACTONE 25 MG TABLET PO SCH ×2 (10:00)
[2019-07-25] MEDS ORDERED: CLOPIDOGREL BISULFATE 75 MG TABLET PO SCH (10:00)
[2019-07-25] MEDS: POTASSIUM CHLORIDE 10 MEQ CAPSULE.ER PO SCH ×2 (10:02→13:25)
[2019-07-25] MEDS: DILTIAZEM HCL 120 MG CAP.SR.24H PO SCH (10:07)
--- NOTE | 2019-07-25 11:36 | PDOC DISCHARGE SUMMARY ---
General - Admit/Disc Date/PCP Admission Date/Primary Care Provider: 07/24/19 19:49 KEYLA KAUFMAN MD Discharge Date: 07/25/19 - Discharge Diagnosis (1) Acute on chronic diastolic CHF, NYHA class 2 and ACC/AHA stage C Is this a current diagnosis for this admission?: No Summary: The patient never required oxygen supplementation. This morning she stated her breathing was better. She states that she still has some difficulty breathing. This is most likely secondary to her morbid obesity. Her serial troponins were less than 0.012 and her BNP was normal. She also complained of leg edema that is chronic. She has compression stockings that she does not wear. She does not elevate her legs. I also encouraged these treatment modalities as well as following a strict low-sodium diet. In addition, she is inconsistent with wearing her Nitropatch I did explain that this is very important. She also has to urinate multiple times at night and therefore I suggested she take her second dose of torsemide earlier in the day such as 4:00 PM or 5:00 PM so that she will be able to get more sleep at night. With no need for oxygen, normal BNP and negative serial troponins I do not believe this was an acute exacerbation of her heart failure. She will follow-up with her primary care provider Dr. Awan next week. (2) Sleep apnea with use of continuous positive airway pressure (CPAP) Is this a current diagnosis for this admission?: Yes Summary: Continue CPAP use at home. (3) Morbid (severe) obesity due to excess calories Is this a current diagnosis for this admission?: Yes Summary: The patient's BMI was almost 50. At this point it is doubtful that she will be able to participate in aggressive exercise. Aggressive dieting would be her initial intervention. Loss of weight would help tremendously. (4) Chronic atrial fibrillation Is this a current diagnosis for this admission?: Yes Summary: She is currently stable and will continue her medication regimen including chronic anticoagulation. (5) Hypertension Is this a current diagnosis for this admission?: Yes Summary: She has good blood pressure control. Continue current regimen. - Additional Information Resuscitation Status: Full Code Discharge Diet: Cardiac Discharge Activity: Activity As Tolerated, Balance Activity w/Rest, Weigh Daily Home Medications: Atorvastatin Calcium [Lipitor 20 mg Tablet] 20 mg PO QHS 06/06/19 Clopidogrel Bisulfate [Plavix 75 mg Tablet] 75 mg PO DAILY 06/06/19 Diltiazem HCl [Diltiazem 12Hr ER] 120 mg PO Q12 06/06/19 Levothyroxine Sodium [Synthroid 0.1 mg Tablet] 0.1 mg PO Q6AM 06/06/19 Metaxalone [Skelaxin 800 mg Tablet] 800 mg PO Q8HP PRN 06/06/19 Metoprolol Succinate [Toprol Xl 25 mg Tab.sr] 25 mg PO DAILY 06/06/19 Nitroglycerin [Nitro-Dur 5 mg (0.2 mg/Hr) Transdermal Patch] 1 patch TD QAM 06/06/19 Pantoprazole Sodium [Protonix [address] Tablet] 40 mg PO Q6AM 06/06/19 Potassium Chloride [Klor-Con 10 Meq Capsule ER] 10 meq PO DAILY 06/06/19 Spironolactone [Aldactone 100 mg Tablet] 50 mg PO DAILY 06/06/19 Torsemide [Demadex] 40 mg PO BID 06/06/19 History of Present Illness Patient complains of: Shortness of breath History of Present Illness: MICHAEL BOWLING is a 63 year old female who looks older than her stated age. She has multiple cardiac comorbidities. She was complaining of shortness of breath. Her primary care provider states that this is a chronic complaint. Her cardiac enzymes are negative. She did not require oxygen supplementation. Her shortness of breath is most likely due to her morbid obesity. She was discharged home and will follow up with Dr. Awan. Hospital Course Hospital Course: The patient had an unremarkable hospital course and was discharged to home. Physical Exam Vital Signs: Temp Pulse Resp BP Pulse Ox 98.0 F 91 19 105/66 96 07/25/19 07:26 07/25/19 07:26 07/25/19 07:26 07/25/19 07:26 07/25/19 07:26 Intake & Output 07/24/19 07/25/19 07/26/19 06:59 06:59 06:59 Intake Total 730 50 Output Total 700 Balance 30 50 Weight 144.6 kg General appearance: PRESENT: no acute distress, cooperative, morbidly obese, well-developed Head exam: PRESENT: atraumatic, normocephalic Eye exam: PRESENT: conjunctiva pink. ABSENT: scleral icterus Ear exam: PRESENT: normal external ear exam. ABSENT: bleeding, drainage Mouth exam: PRESENT: moist, tongue midline Respiratory exam: PRESENT: clear to auscultation refugio, symmetrical, unlabored. ABSENT: accessory muscle use, rales, rhonchi, wheezes Cardiovascular exam: PRESENT: RRR, +S1, +S2 GI/Abdominal exam: PRESENT: normal bowel sounds, soft. ABSENT: distended - Pendulous abdomen, guarding, tenderness Extremities exam: PRESENT: pedal edema, +1 edema Neurological exam: PRESENT: alert, awake, oriented to person, oriented to place, oriented to time, oriented to situation, CN II-XII grossly intact Psychiatric exam: PRESENT: appropriate affect. ABSENT: agitated, anxious Focused psych exam: ABSENT: delusional, restlessness Results Laboratory Results: 07/25/19 07:02 07/25/19 08:17 07/24/19 07/24/19 07/24/19 17:13 17:13 17:13 WBC 6.5 RBC 4.93 Hgb 12.7 Hct 38.5 MCV 78 L MCH 25.7 L MCHC 32.9 RDW 16.1 H Plt Count 336 Seg Neutrophils % 74.8 Sodium 136.2 L Potassium 3.6 Chloride 96 L Carbon Dioxide 31 H Anion Gap 9 BUN 13 Creatinine 1.11 Est GFR ( Amer) > 60 Glucose 96 Calcium 9.1 Magnesium Total Bilirubin 0.7 AST 33 Alkaline Phosphatase 180 H Total Protein 5.6 L Albumin 2.8 L Triglycerides Cholesterol LDL Cholesterol Direct VLDL Cholesterol HDL Cholesterol TSH 0.83 Free T4 1.88 Free T3 pg/mL 3.52 07/25/19 07/25/19 07:02 08:17 WBC 5.1 RBC 4.92 Hgb 12.4 Hct 38.0 MCV 77 L MCH 25.2 L MCHC 32.6 RDW 16.0 H Plt Count 294 Seg Neutrophils % Sodium 134.6 L Potassium 3.2 L Chloride 96 L Carbon Dioxide 30 Anion Gap 9 BUN 11 Creatinine 0.92 Est GFR ( Amer) > 60 Glucose 108 Calcium 8.4 Magnesium 1.7 Total Bilirubin AST Alkaline Phosphatase Total Protein Albumin Triglycerides 44 Cholesterol 102.46 LDL Cholesterol Direct 49 VLDL Cholesterol 9.0 L HDL Cholesterol 49 TSH Free T4 Free T3 pg/mL 07/24/19 07/25/19 07/25/19 17:13 00:02 00:02 Creatine Kinase 88 CK-MB (CK-2) 0.86 Troponin I < 0.012 < 0.012 NT-Pro-B Natriuret Pep 825 07/25/19 07/25/19 07/25/19 08:17 08:17 08:17 Creatine Kinase 72 CK-MB (CK-2) 0.67 Troponin I < 0.012 NT-Pro-B Natriuret Pep 647 Impressions: Chest X-Ray 07/24/19 16:47 IMPRESSION: Heart enlarged with mild vascular congestion. Likely large retrocardiac hiatal hernia. Qualifiers - * PATIENT BEING DISCHARGED WITH ANY OF THE FOLLOWING DIAGNOSIS: No Acute Heart Failure - Is this a Heart Failure Patient?: No Plan Time Spent: Greater than 30 Minutes
[2019-07-25 13:31] VITALS: BP 123/84
== END 2019-07-25 14:35 | disposition home health service (06) ==
LOC: ER 16:09 → EH 19:49 → INTOOBSV 19:49 → OBSVTOIN 19:49 → 4N 22:28
PROVIDERS: ADMIT Emergency Medicine; ATTEND Emergency Medicine
DX: I11.0 Hypertensive heart disease with heart failure (principal); I50.33 Acute on chronic diastolic (congestive) heart failure; G47.33 Obstructive sleep apnea (adult) (pediatric); E66.01 Morbid (severe) obesity due to excess calories; I48.2 Chronic atrial fibrillation; I25.10 Atherosclerotic heart disease of native coronary artery without angina pectoris; E03.9 Hypothyroidism, unspecified; Z68.43 Body mass index [BMI] 50.0-59.9, adult; Z79.899 Other long term (current) drug therapy; Z79.02 Long term (current) use of antithrombotics/antiplatelets; Z85.3 Personal history of malignant neoplasm of breast; Z90.11 Acquired absence of right breast and nipple; Z82.49 Family history of ischemic heart disease and other diseases of the circulatory system
CPT/HCPCS: 93005; 99285; 96374; 36415 ×2; 84439; 82553; 82550; 83735; 84443; 85025; 85027; 80048; 80053; 84484 ×2; 84481; 83036; 80061; 83880 ×2; 71045; 93010; 94660 ×2; G0378; J1644 ×2; A9270 ×9; J1940 ×2; J3490 ×2; J3480 ×2

== ENCOUNTER 2019-08-27 16:03 | Emergency (ER) | payer MEDICARE, MEDICAID ==
--- NOTE | 2019-08-27 17:23 | ER Document Report ---
ED Medical Screen (RME) - General Chief Complaint: Abdominal Pain Stated Complaint: PELVIC/STOMACH PAIN Time Seen by Provider: 08/27/19 17:14 Primary Care Provider: KEYLA KAUFMAN MD [Primary Care Provider] - Follow up as needed Mode of Arrival: Medic Information source: Patient Notes: 63-year-old morbidly obese female presents to ED for complaint of lower abdominal and pelvic pain. She states this is the third time she had a but she has not been to the doctor before for this condition. She does have a history of A. fib CHF high blood pressure hypothyroidism. She does have a defibrillator without a pacemaker. She gets colonoscopies every year for polyps that are not cancerous. He states she has had a right breast nipple removal but it was not cancerous. 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 She states she is in here today for severe pelvic and lower abdominal pain. Patient is alert oriented, short of breath, in a wheelchair, but is able to answer all questions appropriately. I have greeted and performed a rapid initial assessment of this patient. A comprehensive ED assessment and evaluation of the patient, analysis of test results and completion of medical decision making process will be conducted by an additional ED providers. TRAVEL OUTSIDE OF THE [place] IN LAST 30 DAYS: No - Related Data Allergies/Adverse Reactions: clemastine fumarate [From Tavist-1] Allergy (Severe, Verified 08/27/19 16:39) red spots,N/V Shark Cartilage [From Shark Fin Cartilage] Allergy (Severe, Verified 08/27/19 16:39) hives, n and v iodine [Iodine] Allergy (Unknown, Verified 08/27/19 16:39) vomit/rash meperidine HCl [From Demerol] Allergy (Unknown, Verified 08/27/19 16:39) N/V pseudoephedrine HCl [From Sudafed] Allergy (Unknown, Verified 08/27/19 16:39) rash/itch glove powder Allergy (Severe, Uncoded 08/27/19 16:39) hands swell,itch Home Medications: in the room with the patient Past Medical History - Social History Chew tobacco use (# tins/day): No Frequency of alcohol use: None Drug Abuse: None Family history: None - Past Medical History Cardiac Medical History: Reports: Hx Atrial Fibrillation, Hx Congestive Heart Failure, Hx Coronary Artery Disease, Hx Hypertension Denies: Hx Heart Attack Pulmonary Medical History: Reports: Hx Bronchitis, Hx Pneumonia, Hx Respiratory Failure, Hx Sleep Apnea Denies: Hx Asthma, Hx COPD Neurological Medical History: Denies: Hx Cerebrovascular Accident, Hx Migraine, Hx Seizures Endocrine Medical History: Reports: Hx Hypothyroidism. Denies: Hx Diabetes Mellitus Type 1, Hx Diabetes Mellitus Type 2, Hx Graves' Disease, Hx Hyperthyroidism Renal/ Medical History: Denies: Hx End Stage Renal Disease, Hx Kidney Stones, Hx Ovarian Cysts, Hx Peritoneal Dialysis, Hx Pelvic Inflammatory Disease Malignancy Medical History: Reports: Hx Breast Cancer. Denies: Hx Cervical Cancer, Hx Ovarian Cancer GI Medical History: Reports: Hx Colonoscopy. 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 Denies: Hx Appendectomy, Hx Bowel Surgery, Hx Cholecystectomy, Hx Colostomy, Hx Coronary Artery Bypass Graft, Hx Gastric Bypass Surgery, Hx Herniorrhaphy, Hx Pacemaker, Hx Tubal Ligation - Immunizations Hx Diphtheria, Pertussis, Tetanus Vaccination: Yes Physical Exam - Vital signs Vitals: Temp Pulse BP Pulse Ox 97.9 F 69 86/54 L 99 08/27/19 16:17 08/27/19 16:17 08/27/19 16:17 08/27/19 16:17 Course - Vital Signs Vital signs: Temp Pulse Resp BP Pulse Ox 97.9 F 69 86/54 L 99 08/27/19 16:17 08/27/19 16:17 08/27/19 16:17 08/27/19 16:17 Doctor's Discharge - Discharge Referrals: KEYLA KAUFMAN MD [Primary Care Provider] - Follow up as needed
--- NOTE | 2019-08-27 18:03 | ER Document Report ---
ED General - General Chief Complaint: Abdominal Pain Stated Complaint: PELVIC/STOMACH PAIN Time Seen by Provider: 08/27/19 17:14 Primary Care Provider: KEYLA KAUFMAN MD [Primary Care Provider] - Follow up as needed Mode of Arrival: Medic Notes: Delightful 63 year old morbidly obese poorly mobile female presents with about 4 days of lower abd pain. No fever or chills. Nausea without vomiting. Living in local motel between homes. No fever or chills. Nl bowel movement earlier. She walks with difficulty wiht a walker. No upper abd pain. Perhaps some dysuria. No vaginal discharge or bleeding. TRAVEL OUTSIDE OF THE [place] IN LAST 30 DAYS: No - Related Data Allergies/Adverse Reactions: clemastine fumarate [From Tavist-1] Allergy (Severe, Verified 08/27/19 16:39) red spots,N/V Shark Cartilage [From Shark Fin Cartilage] Allergy (Severe, Verified 08/27/19 16:39) hives, n and v iodine [Iodine] Allergy (Unknown, Verified 08/27/19 16:39) vomit/rash meperidine HCl [From Demerol] Allergy (Unknown, Verified 08/27/19 16:39) N/V pseudoephedrine HCl [From Sudafed] Allergy (Unknown, Verified 08/27/19 16:39) rash/itch glove powder Allergy (Severe, Uncoded 08/27/19 16:39) hands swell,itch Home Medications: in the room with the patient Past Medical History - General Information source: Patient - Social History Smoking Status: Never Smoker Chew tobacco use (# tins/day): No Frequency of alcohol use: None Drug Abuse: None Family History: CAD, DM, Hyperlipidemia, Hypertension, Malignancy Patient has suicidal ideation: No Patient has homicidal ideation: No - Past Medical History Cardiac Medical History: Reports: Hx Atrial Fibrillation, Hx Congestive Heart Failure, Hx Coronary Artery Disease, Hx Hypertension Denies: Hx Heart Attack Pulmonary Medical History: Reports: Hx Bronchitis, Hx Pneumonia, Hx Respiratory Failure, Hx Sleep Apnea Denies: Hx Asthma, Hx COPD Neurological Medical History: Denies: Hx Cerebrovascular Accident, Hx Migraine, Hx Seizures Endocrine Medical History: Reports: Hx Hypothyroidism. Denies: Hx Diabetes Mellitus Type 1, Hx Diabetes Mellitus Type 2, Hx Graves' Disease, Hx Hyperthyroidism Renal/ Medical History: Denies: Hx End Stage Renal Disease, Hx Kidney Stones, Hx Ovarian Cysts, Hx Peritoneal Dialysis, Hx Pelvic Inflammatory Disease Malignancy Medical History: Reports: Hx Breast Cancer. Denies: Hx Cervical Cancer, Hx Ovarian Cancer GI Medical History: Reports: Hx Colonoscopy. 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 Denies: Hx Appendectomy, Hx Bowel Surgery, Hx Cholecystectomy, Hx Colostomy, Hx Coronary Artery Bypass Graft, Hx Gastric Bypass Surgery, Hx Herniorrhaphy, Hx Pacemaker, Hx Tubal Ligation - Immunizations Hx Diphtheria, Pertussis, Tetanus Vaccination: Yes Hx Pneumococcal Vaccination: 07/07/11 Review of Systems - Review of Systems Constitutional: No symptoms reported EENT: No symptoms reported Cardiovascular: No symptoms reported Respiratory: No symptoms reported Gastrointestinal: See HPI, Abdominal pain Genitourinary: See HPI, Burning, Dysuria Female Genitourinary: No symptoms reported Musculoskeletal: No symptoms reported Skin: No symptoms reported Hematologic/Lymphatic: No symptoms reported Neurological/Psychological: No symptoms reported Physical Exam - Vital signs Vitals: Temp Pulse BP Pulse Ox 97.9 F 69 86/54 L 99 08/27/19 16:17 08/27/19 16:17 08/27/19 16:17 08/27/19 16:17 Interpretation: Normal - General General appearance: Appears well, Alert - HEENT Head: Normocephalic, Atraumatic Eyes: Normal Pupils: PERRL - Respiratory Respiratory status: No respiratory distress Chest status: Nontender Breath sounds: Normal Chest palpation: Normal - Cardiovascular Rhythm: Regular Heart sounds: Normal auscultation Murmur: No - Abdominal Inspection: Normal Distension: No distension Bowel sounds: Normal Tenderness: Tender - ttp suprapubically. Organomegaly: No organomegaly - Back Back: Normal, Nontender - Extremities General upper extremity: Normal inspection, Nontender, Normal color, Normal ROM, Normal temperature General lower extremity: Normal inspection, Nontender, Normal color, Normal ROM, Normal temperature, Normal weight bearing. No: Roland's sign - Neurological Neuro grossly intact: Yes Cognition: Normal Orientation: AAOx4 Guillermo Coma Scale Eye Opening: Spontaneous Esparto Coma Scale Verbal: Oriented Esparto Coma Scale Motor: Obeys Commands Guillermo Coma Scale Total: 15 Speech: Normal Motor strength normal: LUE, RUE, LLE, RLE Sensory: Normal - Psychological Associated symptoms: Normal affect, Normal mood - Skin Skin Temperature: Warm Skin Moisture: Dry Skin Color: Normal Course - Re-evaluation Re-evalutation: 08/27/19 18:58 MDM 63 year old with lower abd pain. Initially Lactic is up and will ct is pending at this point. 4 days of lower abd pain. No fever. She has had multiple colonscopies reportedly with multiple polyp removal. 08/27/19 22:39 Pt is resting and improved. I discussed follow up and she expressed understanding. - Vital Signs Vital signs: Temp Pulse Resp BP Pulse Ox 97.9 F 69 27 H 88/63 L 99 08/27/19 16:17 08/27/19 16:17 08/27/19 20:24 08/27/19 20:24 08/27/19 20:24 - Laboratory Result Diagrams: 08/27/19 17:20 08/27/19 17:20 Laboratory results interpreted by me: 08/27/19 08/27/19 08/27/19 17:20 17:20 17:20 Hgb 11.7 L MCV 79 L MCH 25.0 L MCHC 31.9 L RDW 16.6 H [place] % (Auto) 13.7 H Potassium 3.1 L Carbon Dioxide 33 H Est GFR (MDRD) Non-Af 51 L Lactic Acid Alkaline Phosphatase 160 H Total Protein 5.1 L Albumin 2.3 L Leukocyte Esterase Rfl TRACE H Urine Ascorbic Acid 40 H 08/27/19 17:20 Hgb MCV MCH MCHC RDW [place] % (Auto) Potassium Carbon Dioxide Est GFR (MDRD) Non-Af Lactic Acid 3.6 H Alkaline Phosphatase Total Protein Albumin Leukocyte Esterase Rfl Urine Ascorbic Acid Discharge - Discharge Clinical Impression: Suprapubic abdominal pain, Hypokalemia Condition: Good Disposition: HOME, SELF-CARE Instructions: Abdominal Pain ([facility]) Additional Instructions: Rest, fluids, please return here for any problems or any concerns. Prescriptions: Dicyclomine HCl [Bentyl 20 mg Tablet] 20 mg PO QID #28 tablet Referrals: KEYLA KAUFMAN MD [Primary Care Provider] - Follow up as needed
[2019-08-27 18:05] LABS: ABSOLUTE BASOPHILS # (AUTO) 0.1 10^3/uL (0.0-0.2); ABSOLUTE EOSINOPHILS # (AUTO) 0.1 10^3/uL (0.0-0.6); ABSOLUTE LYMPHOCYTES (AUTO) 0.8 10^3/uL (0.5-4.7); ABSOLUTE MONOCYTES (AUTO) 0.8 10^3/uL (0.1-1.4); ABSOLUTE NEUT (AUTO) 4.3 10^3/uL (1.7-8.2); BASOPHILS % (AUTO) 0.9 % (0-2); EOSINOPHILS % (AUTO) 2.2 % (0-6); HEMATOCRIT 36.6 % (36.0-47.0); HEMOGLOBIN 11.7 g/dL (12.0-15.5); LYMPHOCYTES % (AUTO) 13.5 % (13-45); MEAN CORPUSCULAR HGB CONC 31.9 g/dL (32.0-36.0); MEAN CORPUSCULAR VOLUME 79 fl (80-97); MONOCYTES % (AUTO) 13.7 % (3-13); PLATELET COUNT 292 10^3/uL (150-450); RED BLOOD COUNT 4.67 10^6/uL (3.72-5.28); RED CELL DISTRIBUTION WIDTH 16.6 % (11.5-14.0); SEGMENTED NEUTROPHILS % (AUTO) 69.7 % (42-78); TOTAL CELLS COUNTED % (AUTO) 100 %; WHITE BLOOD COUNT 6.2 10^3/uL (4.0-10.5)
--- NOTE | 2019-08-27 18:08 | RADIOLOGY REPORT (SQ) ---
EXAM DESCRIPTION: CHEST 2 VIEWS COMPLETED DATE/TIME: 08/27/2019 5:38 pm REASON FOR STUDY: abdominal pain cardiac hx COMPARISON: Chest radiographs 07/24/2019 EXAM PARAMETERS: NUMBER OF VIEWS: two views TECHNIQUE: Digital Frontal and Lateral radiographic views of the chest acquired. RADIATION DOSE: NA LIMITATIONS: none FINDINGS: LUNGS AND PLEURA: Bandlike left basilar density. No pneumothorax or pleural effusion. MEDIASTINUM AND HILAR STRUCTURES: No masses or contour abnormalities. HEART AND VASCULAR STRUCTURES: Massive cardiomegaly and prominence of the central pulmonary vasculatu re, unchanged BONES: No acute findings. HARDWARE: None in the chest. OTHER: No other significant finding. IMPRESSION: Unchanged massive cardiomegaly and prominence of the central pulmonary vasculature. Bandlike left basilar density likely representing atelectasis. TECHNICAL DOCUMENTATION: JOB ID: [id number] [employer]- All Rights Reserved Reading location - IP/workstation name: [email or web address]
[2019-08-27 18:14] LABS: PROTHROMBIN TIME 15.3 SEC (11.4-15.4)
[2019-08-27 18:15] LABS: PARTIAL THROMBOPLASTIN TIME 29.7 SEC (23.5-35.8)
[2019-08-27 18:23] LABS: ALBUMIN 2.3 g/dL (3.5-5.0); ALKALINE PHOSPHATASE 160 U/L (38-126); ANION GAP 7 (5-19); ASPARTATE AMINO TRANSFERASE 32 U/L (14-36); BILIRUBIN,DIRECT 0.2 mg/dL (0.0-0.4); BILIRUBIN,TOTAL 0.6 mg/dL (0.2-1.3); BLOOD UREA NITROGEN 12 mg/dL (7-20); CALCIUM 8.6 mg/dL (8.4-10.2); CARBON DIOXIDE 33 mmol/L (22-30); CHLORIDE 100 mmol/L (98-107); CREATINE KINASE 122 U/L (30-135); GLUCOSE 96 mg/dL (75-110); POTASSIUM 3.1 mmol/L (3.6-5.0); TOTAL PROTEIN 5.1 g/dL (6.3-8.2)
[2019-08-27 18:37] LABS: CREATINE KINASE MB 1.26 ng/mL (<4.55); TROPONIN I 0.015 ng/mL
[2019-08-27 18:38] LABS: APPEARANCE,URINE CLEAR; BILIRUBIN,URINE NEGATIVE (NEGATIVE); COLOR,URINE YELLOW; GLUCOSE, URINE NEGATIVE (NEGATIVE); KETONES,URINE NEGATIVE (NEGATIVE); PROTEIN,URINE NEGATIVE (NEGATIVE); UROBILINOGEN,URINE NEGATIVE mg/dL (<2.0)
[2019-08-27] MEDS ORDERED: NORMAL SALINE 1000 ML 1,000 ML IV ONE (18:57)
--- NOTE | 2019-08-27 20:32 | RADIOLOGY REPORT (SQ) ---
EXAM DESCRIPTION: CT ABDOMEN PELVIS WITHOUT IV CONTRAST COMPLETED DATE/TME: 08/27/2019 18:56 CLINICAL HISTORY: 63 years, Female, abd pain COMPARISON: 08/24/2016 CT TECHNIQUE: 372 Images stored on PACS. All CT scanners at this facility use dose modulation, iterative reconstruction, and/or weight based dosing when appropriate to reduce radiation dose to as low as reasonably achievable (ALARA). [facility]: Dose Right [facility]: CareDose [facility]: Dose Right [facility]: Teradose 4D [facility]: [employer] LIMITATIONS: None. FINDINGS: Limited evaluation of the lung bases shows cardiomegaly with minor scarring in each lung base. Osseous structures are grossly intact. Limited evaluation of the liver, spleen, adrenal glands, pancreas, kidneys is unremarkable. Status post cholecystectomy. Negative for urinary tract calculus or hydronephrosis. No gross evidence for bowel obstruction. Abundant stool in the colon. Postsurgical changes of the intra-abdominal wall. No free air or free fluid. Appendix not well seen. No pericecal inflammation. IMPRESSION: No acute intra-abdominal/pelvic process TECHNICAL DOCUMENTATION: Quality ID # 436: Final reports with documentation of one or more dose reduction techniques (e.g., Automated exposure control, adjustment of the mA and/or kV according to patient size, use of iterative reconstruction technique) copyright 2011 [email or web address]- All Rights Reserved
[2019-08-27 22:45] VITALS: BP 111/73
== END 2019-08-27 22:56 | disposition home or self-care (01) ==
LOC: ER 16:03
DX: R10.30 Lower abdominal pain, unspecified (principal); E87.6 Hypokalemia; R10.2 Pelvic and perineal pain; R30.0 Dysuria; I50.9 Heart failure, unspecified; I25.10 Atherosclerotic heart disease of native coronary artery without angina pectoris; I11.0 Hypertensive heart disease with heart failure
CPT/HCPCS: 36415; 82553; 82550; 83690; 85025; 85610; 85730; 80053; 81001; 84484; 83605; 71046; 74176; J7030; 87086; 96360; 96361; 99284

== ENCOUNTER 2019-08-31 12:43 | Inpatient (IN) | payer MEDICARE, MEDICAID ==
--- NOTE | 2019-08-31 13:10 | ER Document Report ---
ED Medical Screen (RME) - General Chief Complaint: Altered Mental Status Stated Complaint: ALTERED MENTAL STATUS Time Seen by Provider: 08/31/19 13:00 Primary Care Provider: KEYLA KAUFMAN MD [Primary Care Provider] - Follow up as needed Mode of Arrival: Medic Information source: Patient Notes: Patient presents for complaint of altered mental status per family member. Patient is currently homeless and has been staying at a hotel. Family member not at bedside for history at this time. Patient has a history of A. fib, CHF as well as breast cancer. Patient was recently seen here in the ER a few days ago for abdominal pain. Patient poor historian, continually repeating "I think that is okay". RN at bedside who took care of patient several days ago states t hat this is a different presentation from when she was here previously. I have greeted and performed a rapid initial assessment of this patient. A comprehensive ED assessment and evaluation of the patient, analysis of test results and completion of the medical decision making process will be conducted by additional ED providers. TRAVEL OUTSIDE OF THE [place] IN LAST 30 DAYS: No - Related Data Allergies/Adverse Reactions: clemastine fumarate [From Tavist-1] Allergy (Severe, Verified 08/27/19 16:39) red spots,N/V Shark Cartilage [From Shark Fin Cartilage] Allergy (Severe, Verified 08/27/19 16:39) hives, n and v iodine [Iodine] Allergy (Unknown, Verified 08/27/19 16:39) vomit/rash meperidine HCl [From Demerol] Allergy (Unknown, Verified 08/27/19 16:39) N/V pseudoephedrine HCl [From Sudafed] Allergy (Unknown, Verified 08/27/19 16:39) rash/itch glove powder Allergy (Severe, Uncoded 08/27/19 16:39) hands swell,itch Past Medical History - Social History Family history: None - Past Medical History Cardiac Medical History: Reports: Hx Atrial Fibrillation, Hx Congestive Heart Failure, Hx Coronary Artery Disease, Hx Hypertension Denies: Hx Heart Attack Pulmonary Medical History: Reports: Hx Bronchitis, Hx Pneumonia, Hx Respiratory Failure, Hx Sleep Apnea Denies: Hx Asthma, Hx COPD Neurological Medical History: Denies: Hx Cerebrovascular Accident, Hx Migraine, Hx Seizures Endocrine Medical History: Reports: Hx Hypothyroidism. Denies: Hx Diabetes Mellitus Type 1, Hx Diabetes Mellitus Type 2, Hx Graves' Disease, Hx Hyperthyroidism Renal/ Medical History: Denies: Hx End Stage Renal Disease, Hx Kidney Stones, Hx Ovarian Cysts, Hx Peritoneal Dialysis, Hx Pelvic Inflammatory Disease Malignancy Medical History: Reports: Hx Breast Cancer. Denies: Hx Cervical Cancer, Hx Ovarian Cancer GI Medical History: Reports: Hx Colonoscopy. 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 Denies: Hx Appendectomy, Hx Bowel Surgery, Hx Cholecystectomy, Hx Colostomy, Hx Coronary Artery Bypass Graft, Hx Gastric Bypass Surgery, Hx Herniorrhaphy, Hx Pacemaker, Hx Tubal Ligation - Immunizations Hx Diphtheria, Pertussis, Tetanus Vaccination: Yes Physical Exam - Vital signs Vitals: Temp Pulse Resp BP Pulse Ox 97.7 F 78 26 H 119/82 98 08/31/19 12:51 08/31/19 12:51 08/31/19 12:51 08/31/19 12:51 08/31/19 12:51 - Respiratory Respiratory status: Tachypnea. No: Labored Chest status: Nontender Course - Vital Signs Vital signs: Temp Pulse Resp BP Pulse Ox 97.7 F 78 26 H 119/82 98 08/31/19 12:51 08/31/19 12:51 08/31/19 12:51 08/31/19 12:51 08/31/19 12:51 Doctor's Discharge - Discharge Referrals: KEYLA KAUFMAN MD [Primary Care Provider] - Follow up as needed
--- NOTE | 2019-08-31 14:11 | RADIOLOGY REPORT (SQ) ---
EXAM DESCRIPTION: CHEST SINGLE VIEW COMPLETED DATE/TIME: 08/31/2019 2:00 pm REASON FOR STUDY: AMS COMPARISON: 08/27/2019 NUMBER OF VIEWS: One view. TECHNIQUE: Single frontal radiographic view of the chest acquired. LIMITATIONS: None. FINDINGS: LUNGS AND PLEURA: No opacities, masses or pneumothorax. No pleural effusion. MEDIASTINUM AND HILAR STRUCTURES: No masses or contour abnormality. HEART AND VASCULATURE: Cardiac enlargement. Vascular congestion. BONES: No acute findings. HARDWARE: None in the chest. OTHER: No other significant finding. IMPRESSION: CARDIAC ENLARGEMENT. VASCULAR CONGESTION. TECHNICAL DOCUMENTATION: JOB ID: [id number] [employer]- All Rights Reserved Reading location - IP/workstation name: [email or web address]
--- NOTE | 2019-08-31 14:23 | RADIOLOGY REPORT (SQ) ---
EXAM DESCRIPTION: CT HEAD WITHOUT COMPLETED DATE/TIME: 08/31/2019 2:08 pm REASON FOR STUDY: AMS COMPARISON: 06/06/2019 TECHNIQUE: Axial images acquired through the brain without intravenous contrast. Images reviewed wi th bone, brain and subdural windows. Additional sagittal and coronal reconstructions were generated. Images stored on PACS. All CT scanners at this facility use dose modulation, iterative reconstruction, and/or weight based d osing when appropriate to reduce radiation dose to as low as reasonably achievable (ALARA). [facility]: Dose Right [facility]: CareDose [facility]: Dose Right [facility]: Teradose 4D [facility]: [employer] RADIATION DOSE: 1236 mGy cm LIMITATIONS: None. FINDINGS: VENTRICLES: Normal size and contour. CEREBRUM: No masses. No hemorrhage. No midline shift. No evidence for acute infarction. Normal gra y/white matter differentiation. No areas of low density in the white matter. CEREBELLUM: No masses. No hemorrhage. No alteration of density. No evidence for acute infarction. EXTRAAXIAL SPACES: No fluid collections. No masses. ORBITS AND GLOBE: No intra- or extraconal masses. Normal contour of globe without masses. CALVARIUM: No fracture. PARANASAL SINUSES: No fluid or mucosal thickening. SOFT TISSUES: No mass or hematoma. OTHER: No other significant finding. IMPRESSION: No acute intracranial pathology. EVIDENCE OF ACUTE STROKE: NO. COMMENT: Quality ID # 436: Final reports with documentation of one or more dose reduction techniques (e.g., Automated exposure control, adjustment of the mA and/or kV according to patient size, use of iterative reconstruction technique) TECHNICAL DOCUMENTATION: JOB ID: [id number] [employer]- All Rights Reserved Reading location - IP/workstation name: [email or web address]
[2019-08-31 14:56] LABS: ABSOLUTE EOSINOPHILS # (AUTO) 0.1 10^3/uL (0.0-0.6); ABSOLUTE LYMPHOCYTES (AUTO) 0.8 10^3/uL (0.5-4.7); ABSOLUTE MONOCYTES (AUTO) 0.6 10^3/uL (0.1-1.4); ABSOLUTE NEUT (AUTO) 2.8 10^3/uL (1.7-8.2); BASOPHILS % (AUTO) 0.8 % (0-2); EOSINOPHILS % (AUTO) 2.3 % (0-6); HEMATOCRIT 37.3 % (36.0-47.0); LYMPHOCYTES % (AUTO) 17.9 % (13-45); MEAN CORPUSCULAR HGB CONC 32.2 g/dL (32.0-36.0); MEAN CORPUSCULAR VOLUME 78 fl (80-97); MONOCYTES % (AUTO) 14.8 % (3-13); PLATELET COUNT 292 10^3/uL (150-450); RED BLOOD COUNT 4.79 10^6/uL (3.72-5.28); SEGMENTED NEUTROPHILS % (AUTO) 64.2 % (42-78); TOTAL CELLS COUNTED % (AUTO) 100 %; WHITE BLOOD COUNT 4.3 10^3/uL (4.0-10.5)
[2019-08-31 15:03] LABS: INTERNATIONAL RATION (INR) 1.15; PROTHROMBIN TIME 14.8 SEC (11.4-15.4)
[2019-08-31 15:04] LABS: PARTIAL THROMBOPLASTIN TIME 30.9 SEC (23.5-35.8)
[2019-08-31 15:18] LABS: ALBUMIN 2.3 g/dL (3.5-5.0); ALKALINE PHOSPHATASE 158 U/L (38-126); ASPARTATE AMINO TRANSFERASE 30 U/L (14-36); BILIRUBIN,DIRECT 0.2 mg/dL (0.0-0.4); BLOOD UREA NITROGEN 12 mg/dL (7-20); CALCIUM 8.5 mg/dL (8.4-10.2); GLUCOSE 74 mg/dL (75-110); POTASSIUM 3.2 mmol/L (3.6-5.0); TOTAL PROTEIN 5.2 g/dL (6.3-8.2)
[2019-08-31 15:24] LABS: ANION GAP 3 (5-19); CARBON DIOXIDE 37 mmol/L (22-30); CHLORIDE 100 mmol/L (98-107)
[2019-08-31] MEDS: NORMAL SALINE 1000 ML 1,000 ML IV PRN ×2 (16:02→16:32)
--- NOTE | 2019-08-31 16:29 | ER Document Report ---
ED General - General Chief Complaint: Altered Mental Status Stated Complaint: ALTERED MENTAL STATUS Time Seen by Provider: 08/31/19 13:00 Primary Care Provider: EKYLA KAUFMAN MD [Primary Care Provider] - Follow up as needed Mode of Arrival: Medic TRAVEL OUTSIDE OF THE [place] IN LAST 30 DAYS: No - HPI Notes: Patient is a 63-year-old female, brought in for evaluation of altered mental status. Her son is the primary historian. He states that she was evicted from her home a few weeks ago. She has been staying with friends, staying in hotels. He states he has been trying to keep an eye on her. He last saw her, she was normal, on . He does report that she fell on Monday. He states that she was acting normally after that. Today he was able to reach her, and she was "talking out of her head." He is unaware of any time in the past where she had done that before. I am unable to obtain any meaningful history from the patient at this time. - Related Data Allergies/Adverse Reactions: clemastine fumarate [From Tavist-1] Allergy (Severe, Verified 08/27/19 16:39) red spots,N/V Shark Cartilage [From Shark Fin Cartilage] Allergy (Severe, Verified 08/27/19 16:39) hives, n and v iodine [Iodine] Allergy (Unknown, Verified 08/27/19 16:39) vomit/rash meperidine HCl [From Demerol] Allergy (Unknown, Verified 08/27/19 16:39) N/V pseudoephedrine HCl [From Sudafed] Allergy (Unknown, Verified 08/27/19 16:39) rash/itch glove powder Allergy (Severe, Uncoded 08/27/19 16:39) hands swell,itch Past Medical History - General Information source: Relative, [facility] Records - Social History Smoking Status: Never Smoker Frequency of alcohol use: Rare Drug Abuse: None Family History: CAD, DM, Hyperlipidemia, Hypertension, Malignancy Patient has suicidal ideation: No Patient has homicidal ideation: No - Past Medical History Cardiac Medical History: Reports: Hx Atrial Fibrillation, Hx Congestive Heart Failure, Hx Coronary Artery Disease, Hx Hypertension Denies: Hx Heart Attack Pulmonary Medical History: Reports: Hx Bronchitis, Hx Pneumonia, Hx Respiratory Failure, Hx Sleep Apnea Denies: Hx Asthma, Hx COPD Neurological Medical History: Denies: Hx Cerebrovascular Accident, Hx Migraine, Hx Seizures Endocrine Medical History: Reports: Hx Hypothyroidism. Denies: Hx Diabetes Mellitus Type 1, Hx Diabetes Mellitus Type 2, Hx Graves' Disease, Hx Hypert hyroidism Renal/ Medical History: Denies: Hx End Stage Renal Disease, Hx Kidney Stones, Hx Ovarian Cysts, Hx Peritoneal Dialysis, Hx Pelvic Inflammatory Disease Malignancy Medical History: Reports: Hx Breast Cancer. Denies: Hx Cervical Cancer, Hx Ovarian Cancer GI Medical History: Reports: Hx Colonoscopy. 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 Denies: Hx Appendectomy, Hx Bowel Surgery, Hx Cholecystectomy, Hx Colostomy, Hx Coronary Artery Bypass Graft, Hx Gastric Bypass Surgery, Hx Herniorrhaphy, Hx Pacemaker, Hx Tubal Ligation - Immunizations Hx Diphtheria, Pertussis, Tetanus Vaccination: Yes Hx Pneumococcal Vaccination: 07/07/11 Review of Systems - Review of Systems -: Yes ROS unobtainable due to patient's medical condition Physical Exam - Vital signs Vitals: Pulse Ox 100 08/31/19 12:44 Course - Re-evaluation Re-evalutation: 08/31/19 16:49 Patient presents emergency department for evaluation of altered mental status. She did have mildly low blood pressures during times in her stay, but per nursing she has had that in the past. Her heart rate was in the 80s and 90s. Her mental status did not wax and wane, she remained altered throughout the course of her stay. I cannot find any clear reason for this at this time. No clear UTI. No leukocytosis. Her CT scan of the head is normal. She is moving her head without difficulty, no nuchal rigidity. She is afebrile. At this point her troponin is still pending, but I do not have a strong suspicion of a cardiac etiology at this time. She is oxygenating well. Given her elevated respiratory rate intermittently, her borderline blood pressures, and her altered mental status, will cover for sepsis. She is administered IV cefepime, cultures are pending. I spoke with Dr. Velazquez about this patient. He did remark that her bicarb is up, we will order an ABG as well. Urine drug screen and blood alcohol pending. At this time, patient will require admission. I suspect she will be [place] [facility] Please note that any abnormal results in the remainder of her testing could alter disposition. 08/31/19 16:51 - Vital Signs Vital signs: Temp Pulse Resp BP Pulse Ox 97.7 F 78 22 H 85/51 L 100 08/31/19 12:51 08/31/19 12:51 08/31/19 14:03 08/31/19 14:03 08/31/19 14:03 - Laboratory Result Diagrams: 08/31/19 14:43 08/31/19 14:43 Laboratory results interpreted by me: 08/31/19 08/31/19 08/31/19 14:43 14:43 16:27 MCV 78 L MCH 25.0 L RDW 17.0 H [place] % (Auto) 14.8 H Potassium 3.2 L Carbon Dioxide 37 H Anion Gap 3 L Glucose 74 L Alkaline Phosphatase 158 H Total Protein 5.2 L Albumin 2.3 L Urine Urobilinogen 2.0 H Urine Ascorbic Acid 40 H - Diagnostic Test Radiology reviewed: Image reviewed, Reports reviewed Radiology results interpreted by me: 08/31/19 16:50 Chest X-Ray 08/31/19 13:04 IMPRESSION: CARDIAC ENLARGEMENT. VASCULAR CONGESTION. Head CT 08/31/19 13:07 IMPRESSION: No acute intracranial pathology. EVIDENCE OF ACUTE STROKE: NO. - EKG Interpretation by Me Additional EKG results interpreted by me: 08/31/19 16:50 Atrial fibrillation with a rate of 90 bpm. Normal axis, borderline QT interval. Nonspecific ST changes, but no acute changes concerning for ischemia or infarction. No significant change in compared to prior study. Discharge - Discharge Clinical Impression: Altered mental status Condition: Stable Disposition: ADMITTED INPATIENT Admitting Provider: Caroline (Hospitalist) Unit Admitted: [facility]U Referrals: KEYLA KAUFMAN MD [Primary Care Provider] - Follow up as needed
[2019-08-31] MEDS ORDERED: CEFEPIME 2 GM/D5W RTU 2 GM/50 ML RTUPB IV ONE (16:35)
[2019-08-31 16:40] LABS: APPEARANCE,URINE CLEAR; BILIRUBIN,URINE NEGATIVE (NEGATIVE); COLOR,URINE YELLOW; GLUCOSE, URINE NEGATIVE (NEGATIVE); KETONES,URINE NEGATIVE (NEGATIVE); PROTEIN,URINE NEGATIVE (NEGATIVE); URINE SPECIFIC GRAVITY 1.014
[2019-08-31 16:47] LABS: NT PRO BNP 1150 pg/mL (<125)
[2019-08-31 16:50] LABS: TROPONIN I < 0.012 ng/mL
[2019-08-31 17:00] LABS: URINE AMPHETAMINES SCREEN NEGATIVE; URINE BARBITURATES SCREEN NEGATIVE; URINE BENZODIAZEPINES SCREEN NEGATIVE; URINE COCAINE SCREEN NEGATIVE; URINE MARIJUANA (THC) SCREEN NEGATIVE; URINE METHADONE SCREEN NEGATIVE; URINE PHENCYCLIDINE SCREEN NEGATIVE
[2019-08-31 17:54] LABS: FREE T3 3.52 pg/mL (2.77-5.27); FREE T4 (FREE THYROXINE) 1.81 ng/dL (0.78-2.19)
[2019-08-31 18:08] LABS: THYROID STIMULATING HORMONE 2.39 uIU/mL (0.47-4.68)
[2019-08-31] MEDS ORDERED: POTASSI CL 20 MEQ/D5-1/2NS 1L 1,000 ML IV PRN (18:17)
[2019-08-31 18:36] LABS: ARTERIAL BLOOD BASE EXCESS 9.6 mmol/L; ARTERIAL BLOOD H2CO3 1.33 mmol/L (1.05-1.35); ARTERIAL BLOOD HCO3 33.9 mmol/L (20-24); ARTERIAL BLOOD O2 SATURATION 96.2 % (94-98); ARTERIAL BLOOD PCO2 44.1 mmHg (35-45); ARTERIAL BLOOD PO2 76.2 mmHg (80-100); ARTERIAL BLOOD TOTAL CO2 35.2 mmol/L (21-25)
[2019-08-31 18:38] LABS: ARTERIAL BLOOD FIO2 ROOM AIR
--- NOTE | 2019-08-31 18:38 | PDOC H&P ---
History of Present Illness Admission Date/PCP: KEYLA KAUFMAN MD History of Present Illness: MICHAEL BOWLING is a 63 year old female with multiple medical issues including noncompliance with treatment for sleep apnea, morbid obesity, hypertension, hypothyroidism, hyperlipidemia, and history of an elevated ammonia level of unknown etiology who has been admitted 4 or 5 times this year already, and every time she gets admitted, what ever the reason for admission is, is accompanied by an encephalopathy. This time she is been living in a hotel and she was found by her son who said that her mental status was altered and so she was brought to the emergency department. Her labs are all pretty normal except for an elevated ammonia level, which is not as high as it has been previously. She is now on any medications that should elevate her ammonia level and she does not have any history of any liver disease, but it is noted that her INR is a little bit above normal at 1.15. She does not take warfarin or any other anticoagulant, and on previous abdominal imaging she has not been reported to have liver pathology. She is mostly laying there moaning but she does respond to pain because whenever somebody tries to draw her blood or when they try to get her ABG she made quite an exaggerated show of it. Her head CT was unremarkable. Toxicological screen was unremarkable. ABG is pending. Serum CO2 was elevated at 37. She is being admitted for further evaluation. Past Medical History Cardiac Medical History: Reports: Atrial Fibrillation, Congestive Heart Failure, Coronary Artery Disease, Hypertension Denies: Myocardial Infarction Pulmonary Medical History: Reports: Bronchitis, Pneumonia, Respiratory Failure, Sleep Apnea Denies: Asthma, Chronic Obstructive Pulmonary Disease (COPD) Neurological Medical History: Denies: Migraine, Seizures Endocrine Medical History: Reports: Hypothyroidism Denies: Diabetes Mellitus Type 1, Diabetes Mellitus Type 2, Hyperthyroidism Renal/ Medical History: Denies: End Stage Renal Disease Malignancy Medical History: Reports: Breast Cancer Denies: Cervical Cancer, Ovarian Cancer GI Medical History: Denies: Cirrhosis, Crohn's Disease, Gastroesophageal Reflux Disease, Hepatitis, Hiatal Hernia, Ulcerative Colitis Musculoskeltal Medical History: Reports: Arthritis - bilateral knees Denies: Fibromyalgia, Gout Skin Medical History: Denies: Eczema, Psoriasis Psychiatric Medical History: Denies: Depression Hematology: Reports: Anemia Denies: Sickle Cell Disease, Bleeding Tendencies Past Surgical History Past Surgical History: Reports: Section, Hysterectomy, Mastectomy - right partial, Tonsillectomy, Other - Several childhood surgeries Denies: Amputation, Appendectomy, Cholecystectomy, Colostomy, Coronary Artery Bypass Graft, Gastric Bypass Surgery, Herniorrhaphy, Pacemaker, Tubal Ligation Social History Smoking Status: Never Smoker Frequency of Alcohol Use: Rare Hx Recreational Drug Use: No Drugs: None Hx Prescription Drug Abuse: No Family History Family History: CAD, DM, Hyperlipidemia, Hypertension, Malignancy Parental Family History Reviewed: No - Unable to obtain Children Family History Reviewed: No - Unable to obtain Sibling(s) Family History Reviewed.: No - Unable to obtain Medication/Allergy Home Medications: Atorvastatin Calcium [Lipitor 20 mg Tablet] 20 mg PO QHS 06/06/19 Clopidogrel Bisulfate [Plavix 75 mg Tablet] 75 mg PO DAILY 06/06/19 Diltiazem HCl [Diltiazem 12Hr ER] 120 mg PO Q12 06/06/19 Levothyroxine Sodium [Synthroid 0.1 mg Tablet] 0.1 mg PO Q6AM 06/06/19 Metoprolol Succinate [Toprol Xl 25 mg Tab.sr] 25 mg PO DAILY 06/06/19 Nitroglycerin [Nitro-Dur 5 mg (0.2 mg/Hr) Transdermal Patch] 1 patch TD QAM 06/06/19 Pantoprazole Sodium [Protonix [address] Tablet] 40 mg PO Q6AM 06/06/19 Potassium Chloride [Klor-Con 10 Meq Capsule ER] 10 meq PO DAILY 06/06/19 Torsemide [Demadex] 40 mg PO BID 06/06/19 Dicyclomine HCl [Bentyl 20 mg Tablet] 20 mg PO QID PRN 08/27/19 Allergies/Adverse Reactions: clemastine fumarate [From Tavist-1] Allergy (Severe, Verified 08/27/19 16:39) red spots,N/V Shark Cartilage [From Shark Fin Cartilage] Allergy (Severe, Verified 08/27/19 16:39) hives, n and v iodine [Iodine] Allergy (Unknown, Verified 08/27/19 16:39) vomit/rash meperidine HCl [From Demerol] Allergy (Unknown, Verified 08/27/19 16:39) N/V pseudoephedrine HCl [From Sudafed] Allergy (Unknown, Verified 08/27/19 16:39) rash/itch glove powder Allergy (Severe, Uncoded 08/27/19 16:39) hands swell,itch Review of Systems ROS unobtainable: Due to mental status Physical Exam Vital Signs: Temp Pulse Resp BP Pulse Ox 97.7 F 78 22 H 85/51 L 100 08/31/19 12:51 08/31/19 12:51 08/31/19 14:03 08/31/19 14:03 08/31/19 14:03 Intake & Output 08/30/19 08/31/19 09/01/19 06:59 06:59 06:59 Intake Total 1550 Balance 1550 Weight 158.5 kg General appearance: PRESENT: disheveled, mild distress, morbidly obese Head exam: PRESENT: atraumatic, normocephalic Eye exam: ABSENT: conjunctival injection, nystagmus, scleral icterus Ear exam: PRESENT: normal external ear exam Mouth exam: PRESENT: neck supple Teeth exam: PRESENT: poor dentation Neck exam: PRESENT: full ROM. ABSENT: carotid bruit, JVD, lymphadenopathy, meningismus, tenderness, thyromegaly Respiratory exam: PRESENT: clear to auscultation refugio, symmetrical, unlabored. ABSENT: accessory muscle use, chest wall tenderness, crackles, prolonged expiratory phas, rhonchi, tachypnea, wheezes Cardiovascular exam: PRESENT: RRR, +S1, +S2 Pulses: PRESENT: normal carotid pulses Vascular exam: PRESENT: normal capillary refill GI/Abdominal exam: PRESENT: normal bowel sounds, soft. ABSENT: distended, guarding, tenderness Extremities exam: PRESENT: +1 edema - Chronic in appearance. ABSENT: clubbing, pedal edema Musculoskeletal exam: PRESENT: normal inspection. ABSENT: deformity Neurological exam: PRESENT: altered, other - She would not cooperate for neurological examination but she did not show any evidence of any focal or lateralizing deficits grossly Skin exam: PRESENT: dry, warm, other - She had a lot of flaking of the skin and evidence of long-standing chronic venous insufficiency in the lower extremities distal to the knee Results Laboratory Results: 08/31/19 14:43 08/31/19 14:43 08/31/19 08/31/19 08/31/19 14:43 14:43 14:43 WBC 4.3 RBC 4.79 Hgb 12.0 Hct 37.3 MCV 78 L MCH 25.0 L MCHC 32.2 RDW 17.0 H Plt Count 292 Seg Neutrophils % 64.2 Carbonic Acid HCO3/H2CO3 Ratio ABG pH ABG pCO2 ABG pO2 ABG HCO3 ABG O2 Saturation ABG Base Excess FiO2 Sodium 140.0 Potassium 3.2 L Chloride 100 Carbon Dioxide 37 H Anion Gap 3 L BUN 12 Creatinine 0.94 Est GFR ( Amer) > 60 Glucose 74 L Lactic Acid Calcium 8.5 Magnesium 1.9 Total Bilirubin 1.0 AST 30 Alkaline Phosphatase 158 H Ammonia Total Protein 5.2 L Albumin 2.3 L TSH Free T4 Free T3 pg/mL Urine Color Urine Appearance Urine pH Ur Specific [place] Urine Protein Urine Glucose (UA) Urine Ketones Urine Blood Urine RBC (Auto) 08/31/19 08/31/19 08/31/19 14:43 15:55 16:27 WBC RBC Hgb Hct MCV MCH MCHC RDW Plt Count Seg Neutrophils % Carbonic Acid HCO3/H2CO3 Ratio ABG pH ABG pCO2 ABG pO2 ABG HCO3 ABG O2 Saturation ABG Base Excess FiO2 Sodium Potassium Chloride Carbon Dioxide Anion Gap BUN Creatinine Est GFR ( Amer) Glucose Lactic Acid 1.3 Calcium Magnesium Total Bilirubin AST Alkaline Phosphatase Ammonia Total Protein Albumin TSH 2.39 Free T4 1.81 Free T3 pg/mL 3.52 Urine Color YELLOW Urine Appearance CLEAR Urine pH 6.0 Ur Specific [place] 1.014 Urine Protein NEGATIVE Urine Glucose (UA) NEGATIVE Urine Ketones NEGATIVE Urine Blood NEGATIVE Urine RBC (Auto) 0 08/31/19 08/31/19 16:55 17:32 WBC RBC Hgb Hct MCV MCH MCHC RDW Plt Count Seg Neutrophils % Carbonic Acid Cancelled HCO3/H2CO3 Ratio Cancelled ABG pH Cancelled ABG pCO2 Cancelled ABG pO2 Cancelled ABG HCO3 Cancelled ABG O2 Saturation Cancelled ABG Base Excess Cancelled FiO2 Cancelled Sodium Potassium Chloride Carbon Dioxide Anion Gap BUN Creatinine Est GFR ( Amer) Glucose Lactic Acid Calcium Magnesium Total Bilirubin AST Alkaline Phosphatase Ammonia 85.1 H Total Protein Albumin TSH Free T4 Free T3 pg/mL Urine Color Urine Appearance Urine pH Ur Specific [place] Urine Protein Urine Glucose (UA) Urine Ketones Urine Blood Urine RBC (Auto) 08/31/19 15:55 Troponin I < 0.012 NT-Pro-B Natriuret Pep 1150 H Impressions: Chest X-Ray 08/31/19 13:04 IMPRESSION: CARDIAC ENLARGEMENT. VASCULAR CONGESTION. Head CT 08/31/19 13:07 IMPRESSION: No acute intracranial pathology. EVIDENCE OF ACUTE STROKE: NO. Assessment and Plan - Diagnosis (1) Encephalopathy Is this a current diagnosis for this admission?: Yes Plan: Etiology unknown. Her ammonia level is elevated for an undetermined reason. This is happened her before. I am going to give her some lactulose. I am also trying to get an ABG because she is got untreated sleep apnea, morbid obesity, and elevated serum CO2. If her arterial PO2 is elevated, will start BiPAP. She also takes Synthroid so I am going to check her TSH, T3, and T4 levels. (2) Hyperammonemia Is this a current diagnosis for this admission?: Yes Plan: Starting lactulose as noted above, will probably get a right upper quadrant ultrasound as she is not on any medications that would cause her ammonia levels to be elevated and she is got no prior history of any liver pathology but get the ultrasound for more detailed examination. (3) Hypokalemia Is this a current diagnosis for this admission?: Yes Plan: Putting her on some IV fluids with some potassium (4) Morbid (severe) obesity due to excess calories Is this a current diagnosis for this admission?: Yes Plan: We will strongly encouraged lifestyle modification - Time Time Spent with patient: 35 or more minutes - Inpatient Certification Based on my medical assessment, after consideration of the patient's comorbidities, presenting symptoms, or acuity I expect that the services needed warrant INPATIENT care.: Yes I certify that my determination is in accordance with my understanding of Medicare's requirements for reasonable and necessary INPATIENT services [42 CFR 412.3e].: Yes Medical Necessity: Need Close Monitoring Due to Risk of Patient Decompensation, Need For Continuous Telemetry Monitoring, Need for Neurological Checks
[2019-08-31] MEDS: LACTULOSE SYRUP 20 GM/30 ML UDCUP PO SCH ×2 (19:28→23:46)
--- NOTE | 2019-08-31 21:23 | EKG REPORT ---
SEVERITY:- ABNORMAL ECG - ATRIAL FIBRILLATION MULTIPLE VENTRICULAR PREMATURE COMPLEXES LOW VOLTAGE THROUGHOUT BORDERLINE T ABNORMALITIES, INFERIOR LEADS : Confirmed by: Jaja Khanna MD 31-Aug-2019 21:23:18
[2019-08-31] MEDS: HEPARIN SOD (PORCINE) 5,000 UNIT/ML 1 ML VIAL SUBCUT SCH (22:37)
[2019-08-31] MEDS ORDERED: INFLUENZA QUAD (6MOS+) 2019-20 VAC 0.5 ML SYR IM ONE (23:16)
[2019-08-31] MEDS ORDERED: NORMAL SALINE 10 ML SDV (AFTER EACH USE) IV PRN (23:30)
[2019-09-01] MEDS: LEVOTHYROXINE SODIUM 0.1 MG TABLET PO SCH (06:06)
[2019-09-01] MEDS: HEPARIN SOD (PORCINE) 5,000 UNIT/ML 1 ML VIAL SUBCUT SCH ×3 (06:06→22:57)
[2019-09-01] MEDS: LACTULOSE SYRUP 20 GM/30 ML UDCUP PO SCH ×4 (06:06→22:57)
[2019-09-01 07:02] LABS: HEMATOCRIT 37.8 % (36.0-47.0); HEMOGLOBIN 12.2 g/dL (12.0-15.5); MEAN CORPUSCULAR HEMOGLOBIN 25.2 pg (27.0-33.4); MEAN CORPUSCULAR HGB CONC 32.3 g/dL (32.0-36.0); MEAN CORPUSCULAR VOLUME 78 fl (80-97); PLATELET COUNT 245 10^3/uL (150-450); RED BLOOD COUNT 4.84 10^6/uL (3.72-5.28); RED CELL DISTRIBUTION WIDTH 16.9 % (11.5-14.0); WHITE BLOOD COUNT 4.1 10^3/uL (4.0-10.5)
[2019-09-01 07:03] LABS: BLOOD UREA NITROGEN 10 mg/dL (7-20); CALCIUM 8.3 mg/dL (8.4-10.2); CARBON DIOXIDE 34 mmol/L (22-30); CHLORIDE 104 mmol/L (98-107); GLUCOSE 85 mg/dL (75-110); POTASSIUM 3.2 mmol/L (3.6-5.0)
[2019-09-01 07:14] LABS: ANION GAP 4 (5-19)
[2019-09-01] MEDS: NORMAL SALINE 10 ML SDV (SCHEDULED) IV SCH ×2 (09:11→21:57)
[2019-09-01] MEDS ORDERED: POTASSIUM CHLORIDE 10 MEQ CAPSULE.ER PO ONE ×2 (09:17→12:30)
[2019-09-01] MEDS ORDERED: METOPROLOL SUCCINATE 25 MG TAB.SR.24H PO SCH (10:00)
--- NOTE | 2019-09-01 13:26 | PDOC PROGRESS REPORT ---
Subjective Progress Note for:: 09/01/19 Subjective:: No adverse events overnight. No new complaints. Mental status has improved some. She did not remember me from the ER yesterday. She is more alert and interactive and talkative today. Reason For Visit: ENCEPHALOPATHY Physical Exam Vital Signs: Temp Pulse Resp BP Pulse Ox 97.3 F 90 18 111/58 L 97 09/01/19 10:57 09/01/19 10:57 09/01/19 10:57 09/01/19 10:57 09/01/19 10:57 Intake & Output 08/31/19 09/01/19 09/02/19 06:59 06:59 06:59 Intake Total 1550 360 Output Total 0 Balance 1550 360 Weight 158.9 kg General appearance: PRESENT: no acute distress, cooperative, disheveled, morbidly obese Cardiovascular exam: PRESENT: irregular rhythm Pulses: PRESENT: normal carotid pulses Vascular exam: PRESENT: normal capillary refill GI/Abdominal exam: PRESENT: normal bowel sounds, soft. ABSENT: distended, guarding, rebound, tenderness Extremities exam: PRESENT: +1 edema - Chronic. ABSENT: clubbing, pedal edema Musculoskeletal exam: PRESENT: deformity, normal inspection Neurological exam: PRESENT: alert, awake, oriented to person, oriented to place Psychiatric exam: PRESENT: flat affect Skin exam: PRESENT: dry, warm Results Laboratory Results: 09/01/19 06:39 09/01/19 06:39 08/31/19 08/31/19 08/31/19 14:43 14:43 14:43 WBC 4.3 RBC 4.79 Hgb 12.0 Hct 37.3 MCV 78 L MCH 25.0 L MCHC 32.2 RDW 17.0 H Plt Count 292 Seg Neutrophils % 64.2 Carbonic Acid HCO3/H2CO3 Ratio ABG pH ABG pCO2 ABG pO2 ABG HCO3 ABG O2 Saturation ABG Base Excess FiO2 Sodium 140.0 Potassium 3.2 L Chloride 100 Carbon Dioxide 37 H Anion Gap 3 L BUN 12 Creatinine 0.94 Est GFR ( Amer) > 60 Glucose 74 L Lactic Acid Calcium 8.5 Magnesium 1.9 Total Bilirubin 1.0 AST 30 Alkaline Phosphatase 158 H Ammonia Total Protein 5.2 L Albumin 2.3 L TSH Free T4 Free T3 pg/mL Urine Color Urine Appearance Urine pH Ur Specific [place] Urine Protein Urine Glucose (UA) Urine Ketones Urine Blood Urine RBC (Auto) 08/31/19 08/31/19 08/31/19 14:43 15:55 16:27 WBC RBC Hgb Hct MCV MCH MCHC RDW Plt Count Seg Neutrophils % Carbonic Acid HCO3/H2CO3 Ratio ABG pH ABG pCO2 ABG pO2 ABG HCO3 ABG O2 Saturation ABG Base Excess FiO2 Sodium Potassium Chloride Carbon Dioxide Anion Gap BUN Creatinine Est GFR ( Amer) Glucose Lactic Acid 1.3 Calcium Magnesium Total Bilirubin AST Alkaline Phosphatase Ammonia Total Protein Albumin TSH 2.39 Free T4 1.81 Free T3 pg/mL 3.52 Urine Color YELLOW Urine Appearance CLEAR Urine pH 6.0 Ur Specific [place] 1.014 Urine Protein NEGATIVE Urine Glucose (UA) NEGATIVE Urine Ketones NEGATIVE Urine Blood NEGATIVE Urine RBC (Auto) 0 08/31/19 08/31/19 08/31/19 16:55 17:32 18:15 WBC RBC Hgb Hct MCV MCH MCHC RDW Plt Count Seg Neutrophils % Carbonic Acid Cancelled 1.33 HCO3/H2CO3 Ratio Cancelled 25:1 ABG pH Cancelled 7.50 H ABG pCO2 Cancelled 44.1 ABG pO2 Cancelled 76.2 L ABG HCO3 Cancelled 33.9 H ABG O2 Saturation Cancelled 96.2 ABG Base Excess Cancelled 9.6 FiO2 Cancelled ROOM AIR Sodium Potassium Chloride Carbon Dioxide Anion Gap BUN Creatinine Est GFR ( Amer) Glucose Lactic Acid Calcium Magnesium Total Bilirubin AST Alkaline Phosphatase Ammonia 85.1 H Total Protein Albumin TSH Free T4 Free T3 pg/mL Urine Color Urine Appearance Urine pH Ur Specific [place] Urine Protein Urine Glucose (UA) Urine Ketones Urine Blood Urine RBC (Auto) 09/01/19 09/01/19 09/01/19 06:39 06:39 06:39 WBC 4.1 RBC 4.84 Hgb 12.2 Hct 37.8 MCV 78 L MCH 25.2 L MCHC 32.3 RDW 16.9 H Plt Count 245 Seg Neutrophils % Carbonic Acid HCO3/H2CO3 Ratio ABG pH ABG pCO2 ABG pO2 ABG HCO3 ABG O2 Saturation ABG Base Excess FiO2 Sodium 141.8 Potassium 3.2 L Chloride 104 Carbon Dioxide 34 H Anion Gap 4 L BUN 10 Creatinine 0.80 Est GFR ( Amer) > 60 Glucose 85 Lactic Acid Calcium 8.3 L Magnesium Total Bilirubin AST Alkaline Phosphatase Ammonia 57.8 H Total Protein Albumin TSH Free T4 Free T3 pg/mL Urine Color Urine Appearance Urine pH Ur Specific [place] Urine Protein Urine Glucose (UA) Urine Ketones Urine Blood Urine RBC (Auto) 08/31/19 15:55 Troponin I < 0.012 NT-Pro-B Natriuret Pep 1150 H Impressions: Chest X-Ray 08/31/19 13:04 IMPRESSION: CARDIAC ENLARGEMENT. VASCULAR CONGESTION. Head CT 08/31/19 13:07 IMPRESSION: No acute intracranial pathology. EVIDENCE OF ACUTE STROKE: NO. Assessment and Plan - Diagnosis (1) Encephalopathy Is this a current diagnosis for this admission?: Yes Plan: Suspected to be at this point a metabolic encephalopathy from hyperammonemia. Giving lactulose and ammonia level is coming down. (2) Hyperammonemia Is this a current diagnosis for this admission?: Yes Plan: Etiology at this time is unknown. She said numerous elevated ammonia levels in the past with no explanation. I have ordered creatine kinase panel, urine m yoglobin, carnitine levels, and a right upper quadrant ultrasound with Doppler. There is no known history of any inborn error of metabolism, but if that was the case we would have expected it to announce itself but now. (3) Hypokalemia Is this a current diagnosis for this admission?: Yes Plan: We will give her an oral supplement (4) Morbid (severe) obesity due to excess calories Is this a current diagnosis for this admission?: Yes Plan: Strongly encouraged lifestyle modification - Time Time Spent with patient: 25-34 minutes
--- NOTE | 2019-09-01 14:31 | RADIOLOGY REPORT (SQ) ---
EXAM DESCRIPTION: U/S ABDOMEN LTD W/DOPPLER COMPLETED DATE/TIME: 09/01/2019 1:55 pm REASON FOR STUDY: hyperammonemia COMPARISON: CT abdomen and pelvis without contrast 08/27/2019. TECHNIQUE: Dynamic and static grayscale images acquired of the abdomen and recorded on PACS. Additio nal selected color Doppler and spectral images recorded. LIMITATIONS: Limitation due to body habitus FINDINGS: PANCREAS: Not well visualized due to bowel gas. LIVER: The liver measures 13.4 cm demonstrating increased echogenicity consistent with hepatocellular disease or fatty infiltration. LIVER VASCULATURE: Normal directional flow of the main portal vein and hepatic veins. GALLBLADDER: Status post cholecystectomy. INTRAHEPATIC DUCTS AND COMMON DUCT: CBD measures 3 mm. Intrahepatic ducts normal caliber. No filling defects. INFERIOR VENA CAVA: Normal flow. AORTA: No aneurysm. RIGHT KIDNEY: The right kidney measures 11.3 x 4.8x5.1 cm. No hydronephrosis. Doppler flow noted. PERITONEAL AND RIGHT PLEURAL SPACE: No ascites or effusions. OTHER: No other significant findings. IMPRESSION: Findings consistent with fatty infiltration of the liver. Status post cholecystectomy. TECHNICAL DOCUMENTATION: JOB ID: [id number] 2010 [employer]- All Rights Reserved Reading location - IP/workstation name: [email or web address]
[2019-09-02] MEDS: IPRATROPIUM/ALBUTEROL 0.5-2.5 MG/3 ML AMPUL NEB PRN ×3 (04:31→20:34)
[2019-09-02] MEDS: LACTULOSE SYRUP 20 GM/30 ML UDCUP PO SCH ×2 (06:47→17:31)
[2019-09-02] MEDS: HEPARIN SOD (PORCINE) 5,000 UNIT/ML 1 ML VIAL SUBCUT SCH ×3 (06:47→21:29)
[2019-09-02] MEDS: LEVOTHYROXINE SODIUM 0.1 MG TABLET PO SCH (06:47)
[2019-09-02 07:40] LABS: HEMATOCRIT 37.5 % (36.0-47.0); HEMOGLOBIN 12.1 g/dL (12.0-15.5); MEAN CORPUSCULAR HEMOGLOBIN 25.2 pg (27.0-33.4); MEAN CORPUSCULAR HGB CONC 32.2 g/dL (32.0-36.0); MEAN CORPUSCULAR VOLUME 78 fl (80-97); PLATELET COUNT 254 10^3/uL (150-450); RED BLOOD COUNT 4.79 10^6/uL (3.72-5.28); RED CELL DISTRIBUTION WIDTH 17.2 % (11.5-14.0); WHITE BLOOD COUNT 4.8 10^3/uL (4.0-10.5)
[2019-09-02 08:03] LABS: ANION GAP 5 (5-19); BLOOD UREA NITROGEN 7 mg/dL (7-20); CALCIUM 8.4 mg/dL (8.4-10.2); CARBON DIOXIDE 31 mmol/L (22-30); CHLORIDE 103 mmol/L (98-107); GLUCOSE 94 mg/dL (75-110); POTASSIUM 3.2 mmol/L (3.6-5.0)
[2019-09-02] MEDS ORDERED: POTASSIUM CHLORIDE 10 MEQ CAPSULE.ER PO ONE (09:00)
[2019-09-02] MEDS: NORMAL SALINE 10 ML SDV (SCHEDULED) IV SCH ×2 (09:06→21:23)
[2019-09-02] MEDS: METOPROLOL SUCCINATE 25 MG TAB.SR.24H PO SCH ×2 (09:13→21:29)
[2019-09-02] MEDS: TORSEMIDE 20 MG TABLET PO SCH ×2 (09:45→17:31)
[2019-09-02] MEDS: CLOPIDOGREL BISULFATE 75 MG TABLET PO SCH (09:45)
[2019-09-02] MEDS: POTASSIUM CHLORIDE 10 MEQ CAPSULE.ER PO SCH (09:46)
[2019-09-02] MEDS: DILTIAZEM HCL 120 MG CAP.SR.24H PO SCH ×2 (09:47→21:32)
[2019-09-02] MEDS ORDERED: (PENDING PHARMACY ID) (Diltiazem Hcl [Diltiazem 12hr Er] 120 MG) PO SCH (10:00)
--- NOTE | 2019-09-02 15:59 | PDOC TRANSFER SUMMARY ---
Impression - Admit/DC Date/PCP Admission Date/Primary Care Provider: 08/31/19 18:48 KEYLA KAUFMAN MD Discharge Date: 09/03/19 - Discharge Diagnosis (1) Encephalopathy Is this a current diagnosis for this admission?: Yes (2) Hyperammonemia Is this a current diagnosis for this admission?: Yes (3) Hypokalemia Is this a current diagnosis for this admission?: Yes (4) Morbid (severe) obesity due to excess calories Is this a current diagnosis for this admission?: Yes - Additional Information Resuscitation Status: Full Code Discharge Diet: Cardiac, Diabetic Discharge Activity: Supervised Activity Referrals: KEYLA KAUFMAN MD [Primary Care Provider] - Follow up as needed Home Medications: Atorvastatin Calcium [Lipitor 20 mg Tablet] 20 mg PO QHS 06/06/19 Clopidogrel Bisulfate [Plavix 75 mg Tablet] 75 mg PO DAILY 06/06/19 Diltiazem HCl [Diltiazem 12Hr ER] 120 mg PO Q12 06/06/19 Levothyroxine Sodium [Synthroid 0.1 mg Tablet] 0.1 mg PO Q6AM 06/06/19 Metoprolol Succinate [Toprol Xl 25 mg Tab.sr] 25 mg PO DAILY 06/06/19 Nitroglycerin [Nitro-Dur 5 mg (0.2 mg/Hr) Transdermal Patch] 1 patch TD QAM 06/06/19 Pantoprazole Sodium [Protonix [address] Tablet] 40 mg PO Q6AM 06/06/19 Potassium Chloride [Klor-Con 10 Meq Capsule ER] 10 meq PO DAILY 06/06/19 Torsemide [Demadex] 40 mg PO BID 06/06/19 Dicyclomine HCl [Bentyl 20 mg Tablet] 20 mg PO QID PRN 08/27/19 History of Present Illiness History of Present Illness: MICHAEL BOWLING is a 63 year old female with multiple medical issues including noncompliance with treatment for sleep apnea, morbid obesity, hypertension, hypothyroidism, hyperlipidemia, and history of an elevated ammonia level of unknown etiology who has been admitted 4 or 5 times this year already, and every time she gets admitted, what ever the reason for admission is, is accompanied by an encephalopathy. This time she is been living in a hotel and she was found by her son who said that her mental status was altered and so she was brought to the emergency department. Her labs are all pretty normal except for an elevated ammonia level, which is not as high as it has been previously. She is now on any medications that should elevate her ammonia level and she does not have any history of any liver disease, but it is noted that her INR is a little bit above normal at 1.15. She does not take warfarin or any other anticoagulant, and on previous abdominal imaging she has not been reported to have liver pathology. She is mostly laying there moaning but she does respond to pain because whenever somebody tries to draw her blood or when they try to get her ABG she made quite an exaggerated show of it. Her head CT was unremarkable. Toxicological screen was unremarkable. ABG is pending. Serum CO2 was elevated at 37. She is being admitted for further evaluation. Hospital Course Hospital Course: Her ABG was unremarkable except for like she had been hyperventilating, but she did not have elevated CO2 so that was ruled out as a cause for her encephalopathy. It was then determined that her encephalopathy was due to hyperammonemia. A work-up was obtained and most of the lab work is still pending. Right upper quadrant ultrasound was done which showed fatty liver but no outright evidence of cirrhosis. She will need follow-up with a mixer helper to go over the rest of her work-up, because she is on any medications that would elevate her ammonia and she does not have any inborn error of metabolism because that would have shown itself pensions retirement plan specialist. She did respond well to lactulose and I am going to continue her on a low dose of that. A bed was obtained and [facility] we plan to transfer her there in the morning. Physical Exam Vital Signs: Temp Pulse Resp BP Pulse Ox 97.3 F 98 21 H 120/47 L 96 09/02/19 07:55 09/02/19 14:00 09/02/19 09:16 09/02/19 07:55 09/02/19 09:16 Intake & Output 09/01/19 09/02/19 09/03/19 06:59 06:59 06:59 Intake Total 1550 720 480 Output Total 0 4 Balance 1550 716 480 Weight 158.9 kg 162.6 kg General appearance: PRESENT: no acute distress, cooperative, disheveled, morbidly obese Cardiovascular exam: PRESENT: irregular rhythm Pulses: PRESENT: normal carotid pulses Vascular exam: PRESENT: normal capillary refill GI/Abdominal exam: PRESENT: normal bowel sounds, soft. ABSENT: distended, guarding, rebound, tenderness Extremities exam: PRESENT: +1 edema - Chronic. ABSENT: clubbing, pedal edema Musculoskeletal exam: PRESENT: deformity, normal inspection Neurological exam: PRESENT: alert, awake, oriented to person, oriented to place Psychiatric exam: PRESENT: flat affect Skin exam: PRESENT: dry, warm Results Laboratory Results: WBC 4.8 10^3/uL (4.0-10.5) 09/02/19 07:07 RBC 4.79 10^6/uL (3.72-5.28) 09/02/19 07:07 Hgb 12.1 g/dL (12.0-15.5) 09/02/19 07:07 Hct 37.5 % (36.0-47.0) 09/02/19 07:07 MCV 78 fl (80-97) L 09/02/19 07:07 MCH 25.2 pg (27.0-33.4) L 09/02/19 07:07 MCHC 32.2 g/dL (32.0-36.0) 09/02/19 07:07 RDW 17.2 % (11.5-14.0) H 09/02/19 07:07 Plt Count 254 10^3/uL (150-450) 09/02/19 07:07 Lymph % (Auto) 17.9 % (13-45) 08/31/19 14:43 [place] % (Auto) 14.8 % (3-13) H 08/31/19 14:43 Eos % (Auto) 2.3 % (0-6) 08/31/19 14:43 Baso % (Auto) 0.8 % (0-2) 08/31/19 14:43 Absolute Neuts (auto) 2.8 10^3/uL (1.7-8.2) 08/31/19 14:43 Absolute Lymphs (auto) 0.8 10^3/uL (0.5-4.7) 08/31/19 14:43 Absolute Monos (auto) 0.6 10^3/uL (0.1-1.4) 08/31/19 14:43 Absolute Eos (auto) 0.1 10^3/uL (0.0-0.6) 08/31/19 14:43 Absolute Basos (auto) 0.0 10^3/uL (0.0-0.2) 08/31/19 14:43 Seg Neutrophils % 64.2 % (42-78) 08/31/19 14:43 PT 14.8 SEC (11.4-15.4) 08/31/19 14:43 INR 1.15 08/31/19 14:43 APTT 30.9 SEC (23.5-35.8) 08/31/19 14:43 Carbonic Acid 1.33 mmol/L (1.05-1.35) 08/31/19 18:15 HCO3/H2CO3 Ratio 25:1 08/31/19 18:15 ABG pH 7.50 (7.35-7.45) H 08/31/19 18:15 ABG pCO2 44.1 mmHg (35-45) 08/31/19 18:15 ABG pO2 76.2 mmHg (80-100) L 08/31/19 18:15 ABG HCO3 33.9 mmol/L (20-24) H 08/31/19 18:15 ABG Total CO2 35.2 mmol/L (21-25) H 08/31/19 18:15 ABG O2 Saturation 96.2 % (94-98) 08/31/19 18:15 ABG Base Excess 9.6 mmol/L 08/31/19 18:15 FiO2 ROOM AIR 08/31/19 18:15 Sodium 138.7 mmol/L (137-145) 09/02/19 07:07 Potassium 3.2 mmol/L (3.6-5.0) L 09/02/19 07:07 Chloride 103 mmol/L (98-107) 09/02/19 07:07 Carbon Dioxide 31 mmol/L (22-30) H 09/02/19 07:07 Anion Gap 5 (5-19) 09/02/19 07:07 BUN 7 mg/dL (7-20) 09/02/19 07:07 Creatinine 0.75 mg/dL (0.52-1.25) 09/02/19 07:07 Est GFR ( Amer) > 60 (>60) 09/02/19 07:07 Est GFR (MDRD) Non-Af > 60 (>60) 09/02/19 07:07 Glucose 94 mg/dL (75-110) 09/02/19 07:07 POC Glucose 87 mg/dL (70-110) 09/02/19 07:59 Lactic Acid 1.3 mmol/L (0.7-2.1) 08/31/19 15:55 Calcium 8.4 mg/dL (8.4-10.2) 09/02/19 07:07 Magnesium 1.9 mg/dL (1.6-2.3) 08/31/19 14:43 Total Bilirubin 1.0 mg/dL (0.2-1.3) 08/31/19 14:43 Direct Bilirubin 0.2 mg/dL (0.0-0.4) 08/31/19 14:43 Neonat Total Bilirubin Not Reportable 08/31/19 14:43 Neonat Direct Bilirubin Not Reportable 08/31/19 14:43 Neonat Indirect Bili Not Reportable 08/31/19 14:43 AST 30 U/L (14-36) 08/31/19 14:43 ALT 23 U/L (<35) 08/31/19 14:43 Alkaline Phosphatase 158 U/L (38-126) H 08/31/19 14:43 Ammonia 27.3 umol/L (9-33) 09/02/19 07:07 Troponin I < 0.012 ng/mL 08/31/19 15:55 NT-Pro-B Natriuret Pep 1150 pg/mL (<125) H 08/31/19 15:55 Total Protein 5.2 g/dL (6.3-8.2) L 08/31/19 14:43 Albumin 2.3 g/dL (3.5-5.0) L 08/31/19 14:43 TSH 2.39 uIU/mL (0.47-4.68) 08/31/19 14:43 Free T4 1.81 ng/dL (0.78-2.19) 08/31/19 14:43 Free T3 pg/mL 3.52 pg/mL (2.77-5.27) 08/31/19 14:43 Urine Color YELLOW 08/31/19 16:27 Urine Appearance CLEAR 08/31/19 16:27 Urine pH 6.0 (5.0-9.0) 08/31/19 16:27 Ur Specific [place] 1.014 08/31/19 16:27 Urine Protein NEGATIVE mg/dL (NEGATIVE) 08/31/19 16:27 Urine Glucose (UA) NEGATIVE mg/dL (NEGATIVE) 08/31/19 16:27 Urine Ketones NEGATIVE mg/dL (NEGATIVE) 08/31/19 16:27 Urine Blood NEGATIVE (NEGATIVE) 08/31/19 16:27 Urine Nitrite (Reflex) NEGATIVE (NEGATIVE) 08/31/19 16:27 Urine Bilirubin NEGATIVE (NEGATIVE) 08/31/19 16:27 Urine Urobilinogen 2.0 mg/dL (<2.0) H 08/31/19 16:27 Leukocyte Esterase Rfl NEGATIVE (NEGATIVE) 08/31/19 16:27 Urine RBC (Auto) 0 /HPF 08/31/19 16:27 U Hyaline Cast (Auto) 1 /LPF 08/31/19 16:27 Urine Bacteria (Auto) TRACE /HPF 08/31/19 16:27 Urine WBC (Reflex) 1 /HPF 08/31/19 16:27 Squamous Epi Cells Auto 1 /HPF 08/31/19 16:27 Urine Mucus (Auto) RARE /LPF 08/31/19 16:27 Urine Ascorbic Acid 40 (NEGATIVE) H 08/31/19 16:27 Urine Opiates Screen NEGATIVE 08/31/19 16:27 Urine Methadone Screen NEGATIVE 08/31/19 16:27 Ur Barbiturates Screen NEGATIVE 08/31/19 16:27 Ur Phencyclidine Scrn NEGATIVE 08/31/19 16:27 Ur Amphetamines Screen NEGATIVE 08/31/19 16:27 U Benzodiazepines Scrn NEGATIVE 08/31/19 16:27 Urine Cocaine Screen NEGATIVE 08/31/19 16:27 U Marijuana (THC) Screen NEGATIVE 08/31/19 16:27 Serum Alcohol < 10 mg/dL (NONE DETECTED) 08/31/19 14:43 08/31/19 15:55 Troponin I < 0.012 NT-Pro-B Natriuret Pep 1150 H Impressions: Chest X-Ray 08/31/19 13:04 IMPRESSION: CARDIAC ENLARGEMENT. VASCULAR CONGESTION. Head CT 08/31/19 13:07 IMPRESSION: No acute intracranial pathology. EVIDENCE OF ACUTE STROKE: NO. Abdomen Ultrasound 09/01/19 00:00 IMPRESSION: Findings consistent with fatty infiltration of the liver. Status post cholecystectomy. Plan Time Spent: Greater than 30 Minutes Stroke Is this a Stroke Patient?: No Acute Heart Failure - Is this a Heart Failure Patient?: No
[2019-09-02] MEDS ORDERED: LACTULOSE SYRUP 20 GM/30 ML UDCUP PO SCH (18:00)
--- NOTE | 2019-09-02 18:11 | Progress Note ---
Provider Note Provider Note: Patient had additional problems to add to the problem list. 1. Metabolic encephalopathy secondary to hyperammonemia. Please see progress note for work-up and treatment. 2. Atrial fibrillation with RVR. When the patient first came in she required a Cardizem drip to control her ventricular rate. She is not a candidate for anticoagulation because in her old records there was a note of a severe bleeding episode and she has not been on anticoagulation since. We first increased her metoprolol after switching it to the long-acting form, and when that did not control her rate we had to add oral Cardizem as well. We are currently titrating the Cardizem to effect to effectively control her heart rate. 3. Weakness and physical deconditioning. The slightest exertion is a huge metabolic demand for her and she will require oxygen for short periods of time. A physical therapy evaluation is pending. 4. Hypokalemia. She has required repeated doses of potassium supplementation and will need to have this checked again before she is discharged to see if she needs another dose. 5. Obstructive sleep apnea with obesity hypoventilation syndrome. She intermittently requires oxygen and was noncompliant with using her CPAP at home, we have encouraged her to use it while she sleeps here.
[2019-09-02] MEDS: ATORVASTATIN CALCIUM 20 MG TABLET PO SCH (21:29)
[2019-09-03 05:19] LABS: HEMATOCRIT 39.2 % (36.0-47.0); HEMOGLOBIN 12.6 g/dL (12.0-15.5); MEAN CORPUSCULAR HEMOGLOBIN 25.3 pg (27.0-33.4); MEAN CORPUSCULAR HGB CONC 32.2 g/dL (32.0-36.0); MEAN CORPUSCULAR VOLUME 79 fl (80-97); PLATELET COUNT 247 10^3/uL (150-450); RED CELL DISTRIBUTION WIDTH 16.8 % (11.5-14.0); WHITE BLOOD COUNT 5.7 10^3/uL (4.0-10.5)
[2019-09-03 05:41] LABS: BLOOD UREA NITROGEN 8 mg/dL (7-20); CALCIUM 7.8 mg/dL (8.4-10.2); GLUCOSE 87 mg/dL (75-110); POTASSIUM 3.2 mmol/L (3.6-5.0)
[2019-09-03 05:46] LABS: CARBON DIOXIDE 35 mmol/L (22-30); CHLORIDE 100 mmol/L (98-107)
[2019-09-03 05:56] LABS: ANION GAP 3 (5-19)
[2019-09-03] MEDS: LACTULOSE SYRUP 20 GM/30 ML UDCUP PO SCH ×2 (06:44→17:21)
[2019-09-03] MEDS: LEVOTHYROXINE SODIUM 0.1 MG TABLET PO SCH (06:45)
[2019-09-03] MEDS: HEPARIN SOD (PORCINE) 5,000 UNIT/ML 1 ML VIAL SUBCUT SCH ×3 (06:45→21:10)
[2019-09-03] MEDS: PANTOPRAZOLE SODIUM 40 MG TABLET.DR PO SCH (06:45)
[2019-09-03] MEDS: POTASSIUM CHLORIDE 10 MEQ CAPSULE.ER PO SCH (09:42)
[2019-09-03] MEDS: NORMAL SALINE 10 ML SDV (SCHEDULED) IV SCH ×2 (09:43→21:11)
[2019-09-03] MEDS: TORSEMIDE 20 MG TABLET PO SCH ×2 (09:43→17:21)
[2019-09-03] MEDS: CLOPIDOGREL BISULFATE 75 MG TABLET PO SCH (09:43)
[2019-09-03] MEDS: DILTIAZEM HCL 120 MG CAP.SR.24H PO SCH ×2 (09:47→21:10)
[2019-09-03] MEDS: METOPROLOL SUCCINATE 25 MG TAB.SR.24H PO SCH ×2 (09:47→21:10)
[2019-09-03] MEDS: ATORVASTATIN CALCIUM 20 MG TABLET PO SCH (21:10)
[2019-09-04] MEDS: LEVOTHYROXINE SODIUM 0.1 MG TABLET PO SCH (05:57)
[2019-09-04] MEDS: HEPARIN SOD (PORCINE) 5,000 UNIT/ML 1 ML VIAL SUBCUT SCH ×2 (05:57→14:38)
[2019-09-04] MEDS: PANTOPRAZOLE SODIUM 40 MG TABLET.DR PO SCH (05:57)
[2019-09-04] MEDS: LACTULOSE SYRUP 20 GM/30 ML UDCUP PO SCH ×2 (05:58→17:24)
[2019-09-04 08:40] LABS: CARNITINE ESTERIFIED/FREE 0.4 Ratio (0.0-0.9)
[2019-09-04] MEDS: CLOPIDOGREL BISULFATE 75 MG TABLET PO SCH (10:08)
[2019-09-04] MEDS: POTASSIUM CHLORIDE 10 MEQ CAPSULE.ER PO SCH (10:08)
[2019-09-04] MEDS: TORSEMIDE 20 MG TABLET PO SCH ×2 (10:15→17:52)
[2019-09-04] MEDS: DILTIAZEM HCL 120 MG CAP.SR.24H PO SCH (10:15)
[2019-09-04] MEDS: METOPROLOL SUCCINATE 25 MG TAB.SR.24H PO SCH (10:16)
[2019-09-04] MEDS: NORMAL SALINE 10 ML SDV (SCHEDULED) IV SCH (10:16)
[2019-09-04 17:54] VITALS: BP 105/51
[2019-09-05 08:37] LABS: CK MACRO TYPE 1 0 % (Not Observ); CK MACRO TYPE 2 0 % (Not Observ); CK-MB 0 % (0-3); CK-MM 100 % (97-100); CREATINE KINASE TOTAL 54 U/L (24-173)
[2019-09-05 09:32] LABS: CK-BB 0 % (0)
== END 2019-09-04 18:18 | DRG 71 ==
LOC: ER 12:43 → EH 18:48 → EDLOC 18:48 → 3N 22:00
PROVIDERS: ADMIT Family Medicine; ATTEND Family Medicine
DX: G93.40 Encephalopathy, unspecified (principal); E72.20 Disorder of urea cycle metabolism, unspecified; E66.2 Morbid (severe) obesity with alveolar hypoventilation; K76.0 Fatty (change of) liver, not elsewhere classified; I11.0 Hypertensive heart disease with heart failure; I50.9 Heart failure, unspecified; I48.91 Unspecified atrial fibrillation; E87.6 Hypokalemia; E03.9 Hypothyroidism, unspecified; E78.5 Hyperlipidemia, unspecified; I25.10 Atherosclerotic heart disease of native coronary artery without angina pectoris; M17.0 Bilateral primary osteoarthritis of knee; D64.9 Anemia, unspecified; R53.1 Weakness; Z85.3 Personal history of malignant neoplasm of breast; Z79.02 Long term (current) use of antithrombotics/antiplatelets; Z91.19 Patient's noncompliance with other medical treatment and regimen; Z90.11 Acquired absence of right breast and nipple; Z91.048 Other nonmedicinal substance allergy status; Z88.6 Allergy status to analgesic agent; Z91.041 Radiographic dye allergy status; Z88.8 Allergy status to other drugs, medicaments and biological substances; Z80.9 Family history of malignant neoplasm, unspecified; Z82.49 Family history of ischemic heart disease and other diseases of the circulatory system; Z83.42 Family history of familial hypercholesterolemia
CPT/HCPCS: 36415; 70450; 71045; 76705; 80048; 80053; 80307; 81001; 82140; 82379; 82552; 82803; 82962; 83605; 83735; 83874; 83880; 84439; 84443; 84481; 84484; 85025; 85027; 85610; 85730; 87040; 87077; 87150; 90686; 93005; 93010; 93976; 94640; 96361; 96365; 99285; J0692; J1644; J3480; J3490; J7030; J7620

== ENCOUNTER 2019-10-26 16:22 | Emergency (ER) | payer MEDICARE, MEDICAID ==
--- NOTE | 2019-10-26 16:38 | ER Document Report ---
ED Medical Screen (RME) - General Chief Complaint: Chest Pain Stated Complaint: CHEST PAIN Time Seen by Provider: 10/26/19 16:33 Primary Care Provider: JOVANI LANDAVERDE MD [Primary Care Provider] - Follow up as needed Mode of Arrival: Medic Information source: Patient Notes: 64-year-old female presented to ED for complaint of chest pain that was dull and to the left side of her chest with shortness of breath just before coming to the emergency room. She states they called 911 and they brought her to the emergency room. Her blood pressure is 97/59. According to the nurse the report from EMS was that the [facility] [place] half-way gave her nitroglycerin sublingual even though she has a Nitro-Dur patch on. Patient is alert oriented and answering questions appropriately. They report was that the blood pressure was 86/56 at [facility] and in the EMS was 118/76. Same a arm every time. Patient does have a history of A. fib and congestive heart failure. She states she has been told she needed to go to [place] and get a stent. She states she has not felt good enough to go yet. We will get blood chest x-ray EKG and have another provider follow-up. I have greeted and performed a rapid initial assessment of this patient. A comprehensive ED assessment and evaluation of the patient, analysis of test results and completion of medical decision making process will be conducted by an additional ED providers. TRAVEL OUTSIDE OF THE [place] IN LAST 30 DAYS: No - Related Data Allergies/Adverse Reactions: clemastine fumarate [From Tavist-1] Allergy (Severe, Verified 08/27/19 16:39) red spots,N/V Shark Cartilage [From Shark Fin Cartilage] Allergy (Severe, Verified 08/27/19 16:39) hives, n and v iodine [Iodine] Allergy (Unknown, Verified 08/27/19 16:39) vomit/rash meperidine HCl [From Demerol] Allergy (Unknown, Verified 08/27/19 16:39) N/V pseudoephedrine HCl [From Sudafed] Allergy (Unknown, Verified 08/27/19 16:39) rash/itch glove powder Allergy (Severe, Uncoded 08/27/19 16:39) hands swell,itch Past Medical History - Social History Family history: None - Past Medical History Cardiac Medical History: Reports: Hx Atrial Fibrillation, Hx Congestive Heart Failure, Hx Coronary Artery Disease, Hx Hypertension Denies: Hx Heart Attack Pulmonary Medical History: Reports: Hx Bronchitis, Hx Pneumonia, Hx Respiratory Failure, Hx Sleep Apnea Denies: Hx Asthma, Hx COPD Neurological Medical History: Denies: Hx Cerebrovascular Accident, Hx Migraine, Hx Seizures Endocrine Medical History: Reports: Hx Hypothyroidism. Denies: Hx Diabetes Mellitus Type 1, Hx Diabetes Mellitus Type 2, Hx Graves' Disease, Hx Hyperthyroidism Renal/ Medical History: Denies: Hx End Stage Renal Disease, Hx Kidney Stones, Hx Ovarian Cysts, Hx Peritoneal Dialysis, Hx Pelvic Inflammatory Disease Malignancy Medical History: Reports: Hx Breast Cancer. Denies: Hx Cervical Cancer, Hx Ovarian Cancer GI Medical History: Reports: Hx Colonoscopy. 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 Denies: Hx Appendectomy, Hx Bowel Surgery, Hx Cholecystectomy, Hx Colostomy, Hx Coronary Artery Bypass Graft, Hx Gastric Bypass Surgery, Hx Herniorrhaphy, Hx Pacemaker, Hx Tubal Ligation - Immunizations Hx Diphtheria, Pertussis, Tetanus Vaccination: Yes Doctor's Discharge - Discharge Referrals: JOVANI LANDAVERDE MD [Primary Care Provider] - Follow up as needed
--- NOTE | 2019-10-26 17:01 | ER Document Report ---
ED General - General Mode of Arrival: Medic TRAVEL OUTSIDE OF THE [place] IN LAST 30 DAYS: No <MINGO GAXIOLA - Last Filed: 10/26/19 19:05> <LATESHA BRIGHT - Last Filed: 10/26/19 22:15> - General Chief Complaint: Chest Pain Stated Complaint: CHEST PAIN Time Seen by Provider: 10/26/19 16:33 Primary Care Provider: JOVANI LANDAVERDE MD [NO LOCAL MD] - Follow up in 3-5 days FREIDA RENTERIA MD [ACTIVE STAFF] - Follow up in 3-5 days Notes: 64-year-old female presents to the emergency department from [facility] for chest pain. Patient states that she started having chest pain this morning that was on her left side, did not radiate, had some transient shortness of breath, no nausea, no diaphoresis. Per EMS, the facility gave her a sublingual nitro and she already had a nitro patch on causing her to be briefly hypotensive. Her blood pressure is currently 109/51. Patient states that the pain has mostly subsided and it is "barely noticeable". (MINGO GAXIOLA) - Related Data Allergies/Adverse Reactions: clemastine fumarate [From Tavist-1] Allergy (Severe, Verified 08/27/19 16:39) red spots,N/V Shark Cartilage [From Shark Fin Cartilage] Allergy (Severe, Verified 08/27/19 16:39) hives, n and v iodine [Iodine] Allergy (Unknown, Verified 08/27/19 16:39) vomit/rash meperidine HCl [From Demerol] Allergy (Unknown, Verified 08/27/19 16:39) N/V pseudoephedrine HCl [From Sudafed] Allergy (Unknown, Verified 08/27/19 16:39) rash/itch glove powder Allergy (Severe, Uncoded 08/27/19 16:39) hands swell,itch Past Medical History - General Information source: Patient - Social History Family History: CAD, DM, Hyperlipidemia, Hypertension, Malignancy - Past Medical History Cardiac Medical History: Reports: Hx Atrial Fibrillation, Hx Congestive Heart Failure, Hx Coronary Artery Disease, Hx Hypertension Denies: Hx Heart Attack Pulmonary Medical History: Reports: Hx Bronchitis, Hx Pneumonia, Hx Respiratory Failure, Hx Sleep Apnea Denies: Hx Asthma, Hx COPD Neurological Medical History: Denies: Hx Cerebrovascular Accident, Hx Migraine, Hx Seizures Endocrine Medical History: Reports: Hx Hypothyroidism. Denies: Hx Diabetes Mellitus Type 1, Hx Diabetes Mellitus Type 2, Hx Graves' Disease, Hx Hyperthyroi dism Renal/ Medical History: Denies: Hx End Stage Renal Disease, Hx Kidney Stones, Hx Ovarian Cysts, Hx Peritoneal Dialysis, Hx Pelvic Inflammatory Disease Malignancy Medical History: Reports: Hx Breast Cancer. Denies: Hx Cervical Cancer, Hx Ovarian Cancer GI Medical History: Reports: Hx Colonoscopy. 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 Denies: Hx Appendectomy, Hx Bowel Surgery, Hx Cholecystectomy, Hx Colostomy, Hx Coronary Artery Bypass Graft, Hx Gastric Bypass Surgery, Hx Herniorrhaphy, Hx Pacemaker, Hx Tubal Ligation - Immunizations Hx Diphtheria, Pertussis, Tetanus Vaccination: Yes Hx Pneumococcal Vaccination: 07/07/11 <MINGO GAXIOLA - Last Filed: 10/26/19 19:05> - General Information source: Patient - Social History Smoking Status: Unknown if Ever Smoked <LATESHA BRIGHT - Last Filed: 10/26/19 22:15> Review of Systems - Review of Systems Constitutional: See HPI EENT: No symptoms reported Cardiovascular: See HPI Respiratory: See HPI Gastrointestinal: See HPI Genitourinary: No symptoms reported Female Genitourinary: No symptoms reported Musculoskeletal: No symptoms reported Skin: No symptoms reported Hematologic/Lymphatic: No symptoms reported Neurological/Psychological: No symptoms reported <MINGO GAXIOLA - Last Filed: 10/26/19 19:05> Physical Exam <MINGO GAXIOLA - Last Filed: 10/26/19 19:05> - Vital signs Vitals: Temp Pulse Resp BP Pulse Ox 97.9 F 76 22 H 98/53 L 100 10/26/19 16:22 10/26/19 16:22 10/26/19 16:22 10/26/19 16:22 10/26/19 16:22 - Notes Notes: PHYSICAL EXAMINATION: Reviewed vital signs and charting by RN GENERAL: Alert, interacts well. No acute distress. HEAD: Normocephalic, atraumatic. EYES: Pupils equal and round. Extraocular movements intact. ENT: Oral mucosa moist, tongue midline. NECK: Full range of motion. Trachea midline. LUNGS: Clear to auscultation bilaterally, no wheezes, rales, or rhonchi. No respiratory distress. HEART: Regular rate and rhythm. No murmur ABDOMEN: soft, non-tender. No distention. Bowel sounds present EXTREMITIES: Moves all 4 extremities spontaneously. No edema, No cyanosis. PSYCH: Normal affect, normal mood. SKIN: Warm, dry, normal turgor. No rashes or lesions noted. (MINGO GAXIOLA) Course - Laboratory Result Diagrams: 10/26/19 18:04 10/26/19 18:04 <MINGO GAXIOLA - Last Filed: 10/26/19 19:05> - Laboratory Result Diagrams: 10/26/19 18:04 10/26/19 18:04 <LATESHA BRIGHT - Last Filed: 10/26/19 22:15> - Re-evaluation Re-evalutation: 10/26/19 19:03 Well-appearing no acute distress. Currently chest pain-free, vital signs within normal limits. EKG showed atrial fibrillation with a rate of 87, normal axis, QTC 510, no ST segment elevations or depressions, no acute T wave changes. Initial troponin negative at 0.015. Patient is hypokalemic which is chronic for her and she is on potassium chloride 60 mEq daily. Her level here is 3.0 so I have given her potassium 40 mEq every 2 hours for 2 doses to replenish. I am going to get a delta troponin and if it is negative patient will be able to go back to [facility]. (MINGO GAXIOLA) 10/26/19 22:13 Repeat troponin is negative. Magnesium was decreased which was replenished in ER. Pt given close follow up with PCP and job compositor. Return precautions given. Pt voices understanding and agrees with plan of care. (LATESHA BRIGHT) - Vital Signs Vital signs: Temp Pulse Resp BP Pulse Ox 97.9 F 76 17 98/49 L 97 10/26/19 17:01 10/26/19 16:22 10/26/19 21:01 10/26/19 21:01 10/26/19 21:01 - Laboratory Laboratory results interpreted by me: 10/26/19 10/26/19 10/26/19 18:04 18:04 18:04 Hgb 10.5 L Hct 31.8 L MCV 73 L MCH 24.2 L RDW 15.3 H Seg Neuts % (Manual) 81 H Lymphocytes % (Manual) 8 L Sodium 129.0 L Potassium 3.0 L* Chloride 86 L Carbon Dioxide 36 H Est GFR (MDRD) Non-Af 59 L Calcium 7.8 L Ionized Calcium Mariel Magnesium 1.5 L Alkaline Phosphatase 196 H Total Protein 5.8 L Albumin 2.5 L 10/26/19 19:59 Hgb Hct MCV MCH RDW Seg Neuts % (Manual) Lymphocytes % (Manual) Sodium Potassium Chloride Carbon Dioxide Est GFR (MDRD) Non-Af Calcium Ionized Calcium Mariel 0.90 L Magnesium Alkaline Phosphatase Total Protein Albumin Discharge <MINGO GAXIOLA - Last Filed: 10/26/19 19:05> <LATESHA BRIGHT - Last Filed: 10/26/19 22:15> - Discharge Clinical Impression: Hypokalemia Chest pain Qualifiers: Chest pain type: unspecified Qualified Code(s): R07.9 - Chest pain, unspecified Condition: Stable Disposition: HOME, SELF-CARE Additional Instructions: You were seen today for chest pain. The exact cause of your pain is unclear. However, based on your cardiac enzyme testing, chest x-ray, and EKG it does not appear that it is from an immediately life-threatening cause at this time. Although your testing here is normal is critical that you follow-up with your primary care physician for continued evaluation of this chest pain and possible stress testing. I recommended you see your physician within the next 24-48 hours to be evaluated for consideration of a stress test. Please return to emergency department immediately if you have worsening of your chest pain, shortness of breath, vomiting, become unable to exert yourself due to pain or difficulty breathing, you pass out, or have any pain that radiates into your arms, jaw, or back. Please also return if you have any additional symptoms that are concerning to you. Referrals: JOVANI LANDAVERDE MD [NO LOCAL MD] - Follow up in 3-5 days FREIDA RENTERIA MD [ACTIVE STAFF] - Follow up in 3-5 days
--- NOTE | 2019-10-26 17:43 | RADIOLOGY REPORT (SQ) ---
EXAM DESCRIPTION: CHEST SINGLE VIEW COMPLETED DATE/TIME: 10/26/2019 5:25 pm REASON FOR STUDY: chest pain COMPARISON: 08/31/2019 TECHNIQUE: Single frontal radiographic view of the chest acquired. NUMBER OF VIEWS: One view. LIMITATIONS: Mild LPO positioning. FINDINGS: LUNGS AND PLEURA: No pneumothorax. No consolidation or pleural effusion. MEDIASTINUM AND HILAR STRUCTURES: Stable. HEART AND VASCULAR STRUCTURES: Stable. BONES: No acute findings. HARDWARE: None in the chest. OTHER: No other significant finding. IMPRESSION: NO ACUTE FINDINGS. TECHNICAL DOCUMENTATION: JOB ID: [id number] [employer]- All Rights Reserved Reading location - IP/workstation name: [email or web address]
[2019-10-26 18:20] LABS: HEMATOCRIT 31.8 % (36.0-47.0); HEMOGLOBIN 10.5 g/dL (12.0-15.5); MEAN CORPUSCULAR HEMOGLOBIN 24.2 pg (27.0-33.4); MEAN CORPUSCULAR HGB CONC 33.1 g/dL (32.0-36.0); MEAN CORPUSCULAR VOLUME 73 fl (80-97); PLATELET COUNT 333 10^3/uL (150-450); RED BLOOD COUNT 4.35 10^6/uL (3.72-5.28); RED CELL DISTRIBUTION WIDTH 15.3 % (11.5-14.0); WHITE BLOOD COUNT 6.8 10^3/uL (4.0-10.5)
[2019-10-26 18:25] LABS: APPEARANCE,URINE CLEAR; BILIRUBIN,URINE NEGATIVE (NEGATIVE); COLOR,URINE YELLOW; GLUCOSE, URINE NEGATIVE (NEGATIVE); KETONES,URINE NEGATIVE (NEGATIVE); LEUKOCYTE ESTERASE,URINE NEGATIVE (NEGATIVE); NITRITE,URINE NEGATIVE (NEGATIVE); PROTEIN,URINE NEGATIVE (NEGATIVE); URINE SPECIFIC GRAVITY 1.005; UROBILINOGEN,URINE NEGATIVE mg/dL (<2.0)
[2019-10-26 18:37] LABS: ALBUMIN 2.5 g/dL (3.5-5.0); ALKALINE PHOSPHATASE 196 U/L (38-126); ANION GAP 7 (5-19); ASPARTATE AMINO TRANSFERASE 29 U/L (14-36); BILIRUBIN,DIRECT 0.2 mg/dL (0.0-0.4); BILIRUBIN,TOTAL 0.8 mg/dL (0.2-1.3); BLOOD UREA NITROGEN 15 mg/dL (7-20); CALCIUM 7.8 mg/dL (8.4-10.2); CARBON DIOXIDE 36 mmol/L (22-30); CHLORIDE 86 mmol/L (98-107); GLUCOSE 95 mg/dL (75-110); TOTAL PROTEIN 5.8 g/dL (6.3-8.2)
[2019-10-26 18:47] LABS: ABSOLUTE LYMPHOCYTES# (MANUAL) 0.5 10^3/uL (0.5-4.7); ABSOLUTE MONOCYTES # (MANUAL) 0.7 10^3/uL (0.1-1.4); ANISOCYTOSIS 1+; BASOPHILS % (MANUAL) 0 % (0-2); EOSINOPHILS % (MANUAL) 0 % (0-6); HYPOCHROMASIA 2+; LYMPHOCYTES % (MANUAL) 8 % (13-45); MONOCYTES % (MANUAL) 11 % (3-13); SEGMENTED NEUTROPHILS % (MAN) 81 % (42-78); TOTAL CELLS COUNTED 100
[2019-10-26 18:48] LABS: PLATELET COMMENT ADEQUATE
[2019-10-26] MEDS: POTASSIUM CHLORIDE 10 MEQ TABLET.ER PO SCH ×2 (19:53→21:28)
--- NOTE | 2019-10-26 21:19 | EKG REPORT ---
SEVERITY:- ABNORMAL ECG - ATRIAL FIBRILLATION BORDERLINE T WAVE ABNORMALITIES PROLONGED QT INTERVAL : Confirmed by: Jaleel Peñaloza 26-Oct-2019 21:19:21
[2019-10-26] MEDS ORDERED: MAGNESIUM OXIDE 400 MG TABLET PO ONE (21:45)
[2019-10-26 23:31] VITALS: BP 112/72
== END 2019-10-26 23:44 | disposition home or self-care (01) ==
LOC: ER 16:22
DX: E87.6 Hypokalemia (principal); R07.9 Chest pain, unspecified; R06.02 Shortness of breath; I48.91 Unspecified atrial fibrillation; I50.9 Heart failure, unspecified; I11.0 Hypertensive heart disease with heart failure; Z90.710 Acquired absence of both cervix and uterus
CPT/HCPCS: 93005; 99285; 36415; 83735; 85025; 80053; 81001; 84484; 82330; 71045; 93010; A9270 ×2

== ENCOUNTER 2019-11-09 01:44 | Emergency (ER) | payer MEDICARE, MEDICAID ==
[2019-11-09] MEDS ORDERED: ONDANSETRON 4 MG TAB.RAPDIS PO ONE (03:31)
--- NOTE | 2019-11-09 03:35 | ER Document Report ---
ED General - General Chief Complaint: Fall Stated Complaint: FALL/STOMACH PAIN Time Seen by Provider: 11/09/19 03:12 Primary Care Provider: JOVANI LANDAVERDE MD [Primary Care Provider] - Follow up as needed Notes: Patient is a 64-year-old female that comes emergency department from [facility] by EMS for chief complaint of a fall. Patient reportedly had a witnessed fall where she was getting up from a wheelchair, fell to the floor and landed on her knees. She states earlier she was hurting in her knees and legs but she denies any pain now. She states she felt somewhat nauseated "like I ate some bad food" but she denies abdominal pain. She denies headache, chest pain, difficulty breathing, dizziness. No other injuries were reported from the fall including head injury. Past medical history includes CHF, A. fib, hyperlipidemia. Reportedly patient was acting sluggish as well but patient is alert and not confused on our evaluation. TRAVEL OUTSIDE OF THE [place] IN LAST 30 DAYS: No - Related Data Allergies/Adverse Reactions: clemastine fumarate [From Tavist-1] Allergy (Severe, Verified 08/27/19 16:39) red spots,N/V Shark Cartilage [From Shark Fin Cartilage] Allergy (Severe, Verified 08/27/19 16:39) hives, n and v iodine [Iodine] Allergy (Unknown, Verified 08/27/19 16:39) vomit/rash meperidine HCl [From Demerol] Allergy (Unknown, Verified 08/27/19 16:39) N/V pseudoephedrine HCl [From Sudafed] Allergy (Unknown, Verified 08/27/19 16:39) rash/itch glove powder Allergy (Severe, Uncoded 08/27/19 16:39) hands swell,itch Past Medical History - General Information source: Patient, Transfer Record - Social History Smoking Status: Never Smoker Frequency of alcohol use: None Drug Abuse: None Lives with: Family Family History: CAD, DM, Hyperlipidemia, Hypertension, Malignancy Patient has suicidal ideation: No Patient has homicidal ideation: No - Past Medical History Cardiac Medical History: Reports: Hx Atrial Fibrillation, Hx Congestive Heart Failure, Hx Coronary Artery Disease, Hx Hypertension Denies: Hx Heart Attack Pulmonary Medical History: Reports: Hx Bronchitis, Hx Pneumonia, Hx Respiratory Failure, Hx Sleep Apnea Denies: Hx Asthma, Hx COPD Neurological Medical History: Denies: Hx Cerebrovascular Accident, Hx Migraine, Hx Seizures Endocrine Medical History: Reports: Hx Hypothyroidism. Denies: Hx Diabetes Mellitus Type 1, Hx Diabetes Mellitus Type 2, Hx Graves' Disease, Hx Hyperthyroidism Renal/ Medical History: Denies: Hx End Stage Renal Disease, Hx Kidney Stones, Hx Ovarian Cysts, Hx Peritoneal Dialysis, Hx Pelvic Inflammatory Disease Malignancy Medical History: Reports: Hx Breast Cancer. Denies: Hx Cervical Cancer, Hx Ovarian Cancer GI Medical History: Reports: Hx Colonoscopy. 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 Denies: Hx Appendectomy, Hx Bowel Surgery, Hx Cholecystectomy, Hx Colostomy, Hx Coronary Artery Bypass Graft, Hx Gastric Bypass Surgery, Hx Herniorrhaphy, Hx Pacemaker, Hx Tubal Ligation - Immunizations Hx Diphtheria, Pertussis, Tetanus Vaccination: Yes Hx Pneumococcal Vaccination: 07/07/11 Review of Systems - Review of Systems Constitutional: See HPI EENT: No symptoms reported Cardiovascular: No symptoms reported Respiratory: No symptoms reported Gastrointestinal: See HPI Genitourinary: No symptoms reported Female Genitourinary: No symptoms reported Musculoskeletal: See HPI Skin: No symptoms reported Hematologic/Lymphatic: No symptoms reported Neurological/Psychological: No symptoms reported Physical Exam - Vital signs Vitals: Temp Pulse Resp BP Pulse Ox 97.7 F 92 16 144/92 H 100 11/09/19 02:11 11/09/19 02:11 11/09/19 02:11 11/09/19 02:11 11/09/19 02:11 - Notes Notes: GENERAL: Alert, interacts well. No acute distress. HEAD: Normocephalic, atraumatic. EYES: Pupils equal, round, and reactive to light. Extraocular movements intact. ENT: Oral mucosa moist, tongue midline. Oropharynx unremarkable. Airway patent. LUNGS: Clear to auscultation bilaterally, no wheezes, rales, or rhonchi. No respiratory distress. HEART: Regular rate and rhythm. No murmur ABDOMEN: Soft, non-tender. Non-distended. EXTREMITIES: Moves all 4 extremities spontaneously. No noted tenderness, no signs of trauma over the lower extremities. No edema, normal radial and dorsalis pedis pulses bilaterally. No cyanosis. BACK: no cervical, thoracic, lumbar midline tenderness. No saddle anesthesia, normal distal neurovascular exam. Moves all extremities in full range of motion but unable to consistently bear weight/stand. NEUROLOGICAL: Alert and oriented x3. Normal speech. Cranial nerves II through XII grossly intact. PSYCH: Normal affect, normal mood. SKIN: Warm, dry, normal turgor. No rashes or lesions noted. Course - Re-evaluation Re-evalutation: On reevaluation patient sleeping, easily aroused, oriented, cooperative. Vital signs unremarkable. Reportedly she has difficulty ambulating at baseline. X- rays are negative for fracture or concerning finding. CBC unremarkable, chemistry borderline renal functioning, borderline hyponatremia. Urinary tract infection noted with urine, cultured, treated with Rocephin, placed on a ntibiotics, given IV fluids. Discussed findings with patient. Patient will be discharged back to long-term care on antibiotics details and return precautions. Patient states appreciation and agreement. Stable at time of discharge. - Vital Signs Vital signs: Temp Pulse Resp BP Pulse Ox 97.7 F 92 16 144/92 H 100 11/09/19 02:11 11/09/19 02:11 11/09/19 02:11 11/09/19 02:11 11/09/19 02:11 - Laboratory Result Diagrams: 11/09/19 04:57 11/09/19 04:57 Laboratory results interpreted by me: 11/09/19 11/09/19 11/09/19 04:57 04:57 04:57 Hgb 10.3 L Hct 31.8 L MCV 72 L MCH 23.3 L RDW 15.9 H Lymph % (Auto) 8.9 L [place] % (Auto) 14.6 H Sodium 135.8 L Potassium 3.5 L Chloride 89 L Carbon Dioxide 38 H BUN 25 H Creatinine 1.27 H Est GFR ( Amer) 51 L Est GFR (MDRD) Non-Af 42 L Alkaline Phosphatase 197 H Total Protein 6.1 L Albumin 2.6 L Urine Nitrite POSITIVE H Ur Leukocyte Esterase LARGE H Discharge - Discharge Clinical Impression: Weakness, Dehydration Fall Qualifiers: Encounter type: initial encounter Qualified Code(s): W19.XXXA - Unspecified fall, initial encounter Urinary tract infection Qualifiers: Urinary tract infection type: site unspecified Hematuria presence: without hematuria Qualified Code(s): N39.0 - Urinary tract infection, site not specified Condition: Stable Disposition: HOME, SELF-CARE Additional Instructions: Your work-up shows dehydration and a urinary tract infection, you have begun treatment for this, continue treatment with the antibiotics as prescribed and plenty of fluids. Your imaging and remaining work-up does not show any concerning finding at this time. Follow-up with primary care closely. Return if you worsen including fever, vomiting, passing out, severe abdominal pain, confusion, or any other concerning or worsening symptoms. Prescriptions: Cephalexin Monohydrate [Keflex 500 mg Capsule] 500 mg PO BID 7 Days #14 capsule Referrals: JOVANI LANDAVERDE MD [Primary Care Provider] - Follow up as needed
[2019-11-09 05:12] LABS: ABSOLUTE BASOPHILS # (AUTO) 0.1 10^3/uL (0.0-0.2); ABSOLUTE EOSINOPHILS # (AUTO) 0.1 10^3/uL (0.0-0.6); ABSOLUTE LYMPHOCYTES (AUTO) 0.6 10^3/uL (0.5-4.7); ABSOLUTE NEUT (AUTO) 5.2 10^3/uL (1.7-8.2); BASOPHILS % (AUTO) 0.7 % (0-2); EOSINOPHILS % (AUTO) 1.6 % (0-6); HEMATOCRIT 31.8 % (36.0-47.0); HEMOGLOBIN 10.3 g/dL (12.0-15.5); LYMPHOCYTES % (AUTO) 8.9 % (13-45); MEAN CORPUSCULAR HEMOGLOBIN 23.3 pg (27.0-33.4); MEAN CORPUSCULAR HGB CONC 32.4 g/dL (32.0-36.0); MEAN CORPUSCULAR VOLUME 72 fl (80-97); MONOCYTES % (AUTO) 14.6 % (3-13); PLATELET COUNT 312 10^3/uL (150-450); RED BLOOD COUNT 4.42 10^6/uL (3.72-5.28); RED CELL DISTRIBUTION WIDTH 15.9 % (11.5-14.0); SEGMENTED NEUTROPHILS % (AUTO) 74.2 % (42-78); TOTAL CELLS COUNTED % (AUTO) 100 %
[2019-11-09 05:28] LABS: ALBUMIN 2.6 g/dL (3.5-5.0); ALKALINE PHOSPHATASE 197 U/L (38-126); ANION GAP 9 (5-19); ASPARTATE AMINO TRANSFERASE 25 U/L (14-36); BILIRUBIN,DIRECT 0.4 mg/dL (0.0-0.4); BLOOD UREA NITROGEN 25 mg/dL (7-20); CALCIUM 8.5 mg/dL (8.4-10.2); CARBON DIOXIDE 38 mmol/L (22-30); CHLORIDE 89 mmol/L (98-107); GLUCOSE 91 mg/dL (75-110); POTASSIUM 3.5 mmol/L (3.6-5.0); TOTAL PROTEIN 6.1 g/dL (6.3-8.2)
[2019-11-09 05:53] LABS: APPEARANCE,URINE SLIGHTLY-CLOUDY; BILIRUBIN,URINE NEGATIVE (NEGATIVE); COLOR,URINE YELLOW; GLUCOSE, URINE NEGATIVE (NEGATIVE); KETONES,URINE NEGATIVE (NEGATIVE); LEUKOCYTE ESTERASE,URINE LARGE (NEGATIVE); NITRITE,URINE POSITIVE (NEGATIVE); PROTEIN,URINE NEGATIVE (NEGATIVE); URINE SPECIFIC GRAVITY 1.009; UROBILINOGEN,URINE NEGATIVE mg/dL (<2.0)
--- NOTE | 2019-11-09 05:55 | RADIOLOGY REPORT (SQ) ---
EXAM DESCRIPTION: XR KNEE 1-2 VIEWS BILATERAL COMPLETED DATE/TME: 11/09/2019 03:31 CLINICAL HISTORY: 64 years, Female, fall, pain COMPARISON: 06/02/2017 NUMBER OF VIEWS: Four TECHNIQUE: Two views of the bilateral knees LIMITATIONS: None. FINDINGS: There is no acute fracture or dislocation. There is bilateral patellofemoral and medial compartment joint space narrowing, worse along the medial compartment with subchondral sclerosis and marginal osteophytes. No significant joint effusion. No radiopaque foreign body. IMPRESSION: No acute fracture or dislocation. copyright 2010 [employer]- All Rights Reserved
--- NOTE | 2019-11-09 05:55 | RADIOLOGY REPORT (SQ) ---
Pelvis and bilateral hips total three view on 11/09/2019 CLINICAL INDICATION: Bilateral hip pain after fall COMPARISON: CT from 08/24/2016 and 08/27/2019 FINDINGS: The hips are well located. The SI joints are well aligned. Degenerative changes are noted in the lower lumbar spine. There is worsening widening of the pubic symphysis. Likely degenerative changes are noted along the pubic symphysis. There are no fractures. No significant degenerative changes are noted in the hips. IMPRESSION: Mild worsening widening of the pubic symphysis of unknown definite etiology or significance. Otherwise no acute abnormality.
[2019-11-09] MEDS ORDERED: CEFTRIAXONE 1 GM/D5W RTU 1 GM/50 ML RTUPB IV ONE (06:15)
[2019-11-09] MEDS ORDERED: NORMAL SALINE 1000 ML 1,000 ML IV ONE (06:15)
[2019-11-09 08:39] VITALS: BP 110/54
== END 2019-11-09 08:25 | disposition home or self-care (01) ==
LOC: ER 01:44
DX: N39.0 Urinary tract infection, site not specified (principal); M25.561 Pain in right knee; M25.562 Pain in left knee; M79.604 Pain in right leg; M79.605 Pain in left leg; W19.XXXA Unspecified fall, initial encounter; Y93.89 Activity, other specified; Y92.10 Unspecified residential institution as the place of occurrence of the external cause; R11.0 Nausea; E86.0 Dehydration; R53.1 Weakness; I25.10 Atherosclerotic heart disease of native coronary artery without angina pectoris; I10 Essential (primary) hypertension; Z85.3 Personal history of malignant neoplasm of breast; Z88.8 Allergy status to other drugs, medicaments and biological substances; Z88.6 Allergy status to analgesic agent; Z88.5 Allergy status to narcotic agent; Z91.048 Other nonmedicinal substance allergy status
CPT/HCPCS: 99284; 96365; 36415; 87086; 83690; 85025; 87088; 80053; 81001; 87186; 73522; 73560; A9270; J7030; J0696; S0119

== ENCOUNTER 2019-11-13 13:06 | Emergency (ER) | payer MEDICARE, MEDICAID ==
--- NOTE | 2019-11-13 13:42 | ER Document Report ---
ED General - General Mode of Arrival: Medic Information source: Patient, Emergency Med Personnel, [facility] Records TRAVEL OUTSIDE OF THE [place] IN LAST 30 DAYS: No - HPI Onset: This morning Onset/Duration: Persistent Quality of pain: No pain Severity: Moderate Associated symptoms: None Relieved by: Denies Similar symptoms previously: No Recently seen / treated by doctor: No <MARGIE ORTA - Last Filed: 11/13/19 16:31> <GISSEL NORTH - Last Filed: 11/14/19 00:46> - General Chief Complaint: Altered Mental Status Stated Complaint: ALTERED MENTAL STATUS Time Seen by Provider: 11/13/19 13:17 Primary Care Provider: JOVANI LANDAVERDE MD [Primary Care Provider] - Follow up as needed Notes: Patient is a 64-year-old female presenting to the emergency department from a local residential facility secondary to combativeness. EMS state they were called to the facility because of the patient being combative patient was recently seen at this facility and admitted to the residential secondary to elevated ammonia level. At time of presentation patient is somnolent after receiving 12 mg of Versed by EMS. She is however able to answer basic questions. Patient states that she has had diarrhea but has no other recent complaints. Patient is unsure as to why she needed to come to the hospital. (MARGIE ORTA) - Related Data Allergies/Adverse Reactions: clemastine fumarate [From Tavist-1] Allergy (Severe, Verified 08/27/19 16:39) red spots,N/V Shark Cartilage [From Shark Fin Cartilage] Allergy (Severe, Verified 08/27/19 16 :39) hives, n and v iodine [Iodine] Allergy (Unknown, Verified 08/27/19 16:39) vomit/rash meperidine HCl [From Demerol] Allergy (Unknown, Verified 08/27/19 16:39) N/V pseudoephedrine HCl [From Sudafed] Allergy (Unknown, Verified 08/27/19 16:39) rash/itch glove powder Allergy (Severe, Uncoded 08/27/19 16:39) hands swell,itch Past Medical History - General Information source: Patient, Emergency Med Personnel, [facility] Records Cannot obtain history due to: Altered mental status - Social History Smoking Status: Never Smoker Cigarette use (# per day): No Chew tobacco use (# tins/day): No Frequency of alcohol use: Rare Drug Abuse: None Lives with: Alf Family History: CAD, DM, Hyperlipidemia, Hypertension, Malignancy Patient has suicidal ideation: No Patient has homicidal ideation: No - Past Medical History Cardiac Medical History: Reports: Hx Atrial Fibrillation, Hx Congestive Heart Failure, Hx Coronary Artery Disease, Hx Hypertension Denies: Hx Heart Attack Pulmonary Medical History: Reports: Hx Bronchitis, Hx Pneumonia, Hx Respiratory Failure, Hx Sleep Apnea Denies: Hx Asthma, Hx COPD Neurological Medical History: Denies: Hx Cerebrovascular Accident, Hx Migraine, Hx Seizures Endocrine Medical History: Reports: Hx Hypothyroidism. Denies: Hx Diabetes Mellitus Type 1, Hx Diabetes Mellitus Type 2, Hx Graves' Disease, Hx Hyperth yroidism Renal/ Medical History: Denies: Hx End Stage Renal Disease, Hx Kidney Stones, Hx Ovarian Cysts, Hx Peritoneal Dialysis, Hx Pelvic Inflammatory Disease Malignancy Medical History: Reports: Hx Breast Cancer. Denies: Hx Cervical Cancer, Hx Ovarian Cancer GI Medical History: Reports: Hx Colonoscopy. 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 Denies: Hx Appendectomy, Hx Bowel Surgery, Hx Cholecystectomy, Hx Colostomy, Hx Coronary Artery Bypass Graft, Hx Gastric Bypass Surgery, Hx Herniorrhaphy, Hx Pacemaker, Hx Tubal Ligation - Immunizations Hx Diphtheria, Pertussis, Tetanus Vaccination: Yes Hx Pneumococcal Vaccination: 07/07/11 <MARGIE ORTA - Last Filed: 11/13/19 16:31> Review of Systems - Review of Systems Constitutional: No symptoms reported EENT: No symptoms reported Cardiovascular: No symptoms reported Respiratory: No symptoms reported Gastrointestinal: No symptoms reported Genitourinary: No symptoms reported Female Genitourinary: No symptoms reported Musculoskeletal: No symptoms reported Skin: No symptoms reported Hematologic/Lymphatic: No symptoms reported Neurological/Psychological: No symptoms reported, Confusion, Other - reportedly combative -: Yes All other systems reviewed and negative <MARIVELMARGIE LARA Last Filed: 11/13/19 16:31> Physical Exam - Vital signs Interpretation: Normal - General General appearance: Other - sleepy In distress: None - HEENT Head: Normocephalic, Atraumatic Eyes: Normal Conjunctiva: Normal Extraocular movements intact: Yes Eyelashes: Normal Pupils: PERRL Nasal: Normal Mouth/Lips: Normal Mucous membranes: Dry Neck: Normal - Respiratory Respiratory status: No respiratory distress Chest status: Nontender Breath sounds: Normal Chest palpation: Normal - Cardiovascular Systolic murmur grade 1-6: 4 Pulses: Normal: Radial, Dorsalis pedis Normal capillary refill: Yes - Abdominal Inspection: Normal Distension: No distension Bowel sounds: Hypoactive Tenderness: Nontender Organomegaly: No organomegaly - Extremities General upper extremity: Normal inspection, Nontender, Normal color, Normal ROM, Normal temperature General lower extremity: Normal inspection, Nontender, Normal color, Normal ROM, Normal temperature, Normal weight bearing. 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 - Psychological Associated symptoms: Normal affect - Skin Skin Temperature: Warm Skin Moisture: Dry Skin Color: Normal <MARIVELMARGIE LARA Filed: 11/13/19 16:31> - Vital signs Vitals: Temp Pulse Resp BP Pulse Ox 98.7 F 72 21 H 108/77 98 11/13/19 13:33 11/13/19 13:33 11/13/19 13:33 11/13/19 13:33 11/13/19 13:33 Course - Laboratory Result Diagrams: 11/13/19 15:17 11/13/19 15:17 <MARIVELMARGIE Last Filed: 11/13/19 16:31> - Laboratory Result Diagrams: 11/13/19 19:46 11/13/19 15:17 <GISSEL NORTH - Last Filed: 11/14/19 00:46> - Re-evaluation Re-evalutation: 11/13/19 16:31 There is been a delay in care secondary to difficulty with blood draws sample. Patient has been reevaluated several times patient remains in stable condition. Patient's EKG shows A. fib rate of 80 bpm which is similar to prior EKG of October 26 last year which demonstrated atrial fibrillation rate of 87 bpm there is no ST elevations. (MARGIE ORTA) 11/13/19 21:45 I received this pt in turnover from Dr. Orta with the labs mostly pending. She is alert when I see her. Ammonia is close to normal and the pt can be safelt sent back to the SNF in my opinion. (GISSEL NORTH) - Vital Signs Vital signs: Temp Pulse Resp BP Pulse Ox 97.8 F 72 24 H 100/53 L 100 11/13/19 22:28 11/13/19 13:33 11/13/19 22:28 11/13/19 22:28 11/13/19 22:28 - Laboratory Laboratory results interpreted by me: 11/13/19 11/13/19 11/13/19 15:17 17:09 19:46 Hgb 10.6 L Hct 32.0 L MCV 71 L MCH 23.3 L RDW 15.5 H Lymph % (Auto) 9.8 L [place] % (Auto) 17.6 H Sodium 130.3 L Potassium 3.1 L Chloride 86 L Carbon Dioxide 33 H BUN 26 H Est GFR ( Amer) 53 L Est GFR (MDRD) Non-Af 44 L AST 41 H Alkaline Phosphatase 230 H Ammonia 38.3 H Albumin 2.8 L Discharge <MARGIE ORTA - Last Filed: 11/13/19 16:31> <GISSEL NORTH - Last Filed: 11/14/19 00:46> - Discharge Clinical Impression: Altered mental status Qualifiers: Altered mental status type: transient alteration of awareness Qualified Code(s): R40.4 - Transient alteration of awareness Condition: Fair Disposition: HOME-SNF (ED ONLY) Instructions: Altered Mental Status ([facility]) Additional Instructions: See your doctor in follow up. Rest. Please return here for any problems or any concerns. Referrals: JOVANI LANDAVERDE MD [Primary Care Provider] - Follow up as needed
--- NOTE | 2019-11-13 14:05 | RADIOLOGY REPORT (SQ) ---
EXAM DESCRIPTION: CHEST SINGLE VIEW COMPLETED DATE/TIME: 11/13/2019 1:52 pm REASON FOR STUDY: ams COMPARISON: AP view of the chest from 10/26/2019. EXAM PARAMETERS: NUMBER OF VIEWS: One view. TECHNIQUE: An AP view of the chest was obtained. RADIATION DOSE: NA LIMITATIONS: None. FINDINGS: LUNGS AND PLEURA: No consolidation, pleural effusion or pneumothorax. MEDIASTINUM AND HILAR STRUCTURES: Stable mediastinal and hilar contours. HEART AND VASCULAR STRUCTURES: Unchanged cardiomegaly. BONES: No acute findings. HARDWARE: None in the chest. OTHER: No other finding. IMPRESSION: Cardiomegaly without a superimposed acute cardiopulmonary process. TECHNICAL DOCUMENTATION: JOB ID: [id number] [employer]- All Rights Reserved Reading location - IP/workstation name: [email or web address]
[2019-11-13 16:21] LABS: ALBUMIN 2.8 g/dL (3.5-5.0); ALKALINE PHOSPHATASE 230 U/L (38-126); ANION GAP 11 (5-19); ASPARTATE AMINO TRANSFERASE 41 U/L (14-36); BILIRUBIN,DIRECT 0.4 mg/dL (0.0-0.4); BILIRUBIN,TOTAL 1.1 mg/dL (0.2-1.3); BLOOD UREA NITROGEN 26 mg/dL (7-20); CALCIUM 8.7 mg/dL (8.4-10.2); CARBON DIOXIDE 33 mmol/L (22-30); CHLORIDE 86 mmol/L (98-107); GLUCOSE 94 mg/dL (75-110); POTASSIUM 3.1 mmol/L (3.6-5.0); TOTAL PROTEIN 6.5 g/dL (6.3-8.2)
[2019-11-13 17:14] LABS: APPEARANCE,URINE CLEAR; BILIRUBIN,URINE NEGATIVE (NEGATIVE); COLOR,URINE STRAW; GLUCOSE, URINE NEGATIVE (NEGATIVE); KETONES,URINE NEGATIVE (NEGATIVE); LEUKOCYTE ESTERASE,URINE NEGATIVE (NEGATIVE); NITRITE,URINE NEGATIVE (NEGATIVE); PROTEIN,URINE NEGATIVE (NEGATIVE); URINE SPECIFIC GRAVITY 1.005; UROBILINOGEN,URINE NEGATIVE mg/dL (<2.0)
[2019-11-13 17:59] LABS: INTERNATIONAL RATION (INR) 1.14; PROTHROMBIN TIME 14.7 SEC (11.4-15.4)
[2019-11-13 20:24] LABS: ABSOLUTE EOSINOPHILS # (AUTO) 0.1 10^3/uL (0.0-0.6); ABSOLUTE LYMPHOCYTES (AUTO) 0.6 10^3/uL (0.5-4.7); ABSOLUTE MONOCYTES (AUTO) 1.2 10^3/uL (0.1-1.4); ABSOLUTE NEUT (AUTO) 4.7 10^3/uL (1.7-8.2); BASOPHILS % (AUTO) 0.2 % (0-2); EOSINOPHILS % (AUTO) 1.4 % (0-6); HEMOGLOBIN 10.6 g/dL (12.0-15.5); LYMPHOCYTES % (AUTO) 9.8 % (13-45); MEAN CORPUSCULAR HEMOGLOBIN 23.3 pg (27.0-33.4); MEAN CORPUSCULAR VOLUME 71 fl (80-97); MONOCYTES % (AUTO) 17.6 % (3-13); PLATELET COUNT 273 10^3/uL (150-450); RED BLOOD COUNT 4.54 10^6/uL (3.72-5.28); RED CELL DISTRIBUTION WIDTH 15.5 % (11.5-14.0); TOTAL CELLS COUNTED % (AUTO) 100 %; WHITE BLOOD COUNT 6.6 10^3/uL (4.0-10.5)
[2019-11-13 22:37] VITALS: BP 100/53
--- NOTE | 2019-11-14 09:27 | EKG REPORT ---
SEVERITY:- ABNORMAL ECG - ATRIAL FIBRILLATION LOW VOLTAGE IN FRONTAL LEADS ABNORMAL T, CONSIDER ISCHEMIA, LATERAL LEADS : Confirmed by: Jaleel Peñaloza 14-Nov-2019 09:27:06
== END 2019-11-13 22:58 ==
LOC: ER 13:06
DX: R40.4 Transient alteration of awareness (principal); R40.0 Somnolence; R19.7 Diarrhea, unspecified; I50.9 Heart failure, unspecified; I25.10 Atherosclerotic heart disease of native coronary artery without angina pectoris; I11.0 Hypertensive heart disease with heart failure
CPT/HCPCS: 36415; 71045; 80053; 81001; 82140; 83690; 85025; 85610; 93005; 93010; 99285

== ENCOUNTER 2019-11-14 13:00 | Observation (INO) | payer MEDICARE, MEDICAID ==
--- NOTE | 2019-11-14 14:13 | ER Document Report ---
ED Medical Screen (RME) - General Chief Complaint: Altered Mental Status Stated Complaint: ALTERED MENTAL STATUS Time Seen by Provider: 11/14/19 13:57 Primary Care Provider: JOVANI LANDAVERDE MD [Primary Care Provider] - Follow up as needed TRAVEL OUTSIDE OF THE [place] IN LAST 30 DAYS: No - HPI Notes: 11/14/19 14:08 64-year-old female with a history of hyper tension, hypothyroidism, atrial fibrillation presents to the emergency room for altered mental status. Patient lives in a [facility], was brought by her son for verbally threatening people, pulling fire alarms, wandering out in the middle of the road. Patient was recently seen in the emergency room in the last couple weeks due to elevated pneumonia as well as combativeness. Son brought the patient, he did have to l [employer] for work and he left a note with his concerns of threatening, wandering in the middle of the road and general concerns of patient's mental status. Denies fevers, chills, chest pain,palpitations, shortness of breath, dyspnea, nausea, vomiting, diarrhea, abdominal pain, speech changes, LH, dizziness, syncope, headaches, wheezing, ST, URI, neck pain,bowel or bladder dysfunction, saddle anesthesia, numbness or tingling in bilateral upper or lower extremities equally, muscle paralysis, weakness in bilateral upper or lower extremities equally or rash. Patient does not appear combative or having an altered mental status at this point in time will obtain basic labs and patient will be seen in the back by a physician. I have greeted and performed a rapid initial assessment of this patient. A comprehensive ED assessment and evaluation of the patient, analysis of test results and completion of the medical decision making process will be conducted by additional ED providers. PHYSICAL EXAMINATION: GENERAL: Chronically ill, well-nourished and in no acute distress. HEAD: Atraumatic, normocephalic. CV: s1, s2 regular LUNGS: No respiratory distress Musculoskeletal: Normal range of motion NEUROLOGICAL: Normal speech, normal gait. Awake alert and orientated x3 SKIN: Warm, Dry, normal turgor, no rashes or lesions noted. 11/14/19 14:10 - Related Data Allergies/Adverse Reactions: clemastine fumarate [From Tavist-1] Allergy (Severe, Verified 08/27/19 16:39) red spots,N/V Shark Cartilage [From Shark Fin Cartilage] Allergy (Severe, Verified 08/27/19 16:39) hives, n and v iodine [Iodine] Allergy (Unknown, Verified 08/27/19 16:39) vomit/rash meperidine HCl [From Demerol] Allergy (Unknown, Verified 08/27/19 16:39) N/V pseudoephedrine HCl [From Sudafed] Allergy (Unknown, Verified 08/27/19 16:39) rash/itch glove powder Allergy (Severe, Uncoded 08/27/19 16:39) hands swell,itch Past Medical History - Social History Family history: None - Past Medical History Cardiac Medical History: Reports: Hx Atrial Fibrillation, Hx Congestive Heart Failure, Hx Coronary Artery Disease, Hx Hypertension Denies: Hx Heart Attack Pulmonary Medical History: Reports: Hx Bronchitis, Hx Pneumonia, Hx Respiratory Failure, Hx Sleep Apnea Denies: Hx Asthma, Hx COPD Neurological Medical History: Denies: Hx Cerebrovascular Accident, Hx Migraine, Hx Seizures Endocrine Medical History: Reports: Hx Hypothyroidism. Denies: Hx Diabetes Mellitus Type 1, Hx Diabetes Mellitus Type 2, Hx Graves' Disease, Hx Hyperthyroidism Renal/ Medical History: Denies: Hx End Stage Renal Disease, Hx Kidney Stones, Hx Ovarian Cysts, Hx Peritoneal Dialysis, Hx Pelvic Inflammatory Disease Malignancy Medical History: Reports: Hx Breast Cancer. Denies: Hx Cervical Cancer, Hx Ovarian Cancer GI Medical History: Reports: Hx Colonoscopy. 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 Denies: Hx Appendectomy, Hx Bowel Surgery, Hx Cholecystectomy, Hx Colostomy, Hx Coronary Artery Bypass Graft, Hx Gastric Bypass Surgery, Hx Herniorrhaphy, Hx Pacemaker, Hx Tubal Ligation - Immunizations Hx Diphtheria, Pertussis, Tetanus Vaccination: Yes Physical Exam - Vital signs Vitals: Temp Pulse Resp BP Pulse Ox 97.8 F 90 18 118/52 L 100 11/14/19 13:59 11/14/19 13:59 11/14/19 13:59 11/14/19 13:59 11/14/19 13:59 Course - Vital Signs Vital signs: Temp Pulse Resp BP Pulse Ox 97.8 F 90 18 118/52 L 100 11/14/19 13:59 11/14/19 13:59 11/14/19 13:59 11/14/19 13:59 11/14/19 13:59 Doctor's Discharge - Discharge Referrals: JOVANI LANDAVERDE MD [Primary Care Provider] - Follow up as needed
--- NOTE | 2019-11-14 14:59 | RADIOLOGY REPORT (SQ) ---
EXAM DESCRIPTION: CHEST SINGLE VIEW COMPLETED DATE/TIME: 11/14/2019 2:32 pm REASON FOR STUDY: AMS COMPARISON: 11/13/2019 NUMBER OF VIEWS: One view. TECHNIQUE: Single frontal radiographic view of the chest acquired. LIMITATIONS: None. FINDINGS: LUNGS AND PLEURA: No opacities, masses or pneumothorax. No pleural effusion. MEDIASTINUM AND HILAR STRUCTURES: No masses. Contour normal. HEART AND VASCULAR STRUCTURES: Heart enlarged without failure. Normal vasculature. BONES: No acute findings. HARDWARE: None in the chest. OTHER: No other significant finding. IMPRESSION: HEART ENLARGED WITHOUT FAILURE. NO OTHER SIGNIFICANT RADIOGRAPHIC FINDING IN THE CHEST. TECHNICAL DOCUMENTATION: JOB ID: [id number] [employer]- All Rights Reserved Reading location - IP/workstation name: [email or web address]
[2019-11-14 15:01] LABS: APPEARANCE,URINE CLEAR; BILIRUBIN,URINE NEGATIVE (NEGATIVE); COLOR,URINE STRAW; GLUCOSE, URINE NEGATIVE (NEGATIVE); KETONES,URINE NEGATIVE (NEGATIVE); LEUKOCYTE ESTERASE,URINE NEGATIVE (NEGATIVE); NITRITE,URINE NEGATIVE (NEGATIVE); PROTEIN,URINE NEGATIVE (NEGATIVE); URINE SPECIFIC GRAVITY 1.005; UROBILINOGEN,URINE NEGATIVE mg/dL (<2.0)
[2019-11-14 15:15] LABS: URINE BARBITURATES SCREEN NEGATIVE; URINE COCAINE SCREEN NEGATIVE; URINE MARIJUANA (THC) SCREEN NEGATIVE; URINE METHADONE SCREEN NEGATIVE; URINE PHENCYCLIDINE SCREEN NEGATIVE
[2019-11-14 15:19] LABS: URINE AMPHETAMINES SCREEN NEGATIVE
[2019-11-14 15:23] LABS: URINE BENZODIAZEPINES SCREEN UNCONFIRMED POSITIVE
--- NOTE | 2019-11-14 15:31 | ER Document Report ---
ED General - General Chief Complaint: Altered Mental Status Stated Complaint: ALTERED MENTAL STATUS Time Seen by Provider: 11/14/19 13:57 Primary Care Provider: JOVANI LANDAVERDE MD [NO LOCAL MD] - Follow up as needed TRAVEL OUTSIDE OF THE [place] IN LAST 30 DAYS: No - Related Data Allergies/Adverse Reactions: clemastine fumarate [From Tavist-1] Allergy (Severe, Verified 08/27/19 16:39) red spots,N/V Shark Cartilage [From Shark Fin Cartilage] Allergy (Severe, Verified 08/27/19 16:39) hives, n and v iodine [Iodine] Allergy (Unknown, Verified 08/27/19 16:39) vomit/rash meperidine HCl [From Demerol] Allergy (Unknown, Verified 08/27/19 16:39) N/V pseudoephedrine HCl [From Sudafed] Allergy (Unknown, Verified 08/27/19 16:39) rash/itch glove powder Allergy (Severe, Uncoded 08/27/19 16:39) hands swell,itch Past Medical History - Social History Smoking Status: Never Smoker Frequency of alcohol use: None Drug Abuse: None Family History: CAD, DM, Hyperlipidemia, Hypertension, Malignancy Patient has suicidal ideation: No Patient has homicidal ideation: No - Past Medical History Cardiac Medical History: Reports: Hx Atrial Fibrillation, Hx Congestive Heart Failure, Hx Coronary Artery Disease, Hx Hypertension Denies: Hx Heart Attack Pulmonary Medical History: Reports: Hx Bronchitis, Hx Pneumonia, Hx Respiratory Failure, Hx Sleep Apnea Denies: Hx Asthma, Hx COPD Neurological Medical History: Denies: Hx Cerebrovascular Accident, Hx Migraine, Hx Seizures Endocrine Medical History: Reports: Hx Hypothyroidism. Denies: Hx Diabetes Mellitus Type 1, Hx Diabetes Mellitus Type 2, Hx Graves' Disease, Hx Hyperthyroidism Renal/ Medical History: Denies: Hx End Stage Renal Disease, Hx Kidney Stones, Hx Ovarian Cysts, Hx Peritoneal Dialysis, Hx Pelvic Inflammatory Disease Malignancy Medical History: Reports: Hx Breast Cancer. Denies: Hx Cervical Cancer, Hx Ovarian Cancer GI Medical History: Reports: Hx Colonoscopy. 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 Denies: Hx Appendectomy, Hx Bowel Surgery, Hx Cholecystectomy, Hx Colostomy, Hx Coronary Artery Bypass Graft, Hx Gastric Bypass Surgery, Hx Herniorrhaphy, Hx Pacemaker, Hx Tubal Ligation - Immunizations Hx Diphtheria, Pertussis, Tetanus Vaccination: Yes Hx Pneumococcal Vaccination: 07/07/11 Physical Exam - Vital signs Vitals: Temp Pulse Resp BP Pulse Ox 97.8 F 90 18 118/52 L 100 11/14/19 13:59 11/14/19 13:59 11/14/19 13:59 11/14/19 13:59 11/14/19 13:59 - Notes Notes: [facility]. Triage note indicates that she is combativeness confusion threatening staff is been wandering on the street. Note from the [facility] says that patient signed out AMA and needs involuntary commitment. Does not really sure why she is here. Was warned by son who is not here at this time. At this time patient denies headache chest pain shortness of breath nausea vomiting abdominal pain fevers or cough. Patient was in ED yesterday for same complaint was sedated by EMS and was stable in the ED and sent back Family indicates that patient does not have a history of dementia. She does get agitated and confused when she has an infection. They also indicated the [facility] made her sign out AMA because they said they could not keep her there anymore Past medical history is significant coronary artery disease atrial fibrillation CHF hypertension and low thyroid. Had elevated ammonia and was recently diagnosed with a UTI Social history does not smoke or drink Review of systems pertinent positives and negatives in HPI otherwise all the systems were reviewed and acutely negative PHYSICIAN EXAM -vital signs are noted triage note and note from triage reviewed GENERAL: Well-appearing, well-nourished and in _no acute distress____ HEAD: Atraumatic, normocephalic. EYES: Pupils equal round and reactive to light, extraocular movements intact, sclera anicteric, conjunctiva are normal. ENT: nares patent, oropharynx clear without exudates. Slightly dry mucous membranes. NECK: supple without lymphadenopathy LUNGS: Breath sounds clear to auscultation bilaterally and equal. No wheezes rales or rhonchi. HEART: Regular rate and rhythm without murmurs ABDOMEN: Soft, nontender, normoactive bowel sounds. EXTREMITIES: No deformity, no edema. NEUROLOGICAL: Alert and oriented x4 slow to answer questions but can answer questions appropriately. She is very cooperative. Cranial nerves symmetrical smile and facial expressions. Her motor strength is 5/5 bilaterally upper lower extremities toes are downgoing and she has negative Romberg PSYCH: Normal mood, normal affect. SKIN: Warm, Dry, normal turgor, no rashes or lesions noted. BACK-nontender in the midline Differential diagnosis dehydration abnormal electrolytes infection dementia Course - Re-evaluation Re-evalutation: 11/14/19 21:11 ED patient is remained stable has been seen by mental health and they felt the patient could be cleared from a psychiatric standpoint Depakote. We did contact the [facility] however no one was available. Plan at this point will be to watch patient overnight and try to get the patient placed [facility] in the [facility] we will go ahead and give her potassium supplements as well as magnesium and a dose of lactulose patient has remained stable here alert and oriented not been combative and had a food tray patient also be started on Depakote. Should be given 1 additional dose of potassium in the morning only levels minimally elevated appears been higher in the past explained her aggressive behavior Plan at this point is patient was observed overnight and consult [facility] in the morning regarding placement 11/15/19 01:34 11/15/19 01:36 - Vital Signs Vital signs: Temp Pulse Resp BP Pulse Ox 98 F 72 20 119/60 100 11/14/19 20:12 11/14/19 22:01 11/14/19 22:01 11/14/19 22:01 11/14/19 22:01 - Laboratory Result Diagrams: 11/14/19 18:37 11/14/19 18:37 Laboratory results interpreted by me: 11/14/19 11/14/19 11/14/19 18:37 18:37 18:37 Hgb 11.5 L Hct 35.5 L MCV 70 L MCH 22.8 L RDW 16.1 H Lymph % (Auto) 9.2 L [place] % (Auto) 13.9 H Sodium 132.5 L Potassium 2.6 L* Chloride 86 L Carbon Dioxide 37 H BUN 23 H Est GFR (MDRD) Non-Af 50 L Alkaline Phosphatase 229 H Ammonia 37.0 H Albumin 2.9 L TSH Salicylates < 1.0 L Acetaminophen < 10 L 11/14/19 18:37 Hgb Hct MCV MCH RDW Lymph % (Auto) [place] % (Auto) Sodium Potassium Chloride Carbon Dioxide BUN Est GFR (MDRD) Non-Af Alkaline Phosphatase Ammonia Albumin TSH 0.36 L Salicylates Acetaminophen - Diagnostic Test Radiology reviewed: Reports reviewed - EKG Interpretation by Me Additional EKG results interpreted by me: 11/14/19 21:11 G read by me shows atrial fibrillation with a controlled ventricular rate with some minimal nonspecific ST wave changes which is unchanged from previous Discharge - Discharge Clinical Impression: Agitation, Hypokalemia, Hyper ammonia Condition: Stable Disposition: OTHER Additional Instructions: Increase potassium to 1 tablet twice a day Increase the lactulose to 2 tablespoons twice a day Follow-up in family doctor in 1 week to recheck labs Prescriptions: Divalproex Sodium [Depakote] 125 mg PO BID #60 tablet.dr Referrals: JOVANI LANDAVERDE MD [NO LOCAL MD] - Follow up as needed
--- NOTE | 2019-11-14 17:29 | PSYCHOLOGICAL NOTE ---
Psych Note - Psych Note Date seen by psych provider: 11/14/19 Time seen by psych provider: 16:00 Psych Note: Reason for consult: Altered Mental Status Patient is a 64 year old female who presents to ED via POV accompanied by her son. Patient has no history with behavioral health. Patient has been seen by the medical team at the ED 6 times this month. Patient has chronic health conditions. Patient has resided at [place]. Patient left [place] AMA. Patient has a history of pulling the fire alarm at [place]. [facility] has described patient as frequently "combative." APS is with patient and son. Patient denies suicidal and homicidal ideation. Patient reports a period of depression when her sister "caused me to lose everything." Son denies mental health concerns and describes patient's behavior as an attempt to have her needs met. Patient's son currently lives with a roommate. There is talk of son moving to [place] for [place]. Patient expressed a desire to remain in [place], [place] as "this is home." Son states "I have my own life to live" and cannot take care of patient. Patient has history of medical conditions to include metabolic encephalopy, low potassium, hypothyroidism and elevated ammonia levels. These conditions can result in changes of cognitive process. Medication recommendations per [facility] contracted psychiatrist Dr. Zayda TAPIA is as follows: Depakoelana TRACY 125MG, twice a day Impression/Plan: Patient is cleared from acute psychiatric services. While the behaviors appear psychiatric in nature, medical history such as metabolic encephalopy, low potassium, hypothyroidism and elevated ammonia levels can result in behaviors observed in this patient. Patient does not have a mental health history. At this time, it appears patient's presentation is medical in nature. Medication recommendations have been provided to assist with patient's current behavioral presentation. Patient denies suicidal and homicidal ideation. Dr. Saldana was consulted on the care and management of this patient; attending physician is in agreement with recommendations and disposition.
--- NOTE | 2019-11-14 18:07 | RADIOLOGY REPORT (SQ) ---
EXAM DESCRIPTION: CT HEAD WITHOUT COMPLETED DATE/TIME: 11/14/2019 5:54 pm REASON FOR STUDY: Altered mental status COMPARISON: 08/31/2019 TECHNIQUE: Axial images acquired through the brain without intravenous contrast. Images reviewed wi th bone, brain and subdural windows. Additional sagittal and coronal reconstructions were generated. Images stored on PACS. All CT scanners at this facility use dose modulation, iterative reconstruction, and/or weight based d osing when appropriate to reduce radiation dose to as low as reasonably achievable (ALARA). [facility]: Dose Right [facility]: CareDose [facility]: Dose Right [facility]: Teradose 4D [facility]: Smart [employer] Mobile RADIATION DOSE: CT Rad equipment meets quality standard of care and radiation dose reduction techniq ues were employed. CTDIvol: 55.2 mGy. DLP: 974 mGy-cm. mGy. LIMITATIONS: None. FINDINGS: VENTRICLES: Normal size and contour. CEREBRUM: No masses. No hemorrhage. No midline shift. No evidence for acute infarction. Normal gra y/white matter differentiation. No areas of low density in the white matter. CEREBELLUM: No masses. No hemorrhage. No alteration of density. No evidence for acute infarction. EXTRAAXIAL SPACES: No fluid collections. No masses. ORBITS AND GLOBE: No intra- or extraconal masses. Normal contour of globe without masses. CALVARIUM: No fracture. PARANASAL SINUSES: No fluid or mucosal thickening. SOFT TISSUES: No mass or hematoma. OTHER: No other significant finding. IMPRESSION: NORMAL BRAIN CT WITHOUT CONTRAST. EVIDENCE OF ACUTE STROKE: NO. COMMENT: Quality ID # [id number]: Final reports with documentation of one or more dose reduction techniques (e.g., Automated exposure control, adjustment of the mA and/or kV according to patient size, use of iterative reconstruction technique) TECHNICAL DOCUMENTATION: JOB ID: [id number] [employer]- All Rights Reserved Reading location - IP/workstation name: [email or web address]
[2019-11-14 19:06] LABS: ABSOLUTE EOSINOPHILS # (AUTO) 0.1 10^3/uL (0.0-0.6); ABSOLUTE LYMPHOCYTES (AUTO) 0.7 10^3/uL (0.5-4.7); ABSOLUTE NEUT (AUTO) 5.4 10^3/uL (1.7-8.2); BASOPHILS % (AUTO) 0.6 % (0-2); EOSINOPHILS % (AUTO) 0.7 % (0-6); HEMATOCRIT 35.5 % (36.0-47.0); HEMOGLOBIN 11.5 g/dL (12.0-15.5); LYMPHOCYTES % (AUTO) 9.2 % (13-45); MEAN CORPUSCULAR HEMOGLOBIN 22.8 pg (27.0-33.4); MEAN CORPUSCULAR HGB CONC 32.4 g/dL (32.0-36.0); MEAN CORPUSCULAR VOLUME 70 fl (80-97); MONOCYTES % (AUTO) 13.9 % (3-13); PLATELET COUNT 311 10^3/uL (150-450); RED BLOOD COUNT 5.04 10^6/uL (3.72-5.28); RED CELL DISTRIBUTION WIDTH 16.1 % (11.5-14.0); SEGMENTED NEUTROPHILS % (AUTO) 75.6 % (42-78); TOTAL CELLS COUNTED % (AUTO) 100 %; WHITE BLOOD COUNT 7.1 10^3/uL (4.0-10.5)
[2019-11-14 19:23] LABS: ALBUMIN 2.9 g/dL (3.5-5.0); ALKALINE PHOSPHATASE 229 U/L (38-126); ANION GAP 10 (5-19); ASPARTATE AMINO TRANSFERASE 32 U/L (14-36); BILIRUBIN,DIRECT 0.4 mg/dL (0.0-0.4); BLOOD UREA NITROGEN 23 mg/dL (7-20); CALCIUM 8.7 mg/dL (8.4-10.2); CARBON DIOXIDE 37 mmol/L (22-30); CHLORIDE 86 mmol/L (98-107); GLUCOSE 95 mg/dL (75-110); TOTAL PROTEIN 6.6 g/dL (6.3-8.2)
[2019-11-14 19:26] LABS: ACETAMINOPHEN < 10 ug/mL (10-30); ALCOHOL < 10 mg/dL (NONE DETECTED); SALICYLATE < 1.0 mg/dL (2.0-20.0)
[2019-11-14 19:27] LABS: POTASSIUM 2.6 mmol/L (3.6-5.0)
[2019-11-14 19:40] LABS: FREE T4 (FREE THYROXINE) 1.99 ng/dL (0.78-2.19)
[2019-11-14 19:54] LABS: THYROID STIMULATING HORMONE 0.36 uIU/mL (0.47-4.68)
[2019-11-14] MEDS ORDERED: POTASSIUM CHLORIDE 10 MEQ TABLET.ER PO ONE ×2 (20:40)
[2019-11-14] MEDS ORDERED: MAGNESIUM OXIDE 400 MG TABLET PO ONE (20:41)
[2019-11-14] MEDS ORDERED: LACTULOSE SYRUP 20 GM/30 ML UDCUP PO ONE (20:41)
[2019-11-14] MEDS ORDERED: DIVALPROEX SODIUM 250 MG TAB.SR.24H PO ONE (21:13)
--- NOTE | 2019-11-14 21:55 | EKG REPORT ---
SEVERITY:- ABNORMAL ECG - ATRIAL FIBRILLATION LOW VOLTAGE IN FRONTAL LEADS NONSPECIFIC T ABNORMALITIES, ANT-LAT LEADS : Confirmed by: Jaleel Peñaloza 14-Nov-2019 21:54:38
[2019-11-15] MEDS ORDERED: POTASSIUM CHLORIDE 10 MEQ TABLET.ER PO ONE (01:40)
[2019-11-15] MEDS ORDERED: LACTULOSE SYRUP 20 GM/30 ML UDCUP PO ONE (10:51)
[2019-11-15] MEDS: POTASSIUM CHLORIDE 10 MEQ TABLET.ER PO SCH ×4 (11:40→21:23)
[2019-11-15] MEDS: METOPROLOL SUCCINATE 25 MG TAB.SR.24H PO SCH (11:41)
[2019-11-15] MEDS: LEVOTHYROXINE SODIUM 0.1 MG TABLET PO SCH (11:42)
[2019-11-15] MEDS: PANTOPRAZOLE SODIUM 40 MG TABLET.DR PO SCH (11:42)
[2019-11-15] MEDS: DIVALPROEX SODIUM 250 MG TABLET.DR PO SCH ×2 (11:42→17:48)
[2019-11-15] MEDS: ATORVASTATIN CALCIUM 20 MG TABLET PO SCH (11:43)
[2019-11-15] MEDS: TORSEMIDE 20 MG TABLET PO SCH ×2 (14:38→17:49)
[2019-11-15] MEDS ORDERED: TUBERCULIN,PURIF.PROT.DERIV. 5 TU/0.1 ML TEST 1 ML VIAL ID ONE (15:23)
[2019-11-16] MEDS: METOPROLOL SUCCINATE 25 MG TAB.SR.24H PO SCH (09:57)
[2019-11-16] MEDS: TORSEMIDE 20 MG TABLET PO SCH ×2 (09:57→17:52)
[2019-11-16] MEDS: PANTOPRAZOLE SODIUM 40 MG TABLET.DR PO SCH (09:57)
[2019-11-16] MEDS: DIVALPROEX SODIUM 250 MG TABLET.DR PO SCH ×2 (09:57→17:52)
[2019-11-16] MEDS: ATORVASTATIN CALCIUM 20 MG TABLET PO SCH (09:57)
[2019-11-16] MEDS: LEVOTHYROXINE SODIUM 0.1 MG TABLET PO SCH (09:57)
[2019-11-16] MEDS: POTASSIUM CHLORIDE 10 MEQ TABLET.ER PO SCH ×4 (09:57→21:58)
[2019-11-16 20:56] LABS: ANION GAP 6 (5-19); BLOOD UREA NITROGEN 15 mg/dL (7-20); CALCIUM 8.7 mg/dL (8.4-10.2); CARBON DIOXIDE 38 mmol/L (22-30); CHLORIDE 89 mmol/L (98-107); GLUCOSE 100 mg/dL (75-110)
[2019-11-16 20:59] LABS: POTASSIUM 2.8 mmol/L (3.6-5.0)
[2019-11-16] MEDS ORDERED: POTASSIUM CHLORIDE 10 MEQ TABLET.ER PO ONE (21:26)
[2019-11-16] MEDS ORDERED: DEXTROSE 5%-1/2 NORMAL SALINE 1,000 ML IV ONE (21:27)
[2019-11-16] MEDS ORDERED: POTASSI CL 20 MEQ/D5-1/2NS 1L 1,000 ML IV ONE (21:34)
[2019-11-17] MEDS: POTASSIUM CHLORIDE 10 MEQ TABLET.ER PO SCH ×3 (12:01→22:37)
[2019-11-17] MEDS: DIVALPROEX SODIUM 250 MG TABLET.DR PO SCH (12:02)
[2019-11-17] MEDS: PANTOPRAZOLE SODIUM 40 MG TABLET.DR PO SCH (12:02)
[2019-11-17] MEDS: METOPROLOL SUCCINATE 25 MG TAB.SR.24H PO SCH (12:03)
[2019-11-17] MEDS: ATORVASTATIN CALCIUM 20 MG TABLET PO SCH (12:03)
[2019-11-17] MEDS: LEVOTHYROXINE SODIUM 0.1 MG TABLET PO SCH (12:03)
[2019-11-17] MEDS: TORSEMIDE 20 MG TABLET PO SCH (12:34)
[2019-11-17 12:44] LABS: ANION GAP 6 (5-19); BLOOD UREA NITROGEN 13 mg/dL (7-20); CALCIUM 8.3 mg/dL (8.4-10.2); CARBON DIOXIDE 39 mmol/L (22-30); CHLORIDE 90 mmol/L (98-107); GLUCOSE 126 mg/dL (75-110)
[2019-11-17 12:47] LABS: POTASSIUM 2.8 mmol/L (3.6-5.0)
[2019-11-17] MEDS: LACTULOSE SYRUP 20 GM/30 ML UDCUP PO SCH (14:01)
--- NOTE | 2019-11-17 14:41 | ER Document Report ---
Doctor's Note Notes: 11/17/19 14:33 This 64-year-old female patient is presently in the emergency room as a social hold waiting on some sort of disposition. Previous notes suggest that she had left the [facility] AMA and now there is difficulty getting her back in. Since she has been here in the emergency room for the last several days, there is been difficulty in keeping her potassium levels up above 3.0, despite increasing dosing of potassium. She is taking torsemide 20 mg twice daily, which may contribute to the potassium loss. She has not been having diarrhea. She does have 2-3+ pitting edema to her lower extremities. She does have a history of chronic diastolic heart failure. The patient's pulse oximetry reading is 100% on room air. I did consult Dr. Foley from the hospitalist service to medically manage the patient while she remains as a social hold in the emergency department.
--- NOTE | 2019-11-17 18:16 | PDOC CONSULTATION ---
Consultation Consult Date: 11/17/19 Provider Consulted: TREMAYNE ARAUZ Consult reason:: hypokalemia History of Present Illness Admission Date/PCP: KEYLA WATTS MD History of Present Illness: MICHAEL BOWLING is a 64 year old female with a past medical history of mitral valve regurgitation, chronic diastolic heart failure, MECHELLE on CPAP, chronic atrial fibrillation not on anticoagulation, COPD on 2 L of home O2 and chronic hypokalemia who was reportedly brought in by her son to the ER due to concerns of confusion at home. She was found to have hypokalemia in the ER and was given potassium replacements but was persistently hypokalemic. She was also continued on her home torsemide. Hospitalist was consulted for further recommendations and comanagement. Upon encounter, patient appears comfortable and is saturating well on room air. She is pleasant and is very coherent. She is well oriented and is oriented to person, place and time and situation. She says that she knows she is in [facility] she is able to tell me that it is November 16, 2019 today. When asked why she was brought into the ER, she says that her son thinks that she has been confused at home. She denies acute complaints and denies any chest pain, shortness of breath, vomiting, dizziness, headache or diarrhea. She appears competent and is actually able to tell me the intricacies of her multiple comorbidities. When asked how long has she been on diuretic, she says that this started a few years ago when she was binging on salt and was retaining a lot of fluid and developed significant bipedal edema. She says that she was an avid salt eater because she really likes her food salty. She says that she used to use more than 5 tablespoons of salt every day and in a few times in the past, she would eat half a handful of salt. She says she was also told by her PCP and tin pot operator that she has chronic heart failure. She says that she was seen by Dr. Peñaloza before but she was also seen by a tin pot operator at [facility] in [place] and reports that she had an echo done last year at [facility]. She says that she has significantly cut down on her salt intake and her chronic bipedal edema has significantly improved. She tells me that she was started on Lasix before by Dr. Watts and was switched to torsemide because of her low potassium levels. She is also able to tell me that she was told she had an elevated ammonia in August. She says that she also has atrial fibrillation and was on Coumadin before. However she verbalized she had 2 episodes of GI bleed while on Coumadin and hence was taken off the Coumadin. When asked if the bleeding source was identified, she says that she had an endoscopy done by Dr. Sequeira and was found to have multiple colonic polyps. She said she had prior polypectomies but due to recurrence of bleeding, she was eventually taken off the Coumadin. She says that she was told that the polyps were benign. She says that she was discharged to [facility] in August 2019 but left the care home sometime after [facility]. When asked why she left and when reported behavior of her putting down fire alarms was verified, she says that she was not very cooperative at [facility] because she did not want to stay there for a long time. She says that she and her son have been trying to find a place for her to stay but they do not have the financial means for it. She says that she has been homeless and has been switching from living in houses of different friends. She also says she is a [employer] and expressed she wants me to be aware of that. Past Medical History Cardiac Medical History: Reports: Atrial Fibrillation, Congestive Heart Failure, Coronary Artery Disease, Hypertension Denies: Myocardial Infarction Pulmonary Medical History: Reports: Bronchitis, Pneumonia, Respiratory Failure, Sleep Apnea Denies: Asthma, Chronic Obstructive Pulmonary Disease (COPD) Neurological Medical History: Denies: Migraine, Seizures Endocrine Medical History: Reports: Hypothyroidism Denies: Diabetes Mellitus Type 1, Diabetes Mellitus Type 2, Hyperthyroidism Renal/ Medical History: Denies: End Stage Renal Disease Malignancy Medical History: Reports: Breast Cancer Denies: Cervical Cancer, Ovarian Cancer GI Medical History: Denies: Cirrhosis, Crohn's Disease, Gastroesophageal Reflux Disease, Hepatitis, Hiatal Hernia, Ulcerative Colitis Musculoskeltal Medical History: Reports: Arthritis - bilateral knees Denies: Fibromyalgia, Gout Skin Medical History: Denies: Eczema, Psoriasis Psychiatric Medical History: Denies: Depression Hematology: Reports: Anemia Denies: Sickle Cell Disease, Bleeding Tendencies Past Surgical History Past Surgical History: Reports: Section, Hysterectomy, Mastectomy - right partial, Tonsillectomy, Other - Several childhood surgeries Denies: Amputation, Appendectomy, Cholecystectomy, Colostomy, Coronary Artery Bypass Graft, Gastric Bypass Surgery, Herniorrhaphy, Pacemaker, Tubal Ligation Social History Smoking Status: Never Smoker Frequency of Alcohol Use: Rare Hx Recreational Drug Use: No Drugs: None Hx Prescription Drug Abuse: No Family History Family History: CAD, DM, Hyperlipidemia, Hypertension, Malignancy Parental Family History Reviewed: Yes - no premature CAD Children Family History Reviewed: No Sibling(s) Family History Reviewed.: No Medication/Allergy Home Medications: Atorvastatin Calcium [Lipitor 20 mg Tablet] 20 mg PO QHS 06/06/19 Clopidogrel Bisulfate [Plavix 75 mg Tablet] 75 mg PO DAILY 06/06/19 Diltiazem HCl [Diltiazem 12Hr ER] 120 mg PO Q12 06/06/19 Levothyroxine Sodium [Synthroid 0.1 mg Tablet] 0.1 mg PO Q6AM 06/06/19 Pantoprazole Sodium [Protonix [address] Tablet] 40 mg PO Q6AM 06/06/19 Potassium Chloride [Klor-Con 10 Meq Tablet ER] 60 meq PO TID 06/06/19 Torsemide [Demadex] 40 mg PO BID 06/06/19 Dicyclomine HCl [Bentyl 20 mg Tablet] 20 mg PO Q6HP PRN 08/27/19 Divalproex Sodium [Depakote] 125 mg PO BID #60 tablet.dr 11/15/19 Lactulose [Cephulac Syrup 20 gm/30 ml Udcup] 10 gm PO Q12 11/18/19 Metolazone [Zaroxolyn 2.5 Mg Tablet] 2.5 mg PO MOWEFR 11/18/19 Metoprolol Succinate [Toprol Xl 25 mg Tab.sr] 25 mg PO DAILY 11/18/19 Nitroglycerin [Nitro-Dur 5 mg (0.2 mg/Hr) Transdermal Patch] 1 patch TOP DAILY 11/18/19 Allergies/Adverse Reactions: clemastine fumarate [From Tavist-1] Allergy (Severe, Verified 08/27/19 16:39) red spots,N/V Shark Cartilage [From Shark Fin Cartilage] Allergy (Severe, Verified 08/27/19 16:39) hives, n and v iodine [Iodine] Allergy (Unknown, Verified 08/27/19 16:39) vomit/rash meperidine HCl [From Demerol] Allergy (Unknown, Verified 08/27/19 16:39) N/V pseudoephedrine HCl [From Sudafed] Allergy (Unknown, Verified 08/27/19 16:39) rash/itch glove powder Allergy (Severe, Uncoded 08/27/19 16:39) hands swell,itch Physical Exam Vital Signs: Temp Pulse Resp BP Pulse Ox 98.2 F 94 29 H 114/52 L 99 11/17/19 14:02 11/16/19 22:30 11/17/19 14:03 11/17/19 13:02 11/17/19 14:03 Intake & Output 11/16/19 11/17/19 11/18/19 06:59 06:59 06:59 Intake Total 1000 Balance 1000 General appearance: PRESENT: no acute distress, well-developed, well-nourished Head exam: PRESENT: atraumatic, normocephalic Eye exam: PRESENT: conjunctiva pink, EOMI, PERRLA. ABSENT: scleral icterus Ear exam: PRESENT: normal external ear exam Mouth exam: PRESENT: moist, tongue midline Neck exam: ABSENT: carotid bruit, JVD, lymphadenopathy, thyromegaly Respiratory exam: PRESENT: clear to auscultation refugio. ABSENT: rales, rhonchi, wheezes Cardiovascular exam: PRESENT: RRR, systolic murmur. ABSENT: diastolic murmur, rubs Pulses: PRESENT: normal dorsalis pedis pul GI/Abdominal exam: PRESENT: normal bowel sounds, soft. ABSENT: distended, guarding, mass, organolmegaly, rebound, tenderness Rectal exam: PRESENT: deferred Extremities exam: PRESENT: full ROM, +2 edema. ABSENT: calf tenderness, clubbing Neurological exam: PRESENT: alert, awake, oriented to person, oriented to place, oriented to time, oriented to situation, CN II-XII grossly intact. ABSENT: motor sensory deficit Results Laboratory Results: 11/14/19 18:37 11/17/19 12:16 11/16/19 11/17/19 11/17/19 20:20 07:20 07:20 Sodium 133.4 L Potassium 2.8 L* 2.8 L* Chloride 89 L Carbon Dioxide 38 H Anion Gap 6 BUN 15 Creatinine 0.76 Est GFR ( Amer) > 60 Glucose 100 Calcium 8.7 Magnesium 1.8 Ammonia 11/17/19 11/17/19 12:16 12:16 Sodium 134.5 L Potassium 2.8 L* Chloride 90 L Carbon Dioxide 39 H Anion Gap 6 BUN 13 Creatinine 0.83 Est GFR ( Amer) > 60 Glucose 126 H Calcium 8.3 L Magnesium Ammonia 40.2 H 11/14/19 18:37 Troponin I < 0.012 Impressions: Chest X-Ray 11/14/19 14:05 IMPRESSION: HEART ENLARGED WITHOUT FAILURE. NO OTHER SIGNIFICANT RADIOGRAPHIC FINDING IN THE CHEST. Head CT 11/14/19 15:31 IMPRESSION: NORMAL BRAIN CT WITHOUT CONTRAST. EVIDENCE OF ACUTE STROKE: NO. Assessment and Plan - Diagnosis (1) Hypokalemia Is this a current diagnosis for this admission?: Yes Plan: At this time, suspect that hypokalemia is related to diuresis. Although torsemide is associated with lesser frequency of hypokalemia, it can still cause potassium wasting. Her last echocardiogram on record 2 years ago showed normal EF but study was suboptimal for visualization diastolic function. Chart reviewed mention she has chronic diastolic heart failure. Discontinue torsemide. Will switch her to Spironolactone and will start at 25 mg every 12. Will increase oral potassium replacement to 40 meqs every 8. Reviewed prior BMPs. Appears she has chronic alkalosis and has elevated bicarb level. She is normotensive. Serum magnesium is normal. Her chronic alkalosis is likely related to diuresis. The likelihood of urinary potassium wasting syndromes such as Gitelman and Barter syndromes is extremely low in an elderly patient. Regardless, the management for these diseases are chronic potassium supplementation and avoidance of medications that would cause hypokalemia. Also unlikely that her hypokalemia is secondary to an organic acidemia as she actually has alkalosis. Work-up for refractory hypokalemia is mostly outpatient and considered if the hypokalemia is not responding to discontinuation of causative drug and potassium supplementation. If she continues to remain in the the hospital pending disposition, will consider further work-up or nephrology consult if her pot assium does not improve at all. (2) Hyperammonemia Is this a current diagnosis for this admission?: Yes Plan: She had an ammonia level over a 100 before. She had previous work-up for her elevated ammonia. She had a CT and an abdominal ultrasound which showed fatty liver but no signs of cirrhosis. Discontinue Depakote as it can also cause hyperammonemia. Agree with continuing lactulose for now. On examination, she is not encephalopathic. - Time Time Spent with patient: 25-34 minutes
[2019-11-17] MEDS: SPIRONOLACTONE 25 MG TABLET PO SCH (22:36)
[2019-11-18 03:16] LABS: HEMOGLOBIN 9.9 g/dL (12.0-15.5)
[2019-11-18 03:19] LABS: ALBUMIN 2.1 g/dL (3.5-5.0); ALKALINE PHOSPHATASE 150 U/L (38-126); ANION GAP 5 (5-19); ASPARTATE AMINO TRANSFERASE 31 U/L (14-36); BILIRUBIN,DIRECT 0.3 mg/dL (0.0-0.4); BILIRUBIN,TOTAL 0.8 mg/dL (0.2-1.3); BLOOD UREA NITROGEN 13 mg/dL (7-20); CALCIUM 7.7 mg/dL (8.4-10.2); CARBON DIOXIDE 38 mmol/L (22-30); CHLORIDE 93 mmol/L (98-107); GLUCOSE 77 mg/dL (75-110); TOTAL PROTEIN 5.2 g/dL (6.3-8.2)
[2019-11-18 03:20] LABS: POTASSIUM 2.9 mmol/L (3.6-5.0)
[2019-11-18 03:30] LABS: HEMATOCRIT 29.9 % (36.0-47.0); MEAN CORPUSCULAR HEMOGLOBIN 23.3 pg (27.0-33.4); MEAN CORPUSCULAR VOLUME 71 fl (80-97); PLATELET COUNT 258 10^3/uL (150-450); RED BLOOD COUNT 4.23 10^6/uL (3.72-5.28); WHITE BLOOD COUNT 4.4 10^3/uL (4.0-10.5)
[2019-11-18 03:48] LABS: ABSOLUTE LYMPHOCYTES# (MANUAL) 0.9 10^3/uL (0.5-4.7); ABSOLUTE MONOCYTES # (MANUAL) 0.1 10^3/uL (0.1-1.4); BASOPHILS % (MANUAL) 1 % (0-2); EOSINOPHILS % (MANUAL) 0 % (0-6); LYMPHOCYTES % (MANUAL) 19 % (13-45); MONOCYTES % (MANUAL) 2 % (3-13); SEGMENTED NEUTROPHILS % (MAN) 77 % (42-78); TOTAL CELLS COUNTED 100
[2019-11-18 03:52] LABS: ANISOCYTOSIS 1+; BURR CELLS 1+; OVALOCYTES 1+; PLATELET COMMENT ADEQUATE; POIKILOCYTOSIS 1+; TEAR DROP CELLS SLIGHT; TOXIC GRANULATION 1+; TOXIC VACUOLATION PRESENT
[2019-11-18] MEDS: PANTOPRAZOLE SODIUM 40 MG TABLET.DR PO SCH (05:54)
[2019-11-18] MEDS: POTASSIUM CHLORIDE 10 MEQ TABLET.ER PO SCH ×3 (05:54→22:34)
[2019-11-18] MEDS: POTASSI CL 20 MEQ/50 ML RIDER 20 MEQ/50 ML RTUPB IV SCH ×2 (08:48→11:55)
[2019-11-18] MEDS: LEVOTHYROXINE SODIUM 0.1 MG TABLET PO SCH (10:20)
[2019-11-18] MEDS: METOPROLOL SUCCINATE 25 MG TAB.SR.24H PO SCH (10:20)
[2019-11-18] MEDS: ATORVASTATIN CALCIUM 20 MG TABLET PO SCH (10:20)
[2019-11-18] MEDS: LACTULOSE SYRUP 20 GM/30 ML UDCUP PO SCH (10:21)
[2019-11-18] MEDS: SPIRONOLACTONE 25 MG TABLET PO SCH ×2 (10:22→22:34)
[2019-11-18 12:11] LABS: ARTERIAL BLOOD H2CO3 1.13 mmol/L (1.05-1.35); ARTERIAL BLOOD HCO3 33.7 mmol/L (20-24); ARTERIAL BLOOD O2 SATURATION 97.1 % (94-98); ARTERIAL BLOOD PCO2 37.4 mmHg (35-45); ARTERIAL BLOOD PH 7.57 (7.35-7.45); ARTERIAL BLOOD PO2 79.1 mmHg (80-100); ARTERIAL BLOOD TOTAL CO2 34.9 mmol/L (21-25)
[2019-11-18 12:21] LABS: ARTERIAL BLOOD FIO2 21%
[2019-11-18 17:29] LABS: POTASSIUM 3.5 mmol/L (3.6-5.0)
--- NOTE | 2019-11-18 17:50 | ER Document Report ---
Doctor's Note Notes: 11/18/19 17:49 Social workers have sent out additional referral requests for residential facility to multiple facilities today in addition to the [facility] request made last week. The patient's potassium today is up to 3.5 after getting additional IV potassium.
--- NOTE | 2019-11-18 18:05 | PDOC PROGRESS REPORT ---
Subjective Progress Note for:: 11/18/19 Subjective:: No acute event overnight. Upon encounter, patient complaining of pain on the right arm on the IV site which appears infiltrated. Otherwise, she denies other acute complaints. Denies chest pain shortness of breath. No signs or symptoms of acute confusion. Reason For Visit: ALTERED MENTAL STATUS Physical Exam Vital Signs: Temp Pulse Resp BP Pulse Ox 98.4 F 94 19 113/62 96 11/18/19 09:00 11/16/19 22:30 11/18/19 08:25 11/18/19 08:25 11/18/19 07:23 Intake & Output 11/17/19 11/18/19 11/19/19 06:59 06:59 06:59 Intake Total 1300 Output Total 200 Balance 1100 General appearance: PRESENT: no acute distress, well-developed, well-nourished Head exam: PRESENT: atraumatic, normocephalic Eye exam: PRESENT: conjunctiva pink, EOMI, PERRLA. ABSENT: scleral icterus Ear exam: PRESENT: normal external ear exam Mouth exam: PRESENT: moist, tongue midline Neck exam: ABSENT: carotid bruit, JVD, lymphadenopathy, thyromegaly Respiratory exam: PRESENT: clear to auscultation refugio. ABSENT: rales, rhonchi, wheezes Cardiovascular exam: PRESENT: systolic murmur. ABSENT: diastolic murmur, rubs Pulses: PRESENT: normal dorsalis pedis pul GI/Abdominal exam: PRESENT: normal bowel sounds, soft. ABSENT: distended, guarding, mass, organolmegaly, rebound, tenderness Rectal exam: PRESENT: deferred Extremities exam: PRESENT: full ROM. ABSENT: calf tenderness, clubbing, pedal edema Neurological exam: PRESENT: alert, awake, oriented to person, oriented to place, oriented to time, oriented to situation, CN II-XII grossly intact. ABSENT: motor sensory deficit Results Laboratory Results: 11/18/19 02:52 11/18/19 02:52 11/17/19 11/17/19 11/17/19 12:16 12:16 12:16 WBC RBC Hgb Hct MCV MCH MCHC RDW Plt Count Seg Neutrophils % Sodium 134.5 L Potassium 2.8 L* Chloride 90 L Carbon Dioxide 39 H Anion Gap 6 BUN 13 Creatinine 0.83 Est GFR ( Amer) > 60 Glucose 126 H Calcium 8.3 L Total Bilirubin AST Alkaline Phosphatase Ammonia 40.2 H Total Protein Albumin Free T3 pg/mL 3.09 11/18/19 11/18/19 02:52 02:52 WBC 4.4 RBC 4.23 Hgb 9.9 L Hct 29.9 L MCV 71 L MCH 23.3 L MCHC 33.0 RDW 16.0 H Plt Count 258 Seg Neutrophils % Not Reportable Sodium 135.7 L Potassium 2.9 L* Chloride 93 L Carbon Dioxide 38 H Anion Gap 5 BUN 13 Creatinine 0.68 Est GFR ( Amer) > 60 Glucose 77 Calcium 7.7 L Total Bilirubin 0.8 AST 31 Alkaline Phosphatase 150 H Ammonia Total Protein 5.2 L Albumin 2.1 L Free T3 pg/mL 11/14/19 18:37 Troponin I < 0.012 Impressions: Chest X-Ray 11/14/19 14:05 IMPRESSION: HEART ENLARGED WITHOUT FAILURE. NO OTHER SIGNIFICANT RADIOGRAPHIC FINDING IN THE CHEST. Head CT 11/14/19 15:31 IMPRESSION: NORMAL BRAIN CT WITHOUT CONTRAST. EVIDENCE OF ACUTE STROKE: NO. Assessment and Plan - Diagnosis (1) Hypokalemia Is this a current diagnosis for this admission?: Yes Plan: 11/17: At this time, suspect that hypokalemia is related to diuresis. Although torsemide is associated with lesser frequency of hypokalemia, it can still cause potassium wasting. Her last echocardiogram on record 2 years ago showed normal EF but study was suboptimal for visualization diastolic function. Chart reviewed mention she has chronic diastolic heart failure. Discontinue torsemide. Will switch her to Spironolactone and will start at 25 mg every 12. Will increase oral potassium replacement to 40 meqs every 8. Reviewed prior BMPs. Appears she has chronic alkalosis and has elevated bicarb level. She is normotensive. Serum magnesium is normal. Her chronic alkalosis is likely related to diuresis. The likelihood of urinary potassium wasting syndromes such as Gitelman and Barter syndromes is extremely low in an elderly patient. Regardless, the management for these diseases are chronic potassium mehta pplementation and avoidance of medications that would cause hypokalemia. Also unlikely that her hypokalemia is secondary to an organic acidemia as she actually has alkalosis. Work-up for refractory hypokalemia is mostly outpatient and considered if the hypokalemia is not responding to discontinuation of causative drug and potassium supplementation. If she continues to remain in the the hospital pending disposition, will consider further work-up or nephrology consult if her potassium does not improve at all. 11/18: Serum Potassium have improved to 3.5 with discontinuation of Torsemide and with Potassium replacements. (2) Hyperammonemia Is this a current diagnosis for this admission?: Yes Plan: 11/17: She had an ammonia level over a 100 before. She had previous work-up for her elevated ammonia. She had a CT and an abdominal ultrasound which showed fatty liver but no signs of cirrhosis. Discontinue Depakote as it can also cause of hyperammonemia. Agree with continuing lactulose for now. On examination, she is not encephalopathic. - Time Time Spent with patient: 25-34 minutes
[2019-11-18] MEDS: ACETAZOLAMIDE 250 MG TABLET PO SCH (22:35)
[2019-11-19] MEDS: PANTOPRAZOLE SODIUM 40 MG TABLET.DR PO SCH (06:53)
[2019-11-19] MEDS: POTASSIUM CHLORIDE 10 MEQ TABLET.ER PO SCH ×3 (06:53→22:13)
[2019-11-19 08:58] LABS: BLOOD UREA NITROGEN 9 mg/dL (7-20); CALCIUM 8.2 mg/dL (8.4-10.2); GLUCOSE 89 mg/dL (75-110)
[2019-11-19 09:17] LABS: ANION GAP 7 (5-19); CARBON DIOXIDE 34 mmol/L (22-30); CHLORIDE 96 mmol/L (98-107)
[2019-11-19] MEDS: ACETAZOLAMIDE 250 MG TABLET PO SCH ×2 (09:35→22:13)
[2019-11-19] MEDS: LEVOTHYROXINE SODIUM 0.1 MG TABLET PO SCH (09:35)
[2019-11-19] MEDS: SPIRONOLACTONE 25 MG TABLET PO SCH ×2 (09:36→22:13)
[2019-11-19] MEDS: METOPROLOL SUCCINATE 25 MG TAB.SR.24H PO SCH (09:36)
[2019-11-19] MEDS: LACTULOSE SYRUP 20 GM/30 ML UDCUP PO SCH (09:36)
[2019-11-19] MEDS: ATORVASTATIN CALCIUM 20 MG TABLET PO SCH (09:36)
[2019-11-19] MEDS: POTASSI CL 20 MEQ/50 ML RIDER 20 MEQ/50 ML RTUPB IV SCH ×3 (09:48→22:23)
--- NOTE | 2019-11-19 18:35 | ER Document Report ---
Doctor's Note Notes: 11/19/19 18:34 The shoe caser and sr. social media & mobile manager continue to work on placement for the patient. See their notes from yesterday and today. Patient's potassium had drifted back down to 3.0 this morning, this afternoon it is up to 3.5, the hospitalist is managing the patient's medications. She has had an uneventful day today.
[2019-11-20] MEDS: PANTOPRAZOLE SODIUM 40 MG TABLET.DR PO SCH (05:35)
[2019-11-20] MEDS: POTASSIUM CHLORIDE 10 MEQ TABLET.ER PO SCH ×3 (05:35→21:39)
[2019-11-20 07:07] LABS: ANION GAP 5 (5-19); BLOOD UREA NITROGEN 7 mg/dL (7-20); CALCIUM 8.2 mg/dL (8.4-10.2); CARBON DIOXIDE 29 mmol/L (22-30); CHLORIDE 101 mmol/L (98-107); GLUCOSE 107 mg/dL (75-110); POTASSIUM 3.4 mmol/L (3.6-5.0)
--- NOTE | 2019-11-20 07:26 | PDOC PROGRESS REPORT ---
Subjective Progress Note for:: 11/19/19 Subjective:: 11/18: No acute event overnight. Upon encounter, patient complaining of pain on the right arm on the IV site which appears infiltrated. Otherwise, she denies other acute complaints. Denies chest pain shortness of breath. No signs or symptoms of acute confusion. 11/19: No acute issues. She denies acute complaints. Denies chest pain or shortness of breath. She is at her baseline. Potassium was low at 3.0 this morning and improved to 3.5. Reason For Visit: ALTERED MENTAL STATUS Physical Exam Vital Signs: Temp Pulse Resp BP Pulse Ox 98.3 F 94 17 111/85 99 11/19/19 13:55 11/16/19 22:30 11/19/19 16:01 11/19/19 16:01 11/19/19 16:01 Intake & Output 11/18/19 11/19/19 11/20/19 06:59 06:59 06:59 Intake Total 1300 100 100 Output Total 200 Balance 1100 100 100 General appearance: PRESENT: no acute distress, well-developed, well-nourished Head exam: PRESENT: atraumatic, normocephalic Eye exam: PRESENT: conjunctiva pink, EOMI, PERRLA. ABSENT: scleral icterus Ear exam: PRESENT: normal external ear exam Mouth exam: PRESENT: moist, tongue midline Neck exam: ABSENT: carotid bruit, JVD, lymphadenopathy, thyromegaly Respiratory exam: PRESENT: clear to auscultation refugio. ABSENT: rales, rhonchi, wheezes Cardiovascular exam: PRESENT: systolic murmur. ABSENT: bradycardia Pulses: PRESENT: normal dorsalis pedis pul GI/Abdominal exam: PRESENT: normal bowel sounds, soft. ABSENT: distended, guarding, mass, organolmegaly, rebound, tenderness Rectal exam: PRESENT: deferred Neurological exam: PRESENT: alert, awake, oriented to person, oriented to place, oriented to time, oriented to situation, CN II-XII grossly intact. ABSENT: motor sensory deficit Results Laboratory Results: 11/18/19 02:52 11/19/19 14:52 11/18/19 11/19/19 11/19/19 16:54 08:02 14:52 Sodium 136.6 L Potassium 3.5 L 3.0 L* 3.5 L Chloride 96 L Carbon Dioxide 34 H Anion Gap 7 BUN 9 Creatinine 0.84 Est GFR ( Amer) > 60 Glucose 89 Calcium 8.2 L GGT 29 11/14/19 11/18/19 18:37 02:52 Troponin I < 0.012 NT-Pro-B Natriuret Pep 1170 H Impressions: Chest X-Ray 11/14/19 14:05 IMPRESSION: HEART ENLARGED WITHOUT FAILURE. NO OTHER SIGNIFICANT RADIOGRAPHIC FINDING IN THE CHEST. Head CT 11/14/19 15:31 IMPRESSION: NORMAL BRAIN CT WITHOUT CONTRAST. EVIDENCE OF ACUTE STROKE: NO. Assessment and Plan - Diagnosis (1) Hypokalemia Is this a current diagnosis for this admission?: Yes Plan: 11/17: At this time, suspect that hypokalemia is related to diuresis. Although torsemide is associated with lesser frequency of hypokalemia, it can still cause potassium wasting. Her last echocardiogram on record 2 years ago showed normal EF but study was suboptimal for visualization diastolic function. Chart reviewed mention she has chronic diastolic heart failure. Discontinue torsemide. Will switch her to Spironolactone and will start at 25 m g every 12. Will increase oral potassium replacement to 40 meqs every 8. Reviewed prior BMPs. Appears she has chronic alkalosis and has elevated bicarb level. She is normotensive. Serum magnesium is normal. Her chronic alkalosis is likely related to diuresis. The likelihood of urinary potassium wasting syndromes such as Gitelman and Barter syndromes is extremely low in an elderly patient. Regardless, the management for these diseases are chronic potassium supplementation and avoidance of medications that would cause hypokalemia. Also unlikely that her hypokalemia is secondary to an organic acidemia as she actually has alkalosis. Work-up for refractory hypokalemia is mostly outpatient and considered if the hypokalemia is not responding to discontinuation of causative drug and potassium supplementation. If she continues to remain in the the hospital pending disposition, will consider further work-up or nephrology consult if her potassium does not improve at all. 11/18: Serum Potassium have improved to 3.5 with discontinuation of Torsemide and with Potassium replacements. 11/19: Continue spironolactone and Potassium supplements. Change diet to high K diet. (2) Hyperammonemia Is this a current diagnosis for this admission?: Yes Plan: 11/17: She had an ammonia level over a 100 before. She had previous work-up for her elevated ammonia. She had a CT and an abdominal ultrasound which showed fatty liver but no signs of cirrhosis. Discontinue Depakote as it can also cause of hyperammonemia. Agree with continuing lactulose for now. On examination, she is not encephalopathic. - Time Time Spent with patient: 25-34 minutes
[2019-11-20] MEDS: LACTULOSE SYRUP 20 GM/30 ML UDCUP PO SCH (09:47)
[2019-11-20] MEDS: LEVOTHYROXINE SODIUM 0.1 MG TABLET PO SCH (09:47)
[2019-11-20] MEDS: SPIRONOLACTONE 25 MG TABLET PO SCH ×2 (09:47→21:38)
[2019-11-20] MEDS: METOPROLOL SUCCINATE 25 MG TAB.SR.24H PO SCH (09:47)
[2019-11-20] MEDS: ACETAZOLAMIDE 250 MG TABLET PO SCH ×2 (09:48→21:39)
[2019-11-20] MEDS: ATORVASTATIN CALCIUM 20 MG TABLET PO SCH (09:48)
[2019-11-20] MEDS: POTASSI CL 20 MEQ/50 ML RIDER 20 MEQ/50 ML RTUPB IV SCH ×2 (09:52→21:40)
[2019-11-20 10:36] LABS: HEPATITS B SURFACE ANTIGEN Negative (Negative)
[2019-11-20 14:27] LABS: HEPATITIS C VIRUS ANTIBODY <0.1 s/co ratio (0.0-0.9)
--- NOTE | 2019-11-20 19:43 | ER Document Report ---
Doctor's Note Notes: 11/20/19 19:41 Patient seen and examined. She is a social hold here in the emergency department. There is a medical consult. The patient has been having issues with hyperammonemia and hypokalemia. Medication changes have been made, patient is continued on lactulose. Her potassium seems to be improving. The patient he rself denies any acute complaints at this time, other than when she leans on her left arm she has some pain. She states this is from IV infiltration. On exam this is a very pleasant 64-year-old female who appears older than her stated age in no acute distress. Head is normocephalic and atraumatic, heart is regular rate and rhythm, lungs are auscultation bilaterally. Examination of the left upper extremity yields a very mild amount edema over the proximal forearm with some associated tenderness. She is neurovascularly intact distally. Assessment: Hypokalemia, hyperammonemia, weakness, left arm pain status post IV infiltration. Plan: Warm compresses to the left arm. Continue medications as medical consultation recommends. Awaiting placement, please see case management notes.
[2019-11-21] MEDS ORDERED: LORAZEPAM 1 MG TABLET PO ONE (01:03)
[2019-11-21] MEDS: PANTOPRAZOLE SODIUM 40 MG TABLET.DR PO SCH (06:20)
[2019-11-21] MEDS: POTASSIUM CHLORIDE 10 MEQ TABLET.ER PO SCH ×2 (06:20→17:16)
--- NOTE | 2019-11-21 07:11 | PDOC PROGRESS REPORT ---
Subjective Progress Note for:: 11/20/19 Subjective:: 11/18: No acute event overnight. Upon encounter, patient complaining of pain on the right arm on the IV site which appears infiltrated. Otherwise, she denies other acute complaints. Denies chest pain shortness of breath. No signs or symptoms of acute confusion. 11/19: No acute issues. She denies acute complaints. Denies chest pain or shortness of breath. She is at her baseline. Potassium was low at 3.0 this morning and improved to 3.5. 11/20: No acute issues or complaints. Potassium has improved to 3.7. Awaiting placement. Reason For Visit: ALTERED MENTAL STATUS Physical Exam Vital Signs: Temp Pulse Resp BP Pulse Ox 97.6 F 94 20 91/53 L 99 11/20/19 10:02 11/16/19 22:30 11/20/19 07:01 11/20/19 07:01 11/20/19 07:01 Intake & Output 11/19/19 11/20/19 11/21/19 06:59 06:59 06:59 Intake Total 100 150 50 Output Total 800 Balance 100 -650 50 General appearance: PRESENT: no acute distress, well-developed, well-nourished Head exam: PRESENT: atraumatic, normocephalic Eye exam: PRESENT: conjunctiva pink, EOMI, PERRLA. ABSENT: scleral icterus Ear exam: PRESENT: normal external ear exam Mouth exam: PRESENT: moist, tongue midline Neck exam: ABSENT: carotid bruit, JVD, lymphadenopathy, thyromegaly Respiratory exam: PRESENT: clear to auscultation refugio. ABSENT: rales, rhonchi, wheezes Cardiovascular exam: PRESENT: RRR. ABSENT: diastolic murmur, rubs, systolic murmur Pulses: PRESENT: normal dorsalis pedis pul GI/Abdominal exam: PRESENT: normal bowel sounds, soft. ABSENT: distended, guarding, mass, organolmegaly, rebound, tenderness Rectal exam: PRESENT: deferred Extremities exam: PRESENT: +2 edema Neurological exam: PRESENT: alert, awake, oriented to person, oriented to place, oriented to time, oriented to situation, CN II-XII grossly intact. ABSENT: motor sensory deficit Results Laboratory Results: 11/18/19 02:52 11/19/19 11/20/19 14:52 06:35 Sodium 135.1 L Potassium 3.5 L 3.4 L Chloride 101 Carbon Dioxide 29 Anion Gap 5 BUN 7 Creatinine 0.80 Est GFR ( Amer) > 60 Glucose 107 Calcium 8.2 L 11/14/19 11/18/19 18:37 02:52 Troponin I < 0.012 NT-Pro-B Natriuret Pep 1170 H Impressions: Chest X-Ray 11/14/19 14:05 IMPRESSION: HEART ENLARGED WITHOUT FAILURE. NO OTHER SIGNIFICANT RADIOGRAPHIC FINDING IN THE CHEST. Head CT 11/14/19 15:31 IMPRESSION: NORMAL BRAIN CT WITHOUT CONTRAST. EVIDENCE OF ACUTE STROKE: NO. Assessment and Plan - Diagnosis (1) Hypokalemia Is this a current diagnosis for this admission?: Yes Plan: 11/17: At this time, suspect that hypokalemia is related to diuresis. Although torsemide is associated with lesser frequency of hypokalemia, it can still cause potassium wasting. Her last echocardiogram on record 2 years ago showed normal EF but study was suboptimal for visualization diastolic function. Chart reviewed mention she has chronic diastolic heart failure. Discontinue torsemide. Will switch her to Spironolactone and will start at 25 mg every 12. Will increase oral potassium replacement to 40 meqs every 8. Reviewed prior BMPs. Appears she has chronic alkalosis and has elevated bicarb level. She is normotensive. Serum magnesium is normal. Her chronic alkalosis is likely related to diuresis. The likelihood of urinary potassium wasting syndromes such as Gitelman and Barter syndromes is extremely low in an elderly patient. Regardless, the management for these diseases are chronic potassium supplementation and avoidance of medications that would cause hypokalemia. Also unlikely that her hypokalemia is secondary to an organic acidemia as she actuall y has alkalosis. Work-up for refractory hypokalemia is mostly outpatient and considered if the hypokalemia is not responding to discontinuation of causative drug and potassium supplementation. If she continues to remain in the the hospital pending disposition, will consider further work-up or nephrology consult if her potassium does not improve at all. 11/18: Serum Potassium have improved to 3.5 with discontinuation of Torsemide and with Potassium replacements. 11/19: Continue spironolactone and Potassium supplements. Change diet to high K diet. 11/20: Potassium has improved to 3.7. (2) Hyperammonemia Is this a current diagnosis for this admission?: Yes Plan: 11/17: She had an ammonia level over a 100 before. She had previous work-up for her elevated ammonia. She had a CT and an abdominal ultrasound which showed fatty liver but no signs of cirrhosis. Discontinue Depakote as it can also cause of hyperammonemia. Agree with continuing lactulose for now. On examination, she is not encephalopathic. - Time Time Spent with patient: 25-34 minutes
[2019-11-21] MEDS: LACTULOSE SYRUP 20 GM/30 ML UDCUP PO SCH (09:53)
[2019-11-21] MEDS: METOPROLOL SUCCINATE 25 MG TAB.SR.24H PO SCH (09:54)
[2019-11-21] MEDS: ACETAZOLAMIDE 250 MG TABLET PO SCH (09:54)
[2019-11-21] MEDS: LEVOTHYROXINE SODIUM 0.1 MG TABLET PO SCH (09:54)
[2019-11-21] MEDS: SPIRONOLACTONE 25 MG TABLET PO SCH ×2 (09:54→23:49)
[2019-11-21] MEDS: ATORVASTATIN CALCIUM 20 MG TABLET PO SCH ×2 (09:54→23:48)
--- NOTE | 2019-11-21 12:48 | RADIOLOGY REPORT (SQ) ---
EXAM DESCRIPTION: CHEST SINGLE VIEW COMPLETED DATE/TIME: 11/21/2019 12:31 pm REASON FOR STUDY: AMS, hypoxia R41.82 ALTERED MENTAL STATUS, UNSPECIFIED R45.1 RESTLESSNESS AND AG ITATION E72.20 DISORDER OF UREA CYCLE METABOLISM, UNSPECIFIED COMPARISON: 11/14/2019. NUMBER OF VIEWS: One view. TECHNIQUE: Single frontal radiographic view of the chest acquired. LIMITATIONS: None. FINDINGS: LUNGS AND PLEURA: No opacities, masses or pneumothorax. No pleural effusion. MEDIASTINUM AND HILAR STRUCTURES: No masses. Contour normal. HEART AND VASCULAR STRUCTURES: Heart enlarged without failure. Normal vasculature. BONES: No acute findings. HARDWARE: None in the chest. OTHER: No other significant finding. IMPRESSION: HEART ENLARGED WITHOUT FAILURE. NO OTHER SIGNIFICANT RADIOGRAPHIC FINDING IN THE CHEST. TECHNICAL DOCUMENTATION: JOB ID: [id number] No [employer]- All Rights Reserved Reading location - IP/workstation name: [email or web address]
--- NOTE | 2019-11-21 12:54 | ER Document Report ---
Doctor's Note Notes: 11/21/19 12:52 Patient is here as a social hold in the emergency department. I looked up at the monitor, noted that her heart rate was in the 150s to 160s. I went in to evaluate the patient. She was standing at the sink. She washed her hands 7 times in my presence. Her heart rate remained in the 150s. I got her back on the pulse oximeter, she was 86% on room air. She could not answer me as to why she was washing her hands so many times. I called for assistance and got the patient back into bed. She repeatedly told me "Brent tells me I am on the wrong side." She was still oriented to place and time at that point. She was placed on oxygen per nasal cannula. Chest x-ray was ordered. No acute finding on chest x-ray was noted. At rest, patient's heart rate remained in the 1 teens, then eventually slowed to the rate of 89, which it is currently. Her potassium remains within normal limits. I was notified by nursing that through the night she was agitated as well, required medication for difficulty sleeping, and further outlook matter status regarding her "being on the wrong side according to Brent." On exam, this is a pleasantly confused obese female who appears her stated age. She was mildly tachypneic upon original evaluation. Heart was irregularly irregular and tachycardic, lungs show diminished breath sounds, likely secondary to body habitus. Skin was warm and dry. Assessment: altered mental status, rapid atrial fibrillation, intermittent, transient hypoxia. I spoke with internal medicine. I am concerned that this patient requires more aggressive inpatient management. I discussed this with the hospitalist who has been seeing her. He will come down to evaluate the patient. Otherwise, she is still awaiting placement. 11/21/19 18:12 I was contacted by Dr. Foley. He will accept the patient.
[2019-11-21] MEDS ORDERED: (PENDING PHARMACY ID) (Diltiazem Hcl [Diltiazem 12hr Er] 120 MG) PO SCH (22:00)
[2019-11-21] MEDS ORDERED: INFLUENZA QUAD (6MOS+) 2019-20 VAC 0.5 ML SYR IM ONE (22:31)
[2019-11-21] MEDS: HEPARIN SOD (PORCINE) 5,000 UNIT/ML 1 ML VIAL SUBCUT SCH (23:49)
[2019-11-21] MEDS: DILTIAZEM HCL 120 MG CAP.SR.24H PO SCH (23:49)
[2019-11-21] MEDS ORDERED: ACETAZOLAMIDE 250 MG TABLET ONE (23:55)
[2019-11-22] MEDS: ACETAZOLAMIDE 250 MG TABLET PO SCH ×3 (00:08→21:32)
[2019-11-22 01:39] LABS: ANION GAP 5 (5-19); BLOOD UREA NITROGEN 8 mg/dL (7-20); CALCIUM 8.7 mg/dL (8.4-10.2); CARBON DIOXIDE 22 mmol/L (22-30); CHLORIDE 107 mmol/L (98-107); GLUCOSE 81 mg/dL (75-110); POTASSIUM 3.9 mmol/L (3.6-5.0)
[2019-11-22] MEDS: HEPARIN SOD (PORCINE) 5,000 UNIT/ML 1 ML VIAL SUBCUT SCH ×3 (05:41→21:31)
[2019-11-22] MEDS: PANTOPRAZOLE SODIUM 40 MG TABLET.DR PO SCH (05:41)
[2019-11-22] MEDS: LEVOTHYROXINE SODIUM 0.1 MG TABLET PO SCH (05:41)
--- NOTE | 2019-11-22 08:37 | PDOC H&P ---
History of Present Illness Admission Date/PCP: KEYLA WATTS MD Patient complains of: confusion History of Present Illness: Consult Note on 11/17/19: MICHAEL BOWLING is a 64 year old female with a past medical history of mitral valve regurgitation, chronic diastolic heart failure, MECHELLE on CPAP, chronic atrial fibrillation not on anticoagulation, COPD on 2 L of home O2 and chronic hypokalemia who was reportedly brought in by her son to the ER due to concerns of confusion at home. She was found to have hypokalemia in the ER and was given potassium replacements but was persistently hypokalemic. She was also continued on her home torsemide. Hospitalist was consulted for further recommendations and comanagement. Upon encounter, patient appears comfortable and is saturating well on room air. She is pleasant and is very coherent. She is well oriented and is oriented to person, place and time and situation. She says that she knows she is in [facility] she is able to tell me that it is November 16, 2019 today. When asked why she was brought into the ER, she says that her son thinks that she has been confused at home. She denies acute complaints and denies any chest pain, shortness of breath, vomiting, dizziness, headache or diarrhea. She appears competent and is actually able to tell me the intricacies of her multiple comorbidities. When asked how long has she been on diuretic, she says that this started a few years ago when she was binging on salt and was retaining a lot of fluid and developed significant bipedal edema. She says that she was an avid salt eater because she really likes her food salty. She says that she used to use more than 5 tablespoons of salt every day and in a few times in the past, she would eat half a handful of salt. She says she was also told by her PCP and distillery worker general that she has chronic heart failure. She says that she was seen by Dr. Peñaloza before but she was also seen by a distillery worker general at [facility] in [place] and reports that she had an echo done last year at [facility]. She says that she has significantly cut down on her salt intake and her chronic bipedal edema has significantly improved. She tells me that she was started on Lasix before by Dr. Watts and was switched to torsemide because of her low potassium levels. She is also able to tell me that she was told she had an elevated ammonia in August. She says that she also has atrial fibrillation and was on Coumadin before. However she verbalized she had 2 episodes of GI bleed while on Coumadin and hence was taken off the Coumadin. When asked if the bleeding source was identified, she says that she had an endoscopy done by Dr. Sequeira and was found to have multiple colonic polyps. She said she had prior polypectomies but due to recurrence of bleeding, she was eventually taken off the Coumadin. She says that she was told that the polyps were benign. She says that she was discharged to [facility] in August 2019 but left the care home sometime after [place]. When asked why she left and when reported behavior of her putting down fire alarms was verified, she says that she was not very cooperative at [facility] because she did not want to stay there for a long time. She says that she and her son have been trying to find a place for her to stay but they do not have the financial means for it. She says that she has been homeless and has been switching from living in houses of different friends. 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 11/21: This morning, patient got out of bed and was noted to be tachycardic in the 150s to 160s. She was reported to be hypoxic at 86% during the episodes. She was also reported to be confused during the event. This lasted for a few minutes per RN and ER provider. Upon reassessment, patient appears comfortable in bed. Heart rate has improved to the 90s to low 100s. She is at her baseline mentation and is AO x4 on reassessment. Discussed patient's directive. She says she is a full code and prefers to receive chest compressions, defibrillation or mechanical ventilation. However she verbalizes she does not want to be on prolonged ventilation nor does she want to pursue tracheostomy. She says that her son, is her surrogate medical decision maker. Past Medical History Cardiac Medical History: Reports: Atrial Fibrillation, Congestive Heart Failure, Coronary Artery Disease, Hypertension Denies: Myocardial Infarction Pulmonary Medical History: Reports: Bronchitis, Pneumonia, Respiratory Failure, Sleep Apnea Denies: Asthma, Chronic Obstructive Pulmonary Disease (COPD) Neurological Medical History: Denies: Migraine, Seizures Endocrine Medical History: Reports: Hypothyroidism Denies: Diabetes Mellitus Type 1, Diabetes Mellitus Type 2, Hyperthyroidism Renal/ Medical History: Denies: End Stage Renal Disease Malignancy Medical History: Reports: Breast Cancer Denies: Cervical Cancer, Ovarian Cancer GI Medical History: Denies: Cirrhosis, Crohn's Disease, Gastroesophageal Reflux Disease, Hepatitis, Hiatal Hernia, Ulcerative Colitis Musculoskeltal Medical History: Reports: Arthritis - bilateral knees Denies: Fibromyalgia, Gout Skin Medical History: Denies: Eczema, Psoriasis Psychiatric Medical History: Denies: Depression Hematology: Reports: Anemia Denies: Sickle Cell Disease, Bleeding Tendencies Past Surgical History Past Surgical History: Reports: Section, Hysterectomy, Mastectomy - right partial, Tonsillectomy, Other - Several childhood surgeries Denies: Amputation, Appendectomy, Cholecystectomy, Colostomy, Coronary Artery Bypass Graft, Gastric Bypass Surgery, Herniorrhaphy, Pacemaker, Tubal Ligation Social History Smoking Status: Never Smoker Frequency of Alcohol Use: Rare Hx Recreational Drug Use: No Drugs: None Hx Prescription Drug Abuse: No Family History Family History: CAD, DM, Hyperlipidemia, Hypertension, Malignancy Parental Family History Reviewed: Yes - no premature CAD Children Family History Reviewed: No Sibling(s) Family History Reviewed.: No Medication/Allergy Home Medications: Atorvastatin Calcium [Lipitor 20 mg Tablet] 20 mg PO QHS 06/06/19 Clopidogrel Bisulfate [Plavix 75 mg Tablet] 75 mg PO DAILY 06/06/19 Diltiazem HCl [Diltiazem 12Hr ER] 120 mg PO Q12 06/06/19 Levothyroxine Sodium [Synthroid 0.1 mg Tablet] 0.1 mg PO Q6AM 06/06/19 Pantoprazole Sodium [Protonix [address] Tablet] 40 mg PO Q6AM 06/06/19 Potassium Chloride [Klor-Con 10 Meq Tablet ER] 60 meq PO TID 06/06/19 Torsemide [Demadex] 40 mg PO BID 06/06/19 Dicyclomine HCl [Bentyl 20 mg Tablet] 20 mg PO Q6HP PRN 08/27/19 Divalproex Sodium [Depakote] 125 mg PO BID #60 tablet.dr 11/15/19 Lactulose [Cephulac Syrup 20 gm/30 ml Udcup] 10 gm PO Q12 11/18/19 Metolazone [Zaroxolyn 2.5 Mg Tablet] 2.5 mg PO MOWEFR 11/18/19 Metoprolol Succinate [Toprol Xl 25 mg Tab.sr] 25 mg PO DAILY 11/18/19 Nitroglycerin [Nitro-Dur 5 mg (0.2 mg/Hr) Transdermal Patch] 1 patch TOP DAILY 11/18/19 Allergies/Adverse Reactions: clemastine fumarate [From Tavist-1] Allergy (Severe, Verified 08/27/19 16:39) red spots,N/V Shark Cartilage [From Shark Fin Cartilage] Allergy (Severe, Verified 08/27/19 16:39) hives, n and v iodine [Iodine] Allergy (Unknown, Verified 08/27/19 16:39) vomit/rash meperidine HCl [From Demerol] Allergy (Unknown, Verified 08/27/19 16:39) N/V pseudoephedrine HCl [From Sudafed] Allergy (Unknown, Verified 08/27/19 16:39) rash/itch glove powder Allergy (Severe, Uncoded 08/27/19 16:39) hands swell,itch Review of Systems All systems: reviewed and no additional remarkable complaints except as stated - as mentioned in HPI Physical Exam Vital Signs: Temp Pulse Resp BP Pulse Ox 97.4 F 108 H 28 H 136/79 H 100 11/21/19 12:50 11/20/19 20:12 11/21/19 15:25 11/21/19 15:01 11/21/19 15:25 Intake & Output 11/20/19 11/21/19 11/22/19 06:59 06:59 06:59 Intake Total 150 100 Output Total 800 Balance -650 100 General appearance: PRESENT: no acute distress, well-developed, well-nourished Head exam: PRESENT: atraumatic, normocephalic Eye exam: PRESENT: conjunctiva pink, EOMI, PERRLA. ABSENT: scleral icterus Ear exam: PRESENT: normal external ear exam Mouth exam: PRESENT: moist, tongue midline Neck exam: ABSENT: carotid bruit, JVD, lymphadenopathy, thyromegaly Respiratory exam: PRESENT: clear to auscultation refugio. ABSENT: rales, rhonchi, wheezes Cardiovascular exam: PRESENT: irregular rhythm. ABSENT: diastolic murmur, rubs, systolic murmur Pulses: PRESENT: normal dorsalis pedis pul GI/Abdominal exam: PRESENT: normal bowel sounds, soft. ABSENT: distended, guarding, mass, organolmegaly, rebound, tenderness Rectal exam: PRESENT: deferred Neurological exam: PRESENT: alert, awake, oriented to person, oriented to place, oriented to time, oriented to situation, CN II-XII grossly intact. ABSENT: motor sensory deficit Results Laboratory Results: 11/18/19 02:52 11/21/19 16:14 11/21/19 11/21/19 06:30 16:14 Potassium 3.7 4.4 11/14/19 11/18/19 18:37 02:52 Troponin I < 0.012 NT-Pro-B Natriuret Pep 1170 H Impressions: Head CT 11/14/19 15:31 IMPRESSION: NORMAL BRAIN CT WITHOUT CONTRAST. EVIDENCE OF ACUTE STROKE: NO. Chest X-Ray 11/21/19 12:00 IMPRESSION: HEART ENLARGED WITHOUT FAILURE. NO OTHER SIGNIFICANT RADIOGRAPHIC FINDING IN THE CHEST. Assessment and Plan - Diagnosis (1) Hypokalemia Is this a current diagnosis for this admission?: Yes Plan: 11/17: At this time, suspect that hypokalemia is related to diuresis. Although torsemide is associated with lesser frequency of hypokalemia, it can still cause potassium wasting. Her last echocardiogram on record 2 years ago showed normal EF but study was suboptimal for visualization diastolic function. Chart reviewed mention she has chronic diastolic heart failure. Discontinue torsemide. Will switch her to Spironolactone and will start at 25 mg every 12. Will increase oral potassium replacement to 40 meqs every 8. Reviewed prior BMPs. Appears she has chronic alkalosis and has elevated bicarb level. She is normotensive. Serum magnesium is normal. Her chronic alkalosis is likely related to diuresis. The likelihood of urinary potassium wasting syndromes such as Gitelman and Barter syndromes is extremely low in an elderly patient. Regardless, the management for these diseases are chronic potassium supplementation and avoidance of medications that would cause hypokalemia. Also unlikely that her hypokalemia is secondary to an organic acidemia as she actually has alkalosis. Work-up for refractory hypokalemia is mostly outpatient and considered if the hypokalemia is not responding to discontinuation of causative drug and potassium supplementation. If she continues to remain in the the hospital pending disposition, will consider further work-up or nephrology consult if her potassium does not improve at all. 11/18: Serum Potassium have improved to 3.5 with discontinuation of Torsemide and with Potassium replacements. 11/19: Continue spironolactone and Potassium supplements. Change diet to high K diet. 11/20: Potassium has improved to 3.7. 11/21: Potassium up to 4.4. Hold off on Potassium supplements today. (2) Hyperammonemia Is this a current diagnosis for this admission?: Yes Plan: 11/17: She had an ammonia level over a 100 before. She had previous work-up for her elevated ammonia. She had a CT and an abdominal ultrasound which showed fatty liver but no signs of cirrhosis. Discontinue Depakote as it can also cause of hyperammonemia. Agree with continuing lactulose for now. On examination, she is not encephalopathic. 11/21: At baseline mentation. (3) Chronic atrial fibrillation Is this a current diagnosis for this admission?: Yes Plan: Restart metoprolol and cardizem. Not on anticoagulation due to previous GI bleeds.
[2019-11-22 08:49] LABS: ANION GAP 7 (5-19); BLOOD UREA NITROGEN 8 mg/dL (7-20); CALCIUM 8.5 mg/dL (8.4-10.2); CARBON DIOXIDE 23 mmol/L (22-30); CHLORIDE 106 mmol/L (98-107); GLUCOSE 83 mg/dL (75-110); POTASSIUM 3.6 mmol/L (3.6-5.0)
[2019-11-22] MEDS: DILTIAZEM HCL 120 MG CAP.SR.24H PO SCH ×2 (09:33→21:32)
[2019-11-22] MEDS: CLOPIDOGREL BISULFATE 75 MG TABLET PO SCH (09:33)
[2019-11-22] MEDS: LACTULOSE SYRUP 20 GM/30 ML UDCUP PO SCH ×2 (09:33→21:33)
[2019-11-22] MEDS: SPIRONOLACTONE 25 MG TABLET PO SCH ×2 (09:33→21:32)
[2019-11-22] MEDS: METOPROLOL SUCCINATE 25 MG TAB.SR.24H PO SCH (09:33)
[2019-11-22] MEDS: NITROGLYCERIN 5 MG (0.2 MG/HR) PATCH.TD24 TOP SCH (09:33)
[2019-11-22] MEDS ORDERED: POTASSIUM CHLORIDE 10 MEQ TABLET.ER PO SCH (10:00)
--- NOTE | 2019-11-22 16:41 | PDOC PROGRESS REPORT ---
Subjective Progress Note for:: 11/22/19 Subjective:: No acute issues overnight. Marvel flores has been rate controlled with PO Cardizem and metoprolol. Denies chest pain or shortness of breath. She is at her baseline mentation. Reason For Visit: AFIB W/RVR Physical Exam Vital Signs: Temp Pulse Resp BP Pulse Ox 97.6 F 80 20 117/65 100 11/22/19 12:00 11/22/19 14:00 11/22/19 12:00 11/22/19 12:00 11/22/19 12:00 Intake & Output 11/21/19 11/22/19 11/23/19 06:59 06:59 06:59 Intake Total 100 120 712 Output Total 300 250 Balance 100 -180 462 Weight 327 lb 6.183 oz 327 lb 6.183 oz General appearance: PRESENT: no acute distress, well-developed, well-nourished Head exam: PRESENT: atraumatic, normocephalic Eye exam: PRESENT: conjunctiva pink, EOMI, PERRLA. ABSENT: scleral icterus Ear exam: PRESENT: normal external ear exam Mouth exam: PRESENT: moist, tongue midline Neck exam: ABSENT: carotid bruit, JVD, lymphadenopathy, thyromegaly Respiratory exam: PRESENT: clear to auscultation refugio. ABSENT: rales, rhonchi, wheezes Cardiovascular exam: PRESENT: irregular rhythm, systolic murmur Pulses: PRESENT: normal dorsalis pedis pul GI/Abdominal exam: PRESENT: normal bowel sounds, soft. ABSENT: distended, guarding, mass, organolmegaly, rebound, tenderness Rectal exam: PRESENT: deferred Extremities exam: PRESENT: full ROM. ABSENT: calf tenderness, clubbing, pedal edema Neurological exam: PRESENT: alert, awake, oriented to person, oriented to place, oriented to time, oriented to situation, CN II-XII grossly intact. ABSENT: motor sensory deficit Results Laboratory Results: 11/18/19 02:52 11/22/19 07:46 11/21/19 11/22/19 11/22/19 16:14 01:02 07:46 Sodium 134.3 L 136.2 L Potassium 4.4 3.9 3.6 Chloride 107 106 Carbon Dioxide 22 23 Anion Gap 5 7 BUN 8 8 Creatinine 0.81 0.90 Est GFR ( Amer) > 60 > 60 Glucose 81 83 Calcium 8.7 8.5 Magnesium 1.9 Ammonia 11/22/19 10:00 Sodium Potassium Chloride Carbon Dioxide Anion Gap BUN Creatinine Est GFR ( Amer) Glucose Calcium Magnesium Ammonia 50.2 H 11/14/19 11/18/19 18:37 02:52 Troponin I < 0.012 NT-Pro-B Natriuret Pep 1170 H Impressions: Head CT 11/14/19 15:31 IMPRESSION: NORMAL BRAIN CT WITHOUT CONTRAST. EVIDENCE OF ACUTE STROKE: NO. Chest X-Ray 11/21/19 12:00 IMPRESSION: HEART ENLARGED WITHOUT FAILURE. NO OTHER SIGNIFICANT RADIOGRAPHIC FINDING IN THE CHEST. Assessment and Plan - Diagnosis (1) Hypokalemia Is this a current diagnosis for this admission?: Yes Plan: 11/17: At this time, suspect that hypokalemia is related to diuresis. Although torsemide is associated with lesser frequency of hypokalemia, it can still cause potassium wasting. Her last echocardiogram on record 2 years ago showed normal EF but study was suboptimal for visualization diastolic function. Chart reviewed mention she has chronic diastolic heart failure. Discontinue torsemide. Will switch her to Spironolactone and will start at 25 mg every 12. Will increase oral potassium replacement to 40 meqs every 8. Reviewed prior BMPs. Appears she has chronic alkalosis and has elevated bicarb level. She is normotensive. Serum magnesium is normal. Her chronic alkalosis is likely related to diuresis. The likelihood of urinary potassium wasting syndromes such as Gitelman and Barter syndromes is extremely low in an elderly patient. Regardless, the management for these diseases are chronic potassium supplementation and avoidance of medications that would cause hypokalemia. Also unlikely that her hypokalemia is secondary to an organic acidemia as she actually has alkalosis. Work-up for refractory hypokalemia is mostly outpatient and considered if the hypokalemia is not responding to discontinuation of causative drug and potassium supplementation. If she continues to remain in the the hospital pending disposition, will consider further work-up or nephrology consult if her potassium does not improve at all. 11/18: Serum Potassium have improved to 3.5 with discontinuation of Torsemide and with Potassium replacements. 11/19: Continue spironolactone and Potassium supplements. Change diet to high K diet. 11/20: Potassium has improved to 3.7. 11/21: Potassium up to 4.4. Hold off on Potassium supplements today. 11/22: Potassium at low normal end of 3.6 today. Continue low dose Potassium supplements. (2) Hyperammonemia Is this a current diagnosis for this admission?: Yes Plan: 11/17: She had an ammonia level over a 100 before. She had previous work-up for her elevated ammonia. She had a CT and an abdominal ultrasound which showed fatty liver but no signs of cirrhosis. Discontinue Depakote as it can also cause of hyperammonemia. Agree with continuing lactulose for now. On examination, she is not encephalopathic. 11/21: At baseline mentation. (3) Chronic atrial fibrillation Is this a current diagnosis for this admission?: Yes Plan: Rate-controlled. Continue metoprolol and cardizem. Not on anticoagulation due to previous GI bleeds. (4) Colonic polyp Is this a current diagnosis for this admission?: Yes Plan: Reviewed records from GI. She has prior EGD and colonoscopies which revealed multiple polyps on the stomach and extensive polyps in the colon as well. Differentials include Peutz-Jeghers, ORACIO/PTEN hamartoma sybndrome and Cronkhite-Earl syndrome. - Time Time Spent with patient: 25-34 minutes
[2019-11-22] MEDS: POTASSIUM CHLORIDE 10 MEQ TABLET.ER PO SCH (21:32)
[2019-11-22] MEDS: ATORVASTATIN CALCIUM 20 MG TABLET PO SCH (21:32)
[2019-11-23] MEDS: LEVOTHYROXINE SODIUM 0.1 MG TABLET PO SCH (06:28)
[2019-11-23] MEDS: PANTOPRAZOLE SODIUM 40 MG TABLET.DR PO SCH (06:28)
[2019-11-23] MEDS: HEPARIN SOD (PORCINE) 5,000 UNIT/ML 1 ML VIAL SUBCUT SCH ×3 (06:28→21:59)
[2019-11-23] MEDS: POTASSIUM CHLORIDE 10 MEQ TABLET.ER PO SCH ×2 (11:18→21:57)
[2019-11-23] MEDS: METOPROLOL SUCCINATE 25 MG TAB.SR.24H PO SCH (11:18)
[2019-11-23] MEDS: CLOPIDOGREL BISULFATE 75 MG TABLET PO SCH (11:21)
[2019-11-23] MEDS: SPIRONOLACTONE 25 MG TABLET PO SCH ×2 (11:22→21:58)
[2019-11-23] MEDS: NITROGLYCERIN 5 MG (0.2 MG/HR) PATCH.TD24 TOP SCH (11:22)
[2019-11-23] MEDS: LACTULOSE SYRUP 20 GM/30 ML UDCUP PO SCH ×2 (11:22→21:57)
[2019-11-23] MEDS: DILTIAZEM HCL 120 MG CAP.SR.24H PO SCH ×2 (11:23→21:57)
--- NOTE | 2019-11-23 14:55 | RADIOLOGY REPORT (SQ) ---
EXAM DESCRIPTION: CHEST SINGLE VIEW COMPLETED DATE/TIME: 11/23/2019 12:31 pm REASON FOR STUDY: dyspnea R41.82 ALTERED MENTAL STATUS, UNSPECIFIED R45.1 RESTLESSNESS AND AGITATI ON E72.20 DISORDER OF UREA CYCLE METABOLISM, UNSPECIFIED COMPARISON: 11/21/2019 NUMBER OF VIEWS: One view. TECHNIQUE: Single frontal radiographic view of the chest acquired. LIMITATIONS: Overlying support apparatus. FINDINGS: LUNGS AND PLEURA: No opacities, masses or pneumothorax. No pleural effusion. MEDIASTINUM AND HILAR STRUCTURES: No masses or contour abnormality. HEART AND VASCULATURE: Cardiac enlargement. Vascular congestion. BONES: No acute findings. HARDWARE: None in the chest. OTHER: No other significant finding. IMPRESSION: CARDIAC ENLARGEMENT. VASCULAR CONGESTION. TECHNICAL DOCUMENTATION: JOB ID: [id number] [employer]- All Rights Reserved Reading location - IP/workstation name: [email or web address]
--- NOTE | 2019-11-23 15:38 | PDOC PROGRESS REPORT ---
Subjective Progress Note for:: 11/23/19 Subjective:: 11/22: No acute issues overnight. Marvel flores has been rate controlled with PO Cardizem and metoprolol. Denies chest pain or shortness of breath. She is at her baseline mentation. 11/23: No acute issues overnight. Denies acute complaints. Her AGómez fib remains rate controlled. She continues remain at her baseline mentation. Reason For Visit: AFIB W/RVR Physical Exam Vital Signs: Temp Pulse Resp BP Pulse Ox 98.5 F 80 24 H 103/50 L 100 11/23/19 07:30 11/23/19 07:30 11/23/19 07:30 11/23/19 07:30 11/23/19 07:30 Intake & Output 11/22/19 11/23/19 11/24/19 06:59 06:59 06:59 Intake Total 120 712 Output Total 300 350 Balance -180 362 Weight 327 lb 6.183 oz 305 lb 5.443 oz General appearance: PRESENT: no acute distress, well-developed, well-nourished Head exam: PRESENT: atraumatic, normocephalic Eye exam: PRESENT: conjunctiva pink, EOMI, PERRLA. ABSENT: scleral icterus Ear exam: PRESENT: normal external ear exam Mouth exam: PRESENT: moist, tongue midline Neck exam: ABSENT: carotid bruit, JVD, lymphadenopathy, thyromegaly Respiratory exam: PRESENT: clear to auscultation refugio. ABSENT: rales, rhonchi, wheezes Cardiovascular exam: PRESENT: systolic murmur. ABSENT: diastolic murmur, rubs Pulses: PRESENT: normal dorsalis pedis pul GI/Abdominal exam: PRESENT: normal bowel sounds, soft. ABSENT: distended, guarding, mass, organolmegaly, rebound, tenderness Rectal exam: PRESENT: deferred Neurological exam: PRESENT: alert, awake, oriented to person, oriented to place, oriented to time, oriented to situation, CN II-XII grossly intact. ABSENT: motor sensory deficit Results Laboratory Results: 11/18/19 02:52 11/23/19 05:23 11/23/19 05:23 Potassium 4.2 11/14/19 11/18/19 18:37 02:52 Troponin I < 0.012 NT-Pro-B Natriuret Pep 1170 H Impressions: Head CT 11/14/19 15:31 IMPRESSION: NORMAL BRAIN CT WITHOUT CONTRAST. EVIDENCE OF ACUTE STROKE: NO. Chest X-Ray 11/21/19 12:00 IMPRESSION: HEART ENLARGED WITHOUT FAILURE. NO OTHER SIGNIFICANT RADIOGRAPHIC FINDING IN THE CHEST. Assessment and Plan - Diagnosis (1) Hypokalemia Is this a current diagnosis for this admission?: Yes Plan: 11/17: At this time, suspect that hypokalemia is related to diuresis. Although torsemide is associated with lesser frequency of hypokalemia, it can still cause potassium wasting. Her last echocardiogram on record 2 years ago showed normal EF but study was suboptimal for visualization diastolic function. Chart reviewed mention she has chronic diastolic heart failure. Discontinue torsemide. Will switch her to Spironolactone and will start at 25 mg every 12. Will increase oral potassium replacement to 40 meqs every 8. Reviewed prior BMPs. Appears she has chronic alkalosis and has elevated bicarb level. She is normotensive. Serum magnesium is normal. Her chronic alkalosis is likely related to diuresis. The likelihood of urinary potassium wasting syndromes such as Gitelman and Barter syndromes is extremely low in an elderly patient. Regardless, the management for these diseases are chronic potassium supplementation and avoidance of medications that would cause hypokalemia. Also unlikely that her hypokalemia is secondary to an organic acidemia as she ac tually has alkalosis. Work-up for refractory hypokalemia is mostly outpatient and considered if the hypokalemia is not responding to discontinuation of causative drug and potassium supplementation. If she continues to remain in the the hospital pending disposition, will consider further work-up or nephrology consult if her potassium does not improve at all. 11/18: Serum Potassium have improved to 3.5 with discontinuation of Torsemide and with Potassium replacements. 11/19: Continue spironolactone and Potassium supplements. Change diet to high K diet. 11/20: Potassium has improved to 3.7. 11/21: Potassium up to 4.4. Hold off on Potassium supplements today. 11/22: Potassium at low normal end of 3.6 today. Continue low dose Potassium supplements. 11/23: Resolved. (2) Hyperammonemia Is this a current diagnosis for this admission?: Yes Plan: 11/17: She had an ammonia level over a 100 before. She had previous work-up for her elevated ammonia. She had a CT and an abdominal ultrasound which showed fatty liver but no signs of cirrhosis. Discontinue Depakote as it can also cause of hyperammonemia. Agree with continuing lactulose for now. On examination, she is not encephalopathic. 11/21: At baseline mentation. (3) Chronic atrial fibrillation Is this a current diagnosis for this admission?: Yes Plan: Rate-controlled. Continue metoprolol and cardizem. Not on anticoagulation due to previous GI bleeds. (4) Colonic polyp Is this a current diagnosis for this admission?: Yes Plan: Reviewed records from GI. She has prior EGD and colonoscopies which revealed multiple polyps on the stomach and extensive polyps in the colon as well. Differentials include Peutz-Jeghers, ORACIO/PTEN hamartoma sybndrome and Cronkhite-Earl syndrome.
[2019-11-23] MEDS: IPRATROPIUM/ALBUTEROL 0.5-2.5 MG/3 ML AMPUL NEB PRN (16:30)
[2019-11-23] MEDS ORDERED: FUROSEMIDE INJ/PF 40 MG/4 ML SDV IV ONE (16:30)
[2019-11-23] MEDS: ACETAZOLAMIDE 250 MG TABLET PO SCH (16:39)
[2019-11-23] MEDS: METHYLPREDNISOLONE INJ 40 MG/1 ML SDV IV SCH (17:02)
[2019-11-23 17:13] LABS: ARTERIAL BLOOD FIO2 2L; ARTERIAL BLOOD H2CO3 0.85 mmol/L (1.05-1.35); ARTERIAL BLOOD HCO3 18.2 mmol/L (20-24); ARTERIAL BLOOD O2 SATURATION 98.5 % (94-98); ARTERIAL BLOOD PCO2 28.4 mmHg (35-45); ARTERIAL BLOOD PH 7.42 (7.35-7.45); ARTERIAL BLOOD PO2 121.9 mmHg (80-100)
--- NOTE | 2019-11-23 21:44 | PDOC CONSULTATION ---
Consultation Consult Date: 11/23/19 Provider Consulted: ANTONIETTA GAN Consult reason:: Atrial fibrillation History of Present Illness Admission Date/PCP: 11/21/19 17:14 KEYLA KAUFMAN MD Patient complains of: No complaints at the moment History of Present Illness: MICHAEL BOWLING is a 64 year old female Admitted to the hospital. She is found to be profoundly hypokalemic. Her diuretic regimen was suspected and this has been discontinued Her other medical problems include chronic atrial fibrillation. Questionable history of congestive heart failure with possible preserved ejection fraction. Patient is not on systemic anticoagulation due to history of CVA GI bleed in the past. Presently patient is not able to relate much history. She does not endorse any dyspnea. Apparently she had some bronchospasm earlier and received bronchodilator therapy and has improvement. Patient is not a great historian and is quite sleepy at the time of my encounter. Past Medical History Cardiac Medical History: Reports: Atrial Fibrillation, Congestive Heart Failure, Coronary Artery Disease, Hypertension Denies: Myocardial Infarction Pulmonary Medical History: Reports: Bronchitis, Pneumonia, Respiratory Failure, Sleep Apnea Denies: Asthma, Chronic Obstructive Pulmonary Disease (COPD) Neurological Medical History: Denies: Migraine, Seizures Endocrine Medical History: Reports: Hypothyroidism Denies: Diabetes Mellitus Type 1, Diabetes Mellitus Type 2, Hyperthyroidism Renal/ Medical History: Denies: End Stage Renal Disease Malignancy Medical History: Reports: Breast Cancer Denies: Cervical Cancer, Ovarian Cancer GI Medical History: Denies: Cirrhosis, Crohn's Disease, Gastroesophageal Reflux Disease, Hepatitis, Hiatal Hernia, Ulcerative Colitis Musculoskeltal Medical History: Reports: Arthritis - bilateral knees Denies: Fibromyalgia, Gout Skin Medical History: Denies: Eczema, Psoriasis Psychiatric Medical History: Denies: Depression Hematology: Reports: Anemia Denies: Sickle Cell Disease, Bleeding Tendencies Past Surgical History Past Surgical History: Reports: Section, Hysterectomy, Mastectomy - right partial, Tonsillectomy, Other - Several childhood surgeries Denies: Amputation, Appendectomy, Cholecystectomy, Colostomy, Coronary Artery Bypass Graft, Gastric Bypass Surgery, Herniorrhaphy, Pacemaker, Tubal Ligation Social History Smoking Status: Never Smoker Frequency of Alcohol Use: Rare Hx Recreational Drug Use: No Drugs: None Hx Prescription Drug Abuse: No - Advance Directive Resuscitation Status: Full Code Family History Family History: CAD, DM, Hyperlipidemia, Hypertension, Malignancy Parental Family History Reviewed: No - Patient is sleepy. Children Family History Reviewed: NA Sibling(s) Family History Reviewed.: NA Medication/Allergy Home Medications: Atorvastatin Calcium [Lipitor 20 mg Tablet] 20 mg PO QHS 06/06/19 Clopidogrel Bisulfate [Plavix 75 mg Tablet] 75 mg PO DAILY 06/06/19 Diltiazem HCl [Diltiazem 12Hr ER] 120 mg PO Q12 06/06/19 Levothyroxine Sodium [Synthroid 0.1 mg Tablet] 0.1 mg PO Q6AM 06/06/19 Pantoprazole Sodium [Protonix [address] Tablet] 40 mg PO Q6AM 06/06/19 Potassium Chloride [Klor-Con 10 Meq Tablet ER] 60 meq PO TID 06/06/19 Torsemide [Demadex] 40 mg PO BID 06/06/19 Dicyclomine HCl [Bentyl 20 mg Tablet] 20 mg PO Q6HP PRN 08/27/19 Divalproex Sodium [Depakote] 125 mg PO BID #60 tablet.dr 11/15/19 Lactulose [Cephulac Syrup 20 gm/30 ml Udcup] 10 gm PO Q12 11/18/19 Metolazone [Zaroxolyn 2.5 Mg Tablet] 2.5 mg PO MOWEFR 11/18/19 Metoprolol Succinate [Toprol Xl 25 mg Tab.sr] 25 mg PO DAILY 11/18/19 Nitroglycerin [Nitro-Dur 5 mg (0.2 mg/Hr) Transdermal Patch] 1 patch TOP DAILY 11/18/19 Allergies/Adverse Reactions: clemastine fumarate [From Tavist-1] Allergy (Severe, Verified 08/27/19 16:39) red spots,N/V Shark Cartilage [From Shark Fin Cartilage] Allergy (Severe, Verified 08/27/19 16:39) hives, n and v iodine [Iodine] Allergy (Unknown, Verified 08/27/19 16:39) vomit/rash meperidine HCl [From Demerol] Allergy (Unknown, Verified 08/27/19 16:39) N/V pseudoephedrine HCl [From Sudafed] Allergy (Unknown, Verified 08/27/19 16:39) rash/itch glove powder Allergy (Severe, Uncoded 08/27/19 16:39) hands swell,itch Review of Systems ROS unobtainable: Other Constitutional: PRESENT: as per HPI Eyes: PRESENT: as per HPI Ears: PRESENT: as per HPI Gastrointestinal: PRESENT: as per HPI Musculoskeletal: PRESENT: as per HPI Neurological: PRESENT: as per HPI Physical Exam Vital Signs: Temp Pulse Resp BP Pulse Ox 97.9 F 87 20 170/68 H 100 11/23/19 17:07 11/23/19 19:00 11/23/19 17:07 11/23/19 17:07 11/23/19 17:07 Intake & Output 11/22/19 11/23/19 11/24/19 06:59 06:59 06:59 Intake Total 120 712 240 Output Total 300 350 Balance -180 362 240 Weight 148.5 kg 138.5 kg General appearance: PRESENT: no acute distress, cooperative, morbidly obese Head exam: PRESENT: atraumatic, normocephalic Eye exam: PRESENT: conjunctiva pink, EOMI Mouth exam: PRESENT: moist Respiratory exam: PRESENT: decreased breath sounds, rhonchi, unlabored, wheezes Cardiovascular exam: PRESENT: irregular rhythm, +S1, +S2 GI/Abdominal exam: PRESENT: soft Rectal exam: PRESENT: deferred Musculoskeletal exam: PRESENT: normal inspection Neurological exam: PRESENT: alert, oriented to person Psychiatric exam: PRESENT: appropriate affect Skin exam: PRESENT: dry, intact, normal color Results Laboratory Results: 11/18/19 02:52 11/23/19 05:23 11/23/19 11/23/19 05:23 16:54 Carbonic Acid 0.85 L HCO3/H2CO3 Ratio 21:1 ABG pH 7.42 ABG pCO2 28.4 L ABG pO2 121.9 H ABG HCO3 18.2 L ABG O2 Saturation 98.5 H ABG Base Excess -5.0 FiO2 2L Potassium 4.2 11/14/19 11/18/19 18:37 02:52 Troponin I < 0.012 NT-Pro-B Natriuret Pep 1170 H EKG Comments: Twelve-lead EKG independently reviewed by me. Atrial fibrillation with controlled ventricular response. Impressions: Head CT 11/14/19 15:31 IMPRESSION: NORMAL BRAIN CT WITHOUT CONTRAST. EVIDENCE OF ACUTE STROKE: NO. Chest X-Ray 11/23/19 11:01 IMPRESSION: CARDIAC ENLARGEMENT. VASCULAR CONGESTION. Assessment & Plan - Diagnosis (1) Atrial fibrillation, rapid Plan: Atrial fibrillation is rate controlled Given that the patient is not on systemic anticoagulation only rate control measures are advisable. Patient is not symptomatic from atrial fibrillation at the moment. Continue present therapy. (2) Hypokalemia Plan: Refractory hypokalemia. Torsemide was thought to be the offending agent and has been discontinued. Continue to monitor potassium and replace. May need additional work-up for this condition. (3) Acute on chronic diastolic CHF, NYHA class 2 and ACC/AHA stage C Plan: Likely diastolic heart failure. Ejection fraction reported to be within normal limits. Presently volume status is difficult to assess Chest x-ray did show some vascular congestion. Exam suggestive of mild volume overload although volume status is difficult to gauge in this patient. We will continue maintenance diuretic while observing creatinine level
[2019-11-23] MEDS: ATORVASTATIN CALCIUM 20 MG TABLET PO SCH (21:58)
[2019-11-24 05:47] LABS: ABSOLUTE LYMPHOCYTES (AUTO) 0.6 10^3/uL (0.5-4.7); ABSOLUTE MONOCYTES (AUTO) 0.3 10^3/uL (0.1-1.4); ABSOLUTE NEUT (AUTO) 4.6 10^3/uL (1.7-8.2); BASOPHILS % (AUTO) 0.6 % (0-2); EOSINOPHILS % (AUTO) 0.1 % (0-6); HEMATOCRIT 31.7 % (36.0-47.0); HEMOGLOBIN 10.4 g/dL (12.0-15.5); LYMPHOCYTES % (AUTO) 10.4 % (13-45); MEAN CORPUSCULAR HEMOGLOBIN 22.9 pg (27.0-33.4); MEAN CORPUSCULAR HGB CONC 32.8 g/dL (32.0-36.0); MEAN CORPUSCULAR VOLUME 70 fl (80-97); MONOCYTES % (AUTO) 4.7 % (3-13); PLATELET COUNT 298 10^3/uL (150-450); RED BLOOD COUNT 4.54 10^6/uL (3.72-5.28); RED CELL DISTRIBUTION WIDTH 16.6 % (11.5-14.0); SEGMENTED NEUTROPHILS % (AUTO) 84.2 % (42-78); TOTAL CELLS COUNTED % (AUTO) 100 %; WHITE BLOOD COUNT 5.5 10^3/uL (4.0-10.5)
[2019-11-24] MEDS: METHYLPREDNISOLONE INJ 40 MG/1 ML SDV IV SCH ×2 (06:04→17:01)
[2019-11-24] MEDS: PANTOPRAZOLE SODIUM 40 MG TABLET.DR PO SCH (06:04)
[2019-11-24] MEDS: LEVOTHYROXINE SODIUM 0.1 MG TABLET PO SCH (06:04)
[2019-11-24] MEDS: HEPARIN SOD (PORCINE) 5,000 UNIT/ML 1 ML VIAL SUBCUT SCH ×3 (06:04→21:44)
[2019-11-24 06:09] LABS: ANION GAP 10 (5-19); BLOOD UREA NITROGEN 11 mg/dL (7-20); CALCIUM 8.9 mg/dL (8.4-10.2); CARBON DIOXIDE 18 mmol/L (22-30); CHLORIDE 109 mmol/L (98-107); GLUCOSE 127 mg/dL (75-110); POTASSIUM 4.8 mmol/L (3.6-5.0)
--- NOTE | 2019-11-24 09:06 | PDOC PROGRESS REPORT ---
Subjective Progress Note for:: 11/24/19 Subjective:: 64 year old female with a past medical history of mitral valve regurgitation, chronic diastolic heart failure, MECHELLE on CPAP, chronic atrial fibrillation not on anticoagulation, COPD on 2 L of home O2 and chronic hypokalemia who was reportedly brought in by her son to the ER due to concerns of confusion at home. She was found to have hypokalemia in the ER and was given potassium replacements but was persistently hypokalemic. She was also continued on her home torsemide. Hospitalist was consulted for further recommendations and comanagement. Upon encounter, patient appears comfortable and is saturating well on room air. She is pleasant and is very coherent. She is well oriented and is oriented to person, place and time and situation. She says that she knows she is in [facility] she is able to tell me that it is November 16, 2019 today. When asked why she was brought into the ER, she says that her son thinks that she has been confused at home. She denies acute complaints and denies any chest pain, shortness of breath, vomiting, dizziness, headache or diarrhea. She appears competent and is actually able to tell me the intricacies of her multiple comorbidities. When asked how long has she been on diuretic, she says that this started a few years ago when she was binging on salt and was retaining a lot of fluid and developed significant bipedal edema. She says that she was an avid salt eater because she really likes her food salty. She says that she used to use more than 5 tablespoons of salt every day and in a few times in the past, she would eat half a handful of salt. She says she was also told by her PCP and precision lens generator that she has chronic heart failure. She says that she was seen by Dr. Peñaloza before but she was also seen by a precision lens generator at [facility] in [place] and reports that she had an echo done last year at [facility]. She says that she has significantly cut down on her salt intake and her chronic bipedal edema has significantly improved. She tells me that she was started on Lasix before by Dr. Watts and was switched to torsemide because of her low potassium levels. She is also able to tell me that she was told she had an elevated ammonia in August. She says that she also has atrial fibrillation and was on Coumadin before. However she verbalized she had 2 episodes of GI bleed while on Coumadin and hence was taken off the Coumadin. When asked if the bleeding source was identified, she says that she had an endoscopy done by Dr. Sequeira and was found to have multiple colonic polyps. She said she had prior polypectomies but due to recurrence of bleeding, she was eventually taken off the Coumadin. She says that she was told that the polyps were benign. She says that she was discharged to [facility] in August 2019 but left the shelter sometime after [facility]ha. When asked why she left and when reported behavior of her putting down fire alarms was verified, she says that she was not very cooperative at [facility] because she did not want to stay there for a long time. She says that she and her son have been trying to find a place for her to stay but they do not have the financial means for it. She says that she has been homeless and has been switching from living in houses of different friends. She also says she is a [employer] and expressed she wants me to be aware of that. 11/21: This morning, patient got out of bed and was noted to be tachycardic in t he 150s to 160s. She was reported to be hypoxic at 86% during the episodes. She was also reported to be confused during the event. This lasted for a few minutes per RN and ER provider. Upon reassessment, patient appears comfortable in bed. Heart rate has improved to the 90s to low 100s. She is at her baseline mentation and is AO x4 on reassessment. Discussed patient's directive. She says she is a full code and prefers to receive chest compressions, defibrillation or mechanical ventilation. However she verbalizes she does not want to be on prolonged ventilation nor does she want to pursue tracheostomy. She says that her son, is her surrogate medical decision maker. 11/22: No acute issues overnight. A. fib has been rate controlled with PO Cardizem and metoprolol. Denies chest pain or shortness of breath. She is at her baseline mentation. 11/23: No acute issues overnight. Denies acute complaints. Her A. fib remains rate controlled. She continues remain at her baseline mentation. 11/24/2019 64-year-old female admitted with confusion which was resolved. Also admitted with profound hypokalemia latest serum potassium is 0.8. Afebrile. Heart rate in the 70s well-controlled. Patient is presently on a diltiazem 20 mg every 12 hours and also on metoprolol 25 mg p.o. daily.. Ammonia level improved to 50.3. On admission she was admitted with profound hypokalemia prese ntly on spironolactone 25 mg p.o. every 12 hours. Blood pressures are stable plan is to discontinue spironolactone from today. Portably in the bed communicating okay. She said she uses 2 L of oxygen at home. Reason For Visit: AFIB W/RVR Physical Exam Vital Signs: Temp Pulse Resp BP Pulse Ox 97.5 F 78 15 128/57 H 100 11/24/19 08:00 11/24/19 08:00 11/24/19 08:00 11/24/19 08:00 11/24/19 08:00 Intake & Output 11/23/19 11/24/19 11/25/19 06:59 06:59 06:59 Intake Total 712 740 Output Total 350 700 Balance 362 40 Weight 138.5 kg 138.9 kg General appearance: PRESENT: no acute distress, cooperative, morbidly obese Head exam: PRESENT: atraumatic Eye exam: PRESENT: PERRLA Mouth exam: PRESENT: moist, tongue midline Neck exam: ABSENT: carotid bruit, JVD, lymphadenopathy, thyromegaly Cardiovascular exam: PRESENT: RRR. ABSENT: diastolic murmur, rubs, systolic murmur Pulses: PRESENT: normal dorsalis pedis pul GI/Abdominal exam: PRESENT: normal bowel sounds, soft. ABSENT: distended, guarding, mass, organolmegaly, rebound, tenderness Rectal exam: PRESENT: deferred Extremities exam: PRESENT: full ROM. ABSENT: calf tenderness, clubbing, pedal edema Neurological exam: PRESENT: alert, awake, oriented to person, oriented to place, oriented to time, oriented to situation, CN II-XII grossly intact. ABSENT: motor sensory deficit Psychiatric exam: PRESENT: appropriate affect, normal mood. ABSENT: homicidal ideation, suicidal ideation Results Laboratory Results: 11/24/19 05:18 11/24/19 05:18 11/23/19 11/24/19 11/24/19 16:54 05:18 05:18 WBC 5.5 RBC 4.54 Hgb 10.4 L Hct 31.7 L MCV 70 L MCH 22.9 L MCHC 32.8 RDW 16.6 H Plt Count 298 Seg Neutrophils % 84.2 H Carbonic Acid 0.85 L HCO3/H2CO3 Ratio 21:1 ABG pH 7.42 ABG pCO2 28.4 L ABG pO2 121.9 H ABG HCO3 18.2 L ABG O2 Saturation 98.5 H ABG Base Excess -5.0 FiO2 2L Sodium 136.6 L Potassium 4.8 Chloride 109 H Carbon Dioxide 18 L Anion Gap 10 BUN 11 Creatinine 1.05 Est GFR ( Amer) > 60 Glucose 127 H Calcium 8.9 11/14/19 11/18/19 18:37 02:52 Troponin I < 0.012 NT-Pro-B Natriuret Pep 1170 H Impressions: Head CT 11/14/19 15:31 IMPRESSION: NORMAL BRAIN CT WITHOUT CONTRAST. EVIDENCE OF ACUTE STROKE: NO. Chest X-Ray 11/23/19 11:01 IMPRESSION: CARDIAC ENLARGEMENT. VASCULAR CONGESTION. Assessment and Plan - Diagnosis (1) Hypokalemia Is this a current diagnosis for this admission?: Yes Plan: 11/17: At this time, suspect that hypokalemia is related to diuresis. Although torsemide is associated with lesser frequency of hypokalemia, it can still cause potassium wasting. Her last echocardiogram on record 2 years ago showed normal EF but study was suboptimal for visualization diastolic function. Chart reviewed mention she has chronic diastolic heart failure. Discontinue torsemide. Will switch her to Spironolactone and will start at 25 mg every 12. Will increase oral potassium replacement to 40 meqs every 8. Reviewed prior BMPs. Appears she has chronic alkalosis and has elevated bicarb level. She is normotensive. Serum magnesium is normal. Her chronic alkalosis is likely related to diuresis. The likelihood of urinary potassium wasting syndromes such as Gitelman and Barter syndromes is extremely low in an elderly patient. Regardless, the management for these diseases are chronic potassium supplementation and avoidance of medications that would cause hypokalemia. Also unlikely that her hypokalemia is secondary to an organic acidemia as she actually has alkalosis. Work-up for refractory hypokalemia is mostly outpatient and considered if the hypokalemia is not responding to discontinuation of causative drug and potassium supplementation. If she continues to remain in the the hospital pending disposition, will consider further work-up or nephrology consult if her potassium does not improve at all. 11/18: Serum Potassium have improved to 3.5 with discontinuation of Torsemide and with Potassium replacements. 11/19: Continue spironolactone and Potassium supplements. Change diet to high K diet. 11/20: Potassium has improved to 3.7. 11/21: Potassium up to 4.4. Hold off on Potassium supplements today. 11/22: Potassium at low normal end of 3.6 today. Continue low dose Potassium supplements. 11/23: Resolved. 11/24/2019-serum potassium is 4.8. Hypokalemia is resolved. (2) Hyperammonemia Is this a current diagnosis for this admission?: Yes Plan: 11/17: She had an ammonia level over a 100 before. She had previous work-up for her elevated ammonia. She had a CT and an abdominal ultrasound which showed fatty liver but no signs of cirrhosis. Discontinue Depakote as it can also cause of hyperammonemia. Agree with continuing lactulose for now. On examination, she is not encephalopathic. 11/21: At baseline mentation. 11/24/2019 latest ammonia level is 50.3. Today's ammonia level is pending. CT abdominal pelvis indicates fatty liver. Depakote was discontinued because it may cause hyperammonemia (3) Chronic atrial fibrillation Is this a current diagnosis for this admission?: No Plan: Rate-controlled. Continue metoprolol and cardizem. Not on anticoagulation due to previous GI bleeds. 2019-patient's heart rate in the 70s in sinus rhythm presently on a Cardizem 120 mg p.o. every 12 hours on metoprolol 25 mg p.o. daily not on anticoagulation because of the previous history of GI bleeds. Cardiology on board. (4) Colonic polyp Is this a current diagnosis for this admission?: Yes Plan: Reviewed records from GI. She has prior EGD and colonoscopies which revealed multiple polyps on the stomach and extensive polyps in the colon as well. Differentials include Peutz-Jeghers, ORACIO/PTEN hamartoma sybndrome and Cronkhite-Earl syndrome. (5) Morbid (severe) obesity due to excess calories Is this a current diagnosis for this admission?: No Plan: 11/24/2019-patient's BMI is more than 48 diet exercise weight loss lifestyle modifications discussed with the patient dietary consult was requested. (6) CHF (congestive heart failure) Is this a current diagnosis for this admission?: No Plan: 11/24/2019-patient has history of chronic diastolic heart failure. Euvolemic. Cardiology on board. EF within normal limits. Initial chest x-ray shows some vascular congestion. As per cardiology plan is to continue the diuretics. Latest creatinine is 1.05. At the time of examination this morning patient is euvolemic. (7) COPD (chronic obstructive pulmonary disease) Is this a current diagnosis for this admission?: No Plan: 11/24/2019-patient has history of COPD on 2 L of oxygen at home. Pulse ox is 100% on 2 L this morning.
[2019-11-24] MEDS: POTASSIUM CHLORIDE 10 MEQ TABLET.ER PO SCH ×2 (09:30→21:43)
[2019-11-24] MEDS: DILTIAZEM HCL 120 MG CAP.SR.24H PO SCH ×2 (09:30→21:43)
[2019-11-24] MEDS: NITROGLYCERIN 5 MG (0.2 MG/HR) PATCH.TD24 TOP SCH (09:30)
[2019-11-24] MEDS: CLOPIDOGREL BISULFATE 75 MG TABLET PO SCH (09:31)
[2019-11-24] MEDS: LACTULOSE SYRUP 20 GM/30 ML UDCUP PO SCH ×2 (09:31→21:44)
[2019-11-24] MEDS: METOPROLOL SUCCINATE 25 MG TAB.SR.24H PO SCH (09:31)
[2019-11-24] MEDS: TORSEMIDE 20 MG TABLET PO SCH ×2 (09:35→17:01)
[2019-11-24] MEDS: IPRATROPIUM/ALBUTEROL 0.5-2.5 MG/3 ML AMPUL NEB PRN (09:56)
[2019-11-24] MEDS ORDERED: TORSEMIDE 20 MG TABLET PO SCH (10:00)
--- NOTE | 2019-11-24 12:00 | PDOC PROGRESS REPORT ---
Subjective Progress Note for:: 11/24/19 Subjective:: Patient seen and examined. Resting comfortably. Reason For Visit: AFIB W/RVR Physical Exam Vital Signs: Temp Pulse Resp BP Pulse Ox 97.5 F 78 23 H 128/57 H 100 11/24/19 08:00 11/24/19 10:00 11/24/19 10:00 11/24/19 08:00 11/24/19 10:00 Intake & Output 11/23/19 11/24/19 11/25/19 06:59 06:59 06:59 Intake Total 712 740 Output Total 350 700 Balance 362 40 Weight 138.5 kg 138.9 kg General appearance: PRESENT: morbidly obese Head exam: PRESENT: atraumatic, normocephalic Eye exam: PRESENT: conjunctiva pink Mouth exam: PRESENT: moist Respiratory exam: PRESENT: decreased breath sounds, symmetrical, unlabored Cardiovascular exam: PRESENT: irregular rhythm, +S1, +S2 GI/Abdominal exam: PRESENT: soft Rectal exam: PRESENT: deferred Neurological exam: PRESENT: alert, awake, oriented to person Skin exam: PRESENT: intact, normal color Results Laboratory Results: 11/24/19 05:18 11/24/19 05:18 11/23/19 11/24/19 11/24/19 16:54 05:18 05:18 WBC 5.5 RBC 4.54 Hgb 10.4 L Hct 31.7 L MCV 70 L MCH 22.9 L MCHC 32.8 RDW 16.6 H Plt Count 298 Seg Neutrophils % 84.2 H Carbonic Acid 0.85 L HCO3/H2CO3 Ratio 21:1 ABG pH 7.42 ABG pCO2 28.4 L ABG pO2 121.9 H ABG HCO3 18.2 L ABG O2 Saturation 98.5 H ABG Base Excess -5.0 FiO2 2L Sodium 136.6 L Potassium 4.8 Chloride 109 H Carbon Dioxide 18 L Anion Gap 10 BUN 11 Creatinine 1.05 Est GFR ( Amer) > 60 Glucose 127 H Calcium 8.9 Ammonia 11/24/19 08:27 WBC RBC Hgb Hct MCV MCH MCHC RDW Plt Count Seg Neutrophils % Carbonic Acid HCO3/H2CO3 Ratio ABG pH ABG pCO2 ABG pO2 ABG HCO3 ABG O2 Saturation ABG Base Excess FiO2 Sodium Potassium Chloride Carbon Dioxide Anion Gap BUN Creatinine Est GFR ( Amer) Glucose Calcium Ammonia 17.1 11/14/19 11/18/19 18:37 02:52 Troponin I < 0.012 NT-Pro-B Natriuret Pep 1170 H Impressions: Head CT 11/14/19 15:31 IMPRESSION: NORMAL BRAIN CT WITHOUT CONTRAST. EVIDENCE OF ACUTE STROKE: NO. Chest X-Ray 11/23/19 11:01 IMPRESSION: CARDIAC ENLARGEMENT. VASCULAR CONGESTION. Assessment & Plan - Diagnosis (1) Atrial fibrillation, rapid Plan: Rate control measures only. Patient is not anticoagulated due to significant history of GI bleed in the past Asymptomatic from atrial fibrillation. Telemetry shows rate controlled atrial fibrillation at 85 bpm. (2) Hypokalemia Is this a current diagnosis for this admission?: Yes Plan: Hypokalemia has been corrected. Latest potassium level is much better. We will continue to monitor. (3) Acute on chronic diastolic CHF, NYHA class 2 and ACC/AHA stage C Plan: Volume status is difficult to assess. Based on respiratory status and symptoms patient appears to be much better. If it is not significantly elevated
--- NOTE | 2019-11-24 13:20 | RADIOLOGY REPORT (SQ) ---
EXAM DESCRIPTION: U/S ABDOMEN COMPLETE W/DOPPLER COMPLETED DATE/TIME: 11/24/2019 6:16 am REASON FOR STUDY: assess for cirrhosis and splenomegaly R41.82 ALTERED MENTAL STATUS, UNSPECIFIED R 45.1 RESTLESSNESS AND AGITATION E72.20 DISORDER OF UREA CYCLE METABOLISM, UNSPECIFIED COMPARISON: None TECHNIQUE: Dynamic and static grayscale images acquired of the abdomen and recorded on PACS. Additio nal selected color Doppler and spectral images recorded. Note: Exam does not meet criteria for a complete doppler/duplex scan LIMITATIONS: Study limited due to acoustical interference from fat or from air in the bowel. FINDINGS: PANCREAS: Poorly seen secondary to acoustical interference from fat or from air in the bow el. No visualized masses. Duct normal caliber as seen. LIVER: Diffuse coarse echotexture. No mass identified. LIVER VASCULATURE: Normal directional flow of the main portal vein and hepatic veins. GALLBLADDER: Surgically absent. ULTRASOUND-DETECTED VU'S SIGN: Not applicable. INTRAHEPATIC DUCTS AND COMMON DUCT:CBD and intrahepatic ducts normal caliber. No filling defects. INFERIOR VENA CAVA: Normal flow. AORTA: No aneurysm. RIGHT KIDNEY: Normal size. Normal echogenicity. No solid or suspicious masses. No hydronephros is. No calcifications. LEFT KIDNEY: Normal size. Normal echogenicity. No solid or suspicious masses. No hydronephrosi s. No calcifications. SPLEEN:Normal size. No solid masses. PERITONEAL AND PLEURAL SPACES: No ascites or effusions. OTHER: No other significant finding. IMPRESSION: Medical hepatic disease. No ascites. TECHNICAL DOCUMENTATION: JOB ID: [id number] [employer]- All Rights Reserved Reading location - IP/workstation name: [email or web address]
[2019-11-24] MEDS: ATORVASTATIN CALCIUM 20 MG TABLET PO SCH (21:43)
--- NOTE | 2019-11-25 01:46 | RADIOLOGY REPORT (SQ) ---
EXAM DESCRIPTION: CT CHEST WITHOUT IV CONTRAST COMPLETED DATE/TME: 11/24/2019 00:00 CLINICAL HISTORY: 64 years, Female, dyspnea COMPARISON: No available TECHNIQUE: Images stored on PACS. All CT scanners at this facility use dose modulation, iterative reconstruction, and/or weight based dosing when appropriate to reduce radiation dose to as low as reasonably achievable (ALARA). [facility]: Dose Right [facility]: CareDose [facility]: Dose Right [facility]: Teradose 4D [facility]: [employer] LIMITATIONS: None. FINDINGS: The heart is enlarged with coronary calcification. Aortic calcification. Thyroid is enlarged with coarse calcification. The lungs are grossly clear. Mild dependent atelectasis. No effusion. No pneumothorax. Visualized abdominal contents are unremarkable. Visualized bones demonstrate age-appropriate osteoarthritis IMPRESSION: Lungs are grossly clear. The heart is enlarged with coronary calcification. Coarse calcifications within the thyroid. TECHNICAL DOCUMENTATION: Quality ID # [id number]: Final reports with documentation of one or more dose reduction techniques (e.g., Automated exposure control, adjustment of the mA and/or kV according to patient size, use of iterative reconstruction technique) copyright 2011 [employer]- All Rights Reserved
[2019-11-25] MEDS: HEPARIN SOD (PORCINE) 5,000 UNIT/ML 1 ML VIAL SUBCUT SCH ×3 (05:40→21:37)
[2019-11-25] MEDS: METHYLPREDNISOLONE INJ 40 MG/1 ML SDV IV SCH ×2 (05:40→17:49)
[2019-11-25] MEDS: PANTOPRAZOLE SODIUM 40 MG TABLET.DR PO SCH (05:40)
[2019-11-25] MEDS: LEVOTHYROXINE SODIUM 0.1 MG TABLET PO SCH (05:41)
[2019-11-25 06:39] LABS: ABSOLUTE BASOPHILS # (AUTO) 0.1 10^3/uL (0.0-0.2); ABSOLUTE LYMPHOCYTES (AUTO) 0.8 10^3/uL (0.5-4.7); ABSOLUTE MONOCYTES (AUTO) 0.8 10^3/uL (0.1-1.4); ABSOLUTE NEUT (AUTO) 8.5 10^3/uL (1.7-8.2); BASOPHILS % (AUTO) 0.5 % (0-2); HEMATOCRIT 34.7 % (36.0-47.0); HEMOGLOBIN 11.4 g/dL (12.0-15.5); LYMPHOCYTES % (AUTO) 7.5 % (13-45); MEAN CORPUSCULAR HEMOGLOBIN 22.8 pg (27.0-33.4); MEAN CORPUSCULAR HGB CONC 32.8 g/dL (32.0-36.0); MEAN CORPUSCULAR VOLUME 69 fl (80-97); MONOCYTES % (AUTO) 7.9 % (3-13); PLATELET COUNT 312 10^3/uL (150-450); RED BLOOD COUNT 5.01 10^6/uL (3.72-5.28); SEGMENTED NEUTROPHILS % (AUTO) 84.1 % (42-78); TOTAL CELLS COUNTED % (AUTO) 100 %; WHITE BLOOD COUNT 10.1 10^3/uL (4.0-10.5)
[2019-11-25 06:55] LABS: ALBUMIN 2.8 g/dL (3.5-5.0); ALKALINE PHOSPHATASE 197 U/L (38-126); ANION GAP 10 (5-19); ASPARTATE AMINO TRANSFERASE 24 U/L (14-36); BILIRUBIN,DIRECT 0.4 mg/dL (0.0-0.4); BILIRUBIN,TOTAL 0.6 mg/dL (0.2-1.3); BLOOD UREA NITROGEN 17 mg/dL (7-20); CALCIUM 9.5 mg/dL (8.4-10.2); CARBON DIOXIDE 19 mmol/L (22-30); CHLORIDE 107 mmol/L (98-107); GLUCOSE 111 mg/dL (75-110); POTASSIUM 5.7 mmol/L (3.6-5.0); TOTAL PROTEIN 6.7 g/dL (6.3-8.2)
[2019-11-25] MEDS ORDERED: SODIUM POLYSTYRENE SULFONATE 15 GM/60 ML PO ONE (07:17)
--- NOTE | 2019-11-25 09:10 | PDOC PROGRESS REPORT ---
Subjective Progress Note for:: 11/25/19 Subjective:: 64 year old female with a past medical history of mitral valve regurgitation, chronic diastolic heart failure, MECHELLE on CPAP, chronic atrial fibrillation not on anticoagulation, COPD on 2 L of home O2 and chronic hypokalemia who was reportedly brought in by her son to the ER due to concerns of confusion at home. She was found to have hypokalemia in the ER and was given potassium replacements but was persistently hypokalemic. She was also continued on her home torsemide. Hospitalist was consulted for further recommendations and comanagement. Upon encounter, patient appears comfortable and is saturating well on room air. She is pleasant and is very coherent. She is well oriented and is oriented to person, place and time and situation. She says that she knows she is in [facility] she is able to tell me that it is November 16, 2019 today. When asked why she was brought into the ER, she says that her son thinks that she has been confused at home. She denies acute complaints and denies any chest pain, shortness of breath, vomiting, dizziness, headache or diarrhea. She appears competent and is actually able to tell me the intricacies of her multiple comorbidities. When asked how long has she been on diuretic, she says that this started a few years ago when she was binging on salt and was retaining a lot of fluid and developed significant bipedal edema. She says that she was an avid salt eater because she really likes her food salty. She says that she used to use more than 5 tablespoons of salt every day and in a few times in the past, she would eat half a handful of salt. She says she was also told by her PCP and marble cutter operator that she has chronic heart failure. She says that she was seen by Dr. Peñaloza before but she was also seen by a marble cutter operator at [facility] in [place] and reports that she had an echo done last year at [facility]. She says that she has significantly cut down on her salt intake and her chronic bipedal edema has significantly improved. She tells me that she was started on Lasix before by Dr. Watts and was switched to torsemide because of her low potassium levels. She is also able to tell me that she was told she had an elevated ammonia in August. She says that she also has atrial fibrillation and was on Coumadin before. However she verbalized she had 2 episodes of GI bleed while on Coumadin and hence was taken off the Coumadin. When asked if the bleeding source was identified, she says that she had an endoscopy done by Dr. Sequeira and was found to have multiple colonic polyps. She said she had prior polypectomies but due to recurrence of bleeding, she was eventually taken off the Coumadin. She says that she was told that the polyps were benign. She says that she was discharged to [facility] in August 2019 but left the residential sometime after [place]. When asked why she left and when reported behavior of her putting down fire alarms was verified, she says that she was not very cooperative at [facility] because she did not want to stay there for a long time. She says that she and her son have been trying to find a place for her to stay but they do not have the financial means for it. She says that she has been homeless and has been switching from living in houses of different friends. She also says she is a [employer] and expressed she wants me to be aware of that. 11/21: This morning, patient got out of bed and was noted to be tachycardic in t he 150s to 160s. She was reported to be hypoxic at 86% during the episodes. She was also reported to be confused during the event. This lasted for a few minutes per RN and ER provider. Upon reassessment, patient appears comfortable in bed. Heart rate has improved to the 90s to low 100s. She is at her baseline mentation and is AO x4 on reassessment. Discussed patient's directive. She says she is a full code and prefers to receive chest compressions, defibrillation or mechanical ventilation. However she verbalizes she does not want to be on prolonged ventilation nor does she want to pursue tracheostomy. She says that her son, is her surrogate medical decision maker. 11/22: No acute issues overnight. A. fib has been rate controlled with PO Cardizem and metoprolol. Denies chest pain or shortness of breath. She is at her baseline mentation. 11/23: No acute issues overnight. Denies acute complaints. Her A. fib remains rate controlled. She continues remain at her baseline mentation. 11/24/2019 64-year-old female admitted with confusion which was resolved. Also admitted with profound hypokalemia latest serum potassium is 0.8. Afebrile. Heart rate in the 70s well-controlled. Patient is presently on a diltiazem 20 mg every 12 hours and also on metoprolol 25 mg p.o. daily.. Ammonia level improved to 50.3. On admission she was admitted with profound hypokalemia prese ntly on spironolactone 25 mg p.o. every 12 hours. Blood pressures are stable plan is to discontinue spironolactone from today. Portably in the bed communicating okay. She said she uses 2 L of oxygen at home. 11/25/2019-no acute events in the last 24 hours. Afebrile. Comfortably in the bed in mild shortness of breath. Pulse ox is 100% on 2 L. Ammonia level is 17.1 improved from 50. Serum potassium is 5.7 now high she is hyperkalemic to give Kayexalate 30 g p.o. 1 dose and p.o. potassium supplementations are on hold. Patient is expressing desire to go home I am going to arrange for phys ical therapy consult today to see if he need a new home health are needed to go for rehab. Reason For Visit: AFIB W/RVR Physical Exam Vital Signs: Temp Pulse Resp BP Pulse Ox 97.9 F 81 18 122/65 100 11/25/19 07:29 11/25/19 07:29 11/25/19 07:29 11/25/19 07:29 11/25/19 07:29 Intake & Output 11/24/19 11/25/19 11/26/19 06:59 06:59 06:59 Intake Total 740 1290 Output Total 700 350 Balance 40 940 Weight 138.9 kg 138 kg General appearance: PRESENT: no acute distress, morbidly obese Head exam: PRESENT: atraumatic Eye exam: PRESENT: PERRLA Mouth exam: PRESENT: moist, tongue midline Teeth exam: PRESENT: poor dentation Neck exam: ABSENT: carotid bruit, JVD, lymphadenopathy, thyromegaly Respiratory exam: PRESENT: decreased breath sounds, tachypnea Cardiovascular exam: PRESENT: RRR. ABSENT: diastolic murmur, rubs, systolic murmur GI/Abdominal exam: PRESENT: normal bowel sounds, soft. ABSENT: distended, guarding, mass, organolmegaly, rebound, tenderness Rectal exam: PRESENT: deferred Extremities exam: PRESENT: full ROM. ABSENT: calf tenderness, clubbing, pedal edema Neurological exam: PRESENT: alert, awake, oriented to person, oriented to place, oriented to time, oriented to situation, CN II-XII grossly intact. ABSENT: motor sensory deficit Psychiatric exam: PRESENT: appropriate affect, normal mood. ABSENT: homicidal ideation, suicidal ideation Results Laboratory Results: 11/25/19 06:01 11/25/19 06:01 11/25/19 11/25/19 06:01 06:01 WBC 10.1 RBC 5.01 Hgb 11.4 L Hct 34.7 L MCV 69 L MCH 22.8 L MCHC 32.8 RDW 16.0 H Plt Count 312 Seg Neutrophils % 84.1 H Sodium 136.0 L Potassium 5.7 H Chloride 107 Carbon Dioxide 19 L Anion Gap 10 BUN 17 Creatinine 1.25 Est GFR ( Amer) 52 L Glucose 111 H Calcium 9.5 Magnesium 2.1 Total Bilirubin 0.6 AST 24 Alkaline Phosphatase 197 H Total Protein 6.7 Albumin 2.8 L 11/14/19 11/18/19 18:37 02:52 Troponin I < 0.012 NT-Pro-B Natriuret Pep 1170 H Impressions: Head CT 11/14/19 15:31 IMPRESSION: NORMAL BRAIN CT WITHOUT CONTRAST. EVIDENCE OF ACUTE STROKE: NO. Chest X-Ray 11/23/19 11:01 IMPRESSION: CARDIAC ENLARGEMENT. VASCULAR CONGESTION. Abdomen Ultrasound 11/24/19 00:00 IMPRESSION: Medical hepatic disease. No ascites. Chest CT 11/24/19 00:00 IMPRESSION: Lungs are grossly clear. The heart is enlarged with coronary calcification. Coarse calcifications within the thyroid. TECHNICAL DOCUMENTATION: Quality ID # 436: Final reports with documentation of one or more dose reduction techniques (e.g., Automated exposure control, adjustment of the mA and/or kV according to patient size, use of iterative reconstruction technique) copyright 2011 [employer]- All Rights Reserved Assessment and Plan - Diagnosis (1) Hypokalemia Is this a current diagnosis for this admission?: Yes Plan: 11/17: At this time, suspect that hypokalemia is related to diuresis. Although torsemide is associated with lesser frequency of hypokalemia, it can still cause potassium wasting. Her last echocardiogram on record 2 years ago showed normal EF but study was suboptimal for visualization diastolic function. Chart reviewed mention she has chronic diastolic heart failure. Discontinue torsemide. Will switch her to Spironolactone and will start at 25 mg every 12. Will increase oral potassium replacement to 40 meqs every 8. Reviewed prior BMPs. Appears she has chronic alkalosis and has elevated bicarb level. She is normotensive. Serum magnesium is normal. Her chronic alkalosis is likely related to diuresis. The likelihood of urinary potassium wasting syndromes such as Gitelman and Barter syndromes is extremely low in an elderly patient. Regardless, the management for these diseases are chronic potassium supplementation and avoidance of medications that would cause hypokalemia. Also unlikely that her hypokalemia is secondary to an organic acidemia as she actually has alkalosis. Work-up for refractory hypokalemia is mostly outpatient and considered if the hypokalemia is not responding to discontinuation of causative drug and potassium supplementation. If she continues to remain in the the hospital pending disposition, will consider further work-up or nephrology consult if her potassium does not improve at all. 11/18: Serum Potassium have improved to 3.5 with discontinuation of Torsemide and with Potassium replacements. 11/19: Continue spironolactone and Potassium supplements. Change diet to high K diet. 11/20: Potassium has improved to 3.7. 11/21: Potassium up to 4.4. Hold off on Potassium supplements today. 11/22: Potassium at low normal end of 3.6 today. Continue low dose Potassium supplements. 11/23: Resolved. 11/24/2019-serum potassium is 4.8. Hypokalemia is resolved. 11/25/2019-serum potassium today is 5.7 to hold potassium supplementation, 2K with Kayexalate 30 g p.o. 1 dose. To recheck potassium levels tomorrow. (2) Hyperammonemia Is this a current diagnosis for this admission?: Yes Plan: 11/17: She had an ammonia level over a 100 before. She had previous work-up for her elevated ammonia. She had a CT and an abdominal ultrasound which showed fatty liver but no signs of cirrhosis. Discontinue Depakote as it can also cause of hyperammonemia. Agree with continuing lactulose for now. On examination, she is not encephalopathic. 11/21: At baseline mentation. 11/24/2019 latest ammonia level is 50.3. Today's ammonia level is pending. CT abdominal pelvis indicates fatty liver. Depakote was discontinued because it may cause hyperammonemia 11/25/2019-latest ammonia level is 17.1. Alert awake communicating well. Depakote is discontinued at this time. (3) Chronic atrial fibrillation Is this a current diagnosis for this admission?: No Plan: Rate-controlled. Continue metoprolol and cardizem. Not on anticoagulation due to previous GI bleeds. 2019-patient's heart rate in the 70s in sinus rhythm presently on a Cardizem 120 mg p.o. every 12 hours on metoprolol 25 mg p.o. daily not on anticoagulation because of the previous history of GI bleeds. Cardiology on board. 11/25/2019 on examination heart is in sinus rhythm heart rate is around 70. Patient is presently on Cardizem 120 mg p.o. every 12 hours and metoprolol 25 mg p.o. daily. Patient is not on anticoagulation because of the history of GI bleed. (4) Colonic polyp Is this a current diagnosis for this admission?: Yes (5) Morbid (severe) obesity due to excess calories Is this a current diagnosis for this admission?: No (6) CHF (congestive heart failure) Is this a current diagnosis for this admission?: No Plan: 11/24/2019-patient has history of chronic diastolic heart failure. Euvolemic. Cardiology on board. EF within normal limits. Initial chest x-ray shows some vascular congestion. As per cardiology plan is to continue the diuretics. Latest creatinine is 1.05. At the time of examination this morning patient is euvolemic. 11/25/2019-patient has history of chronic diastolic heart failure. EF within normal limits. Initial chest x-ray suggestive of mild vascular congestion. Patient is on diuretics. Latest creatinine is 1.25. CT chest done yesterday did not show any pulmonary edema. (7) COPD (chronic obstructive pulmonary disease) Is this a current diagnosis for this admission?: No Plan: 11/24/2019-patient has history of COPD on 2 L of oxygen at home. Pulse ox is 100% on 2 L this morning. 11/25/2019-pulse ox is 100% on 2 L. Patient is on home oxygen 2 L. And is to continue oxygen supplementation at 2 L/min.
[2019-11-25] MEDS: METOPROLOL SUCCINATE 25 MG TAB.SR.24H PO SCH (10:02)
[2019-11-25] MEDS: NITROGLYCERIN 5 MG (0.2 MG/HR) PATCH.TD24 TOP SCH (10:02)
[2019-11-25] MEDS: TORSEMIDE 20 MG TABLET PO SCH ×2 (10:02→17:49)
[2019-11-25] MEDS: CLOPIDOGREL BISULFATE 75 MG TABLET PO SCH (10:02)
[2019-11-25] MEDS: DILTIAZEM HCL 120 MG CAP.SR.24H PO SCH ×2 (10:02→21:37)
[2019-11-25] MEDS: LACTULOSE SYRUP 20 GM/30 ML UDCUP PO SCH ×2 (10:03→21:37)
[2019-11-25] MEDS ORDERED: SODIUM POLYSTYRENE SULFONATE 15 GM/60 ML ONE (10:33)
[2019-11-25] MEDS: IPRATROPIUM/ALBUTEROL 0.5-2.5 MG/3 ML AMPUL NEB PRN (10:49)
[2019-11-25] MEDS: ATORVASTATIN CALCIUM 20 MG TABLET PO SCH (21:37)
[2019-11-26 05:09] LABS: HEMATOCRIT 31.6 % (36.0-47.0); HEMOGLOBIN 10.2 g/dL (12.0-15.5); MEAN CORPUSCULAR HEMOGLOBIN 22.3 pg (27.0-33.4); MEAN CORPUSCULAR HGB CONC 32.2 g/dL (32.0-36.0); MEAN CORPUSCULAR VOLUME 69 fl (80-97); PLATELET COUNT 313 10^3/uL (150-450); RED BLOOD COUNT 4.56 10^6/uL (3.72-5.28); RED CELL DISTRIBUTION WIDTH 16.3 % (11.5-14.0); WHITE BLOOD COUNT 10.7 10^3/uL (4.0-10.5)
[2019-11-26 05:28] LABS: ABSOLUTE LYMPHOCYTES# (MANUAL) 0.3 10^3/uL (0.5-4.7); ABSOLUTE MONOCYTES # (MANUAL) 0.5 10^3/uL (0.1-1.4); BASOPHILS % (MANUAL) 0 % (0-2); EOSINOPHILS % (MANUAL) 0 % (0-6); LYMPHOCYTES % (MANUAL) 2 % (13-45); MONOCYTES % (MANUAL) 5 % (3-13); SEGMENTED NEUTROPHILS % (MAN) 92 % (42-78); TOTAL CELLS COUNTED 100
[2019-11-26 05:30] LABS: TOXIC GRANULATION SLIGHT
[2019-11-26 05:31] LABS: ANISOCYTOSIS 1+; OVALOCYTES 1+; PLATELET COMMENT ADEQUATE; POIKILOCYTOSIS 1+; SCHISTOCYTES SLIGHT
[2019-11-26 05:33] LABS: ALBUMIN 2.6 g/dL (3.5-5.0); ALKALINE PHOSPHATASE 153 U/L (38-126); ANION GAP 9 (5-19); ASPARTATE AMINO TRANSFERASE 30 U/L (14-36); BILIRUBIN,DIRECT 0.3 mg/dL (0.0-0.4); BILIRUBIN,TOTAL 0.4 mg/dL (0.2-1.3); BLOOD UREA NITROGEN 20 mg/dL (7-20); CALCIUM 9.1 mg/dL (8.4-10.2); CARBON DIOXIDE 19 mmol/L (22-30); CHLORIDE 106 mmol/L (98-107); GLUCOSE 129 mg/dL (75-110); POTASSIUM 4.8 mmol/L (3.6-5.0); TOTAL PROTEIN 6.2 g/dL (6.3-8.2)
[2019-11-26] MEDS: METHYLPREDNISOLONE INJ 40 MG/1 ML SDV IV SCH (05:55)
[2019-11-26] MEDS: HEPARIN SOD (PORCINE) 5,000 UNIT/ML 1 ML VIAL SUBCUT SCH ×3 (05:55→22:18)
[2019-11-26] MEDS: PANTOPRAZOLE SODIUM 40 MG TABLET.DR PO SCH (05:56)
[2019-11-26] MEDS: LEVOTHYROXINE SODIUM 0.1 MG TABLET PO SCH (05:56)
[2019-11-26] MEDS: METOPROLOL SUCCINATE 25 MG TAB.SR.24H PO SCH (09:32)
[2019-11-26] MEDS: DILTIAZEM HCL 120 MG CAP.SR.24H PO SCH ×2 (09:32→23:23)
[2019-11-26] MEDS: NITROGLYCERIN 5 MG (0.2 MG/HR) PATCH.TD24 TOP SCH (09:32)
[2019-11-26] MEDS: TORSEMIDE 20 MG TABLET PO SCH (09:32)
[2019-11-26] MEDS: LACTULOSE SYRUP 20 GM/30 ML UDCUP PO SCH (09:33)
[2019-11-26] MEDS: CLOPIDOGREL BISULFATE 75 MG TABLET PO SCH (09:33)
--- NOTE | 2019-11-26 14:05 | PDOC PROGRESS REPORT ---
Subjective Progress Note for:: 11/26/19 Reason For Visit: AFIB W/RVR 11/26/2019 Evidently patient was seen in the emergency room on 14 November and admitted for social long-term placement evaluation. Patient was sent from the long-term saying that she was combative and confused and threatening the staff. So that patient signed out AMA and needs "involuntary commitment. Patient's medical problems appear to be hyponatremia as well as hyperkalemia Physical Exam Vital Signs: Temp Pulse Resp BP Pulse Ox 97.7 F 89 19 116/61 100 11/26/19 11:20 11/26/19 11:20 11/26/19 11:20 11/26/19 11:20 11/26/19 11:20 Intake & Output 11/25/19 11/26/19 11/27/19 06:59 06:59 06:59 Intake Total 1290 3400 Output Total 350 975 Balance 940 2425 Weight 138 kg 143.3 kg General appearance: PRESENT: no acute distress, morbidly obese, well-developed, well-nourished, other - Sitting up in bed with nasal cannula oxygen. Patient denies using oxygen regularly Respiratory exam: PRESENT: decreased breath sounds Cardiovascular exam: PRESENT: RRR. ABSENT: diastolic murmur, rubs, systolic murmur Neurological exam: PRESENT: altered, awake Psychiatric exam: PRESENT: unusual affect Results Laboratory Results: 11/26/19 04:30 11/26/19 04:30 11/26/19 11/26/19 04:30 04:30 WBC 10.7 H RBC 4.56 Hgb 10.2 L Hct 31.6 L MCV 69 L MCH 22.3 L MCHC 32.2 RDW 16.3 H Plt Count 313 Seg Neutrophils % Not Reportable Sodium 133.9 L Potassium 4.8 Chloride 106 Carbon Dioxide 19 L Anion Gap 9 BUN 20 Creatinine 1.11 Est GFR ( Amer) > 60 Glucose 129 H Calcium 9.1 Magnesium 2.2 Total Bilirubin 0.4 AST 30 Alkaline Phosphatase 153 H Total Protein 6.2 L Albumin 2.6 L 11/14/19 11/18/19 18:37 02:52 Troponin I < 0.012 NT-Pro-B Natriuret Pep 1170 H Impressions: Head CT 11/14/19 15:31 IMPRESSION: NORMAL BRAIN CT WITHOUT CONTRAST. EVIDENCE OF ACUTE STROKE: NO. Chest X-Ray 11/23/19 11:01 IMPRESSION: CARDIAC ENLARGEMENT. VASCULAR CONGESTION. Abdomen Ultrasound 11/24/19 00:00 IMPRESSION: Medical hepatic disease. No ascites. Chest CT 11/24/19 00:00 IMPRESSION: Lungs are grossly clear. The heart is enlarged with coronary calcification. Coarse calcifications within the thyroid. TECHNICAL DOCUMENTATION: Quality ID # 436: Final reports with documentation of one or more dose reduction techniques (e.g., Automated exposure control, adjustment of the mA and/or kV according to patient size, use of iterative reconstruction technique) copyright 2011 [employer]- All Rights Reserved Assessment and Plan - Diagnosis (1) Agitation Is this a current diagnosis for this admission?: Yes (2) Altered mental status Qualifiers: Altered mental status type: transient alteration of awareness Qualified Code(s): R40.4 - Transient alteration of awareness Is this a current diagnosis for this admission?: Yes (3) Atrial fibrillation, rapid Is this a current diagnosis for this admission?: Yes (4) CHF (congestive heart failure) Is this a current diagnosis for this admission?: Yes (5) COPD (chronic obstructive pulmonary disease) Is this a current diagnosis for this admission?: Yes (6) Hypokalemia Is this a current diagnosis for this admission?: Yes (7) Altered mental status Qualifiers: Altered mental status type: unspecified Qualified Code(s): R41.82 - Altered mental status, unspecified Is this a current diagnosis for this admission?: Yes (9) Hypokalemia Is this a current diagnosis for this admission?: Yes (10) Morbid (severe) obesity due to excess calories Is this a current diagnosis for this admission?: Yes (11) Shortness of breath Is this a current diagnosis for this admission?: Yes - Plan Summary Summary: 11/26/2019 Complicated case where the patient was sent from the long-term for psych evaluation but also reportedly signed herself out AMA from the long-term. Human Resources Professional patient was to be kept in the emergency room overnight and her potassium was to be treated, she was to be started on Depakote and then sent back to long-term. Patient was cleared from the psychiatric standpoint on 11/14/2019 However it looks as though the patient remained in the nurse in the emergency room for multiple days and was managed by the hospitalist during that time. Initial ER consult was done on November 17 he was eventually moved up to the floor and is being treated for hyponatremia, hyperkalemia, hypoxia, encephalopathy, evaded ammonia levels. History and physical was done by the hospitalist on November 21. Patient was also seen by cardiology in consultation on the . Neurology felt that her atrial fib and rate was well controlled. Patient should not be on any anticoagulants due to her GI bleed The patient had likely diastolic heart failure This x-ray from 2 days ago shows cardiomegaly with coronary calcification aortic calcification and thyroid enlargement with coarse calcification, however the lungs are clear Abdominal ultrasound from 2 days ago show, diffuse coarse echotexture of the liver but no ascites Discharge planning is working with placement. It has been denied at one location [facility], discharge planning is currently waiting for call from another facility. CT scan of the chest was done 2 days ago which showed the lungs are clear and the heart was enlarged with coronary calcification, well is calcification of the thyroid CBC is normal today potassium is down to 4.8 BUN of 20 creatinine 1.1 cm 9.1 magnesium 2.2 She is medically stable for discharge once placement has been established - Time Time Spent with patient: 35 or more minutes
[2019-11-26] MEDS: SPIRONOLACTONE 25 MG TABLET PO SCH (23:23)
[2019-11-26] MEDS: ATORVASTATIN CALCIUM 20 MG TABLET PO SCH (23:24)
[2019-11-27] MEDS: IPRATROPIUM/ALBUTEROL 0.5-2.5 MG/3 ML AMPUL NEB PRN (00:16)
[2019-11-27 04:55] LABS: ANION GAP 7 (5-19); BLOOD UREA NITROGEN 22 mg/dL (7-20); CALCIUM 9.1 mg/dL (8.4-10.2); CARBON DIOXIDE 22 mmol/L (22-30); CHLORIDE 104 mmol/L (98-107); GLUCOSE 112 mg/dL (75-110); POTASSIUM 5.4 mmol/L (3.6-5.0)
[2019-11-27] MEDS: PANTOPRAZOLE SODIUM 40 MG TABLET.DR PO SCH (06:20)
[2019-11-27] MEDS: LEVOTHYROXINE SODIUM 0.1 MG TABLET PO SCH (06:20)
[2019-11-27] MEDS: HEPARIN SOD (PORCINE) 5,000 UNIT/ML 1 ML VIAL SUBCUT SCH ×3 (06:20→21:36)
[2019-11-27] MEDS: DILTIAZEM HCL 120 MG CAP.SR.24H PO SCH ×2 (09:04→21:35)
[2019-11-27] MEDS: CLOPIDOGREL BISULFATE 75 MG TABLET PO SCH (09:04)
[2019-11-27] MEDS: NITROGLYCERIN 5 MG (0.2 MG/HR) PATCH.TD24 TOP SCH (09:05)
[2019-11-27] MEDS: SPIRONOLACTONE 25 MG TABLET PO SCH ×2 (09:05→21:36)
[2019-11-27] MEDS: METOPROLOL SUCCINATE 25 MG TAB.SR.24H PO SCH (09:06)
--- NOTE | 2019-11-27 11:08 | PDOC PROGRESS REPORT ---
Subjective Progress Note for:: 11/27/19 Reason For Visit: AFIB W/RVR 11/27/2019 Patient signed herself out AMA from the senior care and presented to the ED with hyponatremia and hyperkalemia Physical Exam Vital Signs: Temp Pulse Resp BP Pulse Ox 97.6 F 86 16 106/56 L 100 11/27/19 07:05 11/27/19 07:05 11/27/19 07:05 11/27/19 07:05 11/27/19 07:05 Intake & Output 11/26/19 11/27/19 11/28/19 06:59 06:59 06:59 Intake Total 3400 1340 Output Total 975 1050 Balance 2425 290 Weight 143.3 kg 144.2 kg General appearance: PRESENT: no acute distress Respiratory exam: PRESENT: decreased breath sounds Cardiovascular exam: PRESENT: RRR. ABSENT: diastolic murmur, rubs, systolic murmur Neurological exam: PRESENT: alert, awake, oriented to person, oriented to place, oriented to time, oriented to situation, CN II-XII grossly intact. ABSENT: motor sensory deficit Psychiatric exam: PRESENT: appropriate affect, normal mood. ABSENT: homicidal ideation, suicidal ideation Results Laboratory Results: 11/26/19 04:30 11/27/19 04:16 11/27/19 04:16 Sodium 132.5 L Potassium 5.4 H Chloride 104 Carbon Dioxide 22 Anion Gap 7 BUN 22 H Creatinine 1.06 Est GFR ( Amer) > 60 Glucose 112 H Calcium 9.1 11/14/19 11/18/19 18:37 02:52 Troponin I < 0.012 NT-Pro-B Natriuret Pep 1170 H Impressions: Head CT 11/14/19 15:31 IMPRESSION: NORMAL BRAIN CT WITHOUT CONTRAST. EVIDENCE OF ACUTE STROKE: NO. Chest X-Ray 11/23/19 11:01 IMPRESSION: CARDIAC ENLARGEMENT. VASCULAR CONGESTION. Abdomen Ultrasound 11/24/19 00:00 IMPRESSION: Medical hepatic disease. No ascites. Chest CT 11/24/19 00:00 IMPRESSION: Lungs are grossly clear. The heart is enlarged with coronary calcification. Coarse calcifications within the thyroid. TECHNICAL DOCUMENTATION: Quality ID # 436: Final reports with documentation of one or more dose reduction techniques (e.g., Automated exposure control, adjustment of the mA and/or kV according to patient size, use of iterative reconstruction technique) copyright 2011 [employer]- All Rights Reserved Assessment and Plan - Diagnosis (1) Agitation Is this a current diagnosis for this admission?: Yes (2) Altered mental status Qualifiers: Altered mental status type: transient alteration of awareness Qualified Code(s): R40.4 - Transient alteration of awareness Is this a current diagnosis for this admission?: Yes (3) Atrial fibrillation, rapid Is this a current diagnosis for this admission?: Yes (4) CHF (congestive heart failure) Is this a current diagnosis for this admission?: Yes (5) COPD (chronic obstructive pulmonary disease) Is this a current diagnosis for this admission?: Yes (6) Hypokalemia Is this a current diagnosis for this admission?: Yes (7) Altered mental status Qualifiers: Altered mental status type: unspecified Qualified Code(s): R41.82 - Altered mental status, unspecified Is this a current diagnosis for this admission?: Yes (9) Hypokalemia Is this a current diagnosis for this admission?: Yes (10) Morbid (severe) obesity due to excess calories Is this a current diagnosis for this admission?: Yes (11) Shortness of breath Is this a current diagnosis for this admission?: Yes - Plan Summary Summary: 11/26/2019 Complicated case where the patient was sent from the senior care for psych evaluation but also reportedly signed herself out AMA from the senior care. Abalone Fisherman patient was to be kept in the emergency room overnight and her potassium was to be treated, she was to be started on Depakote and then sent back to senior care. Patient was cleared from the psychiatric standpoint on 11/14/2019 However it looks as though the patient remained in the emergency room for multiple days and was managed by the hospitalist during that time. Initial ER consult was done on November 17 he was eventually moved up to the floor and is being treated for hyponatremia, hyperkalemia, hypoxia, encephalopathy, evaded ammonia levels. History and physical was done by the hospitalist on November 21. Patient was also seen by cardiology in consultation on the . Cardiology felt that her atrial fib and rate was well controlled. Patient should not be on any anticoagulants due to her GI bleed The patient had likely diastolic heart failure This x-ray from 2 days ago shows cardiomegaly with coronary calcification aortic calcification and thyroid enlargement with coarse calcification, however the lungs are clear Abdominal ultrasound from 2 days ago show, diffuse coarse echotexture of the liver but no ascites Discharge planning is working with placement. It has been denied at one location [facility], discharge planning is currently waiting for call from another facility. CT scan of the chest was done 2 days ago which showed the lungs are clear and the heart was enlarged with coronary calcification, well is calcification of the thyroid CBC is normal today potassium is down to 4.8 BUN of 20 creatinine 1.1 cm 9.1 magnesium 2.2 She is medically stable for discharge once placement has been established 11/27/2019 Vital signs are stable Respirations very anywhere from 18-28 and patient is either on BiPAP or nasal cannula Potassium levels gone back up to 5.4 therefore Kayexalate will be ordered Sodium is stable at 132 Patient has been switched to spironolactone as her diuretic Renal functions appear stable Patient is on multiple medications Patient is medically stable for discharge when placement has been found - Time Time Spent with patient: 15-24 minutes
[2019-11-27] MEDS: SODIUM POLYSTYRENE SULFONATE 15 GM/60 ML PO SCH ×2 (12:41→18:51)
[2019-11-27] MEDS: ATORVASTATIN CALCIUM 20 MG TABLET PO SCH (21:35)
[2019-11-28] MEDS: SODIUM POLYSTYRENE SULFONATE 15 GM/60 ML PO SCH ×2 (02:55→06:32)
[2019-11-28] MEDS ORDERED: SODIUM POLYSTYRENE SULFONATE 15 GM/60 ML ONE (06:16)
[2019-11-28] MEDS: LEVOTHYROXINE SODIUM 0.1 MG TABLET PO SCH (06:17)
[2019-11-28] MEDS: PANTOPRAZOLE SODIUM 40 MG TABLET.DR PO SCH (06:17)
[2019-11-28] MEDS: HEPARIN SOD (PORCINE) 5,000 UNIT/ML 1 ML VIAL SUBCUT SCH ×3 (06:19→22:53)
[2019-11-28] MEDS: DILTIAZEM HCL 120 MG CAP.SR.24H PO SCH ×2 (09:40→22:52)
[2019-11-28] MEDS: SPIRONOLACTONE 25 MG TABLET PO SCH ×2 (09:40→22:52)
[2019-11-28] MEDS: METOPROLOL SUCCINATE 25 MG TAB.SR.24H PO SCH (09:40)
[2019-11-28] MEDS: CLOPIDOGREL BISULFATE 75 MG TABLET PO SCH (09:40)
[2019-11-28] MEDS: NITROGLYCERIN 5 MG (0.2 MG/HR) PATCH.TD24 TOP SCH (09:41)
--- NOTE | 2019-11-28 11:37 | PDOC PROGRESS REPORT ---
Subjective Progress Note for:: 11/28/19 Reason For Visit: AFIB W/RVR 11/28/2019 Patient admitted with placement social issues, hyponatremia and hyperkalemia, atrial fib, altered mental status, agitation, COPD Physical Exam Vital Signs: Temp Pulse Resp BP Pulse Ox 98.3 F 97 18 103/48 L 98 11/28/19 07:30 11/28/19 07:30 11/28/19 07:30 11/28/19 07:30 11/28/19 08:58 Intake & Output 11/27/19 11/28/19 11/29/19 06:59 06:59 06:59 Intake Total 1340 2047 Output Total 1050 625 Balance 290 1422 Weight 144.2 kg 143.9 kg General appearance: PRESENT: no acute distress Respiratory exam: PRESENT: decreased breath sounds Cardiovascular exam: PRESENT: RRR, other - No clinical evidence of atrial fib. ABSENT: diastolic murmur, rubs, systolic murmur Neurological exam: PRESENT: alert - Patient asking to be discharged home, awake, oriented to person, oriented to place, oriented to time, oriented to situation, CN II-XII grossly intact. ABSENT: motor sensory deficit Psychiatric exam: PRESENT: flat affect Results Laboratory Results: 11/26/19 04:30 11/27/19 04:16 11/14/19 11/18/19 18:37 02:52 Troponin I < 0.012 NT-Pro-B Natriuret Pep 1170 H Impressions: Head CT 11/14/19 15:31 IMPRESSION: NORMAL BRAIN CT WITHOUT CONTRAST. EVIDENCE OF ACUTE STROKE: NO. Chest X-Ray 11/23/19 11:01 IMPRESSION: CARDIAC ENLARGEMENT. VASCULAR CONGESTION. Abdomen Ultrasound 11/24/19 00:00 IMPRESSION: Medical hepatic disease. No ascites. Chest CT 11/24/19 00:00 IMPRESSION: Lungs are grossly clear. The heart is enlarged with coronary calcification. Coarse calcifications within the thyroid. TECHNICAL DOCUMENTATION: Quality ID # 436: Final reports with documentation of one or more dose reduction techniques (e.g., Automated exposure control, adjustment of the mA and/or kV according to patient size, use of iterative reconstruction technique) copyright 2011 [employer]- All Rights Reserved Assessment and Plan - Diagnosis (1) Agitation Is this a current diagnosis for this admission?: Yes (2) Altered mental status Qualifiers: Altered mental status type: transient alteration of awareness Qualified Code(s): R40.4 - Transient alteration of awareness Is this a current diagnosis for this admission?: Yes (3) Atrial fibrillation, rapid Is this a current diagnosis for this admission?: Yes (4) CHF (congestive heart failure) Is this a current diagnosis for this admission?: Yes (5) COPD (chronic obstructive pulmonary disease) Is this a current diagnosis for this admission?: Yes (6) Hypokalemia Is this a current diagnosis for this admission?: Yes (7) Altered mental status Qualifiers: Altered mental status type: unspecified Qualified Code(s): R41.82 - Altered mental status, unspecified Is this a current diagnosis for this admission?: Yes (9) Hypokalemia Is this a current diagnosis for this admission?: Yes (10) Morbid (severe) obesity due to excess calories Is this a current diagnosis for this admission?: Yes (11) Shortness of breath Is this a current diagnosis for this admission?: Yes - Plan Summary Summary: 11/26/2019 Complicated case where the [facility] but also reportedly signed herself out AMA from the jail. Or mirlande patient was to be kept in the emergency room overnight and her potassium was to be treated, she was to be started on Depakote and then sent back to jail. Patient was cleared from the psychiatric standpoint on 11/14/2019 However it looks as though the patient remained in the emergency room for multiple days and was managed by the hospitalist during that time. Initial ER consult was done on November 17 he was eventually moved up to the floor and is being treated for hyponatremia, hyperkalemia, hypoxia, encephalopathy, evaded ammonia levels. History and physical was done by the hospitalist on November 21. Patient was also seen by cardiology in consultation on the . Cardiology felt that her atrial fib and rate was well controlled. Patient should not be on any anticoagulants due to her GI bleed The patient had likely diastolic heart failure This x-ray from 2 days ago shows cardiomegaly with coronary calcification aortic calcification and thyroid enlargement with coarse calcification, however the lungs are clear Abdominal ultrasound from 2 days ago show, diffuse coarse echotexture of the liver but no ascites Discharge planning is working with placement. It has been denied at one location [facility], discharge planning is currently waiting for call from another facility. CT scan of the chest was done 2 days ago which showed the lungs are clear and the heart was enlarged with coronary calcification, well is calcification of the thyroid CBC is normal today potassium is down to 4.8 BUN of 20 creatinine 1.1 cm 9.1 magnesium 2.2 She is medically stable for discharge once placement has been established 11/27/2019 Vital signs are stable Respirations very anywhere from 18-28 and patient is either on BiPAP or nasal cannula Potassium levels gone back up to 5.4 therefore Kayexalate will be ordered Sodium is stable at 132 Patient has been switched to spironolactone as her diuretic Renal functions appear stable Patient is on multiple medications Patient is medically stable for discharge when placement has been found 11/28/2019 I am not sure if patient group grasp her situation as far as discharge. Patient will be too much care for home, will need to be placed in [facility] or rehab Temperature 98.2, pulse between 80 and 100 and regular blood pressure 124/69, O2 sat 100% on nasal cannula, 2 L I written an order for DC of BiPAP, labs from this morning are still pending. She is currently on Kayexalate due to an elevated potassium yesterday - Time Time Spent with patient: 15-24 minutes
[2019-11-28] MEDS: ATORVASTATIN CALCIUM 20 MG TABLET PO SCH (22:52)
[2019-11-29] MEDS: IPRATROPIUM/ALBUTEROL 0.5-2.5 MG/3 ML AMPUL NEB PRN (05:00)
[2019-11-29] MEDS: PANTOPRAZOLE SODIUM 40 MG TABLET.DR PO SCH (05:35)
[2019-11-29] MEDS: LEVOTHYROXINE SODIUM 0.1 MG TABLET PO SCH (05:35)
[2019-11-29] MEDS: HEPARIN SOD (PORCINE) 5,000 UNIT/ML 1 ML VIAL SUBCUT SCH ×3 (05:36→21:12)
[2019-11-29] MEDS: SPIRONOLACTONE 25 MG TABLET PO SCH ×2 (11:11→21:12)
[2019-11-29] MEDS: METOPROLOL SUCCINATE 25 MG TAB.SR.24H PO SCH (11:11)
[2019-11-29] MEDS: CLOPIDOGREL BISULFATE 75 MG TABLET PO SCH (11:12)
[2019-11-29] MEDS: DILTIAZEM HCL 120 MG CAP.SR.24H PO SCH ×2 (11:12→21:12)
[2019-11-29] MEDS: NITROGLYCERIN 5 MG (0.2 MG/HR) PATCH.TD24 TOP SCH (11:13)
--- NOTE | 2019-11-29 12:45 | PDOC PROGRESS REPORT ---
Subjective Progress Note for:: 11/29/19 Reason For Visit: AFIB W/RVR Hyponatremia, hyperkalemia, atrial fib, altered mental status, COPD exacerbation, placement social issues Physical Exam Vital Signs: Temp Pulse Resp BP Pulse Ox 98.0 F 95 20 132/67 H 98 11/29/19 08:01 11/29/19 08:01 11/29/19 08:01 11/29/19 08:01 11/29/19 08:54 Intake & Output 11/28/19 11/29/19 11/30/19 06:59 06:59 06:59 Intake Total 2047 2490 Output Total 625 900 Balance 1422 1590 Weight 143.9 kg 143.2 kg General appearance: PRESENT: no acute distress, other - Speaking in full sentences Respiratory exam: PRESENT: clear to auscultation refugio. ABSENT: rales, rhonchi, wheezes Cardiovascular exam: PRESENT: RRR. ABSENT: diastolic murmur, rubs, systolic murmur Neurological exam: PRESENT: alert, awake, oriented to person, oriented to place, oriented to time, other - Patient is confused about her disposition whether or not she is going home or going to a [facility] Patient thinks she can go home and care for herself Psychiatric exam: PRESENT: appropriate affect, normal mood. ABSENT: homicidal ideation, suicidal ideation Results Laboratory Results: 11/26/19 04:30 11/27/19 04:16 11/14/19 11/18/19 18:37 02:52 Troponin I < 0.012 NT-Pro-B Natriuret Pep 1170 H Impressions: Head CT 11/14/19 15:31 IMPRESSION: NORMAL BRAIN CT WITHOUT CONTRAST. EVIDENCE OF ACUTE STROKE: NO. Chest X-Ray 11/23/19 11:01 IMPRESSION: CARDIAC ENLARGEMENT. VASCULAR CONGESTION. Abdomen Ultrasound 11/24/19 00:00 IMPRESSION: Medical hepatic disease. No ascites. Chest CT 11/24/19 00:00 IMPRESSION: Lungs are grossly clear. The heart is enlarged with coronary calcification. Coarse calcifications within the thyroid. TECHNICAL DOCUMENTATION: Quality ID # 436: Final reports with documentation of one or more dose reduction techniques (e.g., Automated exposure control, adjustment of the mA and/or kV according to patient size, use of iterative reconstruction technique) copyright 2011 [employer]- All Rights Reserved Assessment and Plan - Diagnosis (1) Agitation Is this a current diagnosis for this admission?: Yes (2) Altered mental status Qualifiers: Altered mental status type: transient alteration of awareness Qualified Code(s): R40.4 - Transient alteration of awareness Is this a current diagnosis for this admission?: Yes (3) Atrial fibrillation, rapid Is this a current diagnosis for this admission?: Yes (4) CHF (congestive heart failure) Is this a current diagnosis for this admission?: Yes (5) COPD (chronic obstructive pulmonary disease) Is this a current diagnosis for this admission?: Yes (6) Hypokalemia Is this a current diagnosis for this admission?: Yes (7) Altered mental status Qualifiers: Altered mental status type: unspecified Qualified Code(s): R41.82 - Altered mental status, unspecified Is this a current diagnosis for this admission?: Yes (9) Hypokalemia Is this a current diagnosis for this admission?: Yes (10) Morbid (severe) obesity due to excess calories Is this a current diagnosis for this admission?: Yes (11) Shortness of breath Is this a current diagnosis for this admission?: Yes - Plan Summary Summary: 11/26/2019 Complicated case where the [facility] was [facility] for [facility] evaluation but also reportedly signed herself out AMA from the [facility]. 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 Patient was cleared from the psychiatric standpoint on 11/14/2019 However it looks as though the patient remained in the emergency room for multiple days and was managed by the hospitalist during that time. Initial ER consult was done on November 17 he was eventually moved up to the floor and is being treated for hyponatremia, hyperkalemia, hypoxia, encephalopathy, evaded ammonia levels. History and physical was done by the hospitalist on November 21. Patient was also seen by cardiology in consultation on the . Cardiology felt that her atrial fib and rate was well controlled. Patient should not be on any anticoagulants due to her GI bleed The patient had likely diastolic heart failure This x-ray from 2 days ago shows cardiomegaly with coronary calcification aortic calcification and thyroid enlargement with coarse calcification, however the lungs are clear Abdominal ultrasound from 2 days ago show, diffuse coarse echotexture of the liver but no ascites Discharge planning is working with placement. It has been denied at one location [facility], discharge planning is currently waiting for call from another facility. CT scan of the chest was done 2 days ago which showed the lungs are clear and th e heart was enlarged with coronary calcification, well is calcification of the thyroid CBC is normal today potassium is down to 4.8 BUN of 20 creatinine 1.1 cm 9.1 magnesium 2.2 She is medically stable for discharge once placement has been established 11/27/2019 Vital signs are stable Respirations very anywhere from 18-28 and patient is either on BiPAP or nasal cannula Potassium levels gone back up to 5.4 therefore Kayexalate will be ordered Sodium is stable at 132 Patient has been switched to spironolactone as her diuretic Renal functions appear stable Patient is on multiple medications Patient is medically stable for discharge when placement has been found 11/28/2019 I am not sure if patient grasp her situation as far as discharge. Patient will be too much care for home, will need to be placed in senior care or rehab Temperature 98.2, pulse between 80 and 100 and regular blood pressure 124/69, O2 sat 100% on nasal cannula, 2 L I written an order for DC of BiPAP, labs from this morning are still pending. She is currently on Kayexalate due to an elevated potassium yesterday 11/29/2019 Patient's zoroastrian is now involved with placement placement. Patient is not medically safe to be discharged to her own care. Will need assistance at the time of discharge. Patient's potassium was low couple days ago it has not been rechecked until today which is pending All of patient's vital signs are stable - Time Time Spent with patient: 25-34 minutes
[2019-11-29 14:19] LABS: ABSOLUTE EOSINOPHILS # (AUTO) 0.1 10^3/uL (0.0-0.6); ABSOLUTE LYMPHOCYTES (AUTO) 0.6 10^3/uL (0.5-4.7); ABSOLUTE MONOCYTES (AUTO) 1.1 10^3/uL (0.1-1.4); ABSOLUTE NEUT (AUTO) 5.1 10^3/uL (1.7-8.2); BASOPHILS % (AUTO) 0.5 % (0-2); EOSINOPHILS % (AUTO) 1.4 % (0-6); HEMATOCRIT 29.2 % (36.0-47.0); HEMOGLOBIN 9.5 g/dL (12.0-15.5); LYMPHOCYTES % (AUTO) 8.6 % (13-45); MEAN CORPUSCULAR HEMOGLOBIN 22.3 pg (27.0-33.4); MEAN CORPUSCULAR HGB CONC 32.7 g/dL (32.0-36.0); MEAN CORPUSCULAR VOLUME 68 fl (80-97); MONOCYTES % (AUTO) 16.2 % (3-13); PLATELET COUNT 258 10^3/uL (150-450); RED BLOOD COUNT 4.28 10^6/uL (3.72-5.28); RED CELL DISTRIBUTION WIDTH 16.4 % (11.5-14.0); SEGMENTED NEUTROPHILS % (AUTO) 73.3 % (42-78); TOTAL CELLS COUNTED % (AUTO) 100 %; WHITE BLOOD COUNT 6.9 10^3/uL (4.0-10.5)
[2019-11-29 14:43] LABS: ANION GAP 8 (5-19); BLOOD UREA NITROGEN 14 mg/dL (7-20); CALCIUM 8.4 mg/dL (8.4-10.2); CARBON DIOXIDE 25 mmol/L (22-30); CHLORIDE 101 mmol/L (98-107); GLUCOSE 90 mg/dL (75-110); POTASSIUM 3.7 mmol/L (3.6-5.0)
[2019-11-29] MEDS: ATORVASTATIN CALCIUM 20 MG TABLET PO SCH (21:12)
[2019-11-30] MEDS: PANTOPRAZOLE SODIUM 40 MG TABLET.DR PO SCH (06:17)
[2019-11-30] MEDS: HEPARIN SOD (PORCINE) 5,000 UNIT/ML 1 ML VIAL SUBCUT SCH ×3 (06:17→22:03)
[2019-11-30] MEDS: LEVOTHYROXINE SODIUM 0.1 MG TABLET PO SCH (06:17)
[2019-11-30] MEDS: SPIRONOLACTONE 25 MG TABLET PO SCH ×2 (09:27→22:03)
[2019-11-30] MEDS: DILTIAZEM HCL 120 MG CAP.SR.24H PO SCH ×2 (09:27→22:03)
[2019-11-30] MEDS: METOPROLOL SUCCINATE 25 MG TAB.SR.24H PO SCH (09:27)
[2019-11-30] MEDS: CLOPIDOGREL BISULFATE 75 MG TABLET PO SCH (09:27)
[2019-11-30] MEDS: NITROGLYCERIN 5 MG (0.2 MG/HR) PATCH.TD24 TOP SCH (09:27)
--- NOTE | 2019-11-30 10:45 | PDOC PROGRESS REPORT ---
Subjective Progress Note for:: 11/30/19 Reason For Visit: AFIB W/RVR 11/30/2019 hyponatremia, hyperkalemia, atrial fib, altered mental status, COPD exacerbation, social placement issues Physical Exam Vital Signs: Temp Pulse Resp BP Pulse Ox 98.1 F 117 H 20 120/64 98 11/30/19 09:09 11/30/19 09:09 11/30/19 09:09 11/30/19 09:09 11/30/19 09:09 Intake & Output 11/29/19 11/30/19 12/01/19 06:59 06:59 06:59 Intake Total 2490 1190 Output Total 900 950 Balance 1590 240 Weight 143.2 kg 143.5 kg General appearance: PRESENT: no acute distress Respiratory exam: PRESENT: clear to auscultation refugio. ABSENT: rales, rhonchi, wheezes Cardiovascular exam: PRESENT: RRR. ABSENT: diastolic murmur, rubs, systolic murmur Neurological exam: PRESENT: altered, oriented to person, oriented to place, other - Confused at times when she says certain things they are either wrong or inappropriate in her situation Psychiatric exam: PRESENT: unusual affect - Patient appears to have significant dementia Results Laboratory Results: 11/29/19 13:54 11/29/19 13:54 11/29/19 11/29/19 13:54 13:54 WBC 6.9 RBC 4.28 Hgb 9.5 L Hct 29.2 L MCV 68 L MCH 22.3 L MCHC 32.7 RDW 16.4 H Plt Count 258 Seg Neutrophils % 73.3 Sodium 133.9 L Potassium 3.7 Chloride 101 Carbon Dioxide 25 Anion Gap 8 BUN 14 Creatinine 0.69 Est GFR ( Amer) > 60 Glucose 90 Calcium 8.4 11/14/19 11/18/19 18:37 02:52 Troponin I < 0.012 NT-Pro-B Natriuret Pep 1170 H Impressions: Head CT 11/14/19 15:31 IMPRESSION: NORMAL BRAIN CT WITHOUT CONTRAST. EVIDENCE OF ACUTE STROKE: NO. Chest X-Ray 11/23/19 11:01 IMPRESSION: CARDIAC ENLARGEMENT. VASCULAR CONGESTION. Abdomen Ultrasound 11/24/19 00:00 IMPRESSION: Medical hepatic disease. No ascites. Chest CT 11/24/19 00:00 IMPRESSION: Lungs are grossly clear. The heart is enlarged with coronary calcification. Coarse calcifications within the thyroid. TECHNICAL DOCUMENTATION: Quality ID # 436: Final reports with documentation of one or more dose reduction techniques (e.g., Automated exposure control, adjustment of the mA and/or kV according to patient size, use of iterative reconstruction technique) copyright 2011 [employer]- All Rights Reserved Assessment and Plan - Diagnosis (1) Agitation Is this a current diagnosis for this admission?: Yes (2) Altered mental status Qualifiers: Altered mental status type: transient alteration of awareness Qualified Code(s): R40.4 - Transient alteration of awareness Is this a current diagnosis for this admission?: Yes (3) Atrial fibrillation, rapid Is this a current diagnosis for this admission?: Yes (4) CHF (congestive heart failure) Is this a current diagnosis for this admission?: Yes (5) COPD (chronic obstructive pulmonary disease) Is this a current diagnosis for this admission?: Yes (6) Hypokalemia Is this a current diagnosis for this admission?: Yes (7) Altered mental status Qualifiers: Altered mental status type: unspecified Qualified Code(s): R41.82 - Altered mental status, unspecified Is this a current diagnosis for this admission?: Yes (9) Hypokalemia Is this a current diagnosis for this admission?: Yes (10) Morbid (severe) obesity due to excess calories Is this a current diagnosis for this admission?: Yes (11) Shortness of breath Is this a current diagnosis for this admission?: Yes (12) Dementia Is this a current diagnosis for this admission?: Yes - Plan Summary Summary: 11/26/2019 Complicated case where the patient was sent from the group home for psych evaluation but also reportedly signed herself out AMA from the group home. 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 Patient was cleared from the psychiatric standpoint on 11/14/2019 However it looks as though the patient remained in the emergency room for multiple days and was managed by the hospitalist during that time. Initial ER consult was done on November 17 he was eventually moved up to the floor and is being treated for hyponatremia, hyperkalemia, hypoxia, encephalopathy, evaded ammonia levels. History and physical was done by the hospitalist on November 21. Patient was also seen by cardiology in consultation on the . Cardiology felt that her atrial fib and rate was well controlled. Patient should not be on any anticoagulants due to her GI bleed The patient had likely diastolic heart failure This x-ray from 2 days ago shows cardiomegaly with coronary calcification aortic calcification and thyroid enlargement with coarse calcification, however the lungs are clear Abdominal ultrasound from 2 days ago show, diffuse coarse echotexture of the liver but no ascites Discharge planning is working with placement. It has been denied at one location [facility], discharge planning is currently waiting for call from another facility. CT scan of the chest was done 2 days ago which showed the lungs are clear and th e heart was enlarged with coronary calcification, well is calcification of the thyroid CBC is normal today potassium is down to 4.8 BUN of 20 creatinine 1.1 cm 9.1 magnesium 2.2 She is medically stable for discharge once placement has been established 11/27/2019 Vital signs are stable Respirations very anywhere from 18-28 and patient is either on BiPAP or nasal cannula Potassium levels gone back up to 5.4 therefore Kayexalate will be ordered Sodium is stable at 132 Patient has been switched to spironolactone as her diuretic Renal functions appear stable Patient is on multiple medications Patient is medically stable for discharge when placement has been found 11/28/2019 I am not sure if patient grasp her situation as far as discharge. Patient will be too much care for home, will need to be placed in [facility] or rehab Temperature 98.2, pulse between 80 and 100 and regular blood pressure 124/69, O2 sat 100% on nasal cannula, 2 L I written an order for DC of BiPAP, labs from this morning are still pending. She is currently on Kayexalate due to an elevated potassium yesterday 11/29/2019 Patient's zoroastrian is now involved with placement placement. Patient is not medically safe to be discharged to her own care. Will need assistance at the time of discharge. Patient's potassium was low couple days ago it has not been rechecked until today which is pending All of patient's vital signs are stable 11/30/2019 Temperature 98 pulse between 90 and 108, blood pressure 130/67. O2 sat 98% on room air, sometimes patient uses 2 L of nasal cannula CBC is normal and stable, electrolytes are grossly normal renal function continues to improve According to the nurses patient will quite frequently be confused and say things that are not appropriate. Patient is unable to go home and care for herself. She would need someone at home with her. Review of all of her medications seem appropriate. Patient is waiting on placement issues. - Time Time Spent with patient: 25-34 minutes
[2019-11-30] MEDS: ATORVASTATIN CALCIUM 20 MG TABLET PO SCH (22:03)
[2019-12-01] MEDS: HEPARIN SOD (PORCINE) 5,000 UNIT/ML 1 ML VIAL SUBCUT SCH ×3 (06:02→21:54)
[2019-12-01] MEDS: PANTOPRAZOLE SODIUM 40 MG TABLET.DR PO SCH (06:03)
[2019-12-01] MEDS: LEVOTHYROXINE SODIUM 0.1 MG TABLET PO SCH (06:03)
[2019-12-01] MEDS: SPIRONOLACTONE 25 MG TABLET PO SCH ×2 (09:14→21:54)
[2019-12-01] MEDS: DILTIAZEM HCL 120 MG CAP.SR.24H PO SCH ×2 (09:15→21:53)
[2019-12-01] MEDS: CLOPIDOGREL BISULFATE 75 MG TABLET PO SCH (09:15)
[2019-12-01] MEDS: METOPROLOL SUCCINATE 25 MG TAB.SR.24H PO SCH (09:15)
[2019-12-01] MEDS: NITROGLYCERIN 5 MG (0.2 MG/HR) PATCH.TD24 TOP SCH (09:15)
--- NOTE | 2019-12-01 15:21 | PDOC PROGRESS REPORT ---
Subjective Progress Note for:: 12/01/19 Reason For Visit: AFIB W/RVR 12/01/2019 Hyponatremia, hyperkalemia, atrial fib, altered mental status, COPD exacerbation ,social placement issues Physical Exam Vital Signs: Temp Pulse Resp BP Pulse Ox 98.6 F 88 20 111/71 100 12/01/19 11:48 12/01/19 14:00 12/01/19 11:48 12/01/19 11:48 12/01/19 11:48 Intake & Output 11/30/19 12/01/19 12/02/19 06:59 06:59 06:59 Intake Total 1190 1336 Output Total 950 1075 Balance 240 261 Weight 143.5 kg 144.3 kg Results Laboratory Results: 11/29/19 13:54 11/29/19 13:54 11/14/19 11/18/19 18:37 02:52 Troponin I < 0.012 NT-Pro-B Natriuret Pep 1170 H Impressions: Head CT 11/14/19 15:31 IMPRESSION: NORMAL BRAIN CT WITHOUT CONTRAST. EVIDENCE OF ACUTE STROKE: NO. Chest X-Ray 11/23/19 11:01 IMPRESSION: CARDIAC ENLARGEMENT. VASCULAR CONGESTION. Abdomen Ultrasound 11/24/19 00:00 IMPRESSION: Medical hepatic disease. No ascites. Chest CT 11/24/19 00:00 IMPRESSION: Lungs are grossly clear. The heart is enlarged with coronary calcification. Coarse calcifications within the thyroid. TECHNICAL DOCUMENTATION: Quality ID # 436: Final reports with documentation of one or more dose reduction techniques (e.g., Automated exposure control, adjustment of the mA and/or kV according to patient size, use of iterative reconstruction technique) copyright 2011 [employer] All Rights Reserved Assessment and Plan - Diagnosis (1) Agitation Is this a current diagnosis for this admission?: Yes (2) Altered mental status Qualifiers: Altered mental status type: transient alteration of awareness Qualified Code(s): R40.4 - Transient alteration of awareness Is this a current diagnosis for this admission?: Yes (3) Atrial fibrillation, rapid Is this a current diagnosis for this admission?: Yes (4) CHF (congestive heart failure) Is this a current diagnosis for this admission?: Yes (5) COPD (chronic obstructive pulmonary disease) Is this a current diagnosis for this admission?: Yes (6) Hypokalemia Is this a current diagnosis for this admission?: Yes (7) Altered mental status Qualifiers: Altered mental status type: unspecified Qualified Code(s): R41.82 - Altered mental status, unspecified Is this a current diagnosis for this admission?: Yes (9) Hypokalemia Is this a current diagnosis for this admission?: Yes (10) Morbid (severe) obesity due to excess calories Is this a current diagnosis for this admission?: Yes (11) Shortness of breath Is this a current diagnosis for this admission?: Yes (12) Dementia Is this a current diagnosis for this admission?: Yes - Plan Summary Summary: 11/26/2019 Complicated case where the patient was sent from the shelter for psych sonia luation but also reportedly signed herself out AMA from the shelter. Corporate Officer patient was to be kept in the emergency room overnight and her potassium was to be treated, she was to be started on Depakote and then sent back to shelter. Patient was cleared from the psychiatric standpoint on 11/14/2019 However it looks as though the patient remained in the emergency room for multiple days and was managed by the hospitalist during that time. Initial ER consult was done on November 17 he was eventually moved up to the floor and is being treated for hyponatremia, hyperkalemia, hypoxia, encephalopathy, evaded ammonia levels. History and physical was done by the hospitalist on November 21. Patient was also seen by cardiology in consultation on the . Cardiology felt that her atrial fib and rate was well controlled. Patient should not be on any anticoagulants due to her GI bleed The patient had likely diastolic heart failure This x-ray from 2 days ago shows cardiomegaly with coronary calcification aortic calcification and thyroid enlargement with coarse calcification, however the lungs are clear Abdominal ultrasound from 2 days ago show, diffuse coarse echotexture of the liver but no ascites Discharge planning is working with placement. It has been denied at one location [facility], discharge planning is currently waiting for call from another facility. CT scan of the chest was done 2 days ago which showed the lungs are clear and the heart was enlarged with coronary calcification, well is calcification of the thyroid CBC is normal today potassium is down to 4.8 BUN of 20 creatinine 1.1 cm 9.1 magnesium 2.2 She is medically stable for discharge once placement has been established 11/27/2019 Vital signs are stable Respirations very anywhere from 18-28 and patient is either on BiPAP or nasal cannula Potassium levels gone back up to 5.4 therefore Kayexalate will be ordered Sodium is stable at 132 Patient has been switched to spironolactone as her diuretic Renal functions appear stable Patient is on multiple medications Patient is medically stable for discharge when placement has been found 11/28/2019 I am not sure if patient grasp her situation as far as discharge. Patient will be too much care for home, will need to be placed in senior care or rehab Temperature 98.2, pulse between 80 and 100 and regular blood pressure 124/69, O2 sat 100% on nasal cannula, 2 L I written an order for DC of BiPAP, labs from this morning are still pending. She is currently on Kayexalate due to an elevated potassium yesterday 11/29/2019 Patient's anabaptist is now involved with placement placement. Patient is not medically safe to be discharged to her own care. Will need assistance at the time of discharge. Patient's potassium was low couple days ago it has not been rechecked until today which is pending All of patient's vital signs are stable 11/30/2019 Temperature 98 pulse between 90 and 108, blood pressure 130/67. O2 sat 98% on room air, sometimes patient uses 2 L of nasal cannula CBC is normal and stable, electrolytes are grossly normal renal function continues to improve According to the nurses patient will quite frequently be confused and say things that are not appropriate. Patient is unable to go home and care for herself. She would need someone at home with her. Review of all of her medications seem appropriate. Patient is waiting on placement issues. 12/01/2019 Vital signs remained very stable, no abnormalities Labs are stable we will repeat them in the morning Patient's mental status waxes and wanes. Time she is alert and oriented x4 and other times she is confused and does not make any sense when she talks. Patient will need somebody with her when she is discharged. - Time Time Spent with patient: 15-24 minutes
[2019-12-01] MEDS: ATORVASTATIN CALCIUM 20 MG TABLET PO SCH (21:54)
[2019-12-02] MEDS: HEPARIN SOD (PORCINE) 5,000 UNIT/ML 1 ML VIAL SUBCUT SCH ×3 (05:21→22:32)
[2019-12-02] MEDS: LEVOTHYROXINE SODIUM 0.1 MG TABLET PO SCH (05:21)
[2019-12-02] MEDS: PANTOPRAZOLE SODIUM 40 MG TABLET.DR PO SCH (05:21)
[2019-12-02 05:30] LABS: ABSOLUTE BASOPHILS # (AUTO) 0.1 10^3/uL (0.0-0.2); ABSOLUTE EOSINOPHILS # (AUTO) 0.2 10^3/uL (0.0-0.6); ABSOLUTE LYMPHOCYTES (AUTO) 0.8 10^3/uL (0.5-4.7); ABSOLUTE MONOCYTES (AUTO) 1.6 10^3/uL (0.1-1.4); ABSOLUTE NEUT (AUTO) 6.7 10^3/uL (1.7-8.2); BASOPHILS % (AUTO) 0.7 % (0-2); HEMATOCRIT 30.8 % (36.0-47.0); MEAN CORPUSCULAR HGB CONC 32.3 g/dL (32.0-36.0); MEAN CORPUSCULAR VOLUME 68 fl (80-97); MONOCYTES % (AUTO) 16.8 % (3-13); PLATELET COUNT 263 10^3/uL (150-450); RED BLOOD COUNT 4.53 10^6/uL (3.72-5.28); RED CELL DISTRIBUTION WIDTH 16.4 % (11.5-14.0); SEGMENTED NEUTROPHILS % (AUTO) 71.5 % (42-78); TOTAL CELLS COUNTED % (AUTO) 100 %; WHITE BLOOD COUNT 9.4 10^3/uL (4.0-10.5)
[2019-12-02 05:40] LABS: ANION GAP 7 (5-19); BLOOD UREA NITROGEN 9 mg/dL (7-20); CALCIUM 8.7 mg/dL (8.4-10.2); CARBON DIOXIDE 26 mmol/L (22-30); CHLORIDE 103 mmol/L (98-107); GLUCOSE 83 mg/dL (75-110); POTASSIUM 4.2 mmol/L (3.6-5.0)
[2019-12-02] MEDS: CLOPIDOGREL BISULFATE 75 MG TABLET PO SCH (09:08)
[2019-12-02] MEDS: NITROGLYCERIN 5 MG (0.2 MG/HR) PATCH.TD24 TOP SCH (09:08)
[2019-12-02] MEDS: DILTIAZEM HCL 120 MG CAP.SR.24H PO SCH ×2 (09:08→22:30)
[2019-12-02] MEDS: SPIRONOLACTONE 25 MG TABLET PO SCH ×2 (09:08→22:29)
[2019-12-02] MEDS: METOPROLOL SUCCINATE 25 MG TAB.SR.24H PO SCH (09:08)
--- NOTE | 2019-12-02 10:58 | PDOC PROGRESS REPORT ---
Subjective Progress Note for:: 12/02/19 Reason For Visit: AFIB W/RVR 12/02/2019 Hyponatremia, hyperkalemia, atrial fib, altered mental status, COPD ,exacerbation, social placement issues Physical Exam Vital Signs: Temp Pulse Resp BP Pulse Ox 97.5 F 89 18 132/66 H 100 12/02/19 08:06 12/02/19 08:06 12/02/19 08:06 12/02/19 08:06 12/02/19 08:06 Intake & Output 12/01/19 12/02/19 12/03/19 06:59 06:59 06:59 Intake Total 1336 1344 Output Total 1075 725 Balance 261 619 Weight 144.3 kg 143.8 kg General appearance: PRESENT: no acute distress Respiratory exam: PRESENT: decreased breath sounds Cardiovascular exam: PRESENT: RRR. ABSENT: diastolic murmur, rubs, systolic murmur Neurological exam: PRESENT: alert, awake, oriented to person, oriented to place, oriented to time, oriented to situation, CN II-XII grossly intact. ABSENT: motor sensory deficit Psychiatric exam: PRESENT: appropriate affect, normal mood. ABSENT: homicidal ideation, suicidal ideation Results Laboratory Results: 12/02/19 04:06 12/02/19 04:06 12/02/19 12/02/19 04:06 04:06 WBC 9.4 RBC 4.53 Hgb 10.0 L Hct 30.8 L MCV 68 L MCH 22.0 L MCHC 32.3 RDW 16.4 H Plt Count 263 Seg Neutrophils % 71.5 Sodium 135.6 L Potassium 4.2 Chloride 103 Carbon Dioxide 26 Anion Gap 7 BUN 9 Creatinine 0.58 Est GFR ( Amer) > 60 Glucose 83 Calcium 8.7 11/14/19 11/18/19 18:37 02:52 Troponin I < 0.012 NT-Pro-B Natriuret Pep 1170 H Impressions: Head CT 11/14/19 15:31 IMPRESSION: NORMAL BRAIN CT WITHOUT CONTRAST. EVIDENCE OF ACUTE STROKE: NO. Chest X-Ray 11/23/19 11:01 IMPRESSION: CARDIAC ENLARGEMENT. VASCULAR CONGESTION. Abdomen Ultrasound 11/24/19 00:00 IMPRESSION: Medical hepatic disease. No ascites. Chest CT 11/24/19 00:00 IMPRESSION: Lungs are grossly clear. The heart is enlarged with coronary calcification. Coarse calcifications within the thyroid. TECHNICAL DOCUMENTATION: Quality ID # 436: Final reports with documentation of one or more dose reduction techniques (e.g., Automated exposure control, adjustment of the mA and/or kV according to patient size, use of iterative reconstruction technique) copyright 2011 [employer]- All Rights Reserved Assessment and Plan - Diagnosis (1) Agitation Is this a current diagnosis for this admission?: Yes (2) Altered mental status Qualifiers: Altered mental status type: transient alteration of awareness Qualified Code(s): R40.4 - Transient alteration of awareness Is this a current diagnosis for this admission?: Yes (3) Atrial fibrillation, rapid Is this a current diagnosis for this admission?: Yes (4) CHF (congestive heart failure) Is this a current diagnosis for this admission?: Yes (5) COPD (chronic obstructive pulmonary disease) Is this a current diagnosis for this admission?: Yes (6) Hypokalemia Is this a current diagnosis for this admission?: Yes (7) Altered mental status Qualifiers: Altered mental status type: unspecified Qualified Code(s): R41.82 - Altered mental status, unspecified Is this a current diagnosis for this admission?: Yes (9) Hypokalemia Is this a current diagnosis for this admission?: Yes (10) Morbid (severe) obesity due to excess calories Is this a current diagnosis for this admission?: Yes (11) Shortness of breath Is this a current diagnosis for this admission?: Yes (12) Dementia Is this a current diagnosis for this admission?: Yes - Plan Summary Summary: 11/26/2019 Complicated case where the patient was sent from the detention for psych evaluation but also reportedly signed herself out AMA from the detention. 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 Patient was cleared from the psychiatric standpoint on 11/14/2019 However it looks as though the patient remained in the emergency room for multiple days and was managed by the hospitalist during that time. Initial ER consult was done on November 17 he was eventually moved up to the floor and is being treated for hyponatremia, hyperkalemia, hypoxia, encephalopathy, evaded ammonia levels. History and physical was done by the hospitalist on November 21. Patient was also seen by cardiology in consultation on the . Cardiology felt that her atrial fib and rate was well controlled. Patient should not be on any anticoagulants due to her GI bleed The patient had likely diastolic heart failure This x-ray from 2 days ago shows cardiomegaly with coronary calcification aortic calcification and thyroid enlargement with coarse calcification, however the lungs are clear Abdominal ultrasound from 2 days ago show, diffuse coarse echotexture of the liver but no ascites Discharge planning is working with placement. It has been denied at [facility], discharge planning is currently waiting for call from another facility. CT scan of the chest was done 2 days ago which showed the lungs are clear and the heart was enlarged with coronary calcification, well is calcification of the thyroid CBC is normal today potassium is down to 4.8 BUN of 20 creatinine 1.1 cm 9.1 magnesium 2.2 She is medically stable for discharge once placement has been established 11/27/2019 Vital signs are stable Respirations very anywhere from 18-28 and patient is either on BiPAP or nasal cannula Potassium levels gone back up to 5.4 therefore Kayexalate will be ordered Sodium is stable at 132 Patient has been switched to spironolactone as her diuretic Renal functions appear stable Patient is on multiple medications Patient is medically stable for discharge when placement has been found 11/28/2019 I am not sure if patient grasp her situation as far as discharge. Patient will be too much care for home, will need to be placed in intermediate or rehab Temperature 98.2, pulse between 80 and 100 and regular blood pressure 124/69, O2 sat 100% on nasal cannula, 2 L I written an order for DC of BiPAP, labs from this morning are still pending. She is currently on Kayexalate due to an elevated potassium yesterday 11/29/2019 Patient's taoist is now involved with placement placement. Patient is not medically safe to be discharged to her own care. Will need assistance at the time of discharge. Patient's potassium was low couple days ago it has not been rechecked until today which is pending All of patient's vital signs are stable 11/30/2019 Temperature 98 pulse between 90 and 108, blood pressure 130/67. O2 sat 98% on room air, sometimes patient uses 2 L of nasal cannula CBC is normal and stable, electrolytes are grossly normal renal function continues to improve According to the nurses patient will quite frequently be confused and say things that are not appropriate. Patient is unable to go home and care for herself. She would need someone at home with her. Review of all of her medications seem appropriate. Patient is waiting on placement issues. 12/01/2019 Vital signs remained very stable, no abnormalities Labs are stable we will repeat them in the morning Patient's mental status waxes and wanes. Time she is alert and oriented x4 and other times she is confused and does not make any sense when she talks. Patient will need somebody with her when she is discharged. 12/02/2019 Vital signs are stable temperature 98.4, pulse around 84, blood pressure 141/70, O2 sat 100% on 2 L nasal cannula. Lab work is all normal. It is medically stable for long-term placement, intermediate facility. Patient has 24-hour 7 assistance at home I do not think it would be appropriate to send her home. Patient was originally admitted for hypokalemia elevated ammonia level, disposition problems with placement from detention. Patient evidently had signed herself out AMA from the detention after pulling the fire alarm on multiple occasions - Time Time Spent with patient: 15-24 minutes
[2019-12-02] MEDS: ATORVASTATIN CALCIUM 20 MG TABLET PO SCH (22:29)
[2019-12-03] MEDS: HEPARIN SOD (PORCINE) 5,000 UNIT/ML 1 ML VIAL SUBCUT SCH ×3 (05:35→21:09)
[2019-12-03] MEDS: LEVOTHYROXINE SODIUM 0.1 MG TABLET PO SCH (05:35)
[2019-12-03] MEDS: PANTOPRAZOLE SODIUM 40 MG TABLET.DR PO SCH (05:35)
[2019-12-03] MEDS: SPIRONOLACTONE 25 MG TABLET PO SCH ×2 (09:36→21:09)
[2019-12-03] MEDS: CLOPIDOGREL BISULFATE 75 MG TABLET PO SCH (09:36)
[2019-12-03] MEDS: DILTIAZEM HCL 120 MG CAP.SR.24H PO SCH ×2 (09:36→21:09)
[2019-12-03] MEDS: NITROGLYCERIN 5 MG (0.2 MG/HR) PATCH.TD24 TOP SCH (09:36)
[2019-12-03] MEDS: METOPROLOL SUCCINATE 25 MG TAB.SR.24H PO SCH (09:36)
--- NOTE | 2019-12-03 14:02 | PDOC PROGRESS REPORT ---
Subjective Progress Note for:: 12/03/19 Subjective:: No acute issues. Patient denies acute complaints. Denies chest pain or shortness of breath. She is awaiting placement. Reason For Visit: AFIB W/RVR Physical Exam Vital Signs: Temp Pulse Resp BP Pulse Ox 97.6 F 87 18 122/65 98 12/03/19 11:57 12/03/19 11:57 12/03/19 11:57 12/03/19 11:57 12/03/19 11:57 Intake & Output 12/02/19 12/03/19 12/04/19 06:59 06:59 06:59 Intake Total 1344 1500 320 Output Total 725 310 Balance 619 1190 320 Weight 317 lb 0.395 oz 312 lb 2.793 oz General appearance: PRESENT: no acute distress, well-developed, well-nourished Head exam: PRESENT: atraumatic, normocephalic Eye exam: PRESENT: conjunctiva pink, EOMI, PERRLA. ABSENT: scleral icterus Ear exam: PRESENT: normal external ear exam Mouth exam: PRESENT: moist, tongue midline Neck exam: ABSENT: carotid bruit, JVD, lymphadenopathy, thyromegaly Respiratory exam: PRESENT: clear to auscultation refugio. ABSENT: rales, rhonchi, wheezes Cardiovascular exam: PRESENT: RRR. ABSENT: diastolic murmur, rubs, systolic murmur Pulses: PRESENT: normal dorsalis pedis pul GI/Abdominal exam: PRESENT: normal bowel sounds, soft. ABSENT: distended, guarding, mass, organolmegaly, rebound, tenderness Rectal exam: PRESENT: deferred Neurological exam: PRESENT: alert, awake, oriented to person, oriented to place, oriented to time, CN II-XII grossly intact. ABSENT: motor sensory deficit Results Laboratory Results: 12/02/19 04:06 12/02/19 04:06 11/14/19 11/18/19 18:37 02:52 Troponin I < 0.012 NT-Pro-B Natriuret Pep 1170 H Impressions: Head CT 11/14/19 15:31 IMPRESSION: NORMAL BRAIN CT WITHOUT CONTRAST. EVIDENCE OF ACUTE STROKE: NO. Chest X-Ray 11/23/19 11:01 IMPRESSION: CARDIAC ENLARGEMENT. VASCULAR CONGESTION. Abdomen Ultrasound 11/24/19 00:00 IMPRESSION: Medical hepatic disease. No ascites. Chest CT 11/24/19 00:00 IMPRESSION: Lungs are grossly clear. The heart is enlarged with coronary calcification. Coarse calcifications within the thyroid. TECHNICAL DOCUMENTATION: Quality ID # 436: Final reports with documentation of one or more dose reduction techniques (e.g., Automated exposure control, adjustment of the mA and/or kV according to patient size, use of iterative reconstruction technique) copyright 2011 [employer]- All Rights Reserved Assessment and Plan - Diagnosis (1) Hypokalemia Is this a current diagnosis for this admission?: Yes Plan: Resolved. Related to Torsemide. (2) Hyperammonemia Is this a current diagnosis for this admission?: Yes Plan: Repeat RUQ US does reveal coarse liver echotexture. Her chronic hyperammonemia is still likely related to cirrhosis. (3) Chronic atrial fibrillation Is this a current diagnosis for this admission?: Yes Plan: Continue metoprolol and cardizem. Not on anticoagulation due to previous GI bleeds. - Plan Summary Summary: 11/26/2019 Complicated case where the patient was sent from the care home for psych evaluation but also reportedly signed herself out AMA from the care home. Librarian Head patient was to be kept in the emergency room overnight and her potassium was to be treated, she was to be started on Depakote and then sent back to care home. Patient was cleared from the psychiatric standpoint on 11/14/2019 However it looks as though the patient remained in the emergency room for multiple days and was managed by the hospitalist during that time. Initial ER consult was done on November 17 he was eventually moved up to the floor and is being treated for hyponatremia, hyperkalemia, hypoxia, encephalopathy, evaded ammonia levels. History and physical was done by the hospitalist on November 21. Patient was also seen by cardiology in consultation on the . Cardiology felt that her atrial fib and rate was well controlled. Patient should not be on any anticoagulants due to her GI bleed The patient had likely diastolic heart failure This x-ray from 2 days ago shows cardiomegaly with coronary calcification aortic calcification and thyroid enlargement with coarse calcification, however the lungs are clear Abdominal ultrasound from 2 days ago show, diffuse coarse echotexture of the liver but no ascites Discharge planning is working with placement. It has been denied at one location [facility], discharge planning is currently waiting for call from another facility. CT scan of the chest was done 2 days ago which showed the lungs are clear and the heart was enlarged with coronary calcification, well is calcification of the thyroid CBC is normal today potassium is down to 4.8 BUN of 20 creatinine 1.1 cm 9.1 magnesium 2.2 She is medically stable for discharge once placement has been established 11/27/2019 Vital signs are stable Respirations very anywhere from 18-28 and patient is either on BiPAP or nasal cannula Potassium levels gone back up to 5.4 therefore Kayexalate will be ordered Sodium is stable at 132 Patient has been switched to spironolactone as her diuretic Renal functions appear stable Patient is on multiple medications Patient is medically stable for discharge when placement has been found 11/28/2019 I am not sure if patient grasp her situation as far as discharge. Patient will be too much care for home, will need to be placed in assisted or rehab Temperature 98.2, pulse between 80 and 100 and regular blood pressure 124/69, O2 sat 100% on nasal cannula, 2 L I written an order for DC of BiPAP, labs from this morning are still pending. She is currently on Kayexalate due to an elevated potassium yesterday 11/29/2019 Patient's mandaen is now involved with placement placement. Patient is not medically safe to be discharged to her own care. Will need assistance at the time of discharge. Patient's potassium was low couple days ago it has not been rechecked until today which is pending All of patient's vital signs are stable 11/30/2019 Temperature 98 pulse between 90 and 108, blood pressure 130/67. O2 sat 98% on room air, sometimes patient uses 2 L of nasal cannula CBC is normal and stable, electrolytes are grossly normal renal function continues to improve According to the nurses patient will quite frequently be confused and say things that are not appropriate. Patient is unable to go home and care for herself. She would need someone at home with her. Review of all of her medications seem appropriate. Patient is waiting on placement issues. 12/01/2019 Vital signs remained very stable, no abnormalities Labs are stable we will repeat them in the morning Patient's mental status waxes and wanes. Time she is alert and oriented x4 and other times she is confused and does not make any sense when she talks. Patient will need somebody with her when she is discharged. 12/02/2019 Vital signs are stable temperature 98.4, pulse around 84, blood pressure 141/70, O2 sat 100% on 2 L nasal cannula. Lab work is all normal. It is medically stable for long-term placement, assisted facility. Patient has 24-hour 7 assistance at home I do not think it would be appropriate to send her home. Patient was originally admitted for hypokalemia elevated ammonia level, disposition problems with placement from care home. Patient evidently had signed herself out AMA from the care home after pulling the fire alarm on multiple occasions - Time Time Spent with patient: 25-34 minutes
[2019-12-03] MEDS: ATORVASTATIN CALCIUM 20 MG TABLET PO SCH (21:09)
[2019-12-04] MEDS: PANTOPRAZOLE SODIUM 40 MG TABLET.DR PO SCH (06:04)
[2019-12-04] MEDS: LEVOTHYROXINE SODIUM 0.1 MG TABLET PO SCH (06:04)
[2019-12-04] MEDS: HEPARIN SOD (PORCINE) 5,000 UNIT/ML 1 ML VIAL SUBCUT SCH ×3 (06:04→21:47)
[2019-12-04] MEDS: SPIRONOLACTONE 25 MG TABLET PO SCH ×2 (09:21→21:47)
[2019-12-04] MEDS: NITROGLYCERIN 5 MG (0.2 MG/HR) PATCH.TD24 TOP SCH (09:21)
[2019-12-04] MEDS: DILTIAZEM HCL 120 MG CAP.SR.24H PO SCH ×2 (09:22→21:47)
[2019-12-04] MEDS: METOPROLOL SUCCINATE 25 MG TAB.SR.24H PO SCH (09:22)
[2019-12-04] MEDS: CLOPIDOGREL BISULFATE 75 MG TABLET PO SCH (09:22)
--- NOTE | 2019-12-04 13:17 | PDOC PROGRESS REPORT ---
Subjective Progress Note for:: 12/04/19 Subjective:: 12/03: No acute issues. Patient denies acute complaints. Denies chest pain or shortness of breath. She is awaiting placement. 12/04: No acute issues or acute complaints. Patient is at her baseline. Continues to await placement. Reason For Visit: AFIB W/RVR Physical Exam Vital Signs: Temp Pulse Resp BP Pulse Ox 97.3 F 84 19 118/88 H 99 12/04/19 11:23 12/04/19 11:23 12/04/19 11:23 12/04/19 11:23 12/04/19 11:23 Intake & Output 12/03/19 12/04/19 12/05/19 06:59 06:59 06:59 Intake Total 1500 900 Output Total 310 100 Balance 1190 800 Weight 312 lb 2.793 oz 307 lb 8.717 oz General appearance: PRESENT: no acute distress, well-developed, well-nourished Head exam: PRESENT: atraumatic, normocephalic Eye exam: PRESENT: conjunctiva pink, EOMI, PERRLA. ABSENT: scleral icterus Ear exam: PRESENT: normal external ear exam Mouth exam: PRESENT: moist, tongue midline Neck exam: ABSENT: carotid bruit, JVD, lymphadenopathy, thyromegaly Respiratory exam: PRESENT: rhonchi. ABSENT: rales, wheezes Cardiovascular exam: PRESENT: RRR. ABSENT: diastolic murmur, rubs, systolic murmur Pulses: PRESENT: normal dorsalis pedis pul GI/Abdominal exam: PRESENT: normal bowel sounds, soft. ABSENT: distended, guarding, mass, organolmegaly, rebound, tenderness Rectal exam: PRESENT: deferred Neurological exam: PRESENT: alert, awake, oriented to person, oriented to place, oriented to time, CN II-XII grossly intact. ABSENT: motor sensory deficit Results Laboratory Results: 12/02/19 04:06 12/02/19 04:06 11/14/19 11/18/19 18:37 02:52 Troponin I < 0.012 NT-Pro-B Natriuret Pep 1170 H Impressions: Head CT 11/14/19 15:31 IMPRESSION: NORMAL BRAIN CT WITHOUT CONTRAST. EVIDENCE OF ACUTE STROKE: NO. Chest X-Ray 11/23/19 11:01 IMPRESSION: CARDIAC ENLARGEMENT. VASCULAR CONGESTION. Abdomen Ultrasound 11/24/19 00:00 IMPRESSION: Medical hepatic disease. No ascites. Chest CT 11/24/19 00:00 IMPRESSION: Lungs are grossly clear. The heart is enlarged with coronary calcification. Coarse calcifications within the thyroid. TECHNICAL DOCUMENTATION: Quality ID # [id number]: Final reports with documentation of one or more dose reduction techniques (e.g., Automated exposure control, adjustment of the mA and/or kV according to patient size, use of iterative reconstruction technique) copyright 2011 [employer]- All Rights Reserved Assessment and Plan - Diagnosis (1) Hypokalemia Is this a current diagnosis for this admission?: Yes Plan: Resolved. Related to Torsemide. (2) Hyperammonemia Is this a current diagnosis for this admission?: Yes Plan: Repeat RUQ US does reveal coarse liver echotexture. Her chronic hyperammonemia is still likely related to cirrhosis. (3) Chronic atrial fibrillation Is this a current diagnosis for this admission?: Yes Plan: Continue metoprolol and cardizem. Not on anticoagulation due to previous recurrent GI bleeds. - Plan Summary Summary: 11/26/2019 Complicated case where the patient was sent from the half-way for psych e valuation but also reportedly signed herself out AMA from the half-way. [employer] patient was to be kept in the emergency room overnight and her potassium was to be treated, she was to be started on Depakote and then sent back to half-way. Patient was cleared from the psychiatric standpoint on 11/14/2019 However it looks as though the patient remained in the emergency room for multiple days and was managed by the hospitalist during that time. Initial ER consult was done on November 17 he was eventually moved up to the floor and is being treated for hyponatremia, hyperkalemia, hypoxia, encephalopathy, evaded ammonia levels. History and physical was done by the hospitalist on November 21. Patient was also seen by cardiology in consultation on the . Cardiology felt that her atrial fib and rate was well controlled. Patient should not be on any anticoagulants due to her GI bleed The patient had likely diastolic heart failure This x-ray from 2 days ago shows cardiomegaly with coronary calcification aortic calcification and thyroid enlargement with coarse calcification, however the lungs are clear Abdominal ultrasound from 2 days ago show, diffuse coarse echotexture of the li yoav but no ascites Discharge planning is working with placement. It has been denied at one location [facility], discharge planning is currently waiting for call from another facility. CT scan of the chest was done 2 days ago which showed the lungs are clear and the heart was enlarged with coronary calcification, well is calcification of the thyroid CBC is normal today potassium is down to 4.8 BUN of 20 creatinine 1.1 cm 9.1 magnesium 2.2 She is medically stable for discharge once placement has been established 11/27/2019 Vital signs are stable Respirations very anywhere from 18-28 and patient is either on BiPAP or nasal cannula Potassium levels gone back up to 5.4 therefore Kayexalate will be ordered Sodium is stable at 132 Patient has been switched to spironolactone as her diuretic Renal functions appear stable Patient is on multiple medications Patient is medically stable for discharge when placement has been found 11/28/2019 I am not sure if patient grasp her situation as far as discharge. Patient will be too much care for home, will need to be placed in intermediate or rehab Temperature 98.2, pulse between 80 and 100 and regular blood pressure 124/69, O2 sat 100% on nasal cannula, 2 L I written an order for DC of BiPAP, labs from this morning are still pending. She is currently on Kayexalate due to an elevated potassium yesterday 11/29/2019 Patient's religious is now involved with placement placement. Patient is not medically safe to be discharged to her own care. Will need assistance at the time of discharge. Patient's potassium was low couple days ago it has not been rechecked until today which is pending All of patient's vital signs are stable 11/30/2019 Temperature 98 pulse between 90 and 108, blood pressure 130/67. O2 sat 98% on room air, sometimes patient uses 2 L of nasal cannula CBC is normal and stable, electrolytes are grossly normal renal function continues to improve According to the nurses patient will quite frequently be confused and say things that are not appropriate. Patient is unable to go home and care for herself. She would need someone at home with her. Review of all of her medications seem appropriate. Patient is waiting on placement issues. 12/01/2019 Vital signs remained very stable, no abnormalities Labs are stable we will repeat them in the morning Patient's mental status waxes and wanes. Time she is alert and oriented x4 and other times she is confused and does not make any sense when she talks. Patient will need somebody with her when she is discharged. 12/02/2019 Vital signs are stable temperature 98.4, pulse around 84, blood pressure 141/70, O2 sat 100% on 2 L nasal cannula. Lab work is all normal. It is medically stable for long-term placement, intermediate facility. Patient has 24-hour 7 assistance at home I do not think it would be appropriate to send her home. Patient was originally admitted for hypokalemia elevated ammonia level, disposition problems with placement from half-way. Patient evidently had signed herself out AMA from the half-way after pulling the fire alarm on multiple occasions - Time Time Spent with patient: 15-24 minutes
[2019-12-04] MEDS: FLUTICASONE/VILANTEROL 100-25 MCG/DOSE IH SCH (13:34)
[2019-12-04] MEDS: ATORVASTATIN CALCIUM 20 MG TABLET PO SCH (21:47)
[2019-12-05] MEDS: HEPARIN SOD (PORCINE) 5,000 UNIT/ML 1 ML VIAL SUBCUT SCH ×2 (05:21→15:28)
[2019-12-05] MEDS: LEVOTHYROXINE SODIUM 0.1 MG TABLET PO SCH (05:21)
[2019-12-05] MEDS: PANTOPRAZOLE SODIUM 40 MG TABLET.DR PO SCH (05:21)
[2019-12-05] MEDS: DILTIAZEM HCL 120 MG CAP.SR.24H PO SCH (10:51)
[2019-12-05] MEDS: METOPROLOL SUCCINATE 25 MG TAB.SR.24H PO SCH (10:52)
[2019-12-05] MEDS: CLOPIDOGREL BISULFATE 75 MG TABLET PO SCH (10:52)
[2019-12-05] MEDS: SPIRONOLACTONE 25 MG TABLET PO SCH (10:52)
[2019-12-05] MEDS: NITROGLYCERIN 5 MG (0.2 MG/HR) PATCH.TD24 TOP SCH (10:52)
[2019-12-05] MEDS: FLUTICASONE/VILANTEROL 100-25 MCG/DOSE IH SCH (10:53)
[2019-12-05 12:11] LABS: ANION GAP 5 (5-19); BLOOD UREA NITROGEN 14 mg/dL (7-20); CALCIUM 7.8 mg/dL (8.4-10.2); CARBON DIOXIDE 37 mmol/L (22-30); CHLORIDE 96 mmol/L (98-107); GLUCOSE 247 mg/dL (75-110); POTASSIUM 4.3 mmol/L (3.6-5.0)
--- NOTE | 2019-12-05 13:12 | PDOC TRANSFER SUMMARY ---
Impression - Admit/DC Date/PCP Admission Date/Primary Care Provider: 11/21/19 17:14 KEYLA WATTS MD Discharge Date: 12/05/19 - Discharge Diagnosis (1) Hypokalemia Is this a current diagnosis for this admission?: Yes (2) Hyperammonemia Is this a current diagnosis for this admission?: Yes (3) Chronic atrial fibrillation Is this a current diagnosis for this admission?: Yes (4) COPD (chronic obstructive pulmonary disease) Is this a current diagnosis for this admission?: Yes (5) Cirrhosis Is this a current diagnosis for this admission?: Yes - Assessment Summary: 11/26/2019 Complicated case where the patient was sent from the residential for psych evaluation but also reportedly signed herself out AMA from the residential. 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 Patient was cleared from the psychiatric standpoint on 11/14/2019 However it looks as though the patient remained in the emergency room for multiple days and was managed by the hospitalist during that time. Initial ER consult was done on November 17 he was eventually moved up to the floor and is being treated for hyponatremia, hyperkalemia, hypoxia, encephalopathy, evaded ammonia levels. History and physical was done by the hospitalist on November 21. Patient was also seen by cardiology in consultation on the . Cardiology felt that her atrial fib and rate was well controlled. Patient should not be on any anticoagulants due to her GI bleed The patient had likely diastolic heart failure This x-ray from 2 days ago shows cardiomegaly with coronary calcification aortic calcification and thyroid enlargement with coarse calcification, however the lungs are clear Abdominal ultrasound from 2 days ago show, diffuse coarse echotexture of the liver but no ascites Discharge planning is working with placement. It has been denied at one location [facility], discharge planning is currently waiting for call from another facility. CT scan of the chest was done 2 days ago which showed the lungs are clear and the heart was enlarged with coronary calcification, well is calcification of the thyroid CBC is normal today potassium is down to 4.8 BUN of 20 creatinine 1.1 cm 9.1 magnesium 2.2 She is medically stable for discharge once placement has been established 11/27/2019 Vital signs are stable Respirations very anywhere from 18-28 and patient is either on BiPAP or nasal cannula Potassium levels gone back up to 5.4 therefore Kayexalate will be ordered Sodium is stable at 132 Patient has been switched to spironolactone as her diuretic Renal functions appear stable Patient is on multiple medications Patient is medically stable for discharge when placement has been found 11/28/2019 I am not sure if patient grasp her situation as far as discharge. Patient will be too much care for home, will need to be placed in alf or rehab Temperature 98.2, pulse between 80 and 100 and regular blood pressure 124/69, O2 sat 100% on nasal cannula, 2 L I written an order for DC of BiPAP, labs from this morning are still pending. She is currently on Kayexalate due to an elevated potassium yesterday 11/29/2019 Patient's samaritan is now involved with placement placement. Patient is not medically safe to be discharged to her own care. Will need assistance at the time of discharge. Patient's potassium was low couple days ago it has not been rechecked until today which is pending All of patient's vital signs are stable 11/30/2019 Temperature 98 pulse between 90 and 108, blood pressure 130/67. O2 sat 98% on room air, sometimes patient uses 2 L of nasal cannula CBC is normal and stable, electrolytes are grossly normal renal function continues to improve According to the nurses patient will quite frequently be confused and say things that are not appropriate. Patient is unable to go home and care for herself. She would need someone at home with her. Review of all of her medications seem appropriate. Patient is waiting on placement issues. 12/01/2019 Vital signs remained very stable, no abnormalities Labs are stable we will repeat them in the morning Patient's mental status waxes and wanes. Time she is alert and oriented x4 and other times she is confused and does not make any sense when she talks. Patient will need somebody with her when she is discharged. 12/02/2019 Vital signs are stable temperature 98.4, pulse around 84, blood pressure 141/70, O2 sat 100% on 2 L nasal cannula. Lab work is all normal. It is medically stable for long-term placement, alf facility. Patient has 24-hour 7 assistance at home I do not think it would be appropriate to send her home. Patient was originally admitted for hypokalemia elevated ammonia level, disposition problems with placement from residential. Patient evidently had signed herself out AMA from the residential after pulling the fire alarm on multiple occasions - Additional Information Resuscitation Status: Full Code Referrals: JOVANI LANDAVERDE MD [NO LOCAL MD] - Follow up as needed EDVIN TOMLIN MD [NO LOCAL MD] - 12/16/19 9:00 am Prescriptions: Fluticasone/Salmeterol [Advair 250-50 Diskus 14 Dose/Diskus] 1 inh IH Q12H #1 inhaler Spironolactone [Aldactone 25 mg Tablet] 25 mg PO Q12 #60 tablet Ipratropium/Albuterol Sulfate [Duoneb 3 ml Ampul] 3 ml NEB [id number] PRN #30 vial.neb PRN Reason: Tiotropium Semmes [Spiriva Handihaler 5 Cap/Kit (18 Mcg/Cap)] 1 cap IH DAILY #30 capsule Levothyroxine Sodium [Synthroid 0.1 mg Tablet] 0.1 mg PO Q6AM #30 Home Medications: Atorvastatin Calcium [Lipitor 20 mg Tablet] 20 mg PO QHS 06/06/19 Clopidogrel Bisulfate [Plavix 75 mg Tablet] 75 mg PO DAILY 06/06/19 Diltiazem HCl [Diltiazem 12Hr ER] 120 mg PO Q12 06/06/19 Pantoprazole Sodium [Protonix [address] Tablet] 40 mg PO Q6AM 06/06/19 Metoprolol Succinate [Toprol Xl 25 mg Tab.sr] 25 mg PO DAILY 11/18/19 Fluticasone/Salmeterol [Advair 250-50 Diskus 14 Dose/Diskus] 1 inh IH Q12H #1 inhaler 12/05/19 Ipratropium/Albuterol Sulfate [Duoneb 3 ml Ampul] 3 ml NEB [id number] PRN #30 vial.neb 12/05/19 Lactulose [Cephulac Syrup 20 gm/30 ml Udcup] 10 gm PO Q12 #0 12/05/19 Levothyroxine Sodium [Synthroid 0.1 mg Tablet] 0.1 mg PO Q6AM #30 12/05/19 Spironolactone [Aldactone 25 mg Tablet] 25 mg PO Q12 #60 tablet 01/30/20 Tiotropium Semmes [Spiriva Handihaler 5 Cap/Kit (18 Mcg/Cap)] 1 cap IH DAILY #30 capsule 12/05/19 History of Present Illiness History of Present Illness: Consult Note on 11/17/19: MICHAEL BOWLING is a 64 year old female with a past medical history of mitral valve regurgitation, chronic diastolic heart failure, MECHELLE on CPAP, chronic atrial fibrillation not on anticoagulation, COPD on 2 L of home O2 and chronic hypokalemia who was reportedly brought in by her son to the ER due to concerns of confusion at home. She was found to have hypokalemia in the ER and was given potassium replacements but was persistently hypokalemic. She was also continued on her home torsemide. Hospitalist was consulted for further recommendations and comanagement. Upon encounter, patient appears comfortable and is saturating well on room air. She is pleasant and is very coherent. She is well oriented and is oriented to person, place and time and situation. She says that she knows she is in [facility] she is able to tell me that it is November 16, 2019 today. When asked why she was brought into the ER, she says that her son thinks that she has been confused at home. She denies acute complaints and denies any chest pain, shortness of breath, vomiting, dizziness, headache or diarrhea. She appears c ompetent and is actually able to tell me the intricacies of her multiple comorbidities. When asked how long has she been on diuretic, she says that this started a few years ago when she was binging on salt and was retaining a lot of fluid and developed significant bipedal edema. She says that she was an avid salt eater because she really likes her food salty. She says that she used to use more than 5 tablespoons of salt every day and in a few times in the past, she would eat half a handful of salt. She says she was also told by her PCP and painting department supervisor that she has chronic heart failure. She says that she was seen by Dr. Peñaloza before but she was also seen by a painting department supervisor at [facility] in [place] and reports that she had an echo done last year at [facility]. She says that she has significantly cut down on her salt intake and her chronic bipedal edema has significantly improved. She tells me that she was started on Lasix before by Dr. Watts and was switched to torsemide because of her low potassium levels. She is also able to tell me that she was told she had an elevated ammonia in August. She says that she also has atrial fibrillation and was on Coumadin before. However she verbalized she had 2 episodes of GI bleed while on Coumadin and hence was taken off the Coumadin. When asked if the bleeding source was identified, she says that she had an endoscopy done by Dr. Sequeira and was found to have multiple colonic polyps. She said she had prior polypectomies but due to recurrence of bleeding, she was eventually taken off the Coumadin. She says that she was told that the polyps were benign. She says that she was discharged to [facility] in August 2019 but left the residential sometime after Radha. When asked why she left and when reported b ehavior of her putting down fire alarms was verified, she says that she was not very cooperative at [facility] because she did not want to stay there for a long time. She says that she and her son have been trying to find a place for her to stay but they do not have the financial means for it. She says that she has been homeless and has been switching from living in houses of different friends. She also says she is a Rastafari and expressed she wants me to be aware of that. 11/21: This morning, patient got out of bed and was noted to be tachycardic in the 150s to 160s. She was reported to be hypoxic at 86% during the episodes. She was also reported to be confused during the event. This lasted only for a few minutes per RN and ER provider. Upon reassessment, patient appears comfo rtable in bed. Heart rate has improved to the 90s to low 100s. She is at her baseline mentation and is AO x4 on reassessment. Discussed patient's directive. She says she is a full code and prefers to receive chest compressions, defibrillation or mechanical ventilation. However she verbalizes she does not want to be on prolonged ventilation nor does she want to pursue tracheostomy. She says that her son, is her surrogate medical decision maker. Hospital Course Hospital Course: This is a 64-year-old female who was admitted for profound hypokalemia and atrial fibrillation. Her hypokalemia was likely related to torsemide intake. Her torsemide was discontinued and she was switched to Aldactone. She was also getting potassium supplements initially. Her potassium did normalize. Her potassium supplements were later discontinued. She was kept on Aldactone at 25 mg every 12 and her potassium level stabilized. She also has chronic hyperammonemia. She had prior ultrasound last year which showed fatty liver. Work-up for hyperammonemia was pursued and only remarkable finding was signs of early cirrhosis on repeat abdominal ultrasound. 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 Her hospitalization was prolonged due to placement issues. She also has COPD and her regimen was revised to include Advair, Spiriva and breathing treatments. She had an episode of atrial fibrillation with RVR but this promptly was rate controlled with p.o. Lopressor and Cardizem. She is a very poor candidate for long-term anticoagulation due to recurrent episodes of GI bleed. She has prior EGDs and colonoscopies which revealed multiple polyps on the stomach and extensive polyps in the colon as well. Differentials include Peutz-Jeghers, ORACIO/PTEN hamartoma sybndrome and Cronkhite-Earl syndrome. Patient returned to her baseline. She will be discharged to [facility]. She he will also follow-up with her painting department supervisor at [facility] in [facility] as she was considered to be a possible candidate for Watchman device placement. Physical Exam Vital Signs: Temp Pulse Resp BP Pulse Ox 97.5 F 89 17 115/68 100 12/05/19 08:03 12/05/19 08:03 12/05/19 08:03 12/05/19 08:03 12/05/19 08:03 Intake & Output 12/04/19 12/05/19 12/06/19 06:59 06:59 06:59 Intake Total 900 461 Output Total 100 500 Balance 800 -39 Weight 307 lb 8.717 oz 314 lb 13.121 oz General appearance: PRESENT: no acute distress, well-developed, well-nourished Head exam: PRESENT: atraumatic, normocephalic Eye exam: PRESENT: conjunctiva pink, EOMI, PERRLA. ABSENT: scleral icterus Ear exam: PRESENT: normal external ear exam Mouth exam: PRESENT: moist, tongue midline Neck exam: ABSENT: carotid bruit, JVD, lymphadenopathy, thyromegaly Respiratory exam: PRESENT: rhonchi. ABSENT: rales, wheezes Cardiovascular exam: PRESENT: RRR. ABSENT: diastolic murmur, rubs, systolic murmur Pulses: PRESENT: normal dorsalis pedis pul GI/Abdominal exam: PRESENT: normal bowel sounds, soft. ABSENT: distended, guarding, mass, organolmegaly, rebound, tenderness Rectal exam: PRESENT: deferred Neurological exam: PRESENT: alert, awake, oriented to person, oriented to place, oriented to time, CN II-XII grossly intact. ABSENT: motor sensory deficit Results Laboratory Results: WBC 9.4 10^3/uL (4.0-10.5) 12/02/19 04:06 RBC 4.53 10^6/uL (3.72-5.28) 12/02/19 04:06 Hgb 10.0 g/dL (12.0-15.5) L 12/02/19 04:06 Hct 30.8 % (36.0-47.0) L 12/02/19 04:06 MCV 68 fl (80-97) L 12/02/19 04:06 MCH 22.0 pg (27.0-33.4) L 12/02/19 04:06 MCHC 32.3 g/dL (32.0-36.0) 12/02/19 04:06 RDW 16.4 % (11.5-14.0) H 12/02/19 04:06 Plt Count 263 10^3/uL (150-450) 12/02/19 04:06 Lymph % (Auto) 9.0 % (13-45) L 12/02/19 04:06 Redwood % (Auto) 16.8 % (3-13) H 12/02/19 04:06 Eos % (Auto) 2.0 % (0-6) 12/02/19 04:06 Baso % (Auto) 0.7 % (0-2) 12/02/19 04:06 Absolute Neuts (auto) 6.7 10^3/uL (1.7-8.2) 12/02/19 04:06 Absolute Lymphs (auto) 0.8 10^3/uL (0.5-4.7) 12/02/19 04:06 Absolute Monos (auto) 1.6 10^3/uL (0.1-1.4) H 12/02/19 04:06 Absolute Eos (auto) 0.2 10^3/uL (0.0-0.6) 12/02/19 04:06 Absolute Basos (auto) 0.1 10^3/uL (0.0-0.2) 12/02/19 04:06 Total Counted 100 11/26/19 04:30 Seg Neutrophils % 71.5 % (42-78) 12/02/19 04:06 Seg Neuts % (Manual) 92 % (42-78) H 11/26/19 04:30 Lymphocytes % (Manual) 2 % (13-45) L 11/26/19 04:30 Atypical Lymphs % 1 % (0) 11/26/19 04:30 Monocytes % (Manual) 5 % (3-13) 11/26/19 04:30 Eosinophils % (Manual) 0 % (0-6) 11/26/19 04:30 Basophils % (Manual) 0 % (0-2) 11/26/19 04:30 Abs Neuts (Manual) 9.8 10^3/uL (1.7-8.2) H 11/26/19 04:30 Abs Lymphs (Manual) 0.3 10^3/uL (0.5-4.7) L 11/26/19 04:30 Abs Monocytes (Manual) 0.5 10^3/uL (0.1-1.4) 11/26/19 04:30 Absolute Eos (Manual) 0.0 10^3/uL (0.0-0.6) 11/26/19 04:30 Abs Basophils (Manual) 0.0 10^3/uL (0.0-0.2) 11/26/19 04:30 Toxic Granulation SLIGHT 11/26/19 04:30 Toxic Vacuolation PRESENT 11/18/19 02:52 Platelet Comment ADEQUATE 11/26/19 04:30 Poikilocytosis 1+ 11/26/19 04:30 Anisocytosis 1+ 11/26/19 04:30 Microcytosis SLIGHT 11/26/19 04:30 Tear Drop Cells SLIGHT 11/18/19 02:52 Ovalocytes 1+ 11/26/19 04:30 Vladimir Cells 1+ 11/18/19 02:52 Acanthocytes (Spur) 1+ 11/26/19 04:30 Schistocytes SLIGHT 11/26/19 04:30 Carbonic Acid 0.85 mmol/L (1.05-1.35) L 11/23/19 16:54 HCO3/H2CO3 Ratio 21:1 11/23/19 16:54 ABG pH 7.42 (7.35-7.45) 11/23/19 16:54 ABG pCO2 28.4 mmHg (35-45) L 11/23/19 16:54 ABG pO2 121.9 mmHg (80-100) H 11/23/19 16:54 ABG HCO3 18.2 mmol/L (20-24) L 11/23/19 16:54 ABG Total CO2 19.0 mmol/L (21-25) L 11/23/19 16:54 ABG O2 Saturation 98.5 % (94-98) H 11/23/19 16:54 ABG Base Excess -5.0 mmol/L 11/23/19 16:54 FiO2 2L 11/23/19 16:54 Sodium 135.6 mmol/L (137-145) L 12/02/19 04:06 Potassium 4.2 mmol/L (3.6-5.0) 12/02/19 04:06 Chloride 103 mmol/L (98-107) 12/02/19 04:06 Carbon Dioxide 26 mmol/L (22-30) 12/02/19 04:06 Anion Gap 7 (5-19) 12/02/19 04:06 BUN 9 mg/dL (7-20) 12/02/19 04:06 Creatinine 0.58 mg/dL (0.52-1.25) 12/02/19 04:06 Est GFR ( Amer) > 60 (>60) 12/02/19 04:06 Est GFR (MDRD) Non-Af > 60 (>60) 12/02/19 04:06 Glucose 83 mg/dL (75-110) 12/02/19 04:06 POC Glucose 118 mg/dL (70-110) H 11/22/19 12:45 Calcium 8.7 mg/dL (8.4-10.2) 12/02/19 04:06 Magnesium 2.2 mg/dL (1.6-2.3) 11/26/19 04:30 Total Bilirubin 0.4 mg/dL (0.2-1.3) 11/26/19 04:30 Direct Bilirubin 0.3 mg/dL (0.0-0.4) 11/26/19 04:30 Neonat Total Bilirubin Not Reportable 11/26/19 04:30 Neonat Direct Bilirubin Not Reportable 11/26/19 04:30 Neonat Indirect Bili Not Reportable 11/26/19 04:30 GGT 29 U/L (8-78) 11/18/19 16:54 AST 30 U/L (14-36) 11/26/19 04:30 ALT 21 U/L (<35) 11/26/19 04:30 Alkaline Phosphatase 153 U/L (38-126) H 11/26/19 04:30 Ammonia 17.1 umol/L (9-33) 11/24/19 08:27 Troponin I < 0.012 ng/mL 11/14/19 18:37 NT-Pro-B Natriuret Pep 1170 pg/mL (<125) H 11/18/19 02:52 Total Protein 6.2 g/dL (6.3-8.2) L 11/26/19 04:30 Albumin 2.6 g/dL (3.5-5.0) L 11/26/19 04:30 TSH 0.36 uIU/mL (0.47-4.68) L 11/14/19 18:37 Free T4 1.99 ng/dL (0.78-2.19) 11/14/19 18:37 Free T3 pg/mL 3.09 pg/mL (2.77-5.27) 11/17/19 12:16 Urine Color STRAW 11/14/19 13:46 Urine Appearance CLEAR 11/14/19 13:46 Urine pH 7.0 (5.0-9.0) 11/14/19 13:46 Ur Specific Oxford 1.005 11/14/19 13:46 Urine Protein NEGATIVE mg/dL (NEGATIVE) 11/14/19 13:46 Urine Glucose (UA) NEGATIVE mg/dL (NEGATIVE) 11/14/19 13:46 Urine Ketones NEGATIVE mg/dL (NEGATIVE) 11/14/19 13:46 Urine Blood NEGATIVE (NEGATIVE) 11/14/19 13:46 Urine Nitrite NEGATIVE (NEGATIVE) 11/14/19 13:46 Urine Bilirubin NEGATIVE (NEGATIVE) 11/14/19 13:46 Urine Urobilinogen NEGATIVE mg/dL (<2.0) 11/14/19 13:46 Ur Leukocyte Esterase NEGATIVE (NEGATIVE) 11/14/19 13:46 Urine WBC (Auto) 1 /HPF 11/14/19 13:46 Urine RBC (Auto) 0 /HPF 11/14/19 13:46 U Hyaline Cast (Auto) 1 /LPF 11/14/19 13:46 Squamous Epi Cells Auto 1 /HPF 11/14/19 13:46 Urine Mucus (Auto) RARE /LPF 11/14/19 13:46 Urine Ascorbic Acid NEGATIVE (NEGATIVE) 11/14/19 13:46 Salicylates < 1.0 mg/dL (2.0-20.0) L 11/14/19 18:37 Urine Opiates Screen NEGATIVE 11/14/19 13:46 Urine Methadone Screen NEGATIVE 11/14/19 13:46 Acetaminophen < 10 ug/mL (10-30) L 11/14/19 18:37 Ur Barbiturates Screen NEGATIVE 11/14/19 13:46 Ur Phencyclidine Scrn NEGATIVE 11/14/19 13:46 Ur Amphetamines Screen NEGATIVE 11/14/19 13:46 U Benzodiazepines Scrn UNCONFIRMED POSITIVE 11/14/19 13:46 Urine Cocaine Screen NEGATIVE 11/14/19 13:46 U Marijuana (THC) Screen NEGATIVE 11/14/19 13:46 Serum Alcohol < 10 mg/dL (NONE DETECTED) 11/14/19 18:37 Hepatitis A IgM Ab Indeterminate (Negative) H 11/18/19 16:54 Hep Bs Antigen Negative (Negative) 11/18/19 16:54 Hep B Core IgM Ab Negative (Negative) 11/18/19 16:54 Hepatitis C Antibody <0.1 s/co ratio (0.0-0.9) 11/18/19 16:54 11/14/19 11/18/19 18:37 02:52 Troponin I < 0.012 NT-Pro-B Natriuret Pep 1170 H Impressions: Chest X-Ray 11/14/19 14:05 IMPRESSION: HEART ENLARGED WITHOUT FAILURE. NO OTHER SIGNIFICANT RADIOGRAPHIC FINDING IN THE CHEST. Head CT 11/14/19 15:31 IMPRESSION: NORMAL BRAIN CT WITHOUT CONTRAST. EVIDENCE OF ACUTE STROKE: NO. Chest X-Ray 11/21/19 12:00 IMPRESSION: HEART ENLARGED WITHOUT FAILURE. NO OTHER SIGNIFICANT RADIOGRAPHIC FINDING IN THE CHEST. Chest X-Ray 11/23/19 11:01 IMPRESSION: CARDIAC ENLARGEMENT. VASCULAR CONGESTION. Abdomen Ultrasound 11/24/19 00:00 IMPRESSION: Medical hepatic disease. No ascites. Chest CT 11/24/19 00:00 IMPRESSION: Lungs are grossly clear. The heart is enlarged with coronary calcification. Coarse calcifications within the thyroid. TECHNICAL DOCUMENTATION: Quality ID # [id number]: Final reports with documentation of one or more dose reduction techniques (e.g., Automated exposure control, adjustment of the mA and/or kV according to patient size, use of iterative reconstruction technique) copyright 2011 [employer]- All Rights Reserved Stroke Is this a Stroke Patient?: No Acute Heart Failure - Is this a Heart Failure Patient?: No
[2019-12-05 14:05] VITALS: BP 118/73
== END 2019-12-05 16:30 ==
LOC: ER 13:00 → EH 13:01 → UNDOADMOB 13:01 → ER 11-15 13:14 → EH 11-21 17:14 → 4W 11-21 21:40 → 3N 11-23 17:26
PROVIDERS: ADMIT Internal Medicine; ATTEND Internal Medicine
DX: E87.6 Hypokalemia (principal); E72.20 Disorder of urea cycle metabolism, unspecified; J44.1 Chronic obstructive pulmonary disease with (acute) exacerbation; K74.60 Unspecified cirrhosis of liver; I48.20 Chronic atrial fibrillation, unspecified; E87.1 Hypo-osmolality and hyponatremia; R09.02 Hypoxemia; G93.40 Encephalopathy, unspecified; I25.10 Atherosclerotic heart disease of native coronary artery without angina pectoris; E03.9 Hypothyroidism, unspecified; E66.01 Morbid (severe) obesity due to excess calories; G47.33 Obstructive sleep apnea (adult) (pediatric); E87.3 Alkalosis; Z75.1 Person awaiting admission to adequate facility elsewhere; K76.0 Fatty (change of) liver, not elsewhere classified; I11.0 Hypertensive heart disease with heart failure; I50.33 Acute on chronic diastolic (congestive) heart failure; R40.4 Transient alteration of awareness; R45.1 Restlessness and agitation; F03.91 Unspecified dementia, unspecified severity, with behavioral disturbance; Z87.19 Personal history of other diseases of the digestive system; T80.89XA Other complications following infusion, transfusion and therapeutic injection, initial encounter; M79.602 Pain in left arm; R60.0 Localized edema; Y84.8 Other medical procedures as the cause of abnormal reaction of the patient, or of later complication, without mention of misadventure at the time of the procedure; Y92.538 Other ambulatory health services establishments as the place of occurrence of the external cause; Z86.010 Personal history of colon polyps; Z99.81 Dependence on supplemental oxygen; Z90.11 Acquired absence of right breast and nipple; Z85.3 Personal history of malignant neoplasm of breast; Z79.02 Long term (current) use of antithrombotics/antiplatelets; Z82.49 Family history of ischemic heart disease and other diseases of the circulatory system; Z79.899 Other long term (current) drug therapy; Z87.440 Personal history of urinary (tract) infections
CPT/HCPCS: 93005; 99285; 36415 ×11; 84439; 82962; 80307 ×4; 82140 ×3; 82803 ×2; 82977; 83735 ×4; 84132 ×3; 84443; 85025 ×6; 80048 ×7; 80053 ×3; 81001; 84484; 84481; 80074; 83880; 71045 ×3; 76700; 93976; 70450; 71250; 93010; 36600 ×2; 94660 ×12; 94640 ×4; 97530 ×5; 97116 ×3; 97110; 97535 ×3; A9270 ×189; J1644 ×15; J1940; J2920 ×4; J3480 ×4; J3490 ×16; J7620